=== PATIENT | male | born 1950 | race Caucasian/White ===

== ENCOUNTER → 2021-03-05 02:07 | Outpatient (CLI) | payer MEDICARE, SELFPAY ==
[2021-03-05 17:04] LABS: SARS-CoV-2 RNA PCR Negative
== END ==
PROVIDERS: PCP Internal Medicine; Visit Provider Internal Medicine Critical Care Medicine
DX: G47.33 Obstructive sleep apnea (adult) (pediatric) (principal); Z20.822 Contact with and (suspected) exposure to COVID-19
CPT/HCPCS: C9803; U0003; U0005

== ENCOUNTER 2021-03-07 07:58 | Outpatient (CLI) | payer MEDICARE, SELFPAY ==
--- NOTE | 2021-03-19 10:52 | WPDSLEEPSTUD ---
Sleep Study Date of Study: 03/07/21 Ordering Provider: Anup Espinoza MD Primary care physician is Dr. 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 No sleep questionnaire was completed so there is no specific information about his sleep history. His office visit with Dr. Cisneros shows that he has coronary artery disease syncope, dyslipidemia, and shortness of breath. [facility] Past Medical History Medical History (Updated 03/19/21 @ 11:16 by Erica Phillips MD) Coronary artery disease Dyslipidemia Obstructive sleep apnea Shortness of Breath Syncope Family History Family History (Updated 03/19/21 @ 11:02 by Erica Phillips MD) Father Diabetes mellitus Heart disease Hypertension Acute myocardial infarction sudden cardiac Cerebrovascular accident Mother Hypertension Cerebrovascular accident Social History Social History (Updated 03/19/21 @ 11:15 by Erica Phillips MD) Smoking status: Never smoker Medications Medications: Rosuvastatin 20 mg daily cetirizine pseudoephedrine 5 mg/120 mg q.12 hours sildenafil citrate 100 mg p.r.n. losartan potassium 50 mg 1 daily vitamin D 21948 units weekly aspirin 81 mg daily multivitamin 1 daily Flomax 0.4 mg daily finasteride 1 daily Sleep Procedure This test was performed using the Beepl multiple channel system including EOG, EEG, submental EMG, EKG, nasal and oral airflow using thermistors and nasal pressure sensors, chest and abdominal belts for body position data, and pulse oximetry. Video monitoring was also performed. The study was scored using CMS guidelines. The patient was started on CPAP using a medium Mcclendon FX nasal pillow and heated humidifier. CPAP was started at 5 cm with gradual titration to 7 cm to help the patient initiates sleep. Pressures attempted included 5 cm, 6 cm, 7 cm, 8 cm, 9 cm, 10 cm, decreased to 9 cm, 9 cm with 2 cm EPR, 9 cm with 1 cm EPR. The optimal pressure is 9 cm with 2 EPR, With 1 hour 18 minutes spent in bed at that pressure, 10 minutes in REM, 56 minutes in non-REM. The AHI was 0.1. Lowest saturation 90% with sleep efficiency 84% and supine REM. Sleep Architecture The recording time is 457.3 minutes. Sleep time is 176 minutes. Sleep efficiency is low 38.5%. Sleep latency is long 59.9 minutes. REM latency extremely prolonged to 162.5 minutes. They are 29 awakenings. The patient spent 55.7% of the study awake after sleep onset, 221 minutes. Sleep architecture showed 11.6% stage 1 sleep, 27.2% stage 2 sleep, absence of stage 3 sleep and 5.5% stage REM. The patient spent 29.8% of this study in the supine position. Sleep architecture was abnormal with prolonged sleep onset, and the patient was awake for 2/3 of the study. He had scattered small episodes of REM towards the end of the night. Respiratory Analysis The apnea-hypopnea index is 1.0. He had no events in supine REM. There were no events in nonsupine REM. In supine non-REM he had 2 obstructive hypopneas for an index of 1.2. In nonsupine non-REM he had 1 obstructive hypopnea for an index of 1.1. Supine index is 1, nonsupine index is 1. Arousals There were 102 arousals for an index of 13.4. There is 1 hypopnea causing arousal for an index of 0.1, 19 snores causing arousal for an index of 2.5, 31 spontaneous arousals for an index of 4.1 and 51 limb movements causing arousal for an index of 6.7. Periodic Limb Movements There are 268 limb isolated limb movements for an index of 91.4. The
[2021-03-19 11:19] VITALS: BMI 31.6
== END 2021-03-08 06:56 | disposition home or self-care (01) ==
LOC: ANHCSM 07:59
PROVIDERS: PCP Internal Medicine
DX: G47.33 Obstructive sleep apnea (adult) (pediatric) (principal)
CPT/HCPCS: 95811

== ENCOUNTER 2021-05-03 00:11 | Day surgery (SDC) | payer MEDICARE, SELFPAY ==
[2021-04-20 10:26] VITALS: BMI 31.6
[2021-05-03 06:24] VITALS: BP 137/73; PULSE 59; RESP 20; TEMP 36.4; O2SAT 98; BMI 29.7
[2021-05-03] MEDS: LACTATED RINGERS 1,000 ML 30 ML IV CONT (06:33)
--- NOTE | 2021-05-03 06:52 | WPDANESEPPF ---
Anes - Initial Pre Proc Eval Procedure: Operation Date: 05/03/21 07:30 Proposed Procedures p Screening Colonoscopy - Dhaval Cheney MD Date/Time: 05/03/21 06:52 Surgeon: Dhaval Cheney MD Pre Op Diagnosis: neoplasm screening Patient Data Age: 70 Gender: M Height: 1.78 m Weight: 94 kg Last Vital Signs Temp 36.4 C 05/03/21 06:24 Pulse 59 L 05/03/21 06:24 Resp 20 05/03/21 06:24 BP 137/73 05/03/21 06:24 Pulse Ox 98 05/03/21 06:24 Allergies Allergy/AdvReac Type Severity Reaction Status Date / Time oxytetracycline Allergy Mild Unknown Verified 05/03/21 06:22 OXYTETRACYCLINE HCL Allergy Mild Unknown Uncoded 05/03/21 06:22 Home Medications Medication Instructions Recorded Confirmed Type finasteride 5 mg PO DAILY 04/19/21 05/03/21 History fluticasone propionate 50 mcg INTRANASAL DAILY 04/19/21 05/03/21 History ipratropium bromide 42 mcg INTRANASAL DAILY 04/19/21 05/03/21 History loratadine 10 mg PO DAILY 04/19/21 05/03/21 History losartan 50 mg PO DAILY 04/19/21 05/03/21 History rosuvastatin 20 mg PO DAILY 04/19/21 05/03/21 History sildenafil 100 mg PO DAILY PRN 04/19/21 05/03/21 History tamsulosin 0.4 mg PO DAILY 04/19/21 05/03/21 History aspirin 81 mg PO DAILY 04/20/21 05/03/21 History cetirizine 10 mg PO DAILY 04/20/21 05/03/21 History bn-dk-BU-vit H-[id number]-[id number]-coQ10 200 cap PO DAILY 04/20/21 05/03/21 History [Daily Multivitamin] Patient hx anesthesia problems: none Family hx anesthesia problems: none PMFSH Past Medical History Medical History Coronary artery disease Dyslipidemia Obstructive sleep apnea Shortness of Breath Syncope Surgical History Surgical History (Updated 05/03/21 @ 06:52 by Tejas Malone MD) History of appendectomy History of shoulder surgery Hx of tonsillectomy Family History Family History Father Diabetes mellitus Heart disease Hypertension Acute myocardial infarction sudden cardiac Cerebrovascular accident Mother Hypertension Cerebrovascular accident Social History Social History Smoking status: Never smoker Alcohol intake: current Alcohol use details: RARELY Substance use: never Substance use type: does not use Living arrangements: with family Gender identity (if verbalized by the patient): Male Spiritual care concerns: No Anes - Eval Final PreProcedure Day of Procedure 05/03/21 06:52 Patient weight: overweight Heart: regular rate and rhythm Lungs: clear to auscultation Airway: Mallampati scale class II Neurological: alert and oriented Last oral intake: >/= 8 hours ASA classification: III Emergent: no Anesthetic plan: proceed Anesthesia type and monitoring: general GIVS and standard monitoring Informed Consent: The patient's anesthetic plan and its attendant risks and benefits were discussed with the patient/family/POA. Questions were solicited and answers provided to the satisfaction of the patient/family/POA.
--- NOTE | 2021-05-03 07:25 | PM.HPGS ---
History of Present Illness History of Present Illness Consent: Risks, benefits, and alternatives have been discussed and questions answered. Patient agrees to proceed with procedure. Chief complaint: neoplasm screening Narrative: Jonah Burgess is a 70 year old male referred for colon cancer screening. His last colonoscopy was 10 years ago Review of Systems Review of Systems: All systems reviewed & are unremarkable except as noted in HPI and below PMFSH Past Medical History Medical History Coronary artery disease Dyslipidemia Obstructive sleep apnea Shortness of Breath Syncope Surgical History Surgical History History of appendectomy History of shoulder surgery Hx of tonsillectomy Family History Family History Father Diabetes mellitus Heart disease Hypertension Acute myocardial infarction sudden cardiac Cerebrovascular accident Mother Hypertension Cerebrovascular accident Social History Social History Smoking status: Never smoker Alcohol intake: current Alcohol use details: RARELY Substance use: never Substance use type: does not use Living arrangements: with family Gender identity (if verbalized by the patient): Male Spiritual care concerns: No Meds Home Medications and Allergies Home Medications Medication Instructions Recorded Confirmed Type finasteride 5 mg PO DAILY 04/19/21 05/03/21 History fluticasone propionate 50 mcg INTRANASAL DAILY 04/19/21 05/03/21 History ipratropium bromide 42 mcg INTRANASAL DAILY 04/19/21 05/03/21 History loratadine 10 mg PO DAILY 04/19/21 05/03/21 History losartan 50 mg PO DAILY 04/19/21 05/03/21 History rosuvastatin 20 mg PO DAILY 04/19/21 05/03/21 History sildenafil 100 mg PO DAILY PRN 04/19/21 05/03/21 History tamsulosin 0.4 mg PO DAILY 04/19/21 05/03/21 History aspirin 81 mg PO DAILY 04/20/21 05/03/21 History cetirizine 10 mg PO DAILY 04/20/21 05/03/21 History aw-[id number]-SR-vit B-porbb-[id number]-coQ10 200 cap PO DAILY 04/20/21 05/03/21 History [Daily Multivitamin] Allergies Allergy/AdvReac Type Severity Reaction Status Date / Time oxytetracycline Allergy Mild Unknown Verified 05/03/21 06:22 OXYTETRACYCLINE HCL Allergy Mild Unknown Uncoded 05/03/21 06:22 Vital Signs Vital Signs - 24 hr 05/03/21 06:24 Temperature 36.4 C Pulse Rate 59 L Respiratory Rate 20 Blood Pressure 137/73 Pulse Oximetry 98 Exam Resp: Auscultation: clear to auscultation bilaterally Cardio: Rate: regular rate Rhythm: regular rhythm GI: GI Palp: Yes Soft to palpation and No Tenderness to palpation present (GI) Assessment and Plan Assessment and plan (1) Colon cancer screening: Code(s): Z12.11 - Encounter for screening for malignant neoplasm of colon Status: Acute
[2021-05-03 07:48] VITALS: BP 92/55; PULSE 54; RESP 14; O2SAT 98
[2021-05-03 07:58] VITALS: BP 111/68; PULSE 50; RESP 12; O2SAT 99
[2021-05-03 08:08] VITALS: BP 124/70; PULSE 54; RESP 22; O2SAT 100
== END 2021-05-03 08:18 | disposition home or self-care (01) ==
PROVIDERS: PCP Internal Medicine; Visit Provider Internal Medicine Gastroenterology
PROC: 0DJD8ZZ Inspection of Lower Intestinal Tract, Via Natural or Artificial Opening Endoscopic (ICD-10-PCS; CPT 45378; principal; 2021-05-03 07:30)
DX: Z12.11 Encounter for screening for malignant neoplasm of colon (principal); K57.30 Diverticulosis of large intestine without perforation or abscess without bleeding; I25.10 Atherosclerotic heart disease of native coronary artery without angina pectoris; E78.5 Hyperlipidemia, unspecified; G47.33 Obstructive sleep apnea (adult) (pediatric); Z79.82 Long term (current) use of aspirin
CPT/HCPCS: G0121; J7120

== ENCOUNTER 2024-09-08 07:41 | Outpatient (CLI) | payer MEDICARE, SELFPAY ==
--- NOTE | ~2024-09-08 | US_ITS ---
EXAMINATION: US renal BI DATE: 09/08/2024 08:12 INDICATION: Stage IIIa chronic kidney disease TECHNIQUE: Multiple ultrasound grayscale images of the kidneys were obtained. COMPARISON: None. FINDINGS: The right kidney measures 10.9 x 5.7 x 6.0 cm. The left kidney measures 10.1 x 6.1 x 5.9 cm. The kidn eys demonstrate normal echogenicity. There is no hydronephrosis in either kidney. No stones identifi ed. The bladder is normal. IMPRESSION: 1. Normal kidneys without hydronephrosis. Reviewed, dictated and finalized at location [facility]. [facility]
== END 2024-09-08 07:42 | disposition home or self-care (01) ==
PROVIDERS: PCP Internal Medicine; Visit Provider Internal Medicine Nephrology
DX: N18.31 Chronic kidney disease, stage 3a (principal)
CPT/HCPCS: 76775

== ENCOUNTER 2024-09-16 10:37 | Outpatient (CLI) | payer MEDICARE, SELFPAY ==
--- OUTSIDE RECORDS SUMMARY | 2024-09-16 10:46 | XMS_ITS ---
Author Organization [facility] [employer] Address [address] [place] [address] Care Team Providers Care Division Sergeant Name Role Phone Nigel CANTU, Lynn Primary Care Provider Un available Nico Ayon Unavailable [phone] Allergies Allergen (clinical drug ingredient) Drug/Non Drug Allergy documented on EMR Reaction Allergy Type Onset Date Status TERRAMYCIN (uncoded) Unknown Allergy Active REASON FOR VISIT 3 week f/u, phq less than 5, Dementia MIPS, Functional status reviewed Medications Medication SIG (Take, Route, Frequency, Duration) Notes Start Date End Date Status Aspirin 81 MG 1 tablet Orally Once a day Active Losartan Potassium 50 MG TAKE 1 TABLET BY MOUTH DAILY Oral for 90 Days Active Clopidogrel & Aspirin Active Tamsulosin HCl 0.4 MG TAKE 1 CAPSULE BY MOUTH DAILY AT BEDTIME Oral for 90 Days Active Rosuvastatin Calcium 20 MG TAKE 1 TABLET BY MOUTH EVERY DAY Oral for 90 Days Active Losartan Potassium 50 MG Oral Unknown Iron 325 (65 Fe) MG 1 tablet Orally Three times a Week Active diazePAM 5 MG Oral Unknow n Rosuvastatin Calcium 20 MG Oral Unknown Vitamin C 500 MG as directed Orally Active TADALAFIL 20 MG TABLET *Reorder from [employer]give for eRx and Interaction Alerts* Unknown Finasteride 5 MG Oral Unk nown Aspirin Low Dose 81 MG TAKE 1 TABLET BY MOUTH DAILY Oral for 90 Days Not-Taking Tamsulosin HCl 0.4 MG Oral Unknown Fluocinonide 0.05 % External Unknown busPIRone HCl 5 MG 1 tablet every evening Oral Once a day for 90 days Active Doxycycline Hyclate 100 MG Oral for 10 Days Not-Taking Escitalopram Oxalate 10 MG 1 tablet Orally Once a day for 90 days Active Clopidogrel Bisulfate 75 MG Oral for 90 Days Not-Taki ng Clopidogrel Bisulfate 75 MG TAKE 1 TABLET BY MOUTH DAILY Oral for 90 Days Not-Taking Amoxicillin-Pot Clavulanate 875-125 MG TAKE 1 TABLET BY MOUTH EVERY 12 HOURS Oral for 7 Days Not-Taking diazePAM 5 MG Oral for 2 Days Not-Taking Doxycycline Hyclate 100 MG Oral for 10 Days Not-Taking Fluocinonide 0.05 % External for 30 Days Not-Taking Tadalafil 20 MG TAKE 1 TABLET BY MOUTH ONCE DAILY NEEDED Oral for 30 Days Not-Taking Finasteride 5 MG TAKE 1 TABLET BY MOUTH DAILY Oral for 90 Days Active Fluocinonide 0.05 % APPLY TO SCALP EVERY DAY NEEDED External for 30 Days Not-Taking Social History Tobacco Use: Social History Observation Description Date Details (start date - stop date) Never Smoker NA - NA Sex Assigned At : Social History Observation Description Sex Assigned At Female Tobacco Control (Standard) Question Answer Notes Tobacco use: Nonsmoker AUDIT-C (Standard) Question Answer Notes Did you have a drink contain ing alcohol in the past year? Yes How often did you have a dri nk containing alcohol in the past year? Monthly or less (1 point) Vital Signs Blood pressure systolic 122 mm Hg 09/08/20 24 Blood pressure diastolic 73 mm Hg 024 Heart Rate 61 /min 09/08/2024 Height 70 in 09/08/2024 Weight 226 lbs 09/08/2024 BMI 32.42 kg/m2 09/08/2024 Height-cm 177.8 cm 09/08/2024 Weight-kg 102.51 kg 09/08/2024 Encounters Encounter Location Date Provider Diagnosis [facility] [address] [address] 09/08/2024 Nico Ayon LIANG (generalized anxiety disorder) F41.1 ; Major depressive disorder, recurrent, mild F33.0 ; Gastro-esophageal reflux disease without esophagitis K21.9 ; Benign prostatic hyperplasia with lower urinary tract symptoms N40.1 ; Obstructive sleep apnea (adult) (pediatric) G47.33 ; Hyperlipidemia, unspecified E78.5 and Essential (primary) hypertension I10 Assessments Encounter Date Diagnosis (ICD Code) Assessment Notes Treatment Notes Treatment Clinical Notes Section Notes 09/08/2024 LIANG (generalized anxiety disorder) (ICD-10 - F41.1) Mood Improvement with Citalopram - Assessment: Patient reports improvement in mood and better cooperation with his since starting citalopram. - Plan: - Continue citalopram, and change the dosage to 10 mg once daily in the morning after finishing the current bottle. - Prescribe a 90-day supply of citalopram 10 mg. Anxiety Management with Buspirone - Assessment: Patient reports that buspirone 5 mg has been helpful in managing anxiety. Patient currently takes buspirone in the morning only. - Plan: - Continue buspirone 5 mg twice daily. - Prescribe a 90-day supply of buspirone. Difficulty Scheduling Therapy Appointments - Assessment: Patient has not been able to schedule an appointment with a therapist due to scheduling conflicts. Therapist indicated availability only in late September or October, which patient found unacceptable. - Plan: - Encourage the patient to consider finding another therapist or discussing the possibility of medication management with their primary care physician. Follow-up Appointments - Assessment: Patient expresses a desire to reduce the frequency of appointments due to other commitments and family responsibilitie s. - Plan: - Schedule the next follow-up appointment in 3 months. - Inform the patient about the walk-in clinic option for urgent concerns, including the upstairs walk-in with the current provider or the downstairs general walk-in clinic. Coordination with Primary Care Physician - Plan: - If the patient decides not to continue seeing a psychiatrist, advise them to discuss medication management with their primary care physician to ensure continuity of care. - Emphasize the importance of not abruptly stopping medication to avoid symptom recurrence. 09/08/2024 Major depressive disorder, recurrent, mild (ICD-10 - F33.0) Mood Improvement with Citalopram - Assessment: Patient reports improvement in mood and better cooperation with his since starting citalopram. - Plan: - Continue citalopram, and change the dosage to 10 mg once daily in the morning after finishing the current bottle. - Prescribe a 90-day supply of citalopram 10 mg. Anxiety Management with Buspirone - Assessment: Patient reports that buspirone 5 mg has been helpful in managing anxiety. Patient currently takes buspirone in the morning only. - Plan: - Continue buspirone 5 mg twice daily. - Prescribe a 90-day supply of buspirone. Difficulty Scheduling Therapy Appointments - Assessment: Patient has not been able to schedule an appointment with a therapist due to scheduling conflicts. Therapist indicated availability only in late September or October, which patient found unacceptable. - Plan: - Encourage the patient to consider finding another therapist or discussing the possibility of medication management with their primary care physician. Follow-up Appointments - Assessment: Patient expresses a desire to reduce the frequency of appointments due to other commitments and family responsibilitie s. - Plan: - Schedule the next follow-up appointment in 3 months. - Inform the patient about the walk-in clinic option for urgent concerns, including the upstairs walk-in with the current provider or the [facility]. Coordination with Primary Care Physician - Plan: - If the patient decides not to continue seeing a psychiatrist, advise them to discuss medication management with their primary care physician to ensure continuity of care. - Emphasize the importance of not abruptly stopping medication to avoid symptom recurrence. 09/08/2024 Gastro-esophagea l reflux disease without esophagitis (ICD-10 - K21.9) Mood Improvement with Citalopram - Assessment: Patient reports improvement in mood and better cooperation with his since starting citalopram. - Plan: - Continue citalopram, and change the dosage to 10 mg once daily in the morning after finishing the current bottle. - Prescribe a 90-day supply of citalopram 10 mg. Anxiety Management with Buspirone - Assessment: Patient reports that buspirone 5 mg has been helpful in managing anxiety. Patient currently takes buspirone in the morning only. - Plan: - Continue buspirone 5 mg twice daily. - Prescribe a 90-day supply of buspirone. Difficulty Scheduling Therapy Appointments - Assessment: Patient has not been able to schedule an appointment with a therapist due to scheduling conflicts. Therapist indicated availability only in late September or October, which patient found unacceptable. - Plan: - Encourage the patient to consider finding another therapist or discussing the possibility of medication management with their primary care physician. Follow-up Appointments - Assessment: Patient expresses a desire to reduce the frequency of appointments due to other commitments and family responsibilitie s. - Plan: - Schedule the next follow-up appointment in 3 months. - Inform the patient about the walk-in clinic option for urgent concerns, including the upstairs walk-in with the current provider or the [facility] walk-[facility] clinic. Coordination with Primary Care Physician - Plan: - If the patient decides not to continue seeing a psychiatrist, advise them to discuss medication management with their primary care physician to ensure continuity of care. - Emphasize the importance of not abruptly stopping medication to avoid symptom recurrence. 09/08/2024 Benign prostatic hyperplasia with lower urinary tract symptoms (ICD-10 - N40.1) Mood Improvement with Citalopram - Assessment: Patient reports improvement in mood and better cooperation with his since starting citalopram. - Plan: - Continue citalopram, and change the dosage to 10 mg once daily in the morning after finishing the current bottle. - Prescribe a 90-day supply of citalopram 10 mg. Anxiety Management with Buspirone - Assessment: Patient reports that buspirone 5 mg has been helpful in managing anxiety. Patient currently takes buspirone in the morning only. - Plan: - Continue buspirone 5 mg twice daily. - Prescribe a 90-day supply of buspirone. Difficulty Scheduling Therapy Appointments - Assessment: Patient has not been able to schedule an appointment with a therapist due to scheduling conflicts. Therapist indicated availability only in late September or October, which patient found unacceptable. - Plan: - Encourage the patient to consider finding another therapist or discussing the possibility of medication management with their primary care physician. Follow-up Appointments - Assessment: Patient expresses a desire to reduce the frequency of appointments due to other commitments and family responsibilitie s. - Plan: - Schedule the next follow-up appointment in 3 months. - Inform the patient about the walk-in clinic option for urgent concerns, including the upstairs walk-in with the current provider or the downstairs general walk-in clinic. Coordination with Primary Care Physician - Plan: - If the patient decides not to continue seeing a psychiatrist, advise them to discuss medication management with their primary care physician to ensure continuity of care. - Emphasize the importance of not abruptly stopping medication to avoid symptom recurrence. 09/08/2024 Obstructive sleep apnea (adult) (pediatric) (ICD-10 - G47.33) Mood Improvement with Citalopram - Assessment: Patient reports improvement in mood and better cooperation with his since starting citalopram. - Plan: - Continue citalopram, and change the dosage to 10 mg once daily in the morning after finishing the current bottle. - Prescribe a 90-day supply of citalopram 10 mg. Anxiety Management with Buspirone - Assessment: Patient reports that buspirone 5 mg has been helpful in managing anxiety. Patient currently takes buspirone in the morning only. - Plan: - Continue buspirone 5 mg twice daily. - Prescribe a 90-day supply of buspirone. Difficulty Scheduling Therapy Appointments - Assessment: Patient has not been able to schedule an appointment with a therapist due to scheduling conflicts. Therapist indicated availability only in late September or October, which patient found unacceptable. - Plan: - Encourage the patient to consider finding another therapist or discussing the possibility of medication management with their primary care physician. Follow-up Appointments - Assessment: Patient expresses a desire to reduce the frequency of appointments due to other commitments and family responsibilitie s. - Plan: - Schedule the next follow-up appointment in 3 months. - Inform the patient about the walk-in clinic option for urgent concerns, including the upstairs walk-in with the current provider or the downstairs general walk-in clinic. Coordination with Primary Care Physician - Plan: - If the patient decides not to continue seeing a psychiatrist, advise them to discuss medication management with their primary care physician to ensure continuity of care. - Emphasize the importance of not abruptly stopping medication to avoid symptom recurrence. 09/08/2024 Hyperlipidemia, unspecified (ICD-10 - E78.5) Mood Improvement with Citalopram - Assessment: Patient reports improvement in mood and better cooperation with his since starting citalopram. - Plan: - Continue citalopram, and change the dosage to 10 mg once daily in the morning after finishing the current bottle. - Prescribe a 90-day supply of citalopram 10 mg. Anxiety Management with Buspirone - Assessment: Patient reports that buspirone 5 mg has been helpful in managing anxiety. Patient currently takes buspirone in the morning only. - Plan: - Continue buspirone 5 mg twice daily. - Prescribe a 90-day supply of buspirone. Difficulty Scheduling Therapy Appointments - Assessment: Patient has not been able to schedule an appointment with a therapist due to scheduling conflicts. Therapist indicated availability only in late September or October, which patient found unacceptable. - Plan: - Encourage the patient to consider finding another therapist or discussing the possibility of medication management with their primary care physician. Follow-up Appointments - Assessment: Patient expresses a desire to reduce the frequency of appointments due to other commitments and family responsibilitie s. - Plan: - Schedule the next follow-up appointment in 3 months. - Inform the patient about the walk-in clinic option for urgent concerns, including the upstairs walk-in with the current provider or the [facility] walk[facility] clinic. Coordination with Primary Care Physician - Plan: - If the patient decides not to continue seeing a psychiatrist, advise them to discuss medication management with their primary care physician to ensure continuity of care. - Emphasize the importance of not abruptly stopping medication to avoid symptom recurrence. 09/08/2024 Essential (primary) hypertension (ICD-10 - I10) Mood Improvement with Citalopram - Assessment: Patient reports improvement in mood and better cooperation with his since starting citalopram. - Plan: - Continue citalopram, and change the dosage to 10 mg once daily in the morning after finishing the current bottle. - Prescribe a 90-day supply of citalopram 10 mg. Anxiety Management with Buspirone - Assessment: Patient reports that buspirone 5 mg has been helpful in managing anxiety. Patient currently takes buspirone in the morning only. - Plan: - Continue buspirone 5 mg twice daily. - Prescribe a 90-day supply of buspirone. Difficulty Scheduling Therapy Appointments - Assessment: Patient has not been able to schedule an appointment with a therapist due to scheduling conflicts. Therapist indicated availability only in late September or October, which patient found unacceptable. - Plan: - Encourage the patient to consider finding another therapist or discussing the possibility of medication management with their primary care physician. Follow-up Appointments - Assessment: Patient expresses a desire to reduce the frequency of appointments due to other commitments and family responsibilitie s. - Plan: - Schedule the next follow-up appointment in 3 months. - Inform the patient about the walk-in clinic option for urgent concerns, including the upstairs walk-in with the current provider or the [facility] walk[facility] clinic. Coordination with Primary Care Physician - Plan: - If the patient decides not to continue seeing a psychiatrist, advise them to discuss medication management with their primary care physician to ensure continuity of care. - Emphasize the importance of not abruptly stopping medication to avoid symptom recurrence. 09/08/2024 Other referral to the local chapter or national office of the Alzheimer's Association ( ; http://www.alz. org), the Alzheimer's Disease Education and Referral Center (ADEOK) ( ; http://www.colt. nih.gov/Alzheim ers/), referral to the local chapter or national office of the Alzheimer's Association ( ; http://www.alz. org), the Alzheimer's Disease Education and Referral Center (ADEOK) ( ; http://www.colt. nih.gov/Alzheim ers/), Mood Improvement with Citalopram - Assessment: Patient reports improvement in mood and better cooperation with his since starting citalopram. - Plan: - Continue citalopram, and change the dosage to 10 mg once daily in the morning after finishing the current bottle. - Prescribe a 90-day supply of citalopram 10 mg. Anxiety Management with Buspirone - Assessment: Patient reports that buspirone 5 mg has been helpful in managing anxiety. Patient currently takes buspirone in the morning only. - Plan: - Continue buspirone 5 mg twice daily. - Prescribe a 90-day supply of buspirone. Difficulty Scheduling Therapy Appointments - Assessment: Patient has not been able to schedule an appointment with a therapist due to scheduling conflicts. Therapist indicated availability only in late September or October, which patient found unacceptable. - Plan: - Encourage the patient to consider finding another therapist or discussing the possibility of medication management with their primary care physician. Follow-up Appointments - Assessment: Patient expresses a desire to reduce the frequency of appointments due to other commitments and family responsibilitie s. - Plan: - Schedule the next follow-up appointment in 3 months. - Inform the patient about the walk-in clinic option for urgent concerns, including the upstairs walk-in with the current provider or the downstairs general walk-in clinic. Coordination with Primary Care Physician - Plan: - If the patient decides not to continue seeing a psychiatrist, advise them to discuss medication management with their primary care physician to ensure continuity of care. - Emphasize the importance of not abruptly stopping medication to avoid symptom recurrence. Plan Of Treatment Medication Medication Name Sig Start Date Stop Date Notes busPIRone HCl 5 MG 1 tablet every eveni ng Oral Once a day for 90 days Escitalopram Oxalate 10 MG 1 tablet Oral ly Once a day for 90 days Treatment Notes Assessment Notes Other referral to the local [facility] or national office of the Alzheimer's Association ( ; http://www.alz.org), the Alzheimer's Disease Education and Referral Center (ADEOK) ( ; http://www.colt.nih.gov/Alzheimers/), referral to the local [facility] or national office of the Alzheimer's Association ( ; http://www.alz.org), the Alzheimer's Disease Education and Referral Center (ADEOK) ( ; http://www.colt.nih.gov/Alzheimers/), Next Appt Details Follow Up: 3 Months, Reason: Provider Name:Nico Ayno , 12/06/2024 10:00:00 AM, [address] [place] [address] [address], [address], [address], Progress Notes * CHRISATL FOSTER RDOB: [birth year] (73 yo M)Acc No.[id number]:09/08/2024 Patient:?CHRISTAL FOSTER Provider:?NICO AYON MD :1950???Age:73 Y???Sex:Male Beau e:09/08/2024 Address:[address] [place], [place] [id number] Pcp:Lynn Manning MD Subjective: * Chief Complaints: * ???3 week f/uPhq less than 5 Dementia MIPSFunctional status reviewed * HPI: ???Depression Screening:? The note is transcribed using speech recognition software. It is a reflection of a visit with the patient. It might have some inaccuracy, including medication names and transcribing errors, though efforts have been made to correct them. Chief Complaint: Mood control and medication management Mood Improvement: The patient reports improvement in mood control over the last month with the use of citalopram. His has noticed a positive change in their relationship. The patient feels the medication has been helpful and states, Maybe it's just in my mind, but like I said, I am trying harder and it just seems like it is helping some. Therapy Status: The patient has not been able to see a therapist as initially planned. After contacting the therapist's office, he was informed that the earliest appointment would be in late September or October. The patient decided not to pursue therapy. Medications: - Buspirone 5 mg for anxiety, taken in the morning - Citalopram, taken in the morning and evening The patient reports that buspirone has been helpful for anxiety. He scheduled an earlier appointment to avoid running out of medications. Family Situation: The patient is dealing with family issues, including his 90-year-old bkxchf-cs-ryd's rehabilitation and living situation arrangements. Appointment Frequency: The patient expresses a desire to reduce the frequency of his visits to the clinic, stating, I don't intend to come back every month. He is open to the possibility of seeing his medical doctor for medication management if necessary. Future Plans: Initially, the patient expressed a desire to discontinue his visits to the clinic, stating, As far as I'm concerned, this is my last appointment. However, he remains open to the possibility of future medical management if needed. ?LIANG-7 (2018 Edition)?Feeling nervous, anxious, or on edge?Not at all,?Not being able to stop or control worrying?Not at all,?Worrying too much about different things?Not at all,?Trouble relaxing?Not at all,?Being so restless that it is hard to sit still?Not at all,?Becoming easily annoyed or irritable?Several days,?Feeling afraid as if something awful might happen?Not at all,?Total LIANG-7 Score?1,?Interpretation of Total?(0 to 4) No Anxiety.?[place]-Suicide Severity Rating Scale:?Suicide Risk (CSRS-screener)?in the past one month Have you wished you were or wished you could go to sleep and not wake up??No.?Depression screening:?PHQ-9?Little interest or pleasure in doing things?Not at all,?Feeling down, depressed, or hopeless?Not at all,?Trouble falling or staying asleep, or sleeping too much?Not at all,?Feeling tired or having little energy?Not at all,?Poor appetite or overeating?Not at all,?Feeling bad about yourself or that you are a failure, or have let yourself or your family down?Not at all,?Trouble concentrating on things, such as reading the newspaper or watching television?Not at all,?Moving or speaking so slowly that other people could have noticed; or the opposite, being so fidgety or restless that you have been moving around a lot more than usual?Not at all,?Thoughts that you would be better off or of hurting yourself in some way?Not at all,?Total Score?0.?Intervention?Depression Screening Findings?Negative,?Suicide Risk Assessment Performed? .? * Medical History:? * Surgical History:? * Hospitalization/Major Diagno stic Procedure:? * Social History:?Tobacco Use:?Tobacco Control (Standard)?Tobacco use:?Nonsmoker.?Migrated Social History:?Migrated Social History: Tobacco Years: Never smoker 12/11/2023. ???Drug/Alcohol:?AUDIT-C (Standard)?Did you have a drink containing alcohol in the past year??Yes,?How often did you have a drink containing alcohol in the past year??Monthly or less (1 point).?Miscellaneous:?Advance Care Planning?Are you your own decision-maker?Yes,?Do you have Power of Antique Dealer for Health or Medical??Yes,?Do you have a power of emergency veterinary assistant for health??Yes,?Do you have power of emergency veterinary assistant for Medical ??Yes,?If yes, then please bring the A paperwork so that we can upload it.?Yes.?Social History:?Household?Marital Status:?.? * Medications:?TakingVitamin C 500 MG Capsule as directed Orally Iron 325 (65 Fe) MG Tablet 1 tablet Orally Three times a Week Aspirin 81 MG Tablet Chewable 1 tablet Orally Once a day Clopidogrel & Aspirin Losartan Potassium 50 MG Tablet TAKE 1 TABLET BY MOUTH DAILY Oral Tamsulosin HCl 0.4 MG Capsule TAKE 1 CAPSULE BY MOUTH DAILY AT BEDTIME Oral Rosuvastatin Calcium 20 MG Tablet TAKE 1 TABLET BY MOUTH EVERY DAY Oral Finasteride 5 MG Tablet TAKE 1 TABLET BY MOUTH DAILY Oral Escitalopram Oxalate 10 MG Tablet 1 tablet Orally Once a day , Notes: will run out on 09/21/24busPIRone HCl 5 MG Tablet 1 tablet every evening Oral Once a day Taking Vitamin C 500 MG Capsule as directed Orally Taking Iron 325 (65 Fe) MG Tablet 1 tablet Orally Three times a Week Taking Aspirin 81 MG Tablet Chewable 1 tablet Orally Once a day Taking Clopidogrel & Aspirin Taking Losartan Potassium 50 MG Tablet TAKE 1 TABLET BY MOUTH DAILY Oral Taking Tamsulosin HCl 0.4 MG Capsule TAKE 1 CAPSULE BY MOUTH DAILY AT BEDTIME Oral Taking Rosuvastatin Calcium 20 MG Tablet TAKE 1 TABLET BY MOUTH EVERY DAY Oral Taking Finasteride 5 MG Tablet TAKE 1 TABLET BY MOUTH DAILY Oral Taking Escitalopram Oxalate 10 MG Tablet 1 tablet Orally Once a day , Notes: will run out on 09/21/24Taking busPIRone HCl 5 MG Tablet 1 tablet every evening Oral Once a day Not-TakingFluocinonide 0.05 % Solution APPLY TO SCALP EVERY DAY NEEDED External Tadalafil 20 MG Tablet TAKE 1 TABLET BY MOUTH ONCE DAILY NEEDED Oral diazePAM 5 MG Tablet Oral Amoxicillin-Pot Clavulanate 875-125 MG Tablet TAKE 1 TABLET BY MOUTH EVERY 12 HOURS Oral Fluocinonide 0.05 % Solution External Doxycycline Hyclate 100 MG Tablet Oral Doxycycline Hyclate 100 MG Tablet Oral Clopidogrel Bisulfate 75 MG Tablet TAKE 1 TABLET BY MOUTH DAILY Oral Clopidogrel Bisulfate 75 MG Tablet Oral Aspirin Low Dose 81 MG Tablet Delayed Release TAKE 1 TABLET BY MOUTH DAILY Oral Not-Taking Fluocinonide 0.05 % Solution APPLY TO SCALP EVERY DAY NEEDED External Not- Taking Tadalafil 20 MG Tablet TAKE 1 TABLET BY MOUTH ONCE DAILY NEEDED Oral Not- Taking diazePAM 5 MG Tablet Oral Not-Taking Amoxicillin-Pot Clavulanate 875-125 MG Tablet TAKE 1 TABLET BY MOUTH EVERY 12 HOURS Oral Not-Taking Fluocinonide 0.05 % Solution External Not-Taking Doxycycline Hyclate 100 MG Tablet Oral Not-Taking Doxycycline Hyclate 100 MG Tablet Oral Not-Taking Clopidogrel Bisulfate 75 MG Tablet TAKE 1 TABLET BY MOUTH DAILY Oral Not-Taking Clopidogrel Bisulfate 75 MG Tablet Oral Not-Taking Aspirin Low Dose 81 MG Tablet Delayed Release TAKE 1 TABLET BY MOUTH DAILY Oral UnknownFinasteride 5 MG Tablet Oral Fluocinonide 0.05 % Solution External Tamsulosin HCl 0.4 MG Capsule Oral TADALAFIL 20 MG TABLET , Notes to Pharmacist: *Reorder from [facility] for eRx and Interaction Alerts*Losartan Potassium 50 MG Tablet Oral diazePAM 5 MG Tablet Oral Rosuvastatin Calcium 20 MG Tablet Oral Medication List reviewed and reconciled with the patientUnknown Finasteride 5 MG Tablet Oral Unknown Fluocinonide 0.05 % Solution External Unknown Tamsulosin HCl 0.4 MG Capsule Oral Unknown TADALAFIL 20 MG TABLET , Notes to Pharmacist: *Reorder from [facility] for eRx and Interaction Alerts*Unknown Losartan Potassium 50 MG Tablet Oral Unknown diazePAM 5 MG Tablet Oral Unknown Rosuvastatin Calcium 20 MG Tablet Oral Medication List reviewed and reconciled with the patient * Allergies:?TERRAMYCIN: Aller gyno[Allergies Verified] Objective: * Vitals:?BP:122/73mm Hg, HR:6 1/min, Wt:226lbs, Wt-k.51 kg, Ht: 70 in, Ht- cm: 177.8 cm, BMI:32.42Index, Body Surface Area: 2.25. * Examination: ???General Examination: ???Mental Status Examination: Patient reports an improvement in mood and enhanced cooperation in relationships, attributing these changes to the use of citalopram. However, the patient expresses frustration and has decided to discontinue therapy appointments due to scheduling difficulties. Additionally, the patient indicates a desire to not continue with regular psychiatric visits, citing personal and family responsibilities as the main reasons. Despite these challenges, the patient demonstrates improved insight into the benefits of medication and shows willingness to continue treatment, albeit with less frequent visits. Medications: The patient is currently taking citalopram, with a dosage of 5 mg twice daily, which is planned to be adjusted to 10 mg once daily in the morning. Additionally, the patient is on buspirone, taking 5 mg once daily in the morning. Vital Signs: N/A Physical Examination: N/A Diagnostic Test Results and Labs: N/A. ???Functional Assessment: ?Mcmillan Index of ADL?.?Physical Functioning?.?1 point for independence, 0 for help1 point for independence, 0 for help. ???Psychiatry: ?Dementia?.? Assessment: * Assessment: 1.?LIANG (generalized anxiety disorder) - F41.1 (Primary)???2.?Major depressive disorder, recurrent, mild - F33.0???3.?Gastro-esophageal reflux disease without esophagitis - K21.9???4.?Benign prostatic hyperplasia with lower urinary tract symptoms - N40.1???5.?Obstructive sleep apnea (adult) (pediatric) - G47.33???6.?Hyperlipidemia, unspecified - E78.5???7.?Essential (primary) hypertension - I10??? Mood Improvement with Citalo pram - Assessment: Patient reports improvement in mood and better cooperation with his since starting citalopram. - Plan: - Continue citalopram, and change the dosage to 10 mg once daily in the morning after finishing the current bottle. - Prescribe a 90-day supply of citalopram 10 mg. Anxiety Management with Buspirone - Assessment: Patient reports that buspirone 5 mg has been helpful in managing anxiety. Patient currently takes buspirone in the morning only. - Plan: - Continue buspirone 5 mg twice daily. - Prescribe a 90-day supply of buspirone. Difficulty Scheduling Therapy Appointments - Assessment: Patient has not been able to schedule an appointment with a therapist due to scheduling conflicts. Therapist indicated availability only in late September or October, which patient found unacceptable. - Plan: - Encourage the patient to consider finding another therapist or discussing the possibility of medication management with their primary care physician. Follow-up Appointments - Assessment: Patient expresses a desire to reduce the frequency of appointments due to other commitments and family responsibilities. - Plan: - Schedule the next follow-up appointment in 3 months. - Inform the patient about the walk-in clinic option for urgent concerns, including the upstairs walk-in with the current provider or the downstairs general walk-in clinic. Coordination with Primary Care Physician - Plan: - If the patient decides not to continue seeing a psychiatrist, advise them to discuss medication management with their primary care physician to ensure continuity of care. - Emphasize the importance of not abruptly stopping medication to avoid symptom recurrence. Plan: * Treatment: 2.?Others? Notes: referral to the [facility] office of the Alzheimer's Association ( ;http://www.alz.org), the [facility] ([facility]) ( ;http://www.colt.nih.gov/Alz peggy/), referral to the [facility] office of the Alzheimer's Association ( ;http://www.alz.org), the [facility] Education and Referral Center ([facility]) ( ;http://www.colt.nih.gov/Alz peggy/), ?? * Procedure Codes:?70904 BEHAV ASSMT W/SCORE & DOCD/STAND INSTRUMENT * Follow Up:?3 Months * Billing Information: * Visit Code:? 61553 OFFICE OUTPATIENT VISIT 25 MINUTES DETAILED HISTORY AND EXAM/MODERATE MEDICAL DECISION MAKING. * Procedure Codes:? 85140 BEHAV ASSMT W/SCORE & DOCD/STAND INSTRUMENT. 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 History and Physical Notes * HPI (History of Present Illness) Category Sub-Category Detail Notes Category Not es Depression screening PHQ-9 Little inte rest or pleasure in doing things: Not at all Feeling down, depressed, or hopeless: No t at all Trouble falling or staying asleep, or sl eeping too much: Not at all Feeling tired or having little energy: N ot at all Poor appetite or overeating: Not at all Feeling bad about yourself o r that you are a failure, or have let yourself or your family down: Not at all Trouble concentrating on thi ngs, such as reading the newspaper or watching television: Not at all Moving or speaking so slowly that other people could have noticed; or the opposite, being so fidgety or restless that you have been moving around a lot more than usual: Not at all Thoughts that you would be b alf off or of hurting yourself in some way: Not at all Total Score: 0 Intervention Depression Screening Findings: N egative Suicide Risk Assessment Performed: ____ Depression Screening LIANG-7 (2018 Edition) Feelin g nervous, anxious, or on edge: Not at all Not being able to stop or control worryi ng: Not at all Worrying too much about different things : Not at all Trouble relaxing: Not at all Being so restless that it is hard to sit still: Not at all Becoming easily annoyed or irritable: Feeling afraid as if something awful doretha ht happen: Not at all Total LIANG-7 Score: 1 Interpretation of Total: (0 to 4) No Anx iety [place]-Suicide Severity Rating Scale Suicide Risk (CSRS-screener) in the past one month Have you wished you were or wished you could go to sleep and not wake up?: No Examination Category Sub-Category Detail Notes Category Not es Psychiatry Dementia Safety concern s creening for dangerousness to self and environment risks provided:: Yes ?What action was taken to mitigate the r isk?: Education provided ?Topics discussed for enviro nmental risks:: Home safety risks that could arise from cooking or smoking, Access to firearms or other weapons, Access to potentially dangerous chemicals and other materials ?Topics discussed for danger ousness to self:: Medication misuse, Financial mismanagement ?Safety concern mitigation recommendatio n provided:: Not required ?Screening Result:: Negative Caregiver education and support provided : Yes General Examination Mental Status Examination: Patient reports an improvement in mood and enhanced cooperation in relationships, attributing these changes to the use of citalopram. However, the patient expresses frustration and has decided to discontinue therapy appointments due to scheduling difficulties. Additionally, the patient indicates a desire to not continue with regular psychiatric visits, citing personal and family responsibilities as the main reasons. Despite these challenges, the patient demonstrates improved insight into the benefits of medication and shows willingness to continue treatment, albeit with less frequent visits. Medications: The patient is currently taking citalopram, with a dosage of 5 mg twice daily, which is planned to be adjusted to 10 mg once daily in the morning. Additionally, the patient is on buspirone, taking 5 mg once daily in the morning. Vital Signs: N/A Physical Examination: N/A Diagnostic Test Results and Labs: N/A Functional Assessment Mcmillan Index of ADL Score:: 6 1 point for independence, 0 for help 1 point for independence, 0 for help 1 point for independence, 0 for help Physical Functioning Personal hygiene: i ncluding combing hair, brushing teeth, shaving, applying makeup, washing/drying face and hands (exclude baths and showers): Independent Bathing: how client takes fu ll-body bath/shower or sponge bath (exclude washing of back and hair). Includes how each part of body is bathed: arms, upper and lower legs, chest, abdomen, perineal area. (code for most dependent episode in last 7 days): Independent Dressing upper body: how cli ent dresses and undresses (street clothes, underwear) above the waist, includes prostheses, orthotics, fasteners, pullovers, etc.: Independent Eating - Including taking in food by any method, including tube feedings: Independent Toilet use: including using the toilet room or commode, bedpan, urinal, transferring on/off toilet, cleaning self after toilet use or incontinent episode, changing pad, managing any special devices required (ostomy or catheter), and adjusting clothes.: Independent Transfer: including moving t o and between surfaces--to/from bed, chair, wheelchair, standing position (excludes to/from bath/toilet): Independent Continence:: Independent (1)
--- OUTSIDE RECORDS SUMMARY | 2024-09-16 10:47 | XMS_ITS ---
Author Organization [facility] [id number] 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 [address] [facility] [address] [place] [address] 07/23/2024 Nico Marroquin LIANG (generalized anxiety disorder) F41.1 Assessments Encounter Date Diagnosis (ICD Code) Assessment Notes Treatment Notes Treatment Clinical Notes Section Notes 07/23/2024 LIANG (generalized anxiety disorder) (ICD-10 - F41.1) Plan Of Treatment Medication Medication Name Sig Start Date Stop Date Notes Escitalopram Oxalate 5 MG 1 tablet Orall y Once a day for 90 days 07/22/2024 Next Appt Details Provider Name:Nico Marroquin , 12/06/2024 10:00:00 AM, [address], [facility] [address], [place], [address], Progress Notes * CHRISTAL FOSTER RDOB: [birth year] (73 yo M)Acc No.[id number]:07/23/2024 Patient:?CHRISTAL FOSTRE :1950???Age:73 Y???Sex:Male Address:[address] [place] [address], [address] * Refills? Refill Escitalopram Oxalate Tablet, 5 MG, Orally, 90 Tablet, 1 tablet, Once a day, 90 days Subjective: * Chief Complaints: * ???Escitalopram * Medical History:? * Surgical History:? * Hospitalization/Major Diagno stic Procedure:? * Medications:? Objective: * Vitals:? * Physical Examination:? Assessment: * Assessment: 1.?LIANG (generalized anxiety disorder) - F41.1??? Plan: * Treatment: * Procedure Codes:? * true * Date:? 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
--- OUTSIDE RECORDS SUMMARY | 2024-09-16 10:47 | XMS_ITS ---
Author Organization [facility] [employer] Address [address] [place] [address] Care Team Providers Care Psychiatry Adult Physician Name Role Phone Nigel CANTU, Lynn Primary Care Provider Un available Nico Ayon Unavailable [phone] Allergies Allergen (clinical drug ingredient) Drug/Non Drug Allergy documented on EMR Reaction Allergy Type Onset Date Status TERRAMYCIN (uncoded) Unknown Allergy Active REASON FOR VISIT 1 Follow up, phq less than 5, MIPS with Diagnosis of HTN Medications Medication SIG (Take, Route, Frequency, Duration) Notes Start Date End Date Status Vitamin C 500 MG as directed Orally Active TADALAFIL 20 MG TABLET *Reorder from [employer] for eRx and Interaction Alerts* Unknown diazePAM 5 MG Oral Unknow n Losartan Potassium 50 MG Oral Unknown Rosuvastatin Calcium 20 MG Oral Unknown Finasteride 5 MG Oral Unk nown Aspirin Low Dose 81 MG TAKE 1 TABLET BY MOUTH DAILY Oral for 90 Days Not-Taking Fluocinonide 0.05 % External Unknown busPIRone HCl 5 MG 1 tablet every evening Oral Once a day for 30 days Active Tamsulosin HCl 0.4 MG Oral Unknown Escitalopram Oxalate 10 MG 1 tablet Orally Once a day for 90 days Active Doxycycline Hyclate 100 MG Oral for 10 Days Not-Taking Doxycycline Hyclate 100 MG Oral for 10 Days Not-Taking Clopidogrel Bisulfate 75 MG Oral for 90 Days Not-Taki ng Clopidogrel Bisulfate 75 MG TAKE 1 TABLET BY MOUTH DAILY Oral for 90 Days Not-Taking Tadalafil 20 MG TAKE 1 TABLET BY MOUTH ONCE DAILY NEEDED Oral for 30 Days Not-Taking Fluocinonide 0.05 % APPLY TO SCALP EVERY DAY NEEDED External for 30 Days Not-Taking diazePAM 5 MG Oral for 2 Days Not-Taking Fluocinonide 0.05 % External for 30 Days Not-Taking Amoxicillin-Pot Clavulanate 875-125 MG TAKE 1 TABLET BY MOUTH EVERY 12 HOURS Oral for 7 Days Not-Taking Losartan Potassium 50 MG TAKE 1 TABLET BY MOUTH DAILY Oral for 90 Days Active Rosuvastatin Calcium 20 MG TAKE 1 TABLET BY MOUTH EVERY DAY Oral for 90 Days Active Tamsulosin HCl 0.4 MG TAKE 1 CAPSULE BY MOUTH DAILY AT BEDTIME Oral for 90 Days Active Finasteride 5 MG TAKE 1 TABLET BY MOUTH DAILY Oral for 90 Days Active Iron 325 (65 Fe) MG 1 tablet Orally Three times a Week Active Aspirin 81 MG 1 tablet Orally Once a day Active Clopidogrel & Aspirin Active Social History Tobacco Use: Social History Observation [...] (1 point) Vital Signs Blood pressure systolic 140 mm Hg 08/20/20 24 Blood pressure diastolic 84 mm Hg 024 Heart Rate 56 /min 08/20/2024 Height 70 in 08/20/2024 Weight 239 lbs 08/20/2024 BMI 34.29 kg/m2 08/20/2024 Height-cm 177.8 cm 08/20/2024 Weight-kg 108.41 kg 08/20/2024 [facility]counters [facility] [address] [address] 08/20/2024 Nico Ayon LIANG (generalized anxiety disorder) F41.1 ; Major depressive disorder, recurrent, mild F33.0 ; Gastro-esophageal reflux disease without esophagitis K21.9 ; Benign prostatic hyperplasia with lower urinary tract symptoms N40.1 ; Obstructive sleep apnea (adult) (pediatric) G47.33 ; Hyperlipidemia, unspecified E78.5 and Essential (primary) hypertension I10 Assessments Encounter Date Diagnosis (ICD Code) Assessment Notes Treatment Notes Treatment Clinical Notes Section Notes 08/20/2024 LIANG (generalized anxiety disorder) (ICD-10 - F41.1) Jealousy and Controlling Behavior - Assessment: Patient reports some improvement in controlling behavior over the past month. Christal still experiences jealousy when interacts with other men. - Plan: - Continue with current therapy sessions. - Encourage open communication with spouse. - Monitor progress in future visits. Anxiety and Depression - Assessment: Christal reports feeling a little bit more relaxed with current medication. - Plan: - Increase escitalopram dose to 10 mg daily (2 tablets in the morning). - Continue buspirone 5 mg daily. - Reassess in 3 weeks for medication effectiveness. - Encourage Christal to use the clinic's alonzo for communication. Insecurity Issues - Assessment: Christal acknowledges insecurity as a root cause of jealousy. - Plan: - Address in therapy sessions. - Encourage Christal to engage in activities that boost self-esteem and confidence. Medication Management - Plan: - Prescribe the following medications: - Buspirone 5 mg daily - Escitalopram 10 mg daily (increase from previous dose) - Citalopram (discontinue) - Erythropoietin (as needed) - Schedule a follow-up appointment in 3 weeks to monitor medication effectiveness and side effects. - Adjust escitalopram to morning only. Therapy Appointment - Assessment: Previous attempt to schedule therapy was unsuccessful; Christal reports not being contacted. - Plan: - Coordinate with the ground defence officer to schedule an appointment with Cb. - Instruct Christal to contact the clinic if they do not hear about the therapy appointment by next Friday. Patient Education - Assessment: Christal expresses difficulty with using smartphone apps. - Plan: - Encourage Christal to download and use the clinic's alonzo for communication and appointment scheduling. - Provide assistance with using the alonzo if needed. 08/20/2024 Major depressive disorder, recurrent, mild (ICD-10 - F33.0) Jealousy and Controlling Behavior - Assessment: Patient reports some improvement in controlling behavior over the past month. Christal still experiences jealousy when interacts with other men. - Plan: - Continue with current therapy sessions. - Encourage open communication with spouse. - Monitor progress in future visits. Anxiety and Depression - Assessment: Christal reports feeling a little bit more relaxed with current medication. - Plan: - Increase escitalopram dose to 10 mg daily (2 tablets in the morning). - Continue buspirone 5 mg daily. - Reassess in 3 weeks for medication effectiveness. - Encourage Christal to use the clinic's alonzo for communication. Insecurity Issues - Assessment: Christal acknowledges insecurity as a root cause of jealousy. - Plan: - Address in therapy sessions. - Encourage Christal to engage in activities that boost self-esteem and confidence. Medication Management - Plan: - Prescribe the following medications: - Buspirone 5 mg daily - Escitalopram 10 mg daily (increase from previous dose) - Citalopram (discontinue) - Erythropoietin (as needed) - Schedule a follow-up appointment in 3 weeks to monitor medication effectiveness and side effects. - Adjust escitalopram to morning only. Therapy Appointment - Assessment: Previous attempt to schedule therapy was unsuccessful; Christal reports not being contacted. - Plan: - Coordinate with the ground defence officer to schedule an appointment with Cb. - Instruct Christal to contact the clinic if they do not hear about the therapy appointment by next Friday. Patient Education - Assessment: Christal expresses difficulty with using smartphone apps. - Plan: - Encourage Christal to download and use the clinic's alonzo for communication and appointment scheduling. - Provide assistance with using the alonzo if needed. 08/20/2024 Gastro-esophagea l reflux disease without esophagitis (ICD-10 - K21.9) Jealousy and Controlling Behavior - Assessment: Patient reports some improvement in controlling behavior over the past month. Christal still experiences jealousy when interacts with other men. - Plan: - Continue with current therapy sessions. - Encourage open communication with spouse. - Monitor progress in future visits. Anxiety and Depression - Assessment: Christal reports feeling a little bit more relaxed with current medication. - Plan: - Increase escitalopram dose to 10 mg daily (2 tablets in the morning). - Continue buspirone 5 mg daily. - Reassess in 3 weeks for medication effectiveness. - Encourage Christal to use the clinic's alonzo for communication. Insecurity Issues - Assessment: Christal acknowledges insecurity as a root cause of jealousy. - Plan: - Address in therapy sessions. - Encourage Christal to engage in activities that boost self-esteem and confidence. Medication Management - Plan: - Prescribe the following medications: - Buspirone 5 mg daily - Escitalopram 10 mg daily (increase from previous dose) - Citalopram (discontinue) - Erythropoietin (as needed) - Schedule a follow-up appointment in 3 weeks to monitor medication effectiveness and side effects. - Adjust escitalopram to morning only. Therapy Appointment - Assessment: Previous attempt to schedule therapy was unsuccessful; Christal reports not being contacted. - Plan: - Coordinate with the ground defence officer to schedule an appointment with Cb. - Instruct Christal to contact the clinic if they do not hear about the therapy appointment by friday. Patient Education - Assessment: Christal expresses difficulty with using smartphone apps. - Plan: - Encourage Christal to download and use the clinic's alonzo for communication and appointment scheduling. - Provide assistance with using the alonzo if needed. 08/20/2024 Benign prostatic hyperplasia with lower urinary tract symptoms (ICD-10 - N40.1) Jealousy and Controlling Behavior - Assessment: Patient reports some improvement in controlling behavior over the past month. Christal still experiences jealousy when interacts with other men. - Plan: - Continue with current therapy sessions. - Encourage open communication with spouse. - Monitor progress in future visits. Anxiety and Depression - Assessment: Christal reports feeling a little bit more relaxed with current medication. - Plan: - Increase escitalopram dose to 10 mg daily (2 tablets in the morning). - Continue buspirone 5 mg daily. - Reassess in 3 weeks for medication effectiveness. - Encourage Christal to use the clinic's alonzo for communication. Insecurity Issues - Assessment: Christal acknowledges insecurity as a root cause of jealousy. - Plan: - Address in therapy sessions. - Encourage Christal to engage in activities that boost self-esteem and confidence. Medication Management - Plan: - Prescribe the following medications: - Buspirone 5 mg daily - Escitalopram 10 mg daily (increase from previous dose) - Citalopram (discontinue) - Erythropoietin (as needed) - Schedule a follow-up appointment in 3 weeks to monitor medication effectiveness and side effects. - Adjust escitalopram to morning only. Therapy Appointment - Assessment: Previous attempt to schedule therapy was unsuccessful; Christal reports not being contacted. - Plan: - Coordinate with the ground defence officer to schedule an appointment with Cb. - Instruct Christal to contact the clinic if they do not hear about the therapy appointment by friday. Patient Education - Assessment: Christal expresses difficulty with using smartphone apps. - Plan: - Encourage Christal to download and use the clinic's alonzo for communication and appointment scheduling. - Provide assistance with using the alonzo if needed. 08/20/2024 Obstructive sleep apnea (adult) (pediatric) (ICD-10 - G47.33) Jealousy and Controlling Behavior - Assessment: Patient reports some improvement in controlling behavior over the past month. Christal still experiences jealousy when interacts with other men. - Plan: - Continue with current therapy sessions. - Encourage open communication with spouse. - Monitor progress in future visits. Anxiety and Depression - Assessment: Christal reports feeling a little bit more relaxed with current medication. - Plan: - Increase escitalopram dose to 10 mg daily (2 tablets in the morning). - Continue buspirone 5 mg daily. - Reassess in 3 weeks for medication effectiveness. - Encourage Christal to use the clinic's alonzo for communication. Insecurity Issues - Assessment: Christal acknowledges insecurity as a root cause of jealousy. - Plan: - Address in therapy sessions. - Encourage Christal to engage in activities that boost self-esteem and confidence. Medication Management - Plan: - Prescribe the following medications: - Buspirone 5 mg daily - Escitalopram 10 mg daily (increase from previous dose) - Citalopram (discontinue) - Erythropoietin (as needed) - Schedule a follow-up appointment in 3 weeks to monitor medication effectiveness and side effects. - Adjust escitalopram to morning only. Therapy Appointment - Assessment: Previous attempt to schedule therapy was unsuccessful; Christal reports not being contacted. - Plan: - Coordinate with the ground defence officer to schedule an appointment with Cb. - Instruct Christal to contact the clinic if they do not hear about the therapy appointment by next Friday. Patient Education - Assessment: Christal expresses difficulty with using smartphone apps. - Plan: - Encourage Christal to download and use the clinic's alonzo for communication and appointment scheduling. - Provide assistance with using the alonzo if needed. 08/20/2024 Hyperlipidemia, unspecified (ICD-10 - E78.5) Jealousy and Controlling Behavior - Assessment: Patient reports some improvement in controlling behavior over the past month. Christal still experiences jealousy when interacts with other men. - Plan: - Continue with current therapy sessions. - Encourage open communication with spouse. - Monitor progress in future visits. Anxiety and Depression - Assessment: Christal reports feeling a little bit more relaxed with current medication. - Plan: - Increase escitalopram dose to 10 mg daily (2 tablets in the morning). - Continue buspirone 5 mg daily. - Reassess in 3 weeks for medication effectiveness. - Encourage Christal to use the clinic's alonzo for communication. Insecurity Issues - Assessment: Christal acknowledges insecurity as a root cause of jealousy. - Plan: - Address in therapy sessions. - Encourage Christal to engage in activities that boost self-esteem and confidence. Medication Management - Plan: - Prescribe the following medications: - Buspirone 5 mg daily - Escitalopram 10 mg daily (increase from previous dose) - Citalopram (discontinue) - Erythropoietin (as needed) - Schedule a follow-up appointment in 3 weeks to monitor medication effectiveness and side effects. - Adjust escitalopram to morning only. Therapy Appointment - Assessment: Previous attempt to schedule therapy was unsuccessful; Christal reports not being contacted. - Plan: - Coordinate with the ground defence officer to schedule an appointment with Cb. - Instruct Christal to contact the clinic if they do not hear about the therapy appointment by next Friday. Patient Education - Assessment: Christal expresses difficulty with using smartphone apps. - Plan: - Encourage Christal to download and use the clinic's alonzo for communication and appointment scheduling. - Provide assistance with using the alonzo if needed. 08/20/2024 Essential (primary) hypertension (ICD-10 - I10) Jealousy and Controlling Behavior - Assessment: Patient reports some improvement in controlling behavior over the past month. Christal still experiences jealousy when interacts with other men. - Plan: - Continue with current therapy sessions. - Encourage open communication with spouse. - Monitor progress in future visits. Anxiety and Depression - Assessment: Christal reports feeling a little bit more relaxed with current medication. - Plan: - Increase escitalopram dose to 10 mg daily (2 tablets in the morning). - Continue buspirone 5 mg daily. - Reassess in 3 weeks for medication effectiveness. - Encourage Christal to use the clinic's alonzo for communication. Insecurity Issues - Assessment: Christal acknowledges insecurity as a root cause of jealousy. - Plan: - Address in therapy sessions. - Encourage Christal to engage in activities that boost self-esteem and confidence. Medication Management - Plan: - Prescribe the following medications: - Buspirone 5 mg daily - Escitalopram 10 mg daily (increase from previous dose) - Citalopram (discontinue) - Erythropoietin (as needed) - Schedule a follow-up appointment in 3 weeks to monitor medication effectiveness and side effects. - Adjust escitalopram to morning only. Therapy Appointment - Assessment: Previous attempt to schedule therapy was unsuccessful; Christal reports not being contacted. - Plan: - Coordinate with the ground defence officer to schedule an appointment with Cb. - Instruct Christal to contact the clinic if they do not hear about the therapy appointment by next Friday. Patient Education - Assessment: Christal expresses difficulty with using smartphone apps. - Plan: - Encourage Christal to download and use the clinic's alonzo for communication and appointment scheduling. - Provide assistance with using the alonzo if needed. Plan Of Treatment Medication Medication Name Sig Start Date Stop Date Notes busPIRone HCl 5 MG 1 tablet every eveni ng Oral Once a day for 30 days Escitalopram Oxalate 10 MG 1 tablet Oral ly Once a day for 90 days Next Appt Details Follow Up: 3 Weeks, Reason: Provider Name:Nico Ayon , 12/06/2024 10:00:00 AM, [address], [facility] [address], [place], [address], Progress Notes * CHRISTAL FOSTER RDOB: [birth year] (73 yo M)Acc No.[id number]:08/20/2024 Patient:?CHRISTAL FOSTER Provider:?NICO AYON MD :1950???Age:73 Y???Sex:Male Beau e:08/20/2024 Address:[address] [place] [address] Pcp:Lynn Manning MD Subjective: * Chief Complaints: * ???1 Follow upPhq less than 5MIPS with Diagnosis of HTN * HPI: ???Depression Screening:? Chief Complaint: Continued jealousy and controlling behavior, causing anxiety and depression The note is transcribed using speech recognition software. It is a reflection of a visit with the patient. It might have some inaccuracy, including medication names and transcribing errors, though efforts have been made to correct them. The patient reports ongoing issues with jealousy and controlling behavior, which are causing anxiety and depression. They have been for 50 years and have 3 adult children. Christal describes feeling bothered when someone talks to his , even in casual settings like a grocery store or at a school auction. They express difficulty in controlling these feelings of jealousy and insecurity. Mental Health: Christal has looked into counseling but has not received any calls for appointments. They were previously prescribed buspirone 5 mg daily and citalopram, with some improvement in relaxation. Chirstal reports that the medication has helped with anxiety and depression, and they have been less worried over the past month. Coping Mechanisms: Christal speaks up when they feel bothered and has stopped participating in [employer] dances due to discomfort. They continue to country dance once a month. Christal has been avoiding situations where their talks to other men in an effort to prevent arguments. Family Situation: Christal's igasah-ad-nrj, aged 90, was recently hospitalized and is now in rehab, with Christal's visiting her daily. 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 They have been trying to avoid arguments with their , especially given her current focus on caring for her mother in rehab. ?LIANG-7 (2018 Edition)?Feeling nervous, anxious, or on edge?Not at all,?Not being able to stop or control worrying?Not at all,?Worrying too much about different things?Not at all,?Trouble relaxing?Not at all,?Being so restless that it is hard to sit still?Not at all,?Becoming easily annoyed or irritable?Not at all,?Feeling afraid as if something awful might happen?Not at all,?Total LIANG-7 Score?0,?Interpretation of Total?(0 to 4) No Anxiety.?[place]-Suicide Severity Rating Scale:?Suicide Risk (CSRS-screener)?in the past [...] your own decision-maker?Yes,?Do you have Power of Food Prep Worker for Health or Medical??Yes,?Do you have a power of tape machine tailer for health??Yes,?Do you have power of tape machine tailer for Medical ??Yes,?If yes, then please bring [...] TAKE 1 TABLET BY MOUTH DAILY Oral busPIRone HCl 5 MG Tablet 1 tablet every evening Oral Once a day Escitalopram Oxalate 5 MG Tablet 1 tablet Orally Once a day Taking Vitamin C 500 [...] 1 TABLET BY MOUTH DAILY Oral Taking busPIRone HCl 5 MG Tablet 1 tablet every evening Oral Once a day Taking Escitalopram Oxalate 5 MG Tablet 1 tablet Orally Once a day Not-TakingFluocinonide 0.05 % Solution [...] TAKE 1 TABLET BY MOUTH DAILY Oral DiscontinuedbusPIRone HCl 5 MG Tablet TAKE 1 TABLET BY MOUTH TWICE DAILY Oral Discontinued busPIRone HCl 5 MG Tablet TAKE 1 TABLET BY MOUTH TWICE DAILY Oral UnknownFinasteride 5 MG Tablet Oral Fluocinonide 0.05 % Solution External Tamsulosin HCl 0.4 MG Capsule Oral TADALAFIL 20 MG TABLET , Notes to Pharmacist: *Reorder from [facility] for eRx and Interaction Alerts*Losartan Potassium 50 MG Tablet Oral diazePAM 5 MG Tablet Oral Rosuvastatin Calcium 20 MG Tablet Oral Medication List reviewed and reconciled with the patientUnknown Finasteride 5 MG Tablet Oral Unknown Fluocinonide 0.05 % Solution External Unknown Tamsulosin HCl 0.4 MG Capsule Oral Unknown TADALAFIL 20 MG TABLET , Notes to Pharmacist: *Reorder from [facility] for eRx and Interaction Alerts*Unknown Losartan Potassium 50 MG Tablet Oral Unknown diazePAM 5 MG Tablet Oral Unknown Rosuvastatin Calcium 20 MG Tablet Oral Medication List reviewed and reconciled with the patient * Allergies:?TERRAMYCIN: Aller gyno[Allergies Verified] Objective: * Vitals:?BP:140/84mm Hg, HR:5 6/min, Wt:239lbs, Wt-k.41 kg, Ht: 70 in, Ht- cm: 177.8 cm, BMI:34.29Index, Body Surface Area: 2.31. * Examination: ???General Examination: ???Mental Status Examination: Christal reports feelings of jealousy and controlling behavior, impacting his emotional state. Experiences anxiety and depression, with some improvement noted since medication adjustments. Describes fluctuating jealousy, which is situationally triggered. Acknowledges insecurity in social settings, particularly involving his spouse. Verbalizes efforts to manage and communicate feelings. Reports feeling a little bit more relaxed since medication changes. Describes difficulty controlling jealousy when others interact with his . Mentions improved ability to avoid arguments with spouse. Demonstrates insight into his insecurity issues. Vital Signs: Not available. Assessment: * Assessment: 1.?LIANG (generalized anxiety disorder) - F41.1 (Primary)???2.?Major depressive disorder, recurrent, mild - F33.0???3.?Gastro-esophageal reflux disease without esophagitis - K21.9???4.?Benign prostatic hyperplasia with lower urinary tract symptoms - N40.1???5.?Obstructive sleep apnea (adult) (pediatric) - G47.33???6.?Hyperlipidemia, unspecified - E78.5???7.?Essential (primary) hypertension - I10??? Jealousy and Controlling Beh avior - Assessment: Patient reports some improvement in controlling behavior over the past month. Christal still experiences jealousy when interacts with other men. - Plan: - Continue with current therapy sessions. - Encourage open communication with spouse. - Monitor progress in future visits. Anxiety and Depression - Assessment: Christal reports feeling a little bit more relaxed with current medication. - Plan: - Increase escitalopram dose to 10 mg daily (2 tablets in the morning). - Continue buspirone 5 mg daily. - Reassess in 3 weeks for medication effectiveness. - Encourage Christal to use the clinic's alonzo for communication. Insecurity Issues - Assessment: Christal acknowledges insecurity as a root cause of jealousy. - Plan: - Address in therapy sessions. - Encourage Christal to engage in activities that boost self-esteem and confidence. Medication Management - Plan: - Prescribe the following medications: - Buspirone 5 mg daily - Escitalopram 10 mg daily (increase from previous dose) - Citalopram (discontinue) - Erythropoietin (as needed) - Schedule a follow-up appointment in 3 weeks to monitor medication effectiveness and side effects. - Adjust escitalopram to morning only. Therapy Appointment - Assessment: Previous attempt to schedule therapy was unsuccessful; Christal reports not being contacted. - Plan: - Coordinate with the ground defence officer to schedule an appointment with [facility]. - Instruct Christal to contact the clinic if they do not hear about the therapy appointment by next Friday. Patient Education - Assessment: Christal expresses difficulty with using smartphone apps. - Plan: - Encourage Christal to download and use the clinic's alonzo for communication and appointment scheduling. - Provide assistance with using the alonzo if needed. Plan: * Treatment: * Procedure Codes:?G2211 VISIT COMPLEXITY INHERENT TO ONGOING CARE RELATED TO A PATIENT'S SINGLE, SERIOUS CONDITION OR A COMPLEX CONDITION * Preventive Medicine:? ??Counseling:?BP Management:?FIRST HYPERTENSIVE BP READING FOLLOW-UP PLAN:?Follow-up 1 month Follow up with your PCP,?LIFESTYLE RECOMMENDATION:?Lifestyle education, REFERRAL TO ALTERNATIVE / PRIMARY CARE PROVIDER:?Referral to general medical service ____.? * Follow Up:?3 Weeks * Billing Information: * Visit Code:? [id number] OFFICE OUTPATIENT VISIT 25 MINUTES DETAILED HISTORY AND EXAM/MODERATE MEDICAL DECISION MAKING. * Procedure Codes:? G2211 VISIT COMPLEXITY INHERENT TO ONGOING CARE RELATED TO A PATIENT'S SINGLE, SERIOUS CONDITION OR A COMPLEX CONDITION. * R [employer]OUND [employer] Sign off status: Completed true * Provider:?NICO AYON MD Date:?08/20 Generated for Printi ng/Marilin/eTransmitting on:?09/16/2024 10:46 AM UNDER [employer]OUND [employer]ER History and Physical Notes * HPI (History [...] at all Becoming easily annoyed or irritable: No t at all Feeling afraid as if something awful doretha ht happen: Not at all Total LIANG-7 Score: 0 Interpretation of Total: (0 to 4) No Anx iety [place]-Suicide Severity Rating Scale Suicide Risk (CSRS-screener) in the past one month Have you wished you were or wished you could go to sleep and not wake up?: No Examination Category Sub-Category Detail Notes Category Not es General Examination Mental Status Examination: Christal reports feelings of jealousy and controlling behavior, impacting his emotional state. Experiences anxiety and depression, with some improvement noted since medication adjustments. Describes fluctuating jealousy, which is situationally triggered. Acknowledges insecurity in social settings, particularly involving his spouse. Verbalizes efforts to manage and communicate feelings. Reports feeling a little bit more relaxed since medication changes. Describes difficulty controlling jealousy when others interact with his . Mentions improved ability to avoid arguments with spouse. Demonstrates insight into his insecurity issues. Vital Signs: Not available
--- OUTSIDE RECORDS SUMMARY | 2024-09-16 10:47 | XMS_ITS | Patient Health Record ---
Author Organization [facility] [employer] Address [address] [facility] [address] [place] [address] Care Team Providers Care Correctional Case Manager Name Role Phone Nigel CANTU, Lynn Primary Care Provider Un available Nico Marroquin Unavailable [phone] Migration, Provider Unavailable Unavailable Allergies Allergen (clinical drug ingredient) Drug/Non Drug Allergy documented on EMR Reaction Allergy Type Onset Date Status TERRAMYCIN (uncoded) Unknown Allergy Active Reason For Referral No Information Medications Medication SIG (Take, Route, Frequency, Duration) Notes Start Date End Date Status Aspirin 81 MG 1 tablet Orally Once a day Active Losartan Potassium 50 MG Oral Unknown Iron 325 (65 Fe) MG 1 tablet Orally Three times a Week Active TADALAFIL 20 MG TABLET *Reorder from [employer] for eRx and Interaction Alerts* Unknown Losartan Potassium 50 MG TAKE 1 TABLET BY MOUTH DAILY Oral for 90 Days Active Clopidogrel & Aspirin Active diazePAM 5 MG Oral Unknow n Tamsulosin HCl 0.4 MG TAKE 1 CAPSULE BY MOUTH DAILY AT BEDTIME Oral for 90 Days Active Doxycycline Hyclate 100 MG Oral for 10 Days Not-Taking Clopidogrel Bisulfate 75 MG Oral for 90 Days Not-Taki ng Clopidogrel Bisulfate 75 MG TAKE 1 TABLET BY MOUTH DAILY Oral for 90 Days Not-Taking Finasteride 5 MG Oral Unk nown Aspirin Low Dose 81 MG TAKE 1 TABLET BY MOUTH DAILY Oral for 90 Days Not-Taking Vitamin C 500 MG as directed Orally Active Tamsulosin HCl 0.4 MG Oral Unknown Fluocinonide 0.05 % External Unknown Amoxicillin-Pot Clavulanate 875-125 MG TAKE 1 TABLET BY MOUTH EVERY 12 HOURS Oral for 7 Days Not-Taking diazePAM 5 MG Oral for 2 Days Not-Taking Doxycycline Hyclate 100 MG Oral for 10 Days Not-Taking Fluocinonide 0.05 % External for 30 Days Not-Taking busPIRone HCl 5 MG 1 tablet every evening Oral Once a day for 90 days Active Escitalopram Oxalate 10 MG 1 tablet Orally Once a day for 90 days Active Rosuvastatin Calcium 20 MG Oral Unknown Finasteride 5 MG TAKE 1 TABLET BY MOUTH DAILY Oral for 90 Days Active Rosuvastatin Calcium 20 MG TAKE 1 TABLET BY MOUTH EVERY DAY Oral for 90 Days Active Tadalafil 20 MG TAKE 1 TABLET BY MOUTH ONCE DAILY NEEDED Oral for 30 Days Not-Taking Fluocinonide 0.05 % APPLY TO SCALP EVERY DAY NEEDED External for 30 Days Not-Taking Immunizations Vaccine Route Administration Date Status Comme nts Influenza (split), 3 yrs and above Unknown 08/29/2014 A dministered Influenza (split), 3 yrs and above Unknown 07/11/2015 A dministered Influenza, high dose seasonal Unknown 07/07/2018 Admini stered Influenza, high dose seasonal Unknown 07/28/2019 Admini stered Influenza, high dose seasonal Unknown 06/14/2024 Admini stered Influenza, high dose seasonal Unknown 06/14/2024 Admini stered Influenza, high-dose seasona l, quadrivalent, preservative free >65 yrs Unknown 06/27/2020 Administered Influenza, high-dose seasona l, quadrivalent, preservative free >65 yrs Unknown 06/29/2021 Administered Influenza, high-dose seasona l, quadrivalent, preservative free >65 yrs Unknown 07/15/2022 Administered Influenza, high-dose seasona l, quadrivalent, preservative free >65 yrs Unknown 07/08/2023 Administered Influenza, quadrivalent, spl it virus Unknown 07/23/2017 Administered Influenza, quadrivalent, spl it virus Unknown 06/28/2020 Administered Influenza, quadrivalent, spl it, preservative free, 3 years or older Unknown 07/23/2016 Administered Influenza, quadrivalent, spl it, preservative free, 3 years or older Unknown 07/23/2016 Administered Influenza, quadrivalent, spl it, preservative free, 3 years or older Unknown 07/24/2016 Administered Influenza, unspecified formulation Unknown 07/08/2018 A dministered Moderna Covid-19 Vaccine 1st dose Unknown 11/23/2020 Ad ministered Moderna Covid-19 Vaccine 1st dose Unknown 12/21/2020 Ad ministered Pfizer-[employer]ion[employer] Covid-19 Vac cine 1st dose Unknown 11/28/2020 Administered Pfizer-[employer] Covid-19 Vac cine 1st dose Unknown 11/28/2020 Administered Pfizer-[employer] Covid-19 Vac cine 1st dose Unknown 12/21/2020 Administered Pfizer-[employer] Covid-19 Vac cine 1st dose Unknown 07/05/2021 Administered Pfizer-[employer]ion[employer] Covid-19 Vac cine 1st dose Unknown 04/21/2022 Administered Pfizer-[employer]ion[employer] Covid-19 Vac cine 1st dose Unknown 07/24/2023 Administered Pneumococcal conjugate PCV 13 Unknown 08/14/2016 Admini stered Pneumococcal polysaccharide PPV23 Unknown 02/10/2012 Ad ministered Pneumococcal polysaccharide PPV23 Unknown 07/22/2018 Ad ministered Tdap Unknown 09/21/2021 Administered Tdap Unknown 09/21/2021 Administered Zoster Unknown 07/28/2013 Administered Social History Tobacco Use: Social History Observation [...] past year? Monthly or less (1 point) Problems Problem Type SNOMED Code ICD Code Onset Dates Problem Status W/U Status Risk Notes Problem Hyperlipidemia (10199630) Hyperlipidemia, unspecified (E78.5) 05/20/20 Active confirmed Problem 074743590 Major depressive disorder, recurrent, mild (F33.0) Active confirmed Problem Obstructive sleep apnea syndrome (65714380) Obstructive sleep apnea (adult) (pediatric) (G47.33) 05/20/20 Active confirmed Problem Essential hypertension (34180006) Essential (primary) hypertension (I10) 05/20/20 Active confirmed Problem Gastroesophageal reflux disease (264154232) Gastro-esophage al reflux disease without esophagitis (K21.9) Active confirmed Problem Benign prostatic hyperplasia (832813222) Benign prostatic hyperplasia with lower urinary tract symptoms (N40.1) Active confirmed Problem [id number] LIANG (generalized anxiety disorder) (F41.1) Active confirmed Vital Signs Heart Rate 61 /min 09/08/2024 Height-cm 177.8 cm 09/08/2024 Blood pressure diastolic 73 mm Hg 09/08/2024 Weight-kg 102.51 kg 09/08/2024 Height 70 in 09/08/2024 Blood pressure systolic 122 mm Hg 09/08/2024 Weight 226 lbs 09/08/2024 BMI 32.42 kg/m2 09/08/2024 Encounters Encounter Location Date Provider Diagnosis [address] [address] 07/22/2024 Nico Lopez LIANG (generalized anxiety disorder) F41.1 ; Major depressive disorder, recurrent, mild F33.0 ; Gastro-esophageal reflux disease without esophagitis K21.9 ; Benign prostatic hyperplasia with lower urinary tract symptoms N40.1 ; Obstructive sleep apnea (adult) (pediatric) G47.33 ; Hyperlipidemia, unspecified E78.5 and Essential (primary) hypertension I10 [address] [address] 08/20/2024 Nico Lopez LIANG (generalized anxiety disorder) F41.1 ; Major depressive disorder, recurrent, mild F33.0 ; Gastro-esophageal reflux disease without esophagitis K21.9 ; Benign prostatic hyperplasia with lower urinary tract symptoms N40.1 ; Obstructive sleep apnea (adult) (pediatric) G47.33 ; Hyperlipidemia, unspecified E78.5 and Essential (primary) hypertension I10 [address] [address] 09/08/2024 Nico Lopez LIANG (generalized anxiety disorder) F41.1 ; Major depressive disorder, recurrent, mild F33.0 ; Gastro-esophageal reflux disease without esophagitis K21.9 ; Benign prostatic hyperplasia with lower urinary tract symptoms N40.1 ; Obstructive sleep apnea (adult) (pediatric) G47.33 ; Hyperlipidemia, unspecified E78.5 and Essential (primary) hypertension I10 [place] [address] [facility] [address] [address] 07/22/2024 Nico Marroquin [address] [address] 02/21/2024 Provider Migration [address] [address] 02/22/2024 Provider Migration [facility] [employer] [address] [place] [address] [place] [address] 07/23/2024 Nico Marroquin LIANG (generalized anxiety disorder) F41.1 Assessments Encounter Date Diagnosis (ICD Code) Assessment Notes Treatment Notes Treatment Clinical Notes Section Notes 07/22/2024 Major depressive disorder, recurrent, mild (ICD-10 - F33.0) Jealousy and Controlling Behavior - Plan: - Refer the patient to a male therapist for counseling to address jealousy and controlling behavior. - Encourage the patient to rationalize his thoughts and trust his , teaching her to be safe with other men. Anxiety and Depression - Plan: - Discontinue buspirone 5 mg twice daily. - Start Lexapro (escitalopram) 5 mg once a day in the morning for anxiety and depression. - Reduce buspirone to 5 mg once a day in the evening. High Cholesterol - Plan: - Continue current medication and monitor cholesterol levels. High Blood Pressure - Plan: - Continue current medication and monitor blood pressure. Sleep Apnea - Plan: - Discuss alternative treatment options for sleep apnea, such as positional therapy or oral appliances. - Consider a follow-up sleep study if necessary. Enlarged Prostate - Plan: - Monitor symptoms and consider evaluation by a urologist if symptoms worsen or do not improve. Follow-up - Plan: - Schedule a follow-up appointment in one month to assess the patient's response to Lexapro and progress in counseling. - Instruct patient to send a message to the office if he does not hear from the counselor within 2-3 weeks. 07/22/2024 LIANG (generalized anxiety disorder) (ICD-10 - F41.1) Jealousy and Controlling Behavior - Plan: - Refer the patient to a male therapist for counseling to address jealousy and controlling behavior. - Encourage the patient to rationalize his thoughts and trust his , teaching her to be safe with other men. Anxiety and Depression - Plan: - Discontinue buspirone 5 mg twice daily. - Start Lexapro (escitalopram) 5 mg once a day in the morning for anxiety and depression. - Reduce buspirone to 5 mg once a day in the evening. High Cholesterol - Plan: - Continue current medication and monitor cholesterol levels. High Blood Pressure - Plan: - Continue current medication and monitor blood pressure. Sleep Apnea - Plan: - Discuss alternative treatment options for sleep apnea, such as positional therapy or oral appliances. - Consider a follow-up sleep study if necessary. Enlarged Prostate - Plan: - Monitor symptoms and consider evaluation by a urologist if symptoms worsen or do not improve. Follow-up - Plan: - Schedule a follow-up appointment in one month to assess the patient's response to Lexapro and progress in counseling. - Instruct patient to send a message to the office if he does not hear from the counselor within 2-3 weeks. 07/23/2024 LIANG (generalized anxiety disorder) (ICD-10 - F41.1) 08/20/2024 Major depressive disorder, recurrent, mild (ICD-10 [...] contacted. - Plan: - Coordinate with the nuclear medicine officer to schedule an appointment with Cb. [...] with using the alonzo if needed. 08/20/2024 LIANG (generalized anxiety disorder) (ICD-10 - [...] contacted. - Plan: - Coordinate with the nuclear medicine officer to schedule an appointment with Cb. - Instruct Christal to contact the clinic if they do not hear about the therapy appointment by next Friday. Patient Education - Assessment: Christal expresses difficulty with using smartphone apps. - Plan: - Encourage Christal to download and use the clinic's alonzo for communication and appointment scheduling. - Provide assistance with using the alonzo if needed. 09/08/2024 LIANG (generalized anxiety disorder) (ICD-10 - [...] abruptly stopping medication to avoid symptom recurrence. 08/20/2024 Gastro-esophagea l reflux disease without esophagitis [...] contacted. - Plan: - Coordinate with the nuclear medicine officer to schedule an appointment with Cb. - Instruct Christal to contact the clinic if they do not hear about the therapy appointment by next Friday. Patient Education - Assessment: Christal expresses difficulty with using smartphone apps. - Plan: - Encourage Christal to download and use the clinic's alonzo for communication and appointment scheduling. - Provide assistance with using the alonzo if needed. 09/08/2024 Major depressive disorder, recurrent, mild (ICD-10 [...] abruptly stopping medication to avoid symptom recurrence. 07/22/2024 Gastro-esophagea l reflux disease without esophagitis (ICD-10 - K21.9) Jealousy and Controlling Behavior - Plan: - Refer the patient to a male therapist for counseling to address jealousy and controlling behavior. - Encourage the patient to rationalize his thoughts and trust his , teaching her to be safe with other men. Anxiety and Depression - Plan: - Discontinue buspirone 5 mg twice daily. - Start Lexapro (escitalopram) 5 mg once a day in the morning for anxiety and depression. - Reduce buspirone to 5 mg once a day in the evening. High Cholesterol - Plan: - Continue current medication and monitor cholesterol levels. High Blood Pressure - Plan: - Continue current medication and monitor blood pressure. Sleep Apnea - Plan: - Discuss alternative treatment options for sleep apnea, such as positional therapy or oral appliances. - Consider a follow-up sleep study if necessary. Enlarged Prostate - Plan: - Monitor symptoms and consider evaluation by a urologist if symptoms worsen or do not improve. Follow-up - Plan: - Schedule a follow-up appointment in one month to assess the patient's response to Lexapro and progress in counseling. - Instruct patient to send a message to the office if he does not hear from the counselor within 2-3 weeks. 07/22/2024 Benign prostatic hyperplasia with lower urinary tract symptoms (ICD-10 - N40.1) Jealousy and Controlling Behavior - Plan: - Refer the patient to a male therapist for counseling to address jealousy and controlling behavior. - Encourage the patient to rationalize his thoughts and trust his , teaching her to be safe with other men. Anxiety and Depression - Plan: - Discontinue buspirone 5 mg twice daily. - Start Lexapro (escitalopram) 5 mg once a day in the morning for anxiety and depression. - Reduce buspirone to 5 mg once a day in the evening. High Cholesterol - Plan: - Continue current medication and monitor cholesterol levels. High Blood Pressure - Plan: - Continue current medication and monitor blood pressure. Sleep Apnea - Plan: - Discuss alternative treatment options for sleep apnea, such as positional therapy or oral appliances. - Consider a follow-up sleep study if necessary. Enlarged Prostate - Plan: - Monitor symptoms and consider evaluation by a urologist if symptoms worsen or do not improve. Follow-up - Plan: - Schedule a follow-up appointment in one month to assess the patient's response to Lexapro and progress in counseling. - Instruct patient to send a message to the office if he does not hear from the counselor within 2-3 weeks. 09/08/2024 Gastro-esophagea l reflux disease without esophagitis [...] abruptly stopping medication to avoid symptom recurrence. 08/20/2024 Benign prostatic hyperplasia with lower urinary [...] contacted. - Plan: - Coordinate with the nuclear medicine officer to schedule an appointment with Cb. - Instruct Christal to contact the clinic if they do not hear about the therapy appointment by next Friday. Patient Education - Assessment: Christal expresses difficulty with using smartphone apps. - Plan: - Encourage Christal to download and use the clinic's alonzo for communication and appointment scheduling. - Provide assistance with using the alonzo if needed. 09/08/2024 Benign prostatic hyperplasia with lower urinary [...] abruptly stopping medication to avoid symptom recurrence. 07/22/2024 Obstructive sleep apnea (adult) (pediatric) (ICD-10 - G47.33) Jealousy and Controlling Behavior - Plan: - Refer the patient to a male therapist for counseling to address jealousy and controlling behavior. - Encourage the patient to rationalize his thoughts and trust his , teaching her to be safe with other men. Anxiety and Depression - Plan: - Discontinue buspirone 5 mg twice daily. - Start Lexapro (escitalopram) 5 mg once a day in the morning for anxiety and depression. - Reduce buspirone to 5 mg once a day in the evening. High Cholesterol - Plan: - Continue current medication and monitor cholesterol levels. High Blood Pressure - Plan: - Continue current medication and monitor blood pressure. Sleep Apnea - Plan: - Discuss alternative treatment options for sleep apnea, such as positional therapy or oral appliances. - Consider a follow-up sleep study if necessary. Enlarged Prostate - Plan: - Monitor symptoms and consider evaluation by a urologist if symptoms worsen or do not improve. Follow-up - Plan: - Schedule a follow-up appointment in one month to assess the patient's response to Lexapro and progress in counseling. - Instruct patient to send a message to the office if he does not hear from the counselor within 2-3 weeks. 08/20/2024 Obstructive sleep apnea (adult) (pediatric) (ICD-10 [...] contacted. - Plan: - Coordinate with the nuclear medicine officer to schedule an appointment with Cb. [...] contacted. - Plan: - Coordinate with the nuclear medicine officer to schedule an appointment with Cb. - Instruct Christal to contact the clinic if they do not hear about the therapy appointment by next Friday. Patient Education - Assessment: Christal expresses difficulty with using smartphone apps. - Plan: - Encourage Christal to download and use the clinic's alonzo for communication and appointment scheduling. - Provide assistance with using the alonzo if needed. 09/08/2024 Obstructive sleep apnea (adult) (pediatric) (ICD-10 [...] abruptly stopping medication to avoid symptom recurrence. 07/22/2024 Hyperlipidemia, unspecified (ICD-10 - E78.5) Jealousy and Controlling Behavior - Plan: - Refer the patient to a male therapist for counseling to address jealousy and controlling behavior. - Encourage the patient to rationalize his thoughts and trust his , teaching her to be safe with other men. Anxiety and Depression - Plan: - Discontinue buspirone 5 mg twice daily. - Start Lexapro (escitalopram) 5 mg once a day in the morning for anxiety and depression. - Reduce buspirone to 5 mg once a day in the evening. High Cholesterol - Plan: - Continue current medication and monitor cholesterol levels. High Blood Pressure - Plan: - Continue current medication and monitor blood pressure. Sleep Apnea - Plan: - Discuss alternative treatment options for sleep apnea, such as positional therapy or oral appliances. - Consider a follow-up sleep study if necessary. Enlarged Prostate - Plan: - Monitor symptoms and consider evaluation by a urologist if symptoms worsen or do not improve. Follow-up - Plan: - Schedule a follow-up appointment in one month to assess the patient's response to Lexapro and progress in counseling. - Instruct patient to send a message to the office if he does not hear from the counselor within 2-3 weeks. 09/08/2024 Hyperlipidemia, unspecified (ICD-10 - E78.5) Mood [...] abruptly stopping medication to avoid symptom recurrence. 08/20/2024 Essential (primary) hypertension (ICD-10 - I10) [...] contacted. - Plan: - Coordinate with the nuclear medicine officer to schedule an appointment with Cb. - Instruct Christal to contact the clinic if they do not hear about the therapy appointment by next Friday. Patient Education - Assessment: Christal expresses difficulty with using smartphone apps. - Plan: - Encourage Christal to download and use the clinic's alonzo for communication and appointment scheduling. - Provide assistance with using the alonzo if needed. 07/22/2024 Essential (primary) hypertension (ICD-10 - I10) Jealousy and Controlling Behavior - Plan: - Refer the patient to a male therapist for counseling to address jealousy and controlling behavior. - Encourage the patient to rationalize his thoughts and trust his , teaching her to be safe with other men. Anxiety and Depression - Plan: - Discontinue buspirone 5 mg twice daily. - Start Lexapro (escitalopram) 5 mg once a day in the morning for anxiety and depression. - Reduce buspirone to 5 mg once a day in the evening. High Cholesterol - Plan: - Continue current medication and monitor cholesterol levels. High Blood Pressure - Plan: - Continue current medication and monitor blood pressure. Sleep Apnea - Plan: - Discuss alternative treatment options for sleep apnea, such as positional therapy or oral appliances. - Consider a follow-up sleep study if necessary. Enlarged Prostate - Plan: - Monitor symptoms and consider evaluation by a urologist if symptoms worsen or do not improve. Follow-up - Plan: - Schedule a follow-up appointment in one month to assess the patient's response to Lexapro and progress in counseling. - Instruct patient to send a message to the office if he does not hear from the counselor within 2-3 weeks. 09/08/2024 Essential (primary) hypertension (ICD-10 - I10) [...] abruptly stopping medication to avoid symptom recurrence. 07/22/2024 Other Learning About Depression Screening material was printed Jealousy and Controlling Behavior - Plan: - Refer the patient to a male therapist for counseling to address jealousy and controlling behavior. - Encourage the patient to rationalize his thoughts and trust his , teaching her to be safe with other men. Anxiety and Depression - Plan: - Discontinue buspirone 5 mg twice daily. - Start Lexapro (escitalopram) 5 mg once a day in the morning for anxiety and depression. - Reduce buspirone to 5 mg once a day in the evening. High Cholesterol - Plan: - Continue current medication and monitor cholesterol levels. High Blood Pressure - Plan: - Continue current medication and monitor blood pressure. Sleep Apnea - Plan: - Discuss alternative treatment options for sleep apnea, such as positional therapy or oral appliances. - Consider a follow-up sleep study if necessary. Enlarged Prostate - Plan: - Monitor symptoms and consider evaluation by a urologist if symptoms worsen or do not improve. Follow-up - Plan: - Schedule a follow-up appointment in one month to assess the patient's response to Lexapro and progress in counseling. - Instruct patient to send a message to the office if he does not hear from the counselor within 2-3 weeks. 09/08/2024 Other referral to the local chapter or national office of the Alzheimer's Association (7-746-923-390 0; http://www.alz .org), the Alzheimer's Disease Education and Referral Center (ADEAR) (2-749-447-927 0; http://www.colt .nih.gov/Alzhe imers/), referral to the local chapter or national office of the Alzheimer's Association (4-274-388-491 0; http://www.alz .org), the Alzheimer's Disease Education and Referral Center (ADEAR) (6-334-296-196 0; http://www.colt .nih.gov/Alzhe imers/), Mood Improvement with Citalopram - Assessment: Patient [...] to avoid symptom recurrence. 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
--- OUTSIDE RECORDS SUMMARY | 2024-09-16 10:48 | XMS_ITS | Continuity of Care Document ---
Author Organization [place] - [facility], [facility] [place] Address [address] [address] [place] [address] Care Team Providers Care Biomedical Engineering Internship Name Role Phone LYNN MANNING Primary Care Provider LYNN MANNING Referring Provider [phone] ANUP ESPINOZA Follow Up Manager NEERAJ MARROQUIN Psychiatrist TEJAS LEVI Caustic Purification Operator ABDULLAHI PRINCE Manager Ambulatory Assessment Encounter Date Assessment Date Assessment LastModified by Organization Details LastModified Time 08/23/2024 08/23/2024: PSA 1.18 TSH/CBC/Lipid s: WNL GFR 62 A1C 5.6 11/11/2022: PSA 0.78 TSH/FT4/LIPID S/CBC: WNL CMP: K 5.2H, Gluc 101, BUN 20, GFR 59 10/31/2023: BUN 23, glob 2.5, TP WNL 05/04/2024: PSA 0.89 BUN 21, GFR 56 08/17/2024: Gluc 100, BUN 25, Cr 1.35, GFR 52, AST 48 [email or web address] Not available 08/23/2024 09:55:09 Plan of Treatment Reminders Order Date Submit Date Provider Last Modified By Organization Details Last Modified Time Details Appointments Any 15 2024 08:30A Ngozi young MD Not available Not available Not available Establish ed Patient 15 2024 07:30Chanel Levi MD Not available Not available Not available Lab lipid panel, serum [address] [facility], [address] [place], [address], 08/23/2024 10:07:18 CMP, serum or plasma [address] Out[facility], [address] [place], [address], 08/23/2024 10:07:18 CBC w/ auto diff [address] Out[facility], [address] [place], [address], 08/23/2024 10:07:18 TSH + free T4, serum [address], [address] [place], [address], 08/23/2024 10:07:19 gamma-glu tamyl transfera se (ggt), serum [address] [facility], [address] [place], [address], 09/13/2024 04:46:04 hepatitis panel (A+B+C), acute, serum 2023 024 [facility], [address] [place], [address], 09/13/2024 04:46:05 Referral nephrolog ist referral - Please call patient to schedule. 2023 024 SRUTHI Chambers MD, [address], [address], [place], [address], 08/26/2024 12:50:34 psychiatr ist referral 2023 024 [email or web address] Neeraj Marroquin MD, [address], [address], [place], [address], 08/23/2024 17:38:16 cardiolog ist referral 2023 024 [place], [address], [address], [place], [address], 08/23/2024 17:38:29 Procedures None recorded. Surgeries None recorded. Imaging US, liver - Please call patient to schedule. 2023 024 [facility], [address], [place], [address], 08/23/2024 17:43:10 Medication Orders None recorded. Patient TargetsNo targets recorded. Patient InstructionsNo instructions recorded. Reason for Referral Follow Up Manager Referral for Es sential hypertension Referring Physician: Lynn Manning, Internal Medicine, Encounter Date: 08/23/2024 Weather Analyst Referral for Ch ronic kidney disease Please call patient to schedule. Referring Physician: Lynn Manning, Internal Medicine, Encounter Date: 08/23/2024 Psychiatrist Referral for Ge neralized anxiety disorder Referring Physician: Lynn Manning, Internal Medicine, Encounter Date: 08/23/2024 Results Created Date Observation Date Name Description Value Unit Range Abnormal Flag Note LastModifiedBy Organization Detail LastModifiedTime 09/08/20 24 09/08/2024 imagi ng/di agnos tic resul t No observ ation record ed. [facility] 2022 Adeline Rowley [facility] [address], [place], [address], 09/08/2024 10:36:49 Result Notes None recorded. Problems Name Problem SNOMED Code Status Onset Date Resolution Date Notes Provider Name and Address Organization Details Recorded Time Impacted daleumen 23479695 Active 2016 Not Available [facility] 3 00:32:34 Gastroeso phageal reflux disease 625138047 Completed Not Available [facility] 3 05:20:39 Thyroid nodule 241387869 Active 2021 Not Available [facility] 3 00:32:34 Benign prostatic hyperplas ia 061367018 Completed Not Available [facility] 3 05:20:40 On examinati on - rash present Completed Not Available [facility] 3 05:20:40 Chest pain 97520433 Completed Not Available [facility] 3 05:20:40 Non-toxic multinodu lar goiter 61574579 Active 2021 Not Available [facility] 3 00:32:34 Osteoarth ritis 895136812 Active Not Available [facility] 3 00:32:34 Dysuria 73575967 Active 2016 Not Available [facility] 3 00:32:34 Iron deficienc y 52213223 Active 2022 Tejas Levi MD [address], [place], [address] , [facility] 3 10:31:41 Posterior rhinorrhe a 72334250 Active 2022 Tejas Levi MD [address], [address], [place], [address] , [facility] 3 10:32:04 Essential hypertens ion 92389587 Active 2022 Lynn chong MD [address], [place], [address] , [facility] 3 12:45:44 Coronary arteriosc lerosis 86615843 Active 2022 Lynn chong MD [address], [place], [address] , [facility] 3 12:45:48 Obstructi ve sleep apnea syndrome 26918291 Active 2022 Lynn chong MD [address], [place], [address] , [facility] 3 12:46:18 Transient cerebral ischemia 345173039 Active 2022 Lynn chong MD [address], [address], [place], [address] , [facility] 3 12:46:22 Hyperlipi demia 16542778 Active 2022 Lynn chong MD [address], [place], [address] , [facility] [employer] [facility] 3 12:46:27 Benign prostatic hyperplas ia without outflow obstructi on 278139803 Active 2022 Lynn chong MD [address], [place], [address] , [facility] 3 12:46:33 Primary erectile dysfuncti on 044530692 Active 2022 Lynn chong MD [address], [place], [address] , [facility] [employer] [facility] 3 12:46:41 Onychomyc osis 952646058 Active 2022 Lynn chong MD [address], [place], [address] , [facility] [facility] 3 12:46:51 Hypothyro idism 19589412 Active 2022 Lynn chong MD [address], [place], [address] , [facility] 3 12:47:04 Chronic kidney disease 638331459 Active 2022 Lynn chong MD [address], [place], [address] , [facility] [employer] [facility] 3 08:19:10 Toothache 10221911 Active [address] [facility] [employer] [facility] 3 14:58:43 Mixed anxiety and depressiv e disorder 280941484 Active 2023 DISHA Stewart, [place] [facility] [facility] [employer] [facility] 4 12:00:34 Pain of left shoulder joint 21161976693 385769 Active 2023 Lynn chong MD [address] [address], [place], [address] , [facility] [employer] [facility] 4 13:01:28 Hypoprote inemia 2227128 Active 2023 Lynn chong MD [address] [facility] [address] [address], [place], [address] , [facility] [employer] [facility] [employer] [facility] 4 13:01:28 Generaliz ed anxiety disorder 82277547 Active 2023 Lynn chong MD [address] [facility] [address], [place], [address] , [employer] [facility] [employer] [facility] 4 13:01:28 Liver enzymes level above reference range 912672533 Active 2023 Lynn chong MD [address] [facility] [address], [place], [address] , [facility] [facility] [employer] [facility] 4 09:55:30 Notes:Medical History: Synco pe Rhinitis with postnasal drip Obesity with mod OSAHS, AHI = 25, 01/31/21, off CPAP Hyperlipidemia Hypertension EF 65% LAE BPH ED Iron deficiency PLMD Osteoarthritis Onychomycosis Procedure History: T&A 195 Colonoscopies 2010, 2020 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 Procedures Surgical History Date Name Laterality Status Provider Name and Address Organization Details Recorded Time 05/10/20 24 Medicare Wellness CPT Code, subsequent completed Leo Cornell LPN [employer] [employer] [facility] [employer] [facility] 05/10/2024 08:11:05 06/16/20 23 Ear Irrigation completed DELMAR Ortega [employer] [facility] 06/16/2023 09:51:09 05/05/20 21 colonoscopy completed Not Available [facility] 12/05/19 05:14:12 appendectomy completed Not Available [facility] 12/04/2022 05:14:12 Tonsillectomy completed Not Available [facility] 12/04/2022 05:14:12 procedure on shoulder completed Not Available [facility] 12/04/2022 05:14:12 biopsy of skin completed Kristel Espinoza [place] [employer] [facility] 01/13/2024 09:49:43 Imaging Results None recorded. Procedure Notes None recorded. Medical Equipment None Reported. Allergies Allergen ID Allergen Name Allergen Category Reaction Reaction Severity Criticality Documentation Date Start Date Code Code System Note Provider Name and Address Organization Details Recorded Time 9768 Terramyci n medicatio n Not available Not available Not available 12/04/202296699 4 RxNorm child hhod aller gy Not Available [facility] 05:27:26 Medications Name Sig Start Date Stop Date Status Note LastModified by Organization Details LastModified Time losartan 50 mg tablet TAKE 1 TABLET BY MOUTH DAILY active Not Available Not Available No t Available amoxicill in 500 mg capsule active Not Available Not Available Not Available buspirone 5 mg tablet TAKE 1 TABLET BY MOUTH TWICE DAILY active only takinf once a day Not Available Not Available Not Available prednison e 10 mg tablet TAKE 3 TABLETS BY MOUTH FOR 3 DAYS, THEN 2 TABLETS BY MOUTH FOR 3 DAYS THEN, 1 TABLET BY MOUTH FOR 3 DAYS. active Not Available Not Available No t Available Vitamin C 500 mg tablet Take 1 tablet every other day by oral route. 05/10 completed Not Available Not Available Not Available sildenafi l 50 mg tablet TAKE INSTRUCT ED BY YOUR PRESCRIB ER. Take one qd prn 09/20 completed Not Available Not Available Not Available triamcino lone acetonide 0.5 % topical cream APPLY A THIN LAYER TO AFFECTED AREA(S) TWICE DAILY DIRECTED 08/14 completed Not Available Not Available Not Available Iron (ferrous sulfate) 325 mg (65 mg iron) tablet Take 1 tablet every other day by oral route. active Not Available Not Available No t Available azithromy emy 250 mg tablet TAKE 2 TABLETS (500 MG) BY ORAL ROUTE ONCE DAILY FOR 1 DAY THEN 1 TABLET (250 MG) BY ORAL ROUTE ONCE DAILY FOR 4 DAYS 07/23 completed Not Available Not Available Not Available ibuprofen 800 mg tablet active Not Available Not Available Not Available cephalexi n 250 mg capsule Take 1 capsule every 6 hours by oral route for 7 days. active Not Available Not Available No t Available Claritin 10 mg tablet Take 1 tablet every day by oral route. active Not Available Not Available No t Available naltrexon e 50 mg tablet 03/29 completed Not Available Not Available Not Available ibuprofen 200 mg capsule Take 1 capsule every 6 hours by oral route. 01/21 completed Not Available Not Available Not Available fluoroura cil 5 % topical cream 10/28 completed Not Available Not Available Not Available clobetaso l 0.05 % topical cream APPLY A THIN LAYER TO THE AFFECTED AREA(S) BY TOPICAL ROUTE 2 TIMES PER DAY FOR 7 TO 10 DAYS active Not Available Not Available No t Available Zyrtec 10 mg tablet Take 1 tablet every day by oral route. 2022 active Not Available Not Available Not Avai lable clopidogr el 75 mg tablet TAKE 1 TABLET BY MOUTH DAILY active Not Available Not Available No t Available sulfameth oxazole 800 mg-trimet hoprim 160 mg tablet active Not Available Not Available Not Available aspirin 81 mg tablet,de layed release TAKE 1 TABLET BY MOUTH DAILY active Not Available Not Available No t Available sildenafi l 100 mg tablet TAKE 1 TABLET BY MOUTH TWICE A WEEK NEEDED active Not Available Not Available No t Available triamcino lone acetonide 0.1 % topical cream 01/21 completed Not Available Not Available Not Available cyprohept adine 4 mg tablet 08/14 completed Not Available Not Available Not Available bupropion HCl 100 mg tablet 03/29 completed Not Available Not Available Not Available hydrocort isone-pra moxine 2.5 %-1 % topical cream active Not Available Not Available Not Available lorazepam 0.5 mg tablet Take 1 tablet by oral route as needed for 10 days. active Not Available Not Available No t Available tamsulosi n 0.4 mg capsule TAKE 1 CAPSULE BY MOUTH DAILY AT BEDTIME 2023 active Not Available Not Available Not Avai lable Pramosone 1 %-1 % topical cream active Not Available Not Available Not Available meclizine 25 mg tablet Take 1 tablet twice a day by oral route as needed. active Not Available Not Available No t Available cephalexi n 500 mg capsule active Not Available Not Available Not Available losartan 25 mg tablet TAKE 1 TABLET ONCE DAILY 09/20 completed Not Available Not Available Not Available orphenadr ine citrate ER 100 mg tablet,ex tended release active Not Available Not Available Not Available nitroglyc bebeto 0.4 mg sublingua l tablet DISSOLVE 1 TABLET UNDER THE TONGUE NEEDED. SEEK MEDICAL ATTENTIO N IF NOT RELIEVED OR WORSENS 3-5 MINUTES AFTER 1 DOSE active Not Available Not Available No t Available hydrocodo ne 5 mg-acetam inophen 500 mg tablet active Not Available Not Available Not Available pravastat in 20 mg tablet TAKE 1 TABLET BY MOUTH DAILY 03/12 completed Not Available Not Available Not Available mupirocin 2 % topical ointment 07/23 completed Not Available Not Available Not Available ergocalci ferol (vitamin D2) 1,250 mcg (50,000 unit) capsule Take 1 capsule every week by oral route as directed . 11/06 completed Not Available Not Available Not Available fluocinon eliza 0.05 % topical solution APPLY TO SCALP TWICE DAILY active Not Available Not Available No t Available levofloxa emy 500 mg tablet active Not Available Not Available No t Available methylpre dnisolone 4 mg tablets in a dose pack FOLLOW PACKAGE DIRECTIO NS 08/06 completed Not Available Not Available Not Available ipratropi um bromide 42 mcg (0.06 %) nasal spray [place] 1 spray 4 times a day by intranas al route as needed. 01/12 completed Not Available Not Available Not Available clobetaso l 0.05 % scalp solution 07/30 completed Not Available Not Available Not Available fluticaso ne propionat e 50 mcg/actua tion nasal spray,felicia pension SHAKE LQ AND U 1 SPR IEN D active Not Available Not Available No t Available doxycycli ne hyclate 100 mg tablet 05/10 completed Not Available Not Available Not Available finasteri de 5 mg tablet TAKE 1 TABLET BY MOUTH DAILY active Not Available Not Available No t Available diazepam 5 mg tablet TAKE 1 TABLET BY MOUTH THE NIGHT BEFORE AND 1 TABLET 1 HOUR PRIOR TO APPOINTM ENT 11/10 completed Not Available Not Available Not Available amoxicill in 875 mg-potass ium clavulana te 125 mg tablet TAKE 1 TABLET BY MOUTH EVERY 12 HOURS 11/10 completed Not Available Not Available Not Available Avodart 0.5 mg capsule Take 1 capsule every day by oral route. 12/07 completed wanting to switch to somethin g cheaper. Not Available Not Available Not Available rosuvasta tin 20 mg tablet TAKE 1 TABLET BY MOUTH EVERY DAY active Not Available Not Available No t Available tadalafil 20 mg tablet TAKE 1 TABLET BY MOUTH ONCE DAILY NEEDED active Not Available Not Available No t Available Cialis 5 mg tablet Take 1 tablet every day by oral route as needed for 10 days. 03/04 completed see insuranc e correspo ndence dated 10-09-17 Not Available Not Available Not Available escitalop butch 5 mg tablet TAKE 1 TABLET BY TWICE DAILY active Not Available Not Available No t Available metoprolo l tartrate 25 mg tablet TAKE 1 TABLET BY MOUTH TWICE DAILY 11/10 completed Not Available Not Available Not Available sildenafi l (pulmonar y hypertens ion) 20 mg tablet TAKE 2-5 TABLETS BY MOUTH NEEDED 04/14 completed Not Available Not Available Not Available Fish Oil 1CAP daily 07/03 completed Not Available Not Available Not Available Aspir-81 1 tablet daily 05/02 completed Not Available Not Available Not Available multivita min 1 tablet daily 03/26 completed Not Available Not Available Not Available Equate Allergy-S inus Headache QD 04/14 completed Not Available Not Available Not Available Multivita min 50 Plus 01/12 completed Not Available Not Available Not Available fenofibra te nanocryst allized 48 mg tablet TAKE 1 TABLET DAILY DIRECTED 07/22 completed Not Available Not Available Not Available Cialis 2.5 mg tablet take one daily 02/09 completed Not Available Not Available Not Available Zyrtec 10 mg capsule Take 1 mg every day by oral route. 02/09 completed Not Available Not Available Not Available ChlorTabs 4 mg tablet Take 1 tablet every 4 hours by oral route. 08/14 completed Not Available Not Available Not Available glucosami ne 116 mg-chondr oitin 100 mg-dietar y supplemen t #25 capsule Take by oral route. 09/20 completed Not Available Not Available Not Available vit C 500 mg-rutin 10 mg-hesper idn cmp 10 mg-biofla v,cit 200 mg tablet Take 1 tablet every day by oral route. active Not Available Not Available No t Available tadalafil 20 mg tablet (pulmonar y hypertens ion) TAKE 1 TABLET BY MOUTH ONCE DAILY NEEDED 05/27 completed Not Available Not Available Not Available Fluarix Quad 3635-0897 (PF) 60 mcg (15 mcg x 4)/0.5 mL IM syringe TO BE ADMINIST ERED BY PHARMACI ST FOR IMMUNIZA TION 08/14 completed Not Available Not Available Not Available Shingrix (PF) 50 mcg/0.5 mL intramusc ular suspensio n, kit ADM 0.5ML IM UTD 03/29 completed Not Available Not Available Not Available Fluzone High-Dose (PF) 180 mcg/0.5 mL intramusc ular syringe ADM 0.5ML IM UTD 07/22 completed Not Available Not Available Not Available Fluzone High-Dose (PF) 180 mcg/0.5 mL intramusc ular syringe PHARMACI ST ADMINIST ERED IMMUNIZA TION ADMINIST ERED AT TIME OF DISPENSI NG 08/19 completed Not Available Not Available Not Available Fluzone High-Dose Quad (PF) 240 mcg/0.7 mL IM syringe PHARMACY ADMINIST ERED 07/03 completed Not Available Not Available Not Available Vitals Date Recorded Body height Body mass index (BMI) Body weight Body temperature Heart rate Oxygen saturation Oxygen saturation in Arterial blood by Pulse oximetry Systolic blood pressure Diastolic blood pressure Provider Name and Address Organization Details Last Updated DateTime 4 177.8 cm 32.9 kg/m2 883662. 65 g 97.5 [degF] 59 /min 97 % 97 % 118 mm[Hg] 64 mm[Hg] DELMAR Ortega [place] - [facility] [employer] [place] 4 09:42:45 Social History Question Answer Notes LastModified by Organizat ion Details LastModified Time Tobacco Smoking Status Never Smoker Not Available [facility] 12/04/2022 05:13:21 Do You Have An Advance Directive? Yes [id number] Information not available 12/04/2022 What Is Your Level Of Alcohol Consumption? None [id number].[id number] Information not available 12/04/2022 Do You Wear A Helmet When Biking? No Does Not Bike [email or web address] Information not available 05/10/2024 Are You Blind Or Do You Have Difficulty Seeing? No MIGRATION.70280 [id number] Information not available 12/04/2022 Is Blood Transfusion Acceptable In An Emergency? Yes [email or web address] Information not available 05/10/2024 What Is Your Level Of Caffeine Consumption? Occasional [id number].[id number] Information not available 12/04/2022 In The 14 Days Before Symptom Onset, Have You Had Close Contact With A Laboratory-confi rmed COVID-19 While That Case Was Ill? No [id number].[id number] Information not available 12/04/2022 In The 14 Days Before Symptom Onset, Have You Had Close Contact With A Person Who Is Under Investigation For COVID-19 While That Person Was Ill? No MIGRATION.76551 [id number] Information not available 12/04/2022 Are You Currently Employed? No Retired [email or web address] Information not available 01/13/2024 Are You Deaf Or Do You Have Serious Difficulty Hearing? No MIGRATION.11885 [id number] Information not available 12/04/2022 What Type Of Diet Are You Following? REGULAR MIGRATION.09903 23692 Information not available 12/04/2022 What Is The Highest Grade Or Level Of School You Have Completed Or The Highest Degree You Have Received? [id number] MIGRATION.89603 86536 Information not available 12/04/2022 Do You Have An Electrostatic Air Filter? No MIGRATION.55843 95643 Information not available 12/04/2022 How Many Days Of Moderate To Strenuous Exercise, Like A Brisk Walk, Did You Do In The Last 7 Days? 2 [email or web address] Information not available 05/10/2024 On Those Days That You Engage In Moderate To Strenuous Exercise, How Many Minutes, On Average, Do You Exercise? 30 [email or web address] Information not available 05/10/2024 Have There Been Any Changes To Your Family Or Social Situation? No MIGRATION.18405 [id number] Information not available 12/04/2022 What Is The Fluoride Status Of Your Home? Unknown MIGRATION.06002 [id number] Information not available 12/04/2022 Are There Any Guns Present In Your Home? No MIGRATION.51291 04974 Information not available 12/04/2022 Do You Have A Humidifier? No MIGRATION.57640 84349 Information not available 12/04/2022 Do You Use Insect Repellent Routinely? No MIGRATION.19355 50021 Information not available 12/04/2022 Where [facility] You Live? [facility] MIGRATION.66428 18156 Information not available 12/04/2022 Presence Of Domestic Violence No [email or web address] Information not available 05/10/2024 Guns Present In The Home? No Information not available 05/10/2024 Are You Able To Care For Yourself? Yes [email or web address] Information not available 05/10/2024 Are You Blind Or Do Yo Have Difficulty Seeing? No [email or web address] Information not available 05/10/2024 Are You Deaf Or Do You Have Serious Difficulty Hearing? No [email or web address] Information not available 05/10/2024 General Stress Level? Low [email or web address] Information not available 05/10/2024 Live Alone Of With Others? With Others [email or web address] Information not available 05/10/2024 Do You Have A Medical Power Of Medical Reimbursement Specialist? Yes MIGRATION.[id number] [id number] Information not available 12/04/2022 Do You Have Moisture Problems In Your Home? No MIGRATION.93957 [id number] Information not available 12/04/2022 What Was The Date Of Your Most Recent Tobacco Screening? 08/23/2024 [email or web address] Information not available 08/23/2024 How Many Children Do You Have? 3 Information not available 05/10/2024 Do You Have Any Pets? No MIGRATION.25716 06478 Information not available 12/04/2022 Do You Use Protection During Sex? No [email or web address] Information not available 05/10/2024 What Is Your Relationship Status? MIGRATION.24941 33613 Information not available 12/04/2022 Do You Use Your Seat Belt Or Car Seat Routinely? Yes MIGRATION.35109 92834 Information not available 12/04/2022 Are You Sexually Active? Yes [email or web address] Information not available 05/10/2024 Do You Have Smoke And Carbon Monoxide Detectors In Your Home? Yes MIGRATION.11459 65146 Information not available 12/04/2022 Are You Passively Exposed To Smoke? No MIGRATION.59560 95008 Information not available 12/04/2022 Are There Any Smokers In Your House? No MIGRATION.11635 47319 Information not available 12/04/2022 What Types Of Sporting Activities Do You Participate In? None [email or web address] Information not available 05/10/2024 Do You Feel Stressed (tense, Restless, Nervous, Or Anxious, Or Unable To Sleep At Night)? [id number] MIGRATION.34433 57924 Information not available 12/04/2022 Do You Use Any Illicit Or Recreational Drugs? No MIGRATION.12953 89546 Information not available 12/04/2022 Do You Use Sunscreen Routinely? Yes [id number] Information not available 12/04/2022 Has Tobacco Cessation Counseling Been Provided? No N/a [id number] Information not available 12/04/2022 Have You Recently Traveled Abroad? No [id number] Information not available 12/04/2022 Do You Have Any Dietary Restrictions? No MIGRATION.[id number] [id number] Information not available 12/04/2022 Do You Or Have You Ever Used Any Other Forms Of Tobacco Or Nicotine? No MIGRATION.[id number] [id number] Information not available 12/04/2022 Sex: Male Functional Status Question Answer Note LastModified by [employer] ion Details LastModified Time Do you have difficulty walking or climbing stairs? No [id number] Information not available 12/04/2022 Do you have transportation difficulties? No [id number] Information not available 12/04/2022 Are you able to walk? YESWOREST [id number] Information not available 12/04/2022 Do you have difficulty doing errands alone? No MIGRATION.[id number] Information not available 12/04/2022 Are you able to care for yourself? Yes [id number] Information not available 12/04/2022 Do you have difficulty dressing or bathing? No MIGRATION.[id number] Information not available 12/04/2022 What is your exercise level? Occasional [email or web address] Information not available 05/10/2024 Mental Status Question Answer Note LastModified by [employer] ion Details LastModified Time Do you have difficulty concentrating, remembering or making decisions? No [id number] Information not available 12/04/2022 Family History Relationship Description Onset Age of this Age Resolved Age Notes LastModified by Organization Details LastModified Time Mother Family history of malignant neoplasm [id number] Not available 12/04/2022 05:14:16 Mother Hypertensive disorder MIGRATION.737 [id number] Not available 12/04/2022 05:14:16 Mother Family history of stroke [id number] Not available 12/04/2022 05:14:16 Father Hypertensive disorder [id number].[id number] Not available 12/04/2022 05:14:16 Father Diabetes mellitus [id number] Not available 12/04/2022 05:14:16 Father Heart disease MIGRATION.[id number] Not available 12/04/2022 05:14:16 Notes:NO ENT Medical History Condition Response NERVE DISEASE N BLINDNESS N RHEUMATIC FEVER N KIDNEY STONES N BLADDER PROBLEMS N MRSA N OTHER # 1 N POLIO N LUNG DISEASE/DISORDER N HISTORY OF DRUG ABUSE N COPD N RADIATION / CHEMOTHERAPY N Other # 2 N BLOOD DISEASES N EAR OR HEARING PROBLEMS N MUMPS N SHINGLES N BOWEL PROBLEMS N DEPRESSION (INCLUDING POST ) N STROKE/TIA Y ULCERS N BENIGN PROSTATIC HYPERPLASIA Y MEASLES N HYPOTENSION N MYOCARDIAL INFARCTION N OBESITY Y GERD/NAUSEA N ANEURYSM N URINARY/BLADDER/KIDNEY PROBLEMS N CORONARY ARTERY DISEASE (CAD) Y ADDICTION CONCERNS N ENDOMETRIOSIS N Impotence N USE OF BLOOD THINNERS N SKIN PROBLEMS N GASTROINTESTINAL DISORDER N PERIPHERAL VASCULAR DISEASE N MUSCLE,JOINT OR BONE PROBLEMS N GASTROINTESTINAL BLEEDING N BLOOD CLOTS N ASTHMA N CATARACTS N ERECTILE DYSFUNCTION N VARICOSITIES N GI PROBLEMS N Low Testosterone N INFERTILITY N AIDS/HIV N CHEMOTHERAPY / RADIATION N LIVER DISEASE N MALE HYPOGONADISM N HYPERTENSION Y Deficiency N TOURETTE'S N ANXIETY DISORDER N BLOOD TRANSFUSION N ANEMIA/BLOOD DISORDER Y CHRONIC EAR INFECTIONS N BRONCHITIS N TUBERCULOSIS N GLAUCOMA N FOOT PROBLEM N DIVERTICULITIS N CHICKENPOX N SLEEP APNEA Y INFECTIOUS DISEASE N HEART ARRHYTHMIA N PROSTATE N INSOMNIA N HIGH CHOLESTEROL / HYPERLIPIDEMIA Y HYPERTHYROIDISM N EYE PROBLEMS N EDEMA N CHRONIC PAIN SYNDROME N HYPOTHYROIDISM Y CAROTID BLOCKAGE N CONSTIPATION N BACK / NECK PROBLEMS N ATHEROSCLEROSIS N BREAST PROBLEMS N DIALYSIS N ECZEMA N OSTEOPOROSIS N ARTHRITIS Y APPENDICITIS N DIABETES, TYPE N BAD TEETH N ENT N HEARTBURN / REFLUX N AUTISM SPECTRUM DISORDER (ASD) N HEPATITIS / LIVER DISEASE N GOUT N SLEEP DISORDER N ALZHEIMER'S DISEASE N Brain Problems N HERPES N DEMENTIA N HEADACHES/MIGRAINES N SEIZURES/EPILEPSY N VASCULAR DISEASE N PACEMAKER N Blood Disorder N DIZZINESS N HEART DISEASE/HEART PROBLEMS N KIDNEY DISEASE N MULTIPLE SCLEROSIS N CARDIAC ARRHYTHMIA N CANCER: SPECIFY N ATRIAL FIBRILLATION N Gall Stones N PULMONARY EMBOLISM N AUTOIMMUNE DISEASE N Immunizations Vaccine Type Date Status Note Provider Nam e and Address Organization Details Recorded Time RSV, recombinant, protein subunit RSVpreF, adjuvant reconstituted, 0.5 mL, PF 3 completed Catracho Nicole RMA usama, [facility] 07/31/2023 15:40:24 Pneumococcal conjugate PCV20, polysaccharide [id number] conjugate, adjuvant, PF 3 completed Catracho Nicole RMA usama, [facility] 07/31/2023 15:45:29 Influenza, high-dose, quadrivalent, PF 3 [facility] 15:46:03 COVID-19, mRNA, LNP-S, PF, 30 mcg/0.3 mL dose 3 completed Catracho Nicole RMA null, [facility] 07/31/2023 15:53:21 zoster recombinant 9 completed [facility] 13:38:31 zoster recombinant 8 [facility] 13:38:31 Influenza, high-dose, quadrivalent, PF 0 completed Leo Cornell LPN null, [facility] 05/06/2024 13:38:31 Influenza, high-dose, quadrivalent, PF 1 [facility] 13:38:31 COVID-19, mRNA, LNP-S, PF, 30 mcg/0.3 mL dose 1 completed Leo Cornell LPN null, [facility] 05/06/2024 13:38:31 COVID-19, mRNA, LNP-S, PF, 30 mcg/0.3 mL dose 1 completed Leo Cornell LPN null, [facility] 05/06/2024 13:38:31 COVID-19, mRNA, LNP-S, PF, 30 mcg/0.3 mL dose, brynn-sucrose 2 completed Leo Cornell LPN null, [facility] 05/06/2024 13:38:31 pneumococcal polysaccharide PPV23 2 completed Leo Cornell LPN null, [facility] 05/06/2024 13:38:31 Tdap 1 completed GAVINO Kiran, [facility] 05/06/2024 13:38:31 Influenza, high-dose, trivalent, PF 8 completed GAVINO Kiran, [facility] 05/06/2024 13:38:31 Influenza, split virus, trivalent, preservative 5 completed GAVINO Kiran, [facility] 05/06/2024 13:38:31 Influenza, split virus, quadrivalent, PF 6 completed [facility] 13:38:31 Influenza, high-dose, trivalent, PF 4 completed Vera Felipe RMA null, [facility] 07/19/2024 14:44:04 COVID-19, mRNA, LNP-S, PF, brynn-sucrose, 30 mcg/0.3 mL 4 completed Vera Felipe RMChanel null, [facility] 07/19/2024 14:44:42 COVID-19, mRNA, LNP-S, bivalent, PF, 30 mcg/0.3 mL dose 2 completed GAVINO Kiran, [facility] 05/06/2024 13:38:31 COVID-19, mRNA, LNP-S, PF, 30 mcg/0.3 mL dose 2 completed Leo Cornell LPN null, [facility] 05/06/2024 13:38:31 COVID-19, mRNA, LNP-S, PF, 30 mcg/0.3 mL dose 1 [facility] 13:38:31 Influenza, high-dose, quadrivalent, PF 2 completed Leo Cornell LPN null, [facility] 05/06/2024 13:38:31 COVID-19, mRNA, LNP-S, PF, 100 mcg/0.5mL dose or 50 mcg/0.25mL dose 1 completed Leo Cornell LPN null, [facility] 05/06/2024 13:38:31 COVID-19, mRNA, LNP-S, PF, 100 mcg/0.5mL dose or 50 mcg/0.25mL dose 1 completed [facility] 13:38:31 Influenza, high-dose, trivalent, PF 9 completed Leo Cornell LPN null, [facility] 05/06/2024 13:38:31 Influenza, split virus, quadrivalent, PF 6 completed Leo Cornell LPN null, [facility] 05/06/2024 13:38:31 Influenza, split virus, quadrivalent, preservative 0 completed Leo Cornell LPN null, [facility] 05/06/2024 13:38:31 influenza, unspecified formulation 8 completed Leo Cornell LPN null, [facility] 05/06/2024 13:38:31 Influenza, split virus, trivalent, preservative 4 completed Not Available [facility] 04/08/2023 00:32:34 pneumococcal polysaccharide PPV23 8 completed Not Available [facility] 04/08/2023 00:32:34 Pneumococcal conjugate PCV 13 6 completed GAVINO Kiran [facility] 05/06/2024 13:38:31 Influenza, split virus, quadrivalent, preservative 7 completed Not Available [facility] 04/08/2023 00:32:34 zoster live 3 completed Not Available [facility] 04/08/2023 00:32:34 Past Encounters Encounter ID Performer Location Encounter Start Date Encounter Closed Date Diagnosis/Indication Diagnosis SNOMED-CT Code Diagnosis ICD10 Code [id number] Zainab Beverly RN [facility] [address] [place] [address] 08/17/2024 09:26:04 08/17/2024 11:32:08 [id number] Lynn chong MD [address] [place] [address] 08/23/2024 09:30:42 08/23/2024 10:12:28 Screening - NAD 260997282 Z13.9 Essential hypertension 79598179 I10 Coronary arteriosclerosis 37709296 I25.10 Obstructiv e sleep apnea syndrome 48477804 G47.33 Transient cerebral ischemia 322803236 G45.9 Hyperlipidemia 22336124 E78.5 Benign pro static hyperplasia without outflow obstruction 615925075 N40.0 Primary er ectile dysfunction 417199317 N52.9 Onychomycosis 047322403 B35.1 Hypoproteinemia 1254829 E88.09 Hypothyroidism 77494905 E03.9 Posterior rhinorrhea 758 36221 R09.82 Chronic ki dney disease 843725257 N18.9 Pain of le ft shoulder joint 0811001078 6746599 M25.512 Generalize d anxiety disorder 09185324 F41.1 Liver enzy mes level above reference range 644687768 R74.01 Health Concerns Section Related Observation LastModified by Organization Detai ls LastModified Time None Recorded Concern Status LastModified by Organization Details LastModified Time None Recorded Payers Encounter Date Sequence Insurance Name Policy Number Policy Llanos Covered Member ID Llanos Member ID Guarantor Name 08/23/2024 1 [place] Jonah Slava Jenifer [id number] Jonah Pedersen Jenifer 08/23/2024 2 [place] [id number] Jonah Burgess [id number] Jonah Burgess Notes Date Note Type Note Provider Name and Address Organization Details Recorded Time 08/23/2024 text/html Here to stephanie Kerns Hx:BPHEDReviewed social family and surgical historyHere as he has a patch on his skin, used to be on steroid creamsHas had fleeting chest pain, no syncope or pre syncope, no palpitations on the L side and radiated across the chest, knife like lasted for 2-3 sec OV 01/21/18:Here for his routine aptHe is doing wellHe would like to discuss his use of cialisHe is here also for his MMV OV 02/09/18:He is here for his BP checkHe states that he is doing well at this time OV 04/14/18:Here for her routine aptHe states that he is doing well at this timeWas seen in the ER at [facility] yesterday for 'eye drooping'He was provided with a CT headNo headaches, diplopia, N/V or UE or LE weaknessNo dysrathria noted OV 05/13/18:Here for his one month apt, he was in the hospital at [facility] on 05/05/18 for syncopeHe did have labs a CT head and EKG and was then admitted and was seen by cardiologyHe is doing well otherwise today, no complaints, see ROS OV 07/22/18:Here for his routine aptHe did do the labs, and is feeling very well OV 10/28/18:Here for his routine aptHe states that he is doing well at this timeHe did do the labs on 10/20/18 and is here to review these OV 03/29/19:Here for his routine aptHe did do the labs and feels wellHe does state that he saw Dr Espinoza, Dr Erwin and Dr Drew would like to get a 100mg dose of viagra as this does work better for himHe would also like his hepatitis 'checked out' OV 08/19/19:Here for his routine aptIs having some insurance issuesNo recent labs doneDoes have some sinus congestion todayNo fevers or chills or chest pain or SOBNo blood in sputum or noseHere for his mwv OV 09/20/19:Here for his BP checkHe feels well today, he is going to the gym now and is doing cardio and weightsHe feels that this has helped his weight he has lost 5 pounds in 2 weeksHe denies any complaints at this timeHe is taking his losartan 50mg daily OV 02/17/2020:Here for tele visitHe is agreeable to do this visitHe did do the labsHe feels well OV 07/03/2020:Here for his routine aptHe feels well, has some morning LBP, achy, no radiation, no N/T or weakness, no loss of bowel or bladder control, no acute or remote traumaHe did do the labs OV 11/06/2020:Here for his routine aptHe feels wellHe did do the labsHe would like his viagra renewedHe would also like to get the ears flushed today OV 03/12/2021:Here for his routine aptHe is doing wellHe did do the labsHe also has seen Dr Olga BOLES, and has an sleep study OV 06/13/2021:Here for his routine aptHe is doing wellHe did do the labsWants a referral to ortho Dr Méndez as he does have some intermittent R knee painHe did see Dr Levi and has had his c-scope done OV 12/03/2021:Here for his routine aptHe is doing wellHe did the labs OV 06/18/2022:He is here for his routine apt, he feels well, he did do the labs on 2Does have R shoulder pain, feels that happened when he cut trees OV 08/06/2022:ACV:Not ed a cyst on the lower scrotum, this is tender when he sits in a particular way, no trauma noted, no blood in the urine, no symptoms of UTI, no fevers or chills noted OV 11/19/2022:Here for his f/u and MWV, does well, did do the labs 05/27/2023:Here for his f/u apt, he is doing well today OV 06/16/2023: Here to get his ears flushed, feels that the hearing is a little muffled, no d/c or blood, no dizziness OV 11/10/2023: Here for his f/u apt, he is doing well today, he did do the labs on 10/31/2023 OV 05/10/2024: Here for his f/u apt, he feels well today, he states that he did have a HC and had to do balloon angioplasty, he is now seeing Dr Espinoza in 2 days, states that he is doing very well, some SOB, but feels that this is his baseline, he did do the labs, he has also to do his MWV OV 08/23/2024: Here for his f/u apt, he is doing well today yLnn Manning MD [address] [place] [address], [address], [place], [address], [place] [facility] 08/23/2024 19:11:11
--- OUTSIDE RECORDS SUMMARY | 2024-09-16 10:48 | XMS_ITS | Data Portability ---
Author Organization [place] - S docplanner, Main Office Address [address] [place] [address] Care Team Providers Care Penology Teacher Name Role Phone CARLOS MANNING Primary Care Provider [phone] CARLOS MANNING Referring Provider [phone] ANUP ESPINOZA Edge Sawyer NEERAJ MARROQUIN Psychiatrist TEJAS LEVI Genetic Scientist ABDULLAHI SULTANA Staff Command And Control Officer Assessment Encounter Date Assessment Date Assessment LastModified by Organization Details LastModified Time 01/13/2024 01/13/2024 Assessment: Moderate OSAHS, AHI = 25, off CPAP PLMD Iron deficiency Postnasal drip, resolved Plan: The following were reviewed and explained to the patient: [facility] 2-D echocardiogram 12/28/20 EF 65%, LAE stress test 12/28/20 normal [facility] home sleep study 01/31/21 Melrude night 2 sleep study 03/07/21 Ferritin 04/02/21 30 ng/mL Ferritin 07/03/21 44 ng/mL Ferritin 09/27/21 66 ng/mL Ferritin 04/04/22 103 ng/mL Ferritin 10/02/22 183 ng/mL Ferritin 03/28/23 95 ng/mL Ferritin 01/02/24 63 ng/mL Discontinue Atrovent nasal spray 0.06% 1 spray to each nostril up to 4 times a day for postnasal drip. Elevation in periodic limb movement index may be contributed by cetirizine. Non-pharmacologic therapy options for periodic limb movement disorder include avoidance of aggravating drugs and substances, mental alerting activities, short daily hemodialysis for patients in renal failure, exercise, leg massage, stretching calf muscles, use of a weighted blanket and applied heat. BUN, Creatinine, Vitamin E, Vitamin B12, RBC folate, Iron, TIBC, ESR, Magnesium, Hgb and Hct levels are within normal limits. Patient will continue FeSO4 325 mg + Vit C 500 mg but increase from three times weekly to every other day to keep the ferritin > 75 ng/ml. Check ferritin one week before return. We will hold off on dopaminergic therapy for now. Patient is on the fence about CPAP therapy even though he knows about the risk of uncontrolled hypertension, CAD, MN, CHF and CVA associated with untreated NAFISA. We discussed with the patient the impact of weight on: Sleep disordered breathing Hyperlipidemia Hypertension LAE Osteoarthritis We discussed with the patient the benefit of NAFISA therapy on: Sleep disordered breathing Hypertension ED Alternative therapies for NAFISA discussed: Mandibular Advancement Device (MAD) or Mandibular Advancement Split (MAS) therapy elaborated. Factors that may negatively impact MAD/MAS candidacy were discussed as follows: history of cancer in head/neck/mouth, history of radiation treatment, gum disease, use of dentures, presence of eight or less teeth in upper and lower jaw, decay or broken teeth/fillings, jaw joint pain or clicking/popping, ear problems such as congestion/tinnitus/pain/ vertigo, neck/back/facial pain, frequent headaches, teeth grinding or teeth clenching, etc. Ear, Nose, and Throat (ENT) specialists can also address NAFISA. The option of hypoglossal nerve stimulation therapy or uvulopalatopharyngoplasty (UPPP) was entertained. Bongo Rx for NAFISA discussed. He's concerned about cost and he wants a conservative approach. He will discuss the MAD option with his dentist but he has no dental insurance. Educated the patient on sleep hygiene measures. Relaxing rituals to rest easy, understanding foods with positive and negative impact on sleep, creating a peaceful sleep environment, timing of exercise, using herbal sleep aids, and practicing sleep-friendly meditation were covered. To determine how much sleep is needed, the patient will assess where (s)he falls on the spectrum, examine what lifestyle factors such as work schedules and stress are affecting the quality and quantity of sleep. In general, adults need 7-9 hours of sleep. Educated the patient regarding foods that promote sleep. These include but are not limited to cherries, bananas, toast, oatmeal, and warm milk. Educated the patient regarding foods and drinks to avoid before bedtime. These include but are not limited to aged cheese, chocolate, spicy foods, tomato-based sauces, soy, ginseng tea and processed meat. Advocated influenza vaccination annually and pneumonia vaccination ZEINAB. Advocated weight loss through diet and exercise. Patient's ideal body weight according to height and gender is up to 180 lbs. Encouraged patient to adjust caloric intake to maintain/achieve ideal body weight, emphasizing on fruits, vegetables, whole grains, and fat-free or low-fat products. These include lean meats, poultry, fish, beans, eggs, and nuts and foods that are low in saturated fats, trans-fats, cholesterol, salt (sodium), and glycemic index. Stressed the importance of regular exercise up to the patient's capacity limits. In this case, we recommend 20 min daily walking, 2 days a week of resistance training. Patient to monitor BP daily and bring records to PCP for further management. Follow-up: 12 months, January 2025 [email or web address] Not available 01/13/2024 10:44:01 05/10/2024 05/10/2024: PSA 1.18 TSH/CBC/Lipids: WNL GFR 62 A1C 5.6 11/11/2022: PSA 0.78 TSH/FT4/LIPIDS/CBC: WNL CMP: K 5.2H, Gluc 101, BUN 20, GFR 59 10/31/2023: BUN 23, glob 2.5, TP WNL 05/04/2024: PSA 0.89 BUN 21, GFR 56 Not available 05/10/2024 09:46:40 08/23/2024 08/23/2024: PSA 1.18 TSH/CBC/Lipids: WNL GFR 62 A1C 5.6 11/11/2022: PSA 0.78 TSH/FT4/LIPIDS/CBC: WNL CMP: K 5.2H, Gluc 101, BUN 20, GFR 59 10/31/2023: BUN 23, glob 2.5, TP WNL 05/04/2024: PSA 0.89 BUN 21, GFR 56 08/17/2024: Gluc 100, BUN 25, Cr 1.35, GFR 52, AST 48 Not available 08/23/2024 09:55:09 Plan of Treatment Reminders Order Date Submit Date Provider Last Modified By Organization Details Last Modified Time Details Appointments Any 15 2024 08:30A M Carlos young MD Not available Not available Not available Establish ed Patient 15 2024 07:30A M Tejas Levi MD Not available Not available Not available Lab ferritin, serum or plasma [email or web address] [place] [address] Outpatient Lab, [address] [place], [address], 01/13/2024 10:42:22 lipid panel, serum 2023 024 [facility] Outpatient Lab, [address] [place], [address], 08/17/2024 19:22:08 CMP, serum or plasma 2023 024 [facility] Outpatient Lab, [address] [place], [address], 08/17/2024 19:22:14 CBC w/ auto diff 2023 024 [facility] Outpatient Lab, [address] [place], [address], 08/17/2024 19:19:06 TSH + free T4, serum 2023 024 [facility] Outpatient Lab, [address] [place], [address], 08/23/2024 10:25:55 lipid panel, serum [address] Outpatient Lab, [address] [place], [address], 08/23/2024 10:07:18 CMP, serum or plasma [address] Outpatient Lab, [address] [place], [address], 08/23/2024 10:07:18 CBC w/ auto diff [address] Outpatient Lab, [address] [place], [address], 08/23/2024 10:07:18 TSH + free T4, serum [address] Outpatient Lab, [address] [place], [address], 08/23/2024 10:07:19 gamma-glu tamyl transfera se (ggt), serum 2023 024 [facility] Lab, [address] [place], [address], 09/13/2024 04:46:04 hepatitis panel (A+B+C), acute, serum 2023 024 [facility] Outpatient Lab, [address] [place], [address], 09/13/2024 04:46:05 Referral nephrolog ist referral 2023 [facility] [email or web address] Wu Chambers MD, [address], [address], [place], [address], 06/14/2024 15:35:27 psychiatr ist referral 2023 024 [facility] Neeraj Marroquin MD, [address], [address], [place], [address], 05/10/2024 12:54:36 cardiolog ist referral [address] [place], [place] [id number] [place], [address], [address], [place], [address], 05/10/2024 10:02:56 ENT surgery referral - Pt does need to be seen for Thyroid nodules per Dr. Nathaniel young 2023 SRUTHI Sultana MD, [address], [place], [address], 05/10/2024 14:26:16 nephrolog ist referral - Please call patient to schedule. 2023 024 SRUTHI Chambers MD, [address], [address], [place], [address], 08/26/2024 12:50:34 psychiatr ist referral 2023 024 Neeraj Marroquin MD, [address], [address], [place], [address], 08/23/2024 17:38:16 cardiolog ist referral 2023 024 [email or web address] [place], [address] , [address], [place], [address], 08/23/2024 17:38:29 Procedures None recorded. Surgeries None recorded. Imaging US, liver - Please call patient to schedule. [facility], [address], [place], [address], 08/23/2024 17:43:10 Medication Orders ferrous sulfate 325 mg (65 mg iron) tablet 2023 024 [place] [address] [id number], [address], [place], [place], [id number], 05/10/2024 09:35:48 Vitamin C 500 mg tablet 2023 024 [place] [address] [facility] #[id number], [address], [place], [place], [id number], 05/10/2024 09:35:40 nitroglyc bebeto 0.4 mg sublingua l tablet 2023 024 [facility], [address] , [place], [place], [id number], 05/10/2024 10:04:04 Patient TargetsNo targets recorded. Patient Instructions Encounter Date Encounter Id Patient Instructions Last Modified By Organization Details Last Modified Time 05/10/2024 [id number] dementia rating scale-2* Not available 05/10/2024 11:17:43 alcohol misuse* [email or web address] Not available 05/10/2024 11:17:53 depression screening* Not available 05/10/2024 11:18:27 Timed Up and Go test (TUG)* [email or web address] 2 Not available 05/10/2024 12:52:12 multi-dimensiona l health assessment questionnaire* [email or web address] 2 Not available 05/10/2024 12:52:11 Personalized Hea lth Plan and Screening Recommendations Advance Directives - Do you have one? Yes Advance Directives - Do we have your advance directive on file in your health record? Primary Prevention/Interven tion (prevents or decreases the chance of common diseases from occurring) Smoking Risk: Non Smoker Alcohol Misuse Screening: Negative Weight: Appropriate Overwei ght continue your current weight loss efforts try to lose 5% of your body weight try to lose 10% of your body weight Physical activity: minimum of 10-20 minutes of activity that causes mild breathlessness/day minimum of 20-30 minutes activity that causes mild breathlessness/day Nutrition: Good Refer to attached handout Heart-Healthy Diet: After Your Visit Fall Risk (screened today): Low Intermediate Refer to attached handout Preventing Falls: After your Visit Vaccines Pneumococcal: Ordered Recommended today Recommended today, but you have declined No further needed Influenza: Chronic Disease Risks Stroke: Low Risk Intermediate Risk Heart Attack: Low risk Intermediate Risk Clogging of the Arteries: Low risk Intermediate Risk Diabetes: Low Risk I have no recommendations Secondary Prevention/Interven tion (detects treatable diseases before they may cause symptoms, disability, or ) Prostate Cancer Screening: Colon Cancer Screening: Colonoscopy Date Screening Last Performed: Eye Disease Screening: Ordered Recommended today Dementia Risk: Low Intermediate I have no recommendations My recommendation would be to have further medical evaluation, make an appointment with primary care physician Depression Screening: Negative Positive Recommend additional evaluation and/or treatment as noted above Recommend follow appointment to further evaluate Recommend Behavioral Health referral [email or web address] Not available 05/10/2024 11:24:20 06/17/2024 [id number] this patient agueda l undergo a thyroid ultrasound [email or web address] Not available 06/17/2024 11:04:25 Reason for Referral ENT Surgery Referral for Hyp othyroidism Pt does need to be seen for Thyroid nodules per Dr. Manning Referring Physician: Carlos Manning Internal Medicine, Encounter Date: 05/10/2024 Edge Sawyer Referral for Es sential hypertension Referring Physician: Carlos Manning Internal Medicine, Encounter Date: 05/10/2024 Cheese Pancake Roller Referral for Ch ronic kidney disease Referring Physician: Carlos Manning Internal Medicine, Encounter Date: 05/10/2024 Psychiatrist Referral for Ge neralized anxiety disorder Referring Physician: Carlos Manning Internal Medicine, Encounter Date: 05/10/2024 Edge Sawyer Referral for Es sential hypertension Referring Physician: Carlos Manning Internal Medicine, Encounter Date: 08/23/2024 Cheese Pancake Roller Referral for Ch ronic kidney disease Please call patient to schedule. Referring Physician: Laura Bond Medicine, Encounter Date: 08/23/2024 Psychiatrist Referral for Ge neralized anxiety disorder Referring Physician: Laura Bond Medicine, Encounter Date: 08/23/2024 Results Created Date Observation Date Name Description Value Unit Range Abnormal Flag Note LastModifiedBy Organization Detail LastModifiedTime 05/04/20 24 05/04/2024 CBC/C OMPLE TE BLD COUNT W/DIF F white blood cells 4.9 x10'3 /uL 4.2-10 .8 Not Available [facility] (Lab) [address] [place], [address], 05/04/2024 11:28:41 05/04/20 24 05/04/2024 CBC/C OMPLE TE BLD COUNT W/DIF F red blood cells 5.12 x10'6 /uL 4.10-5 .80 Not Available [facility] (Lab) [address] [place], [address], 05/04/2024 11:28:41 05/04/20 24 05/04/2024 CBC/C OMPLE TE BLD COUNT W/DIF F hemoglobin 16.0 g/dL 13.2-1 7.0 Not Available [facility] (Lab) [address] [place], [address], 05/04/2024 11:28:41 05/04/20 24 05/04/2024 CBC/C OMPLE TE BLD COUNT W/DIF F hematocrit 46.6 % 39.3-5 0.0 Not Available [facility] (Lab) [address] [place], [address], 05/04/2024 11:28:41 05/04/20 24 05/04/2024 CBC/C OMPLE TE BLD COUNT W/DIF F mean red cell volume 91.0 fL 80.0-9 7.0 Not Available [facility] (Lab) [address] [place], [address], 05/04/2024 11:28:41 05/04/20 24 05/04/2024 CBC/C OMPLE TE BLD COUNT W/DIF F mean red cell hemoglobin 31.3 pg 27.0-3 3.0 Not Available [facility] (Lab) [address] [place], [address], 05/04/2024 11:28:41 05/04/20 24 05/04/2024 CBC/C OMPLE TE BLD COUNT W/DIF F mean RBC HGB concentratio n 34.3 g/dL 31.0-3 6.0 Not Available [facility] (Lab) [address] [place], [address], 05/04/2024 11:28:41 05/04/20 24 05/04/2024 CBC/C OMPLE TE BLD COUNT W/DIF F red cell distribution width 11.2 % 11.8-1 5.5 low Not Available [facility] (Lab) [address] [place], [address], 05/04/2024 11:28:41 05/04/20 24 05/04/2024 CBC/C OMPLE TE BLD COUNT W/DIF F platelets 246 x10'3 /uL 150-40 0 Not Available [facility] (Lab) [address] [place], [address], 05/04/2024 11:28:41 05/04/20 24 05/04/2024 CBC/C OMPLE TE BLD COUNT W/DIF F mean platelet volume 9.8 fL 9.0-12 .4 Not Available [facility] (Lab) [address] [place], [address], 05/04/2024 11:28:41 05/04/20 24 05/04/2024 CBC/C OMPLE TE BLD COUNT W/DIF F neutrophils 67.2 % 39.0-7 2.0 Not Available [facility] (Lab) [address] [place], [address], 05/04/2024 11:28:41 05/04/20 24 05/04/2024 CBC/C OMPLE TE BLD COUNT W/DIF F lymphocytes 18.8 % 16.0-4 7.0 Not Available [facility] (Lab) [address] [place], [address], 05/04/2024 11:28:41 05/04/20 24 05/04/2024 CBC/C OMPLE TE BLD COUNT W/DIF F monocytes 7.1 % 5.0-12 .0 Not Available [facility] (Lab) [address] [place], [address], 05/04/2024 11:28:41 05/04/20 24 05/04/2024 CBC/C OMPLE TE BLD COUNT W/DIF F eosinophils 5.5 % 1.0-7. 0 Not Available [facility] (Lab) [address] [place], [address], 05/04/2024 11:28:41 05/04/20 24 05/04/2024 CBC/C OMPLE TE BLD COUNT W/DIF F basophils 1.2 % 0.0-2. 0 Not Available [facility] (Lab) [address] [place], [address], 05/04/2024 11:28:41 05/04/20 24 05/04/2024 CBC/C OMPLE TE BLD COUNT W/DIF F immature granulocytes 0.2 % 0.00-0 .50 Not Available [facility] (Lab) [address] [place], [address], 05/04/2024 11:28:41 05/04/20 24 05/04/2024 CBC/C OMPLE TE BLD COUNT W/DIF F neutrophils, absolute count 3.32 x10'3 /uL 1.5-8. 0 Not Available [facility] (Lab) [address] [place], [address], 05/04/2024 11:28:41 05/04/20 24 05/04/2024 CBC/C OMPLE TE BLD COUNT W/DIF F lymphocytes, absolute count 0.93 x10'3 /uL 1.07-3 .43 low Not Available [facility] (Lab) [address] [place], [address], 05/04/2024 11:28:41 05/04/20 24 05/04/2024 CBC/C OMPLE TE BLD COUNT W/DIF F monocytes, absolute count 0.35 x10'3 /uL 0.29-0 .99 Not Available [facility] (Lab) [address] [place], [address], 05/04/2024 11:28:41 05/04/20 24 05/04/2024 CBC/C OMPLE TE BLD COUNT W/DIF F eosinophils, absolute count 0.27 x10'3 /uL 0.02-0 .53 Not Available [facility] (Lab) [address] [place], [address], 05/04/2024 11:28:41 05/04/20 24 05/04/2024 CBC/C OMPLE TE BLD COUNT W/DIF F basophils, absolute count 0.06 x10'3 /uL 0.01-0 .08 Not Available [facility] (Lab) [address] [place], [address], 05/04/2024 11:28:41 05/04/20 24 05/04/2024 CBC/C OMPLE TE BLD COUNT W/DIF F immature granulocytes ,absolute 0.01 x10'3 /uL 0.00-0 .05 Not Available [facility] (Lab) [address] [place], [address], 05/04/2024 11:28:41 05/04/20 24 05/04/2024 CBC/C OMPLE TE BLD COUNT W/DIF F nucleated red blood cells 0.0 % -0 Not Available [facility] (Lab) [address] [place], [address], 05/04/2024 11:28:41 05/04/20 24 05/04/2024 CBC/C OMPLE TE BLD COUNT W/DIF F NRBC# 0.00 x10'3 /uL Not Available [facility] (Lab) [address] [place], [address], 05/04/2024 11:28:41 05/04/20 24 05/04/2024 LIPID PANEL cholesterol 118 mg/dL 140-19 9 low NIH OMKAR NSUS RECOM MENDA TION FOR SPENCER STERO L: ADULT CHILD LOW RISK: <200 <170 BORDE RLINE : <200- 239 ----- HIGH RISK: >240 >200 Not Available [facility] (Lab) [address] [place], [address], 05/04/2024 12:45:15 05/04/20 24 05/04/2024 LIPID PANEL triglyceride s 78 mg/dL 0-150 NIH OMKAR NSUS REPOR T RECOM MENDA TION FOR TRIGL YCERI NICOLE: ADULT CHILD LOW RISK: <150 ----- BODER LINE: 150-1 99 ----- HIGH RISK: >200 ----- Not Available [facility] (Lab) [address] [place], [address], 05/04/2024 12:45:15 05/04/20 24 05/04/2024 LIPID PANEL HDL cholesterol 55 mg/dL 40- Not Available [facility] (Lab) [address] [place], [address], 05/04/2024 12:45:15 05/04/20 24 05/04/2024 LIPID PANEL LDL cholesterol, calculated 47 mg/dL 0-130 NIH OMKAR NSUS REPOR T RECOM MENDA TIONS FOR LDL: ADULT CHILD LOW RISK <130 <110 (OPTI MAL LDL) <100 ----- BORDE RLINE : 130-1 59 ----- HIGH RISK: >160 >130 A TRIGL YCERI DE RESUL T >400 INVAL IDATE S THE CALCU LATIO N FOR LDL FRACT IONAT ION - THE LDL RESUL T WILL NOT BE REPOR ZANDER. Not Available [facility] (Lab) [address] [place], [address], 05/04/2024 12:45:15 05/04/20 24 05/04/2024 COMPR EHENS TOM METAB OLIC PANEL sodium 140 mmol/ L 137-14 5 Not Available [facility] (Lab) [address] [place], [address], 05/04/2024 12:45:30 05/04/20 24 05/04/2024 COMPR EHENS TOM METAB OLIC PANEL potassium 4.3 mmol/ L 3.5-5. 1 Not Available [facility] (Lab) [address] [place], [address], 05/04/2024 12:45:30 05/04/20 24 05/04/2024 COMPR EHENS TOM METAB OLIC PANEL chloride 110 mmol/ L 98-107 high Not Available [facility] (Lab) [address] [place], [address], 05/04/2024 12:45:30 05/04/20 24 05/04/2024 COMPR EHENS TOM METAB OLIC PANEL carbon dioxide 27 mmol/ L 22-30 Not Available [facility] (Lab) [address] [place], [address], 05/04/2024 12:45:30 05/04/20 24 05/04/2024 COMPR EHENS TOM METAB OLIC PANEL anion gap 7.3 mmol/ L 14-22 low Not Available [facility] (Lab) [address] [place], [address], 05/04/2024 12:45:30 05/04/20 24 05/04/2024 COMPR EHENS TOM METAB OLIC PANEL glucose 97 mg/dL 70-99 Not Available [facility] (Lab) [address] [place], [address], 05/04/2024 12:45:30 05/04/20 24 05/04/2024 COMPR EHENS TOM METAB OLIC PANEL BUN 21 mg/dL 8-19 high Not Available [facility] (Lab) [address] [place], [address], 05/04/2024 12:45:30 05/04/20 24 05/04/2024 COMPR EHENS TOM METAB OLIC PANEL creatinine 1.27 mg/dL 0.66-1 .25 high Not Available [facility] (Lab) [address] [place], [address], 05/04/2024 12:45:30 05/04/20 24 05/04/2024 COMPR EHENS TOM METAB OLIC PANEL GFR 56 Refer ence Range : Wilmot ge GFR Healt hy Adult : >60 mL/mi n/1.7 3 m2 Chron ic Kidne y Disea se: 15-60 mL/mi n/1.7 3 m2 Kidne y Failu re: <15/m L/min /1.73 m2 www.n iddk. nih.g ov The MDRD study equat ion has not been valid ated in child jonnie <18 years of age; pregn ant women ; the elder ly >85 years of age; or in some racia l or ethni c subgr oups, such as Hispa nics. Outsi de the valid ated fidel eters , estim ated GFR is less accur ate, requi ring clini jhonny judgm ent on a case- by-ca se basis . Clini jhonny inter preta tion for other races and ages must be made by the clini adamaris. The MDRD study equat ion has not been valid ated for the evalu ation of serum creat inine relat ed to nutri nelida l statu s or medic ation usage . For perso ns <18 years of age, a pedia tric GFR calcu lator is avail able on the [facility] websi te: https ://chris conte.linda cornejo/pr ofess ional s/kdo qi/gf r_cal culat or Not Available [facility] (Lab) [address] [place], [address], 05/04/2024 12:45:30 05/04/20 24 05/04/2024 COMPR EHENS TOM METAB OLIC PANEL alkaline phosphatase 73 U/L 38-126 Not Available [facility] (Lab) [address] [place], [address], 05/04/2024 12:45:30 05/04/20 24 05/04/2024 COMPR EHENS TOM METAB OLIC PANEL alanine aminotransfe rase 38 U/L 0-50 Not Available [facility] (Lab) [address] [place], [address], 05/04/2024 12:45:30 05/04/20 24 05/04/2024 COMPR EHENS TOM METAB OLIC PANEL aspartate aminotransfe rase 46 U/L 15-46 Not Available [facility] (Lab) [address] [place], [address], 05/04/2024 12:45:30 05/04/20 24 05/04/2024 COMPR EHENS TOM METAB OLIC PANEL bilirubin, total 1.10 mg/dL 0.20-1 .30 Not Available [facility] (Lab) [address] [place], [address], 05/04/2024 12:45:30 05/04/20 24 05/04/2024 COMPR EHENS TOM METAB OLIC PANEL calcium 9.4 mg/dL 8.4-10 .2 Not Available [facility] (Lab) [address] [place], [address], 05/04/2024 12:45:30 05/04/20 24 05/04/2024 COMPR EHENS TOM METAB OLIC PANEL total protein 6.6 g/dL 6.3-8. 2 Not Available [facility] (Lab) [address] [place], [address], 05/04/2024 12:45:30 05/04/20 24 05/04/2024 COMPR EHENS TOM METAB OLIC PANEL albumin 4.1 g/dL 3.0-4. 4 Not Available [facility] (Lab) [address] [place], [address], 05/04/2024 12:45:30 05/04/20 24 05/04/2024 COMPR EHENS TOM METAB OLIC PANEL globulin 2.5 g/dL 2.6-4. 2 low Not Available [facility] (Lab) [address] [place], [address], 05/04/2024 12:45:30 05/04/20 24 05/04/2024 COMPR EHENS TOM METAB OLIC PANEL A/G ratio 1.6 ratio 1.0-2. 0 Not Available [facility] (Lab) [address] [place], [address], 05/04/2024 12:45:30 05/04/20 24 05/04/2024 T4 FREE free T4 0.88 NG/dL 0.78-2 .19 Not Available [facility] (Lab) [address] [place], [address], 05/04/2024 14:37:34 05/04/20 24 05/04/2024 PSA SCREE N PSA medicare screen 0.89 NG/mL 0.00-4 .00 Not Available [facility] (Lab) [address] [place], [address], 05/04/2024 14:49:57 05/04/20 24 05/04/2024 TSH thyroid-stim ulating hormone 1.000 uIU/m L 0.465- 4.680 Not Available [facility] (Lab) [address] [place], [address], 05/04/2024 14:50:02 04/06/20 24 04/06/2024 imagi ng/di agnos tic resul t No observ ation record ed. [facility] [address], [place], [address], 04/06/2024 16:11:05 04/12/20 24 04/06/2024 imagi ng/di agnos tic resul t No observ ation record ed. [facility] [address], [place], [address], 04/12/2024 09:54:00 07/12/2007/12/2024 US, head + neck, soft tissu e [facility] [address] [place] [address] [phone] Patihiral t Name: MALKA BURGESS Access ion #: [id number] Sex: M : 1949 9 Dictat ed By: Wade Delgado Attend ing Physic thao: ABDULLAHI ANTHONY Orderi ng Physic thao: ABDULLAHI ANTHONY Exam Date: 2023 10:04 AM Exam Name: US NECK HEAD SOFT TISSUE Admitt ing Diagno sis(es ): ULTRAS OUND SOFT TISSUE [facility] INDICA TION: nodule s TECHNI QUE: Multip le real time sonogr aphic images of the thyroi d were obtain ed. COMPAR CHIDI: Prior exam dated 3 FINDIN GS: The right thyroi d gland measur es 5 x 2 x 2 cm. The left thyroi d gland measur es approx imatel y 5 x 2 x 2 cm. The isthmu s measur es 0.3 cm. TI-RAD S 3 nodule in the left middle thyroi d lobe measur ing 0.4 x 0.3 x 0.5 cm. IMPRES SUNDEEP: TI-RAD S 3 nodule in the left middle thyroi d lobe measur ing 0.4 x 0.3 x 0.5 cm. Follow -up in 1 year. No interv al change . [employer] TI-RAD S Catego oscar and Recomm endati ons (2017) : TR1: 0 points , Benign , No FNA TR2: 2 points , Not suspic ious, No FNA TR3: 3 points , Mildly suspic ious, FNA if > or = 2.5 cm, Follow if > or = 1.5 cm Page [address] [facility] [address] [place] [address] [phone] Patihiral t Name: MALKA BURGESS Access ion #: [id number] Sex: M : 1949 [facility] #: [id number] Dictat ed By: Wade Delgado Attend ing Physic thao: STEVEN FERNANDO Physic thao: STEVEN POEABDULLAHI Exam Date: 2023 10:04 AM Exam Name: US NECK HEAD SOFT TISSUE Admitt ing Diagno sis(es ): TR4: 4-6 points , Modera tely Suspic ious, FNA if > or = 1.5 cm, Follow if > or = 1.0 cm TR5: 7+ points , Highly Suspic ious, FNA if > or = 1.0 cm, Follow if > or = 0.5 cm Follow -up ultras ound guidel dora: TR5: yearly for 5 years, if no growth or change in TI-RAD S level TR4: at 1, 2, 3 and 5 years, if no growth or change in TI-RAD S level TR3: at 1, 3 and 5 years, if no growth or change in TI-RAD S level If increa sed but below thresh old for FNA, repeat in one year. Source : ACR Thyroi d Elizain g, Report ing and Data System (TI-RA DS): White Paper of the ACR TI-RAD S Commit lebron. Giovanaler et al., J Am Huey Radiol 2017;1 4:587- 595. Electr onical ly Signed by: Wade Delgado at 2023 12:22: 59 PM Page 2 [email or web address] [facility] ([facility]) [address] [place], [address], 07/13/2024 09:32:32 07/12/20 24 07/12/2024 imagi ng/di agnos tic resul t No observ ation record ed. [facility] [address] [place], [address], 07/12/2024 13:28:52 07/12/20 24 07/12/2024 US, thyro id No observ ation record ed. [email or web address] [place], [address], 07/13/2024 09:32:32 07/13/20 24 07/12/2024 US, thyro id No observ ation record ed. [email or web address] [facility] [address], [place], [address], 07/14/2024 15:03:18 09/08/20 24 09/08/2024 imagi ng/di agnos tic resul t No observ ation record ed. [facility] [address], [place], [address], 09/08/2024 10:36:49 Result Notes None recorded. Problems Name Problem SNOMED Code Status Onset Date Resolution Date Notes Provider Name and Address Organization Details Recorded Time Impacted cerumen 66116279 Active 2016 Not Available [facility] 3 00:32:34 Gastroeso phageal reflux disease 996491940 Completed Not Available [facility] 3 05:20:39 Thyroid nodule 643549259 Active 2021 Not Available [facility] 3 00:32:34 Benign prostatic hyperplas ia 035533737 Completed Not Available [facility] 3 05:20:40 On examinati on - rash present Completed Not Available [facility] 3 05:20:40 Chest pain 12002107 Completed Not Available [facility] 3 05:20:40 Non-toxic multinodu lar goiter 21683495 Active 2021 Not Available [facility] 3 00:32:34 Osteoarth ritis 499796020 Active Not Available [facility] 3 00:32:34 Dysuria 64983292 Active 2016 Not Available [facility] 3 00:32:34 Iron deficienc y 67295228 Active 2022 Tejas Levi MD [address], [place], [address] , [place] [employer] [facility] 3 10:31:41 Posterior rhinorrhe a 71655225 Active 2022 Tejas Levi MD [address], [place], [address] , [facility] [employer] [facility] 3 10:32:04 Essential hypertens ion 25648287 Active 2022 Carlos chong MD [address], [place], [address] , [facility] [employer] [facility] 3 12:45:44 Coronary arteriosc lerosis 86524335 Active 2022 Carlos chong MD [address], [place], [address] , [facility] [employer] [facility] [employer] [facility] 3 12:45:48 Obstructi ve sleep apnea syndrome 88937039 Active 2022 Carlos chong MD [address], [place], [address] , [facility] [employer] [facility] [employer] [facility] 3 12:46:18 Transient cerebral ischemia 965418458 Active 2022 Carlos chong MD [address], [place], [address] , [facility] [employer] [facility] 3 12:46:22 Hyperlipi demia 59327240 Active 2022 Carlos chong MD [address], [place], [address] , [facility] [employer] [facility] 3 12:46:27 Benign prostatic hyperplas ia without outflow obstructi on 051648200 Active 2022 Carlos chong MD [address], [place], [address] , [facility] [employer] [facility] 3 12:46:33 Primary erectile dysfuncti on 469165864 Active 2022 Carlos chong MD [address], [place], [address] , [facility] 3 12:46:41 Onychomyc osis 779481785 Active 2022 Carlos chong MD [address], [place], [address] , [facility] 3 12:46:51 Hypothyro idism 99124024 Active 2022 Carlos chong MD [address], [place], [address] , [facility] 3 12:47:04 Chronic kidney disease 651636433 Active 2022 Carlos chong MD [address], [place], [address] , [facility] 3 08:19:10 Toothache 59744162 Active 2022 Flory Servin null, [facility] 3 14:58:43 Mixed anxiety and depressiv e disorder 504123141 Active 2023 IDSHA Stewart, [facility] 4 12:00:34 Pain of left shoulder joint 55674910090 184007 Active 2023 Carlos chong MD [address], [place], [address] , [facility] 4 13:01:28 Hypoprote inemia 5086222 Active 2023 Carlos chong MD [address], [place], [address] , [facility] 4 13:01:28 Generaliz ed anxiety disorder 28723852 Active 2023 Carlos chong MD [address], [place], [address] , [facility] 4 13:01:28 Liver enzymes level above reference range 318421156 Active 2023 Carlos chong MD [address] [facility], [address] [address], [place], [address] , [employer] 09:55:30 Notes:Medical History: Synco pe Rhinitis with postnasal drip Obesity with mod OSAHS, AHI = 25, 01/31/21, off CPAP Hyperlipidemia Hypertension EF 65% LAE BPH ED Iron deficiency PLMD Osteoarthritis Onychomycosis Procedure History: T&A 195 Colonoscopies 2010, 2020 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 Procedures Surgical History Date Name Laterality Status Provider Name and Address Organization Details Recorded Time 05/10/20 24 Medicare Wellness CPT Code, subsequent completed Leo Cornell LPN [facility] 05/10/2024 08:11:05 06/16/20 23 Ear Irrigation completed DELMAR Ortega [facility] 06/16/2023 09:51:09 05/05/20 21 colonoscopy completed Not Available [facility] 12/05/19 05:14:12 appendectomy completed [facility] 12/04/2022 05:14:12 Tonsillectomy completed Not Available [facility] 12/04/2022 05:14:12 procedure on shoulder completed Not Available [facility] 12/04/2022 05:14:12 biopsy of skin completed Kristel Espinoza MA [facility] 01/13/2024 09:49:43 Imaging Results Imaging Date Name Status LastModified by Organiz [facility] Details LastModified Time 04/06/2024 imaging/diag nostic result active [facility] [address], [place], [address], 04/06/2024 16:11:05 04/06/2024 imaging/diag nostic result active [facility] [address], [place], [address], 04/12/2024 09:54:00 07/12/2024 US, head + neck, soft tissue completed [email or web address] [facility] [address] [place], [address], 07/13/2024 09:32:32 07/12/2024 imaging/diag nostic result active [facility] [address] [place], [address], 07/12/2024 13:28:52 07/12/2024 US, thyroid completed [email or web address] [facility] [address] [place], [address], 07/13/2024 09:32:32 07/12/2024 US, thyroid completed [facility] [address] [place], [address], 07/14/2024 15:03:18 09/08/2024 imaging/diag nostic result active [facility] [address], [place], [address], 09/08/2024 10:36:49 Procedure Notes None recorded. Medical Equipment None Reported. Allergies Allergen ID Allergen Name Allergen Category Reaction Reaction Severity Criticality Documentation Date Start Date Code Code System Note Provider Name and Address Organization Details Recorded Time 9768 Terramyci n medicatio n Not available Not available Not available 12/04/2022 17135 4 RxNorm child hhod aller gy Not Available [facility] 05:27:26 Medications Name Sig Start Date Stop [...] bromide 42 mcg (0.06 %) nasal spray [place] 1 spray 4 times a day by intranas al route as needed. 01/12 completed Not Available Not Available Not Available clobetaso l 0.05 % scalp solution 07/30 completed Not Available Not Available Not Available fluticaso ne propionat e 50 mcg/actua tion nasal spray,felicia LOPEZ LQ AND U 1 SPR IEN D [...] Available Not Available Not Available Fluarix Quad 5589-8168 (PF) 60 mcg (15 mcg x 4)/0.5 [...] Not Available Not Available Fluzone High-Dose Quad 2020-21 (PF) 240 mcg/0.7 mL IM syringe PHARMACY ADMINIST ERED 07/03 completed Not Available Not Available Not Available Vitals Date Recorded Body height Body mass index (BMI) Body weight Body temperature Heart rate Oxygen saturation Oxygen saturation in Arterial blood by Pulse oximetry Systolic blood pressure Diastolic blood pressure Provider Name and Address Organization Details Last Updated DateTime 4 177.8 cm 32.4 kg/m2 222886. 44 g 98.3 [degF] 60 /min 96 % 96 % 124 mm[Hg] 68 mm[Hg] Kristel Espinoza MA [facility] [employer] [facility] 4 09:46:18 Date Recorded Heart rate Respiratory rate Provider Emily leonee and Address Organization Details Last Updated DateTime 01/13/2024 60 /min 15 /min Tejas Levi MD [address] [place] [address], [place], [address], [facility] [employer] 01/13/2024 10:42:41 Date Recorded Body height Body mass index (BMI) Body weight Body temperature Heart rate Respiratory rate Oxygen saturation Oxygen saturation in Arterial blood by Pulse oximetry Systolic blood pressure Diastolic blood pressure Provider Name and Address Organization Details Last Updated DateTime 4 177.8 cm 32.4 kg/m2 257249. 88 g 98.7 [degF] 62 /min 16 /min 95 % 95 % 128 mm[Hg] 74 mm[Hg] Leo Cornell LPN [facility] [employer] 4 09:30:56 Date Recorded Body height Body mass index (BMI) Body weight Body temperature Provider Name and Address Organization Details Last Updated DateTime 06/17/2024 177.8 cm 32 kg/m2 701070.1 g 98 [degF] Tran Jacobson RN [facility] [employer] [facility] 06/17/2024 10:50:34 Date Recorded Body height Body mass index (BMI) Body weight Body temperature Heart rate Oxygen saturation Oxygen saturation in Arterial blood by Pulse oximetry Systolic blood pressure Diastolic blood pressure Provider Name and Address Organization Details Last Updated DateTime 4 177.8 cm 32.9 kg/m2 330949. 65 g 97.5 [degF] 59 /min 97 % 97 % 118 mm[Hg] 64 mm[Hg] Vera Mcnabb, [place] [facility] 4 09:42:45 Social History Question Answer Notes LastModified by Organizat ion Details LastModified Time Tobacco Smoking Status Never Smoker Not Available [employer] 12/04/2022 05:13:21 Do You Have An Advance Directive? Yes MIGRATION.96389 54075 Information not available 12/04/2022 What Is Your Level Of Alcohol Consumption? None MIGRATION.03853 69641 Information not available 12/04/2022 Do You Wear A Helmet When Biking? No Does Not Bike Information not available 05/10/2024 Are You Blind Or Do You Have Difficulty Seeing? No MIGRATION.30784 76732 Information not available 12/04/2022 Is Blood Transfusion Acceptable In An Emergency? Yes [email or web address] Information not available 05/10/2024 What Is Your Level Of Caffeine Consumption? Occasional MIGRATION.85127 88118 Information not available 12/04/2022 In The 14 Days Before Symptom Onset, Have You Had Close Contact With A Laboratory-confi rmed COVID-19 While That Case Was Ill? No MIGRATION.65635 78596 Information not available 12/04/2022 In The 14 Days Before Symptom Onset, Have You Had Close Contact With A Person Who Is Under Investigation For COVID-19 While That Person Was Ill? No MIGRATION.20467 64781 Information not available 12/04/2022 Are You Currently Employed? No Retired [email or web address] Information not available 01/13/2024 Are You Deaf Or Do You Have Serious Difficulty Hearing? No MIGRATION.47149 93441 Information not available 12/04/2022 What Type Of Diet Are You Following? REGULAR MIGRATION.52456 04440 Information not available 12/04/2022 What Is The Highest Grade Or Level Of School You Have Completed Or The Highest Degree You Have Received? [id number] MIGRATION.12283 94042 Information not available 12/04/2022 Do You Have An Electrostatic Air Filter? No MIGRATION.91846 93491 Information not available 12/04/2022 How Many Days Of Moderate To Strenuous Exercise, Like A Brisk Walk, Did You Do In The Last 7 Days? 2 [email or web address] Information not available 05/10/2024 On Those Days That You Engage In Moderate To Strenuous Exercise, How Many Minutes, On Average, Do You Exercise? 30 [email or web address] Information not available 05/10/2024 Have There Been Any Changes To Your Family Or Social Situation? No MIGRATION.47960 87720 Information not available 12/04/2022 What Is The Fluoride Status Of Your Home? Unknown MIGRATION.51004 59211 Information not available 12/04/2022 Are There Any Guns Present In Your Home? No MIGRATION.05237 60797 Information not available 12/04/2022 Do You Have A Humidifier? No MIGRATION.97145 47082 Information not available 12/04/2022 Do You Use Insect Repellent Routinely? No MIGRATION.41237 94235 Information not available 12/04/2022 [facility] MIGRATION.71928 20404 Information not available 12/04/2022 Presence Of Domestic Violence No [email or web address] Information not available 05/10/2024 Guns Present In The Home? No [email or web address] Information not available 05/10/2024 Are You Able To Care For Yourself? Yes Information not available 05/10/2024 Are You Blind Or Do Yo Have Difficulty Seeing? No [email or web address] Information not available 05/10/2024 Are You Deaf Or Do You Have Serious Difficulty Hearing? No [email or web address] Information not available 05/10/2024 General Stress Level? Low [email or web address] Information not available 05/10/2024 Live Alone Of With Others? With Others [email or web address] Information not available 05/10/2024 Do You Have A Medical Power Of Explosive Ordnance Manager? Yes MIGRATION.49330 10863 Information not available 12/04/2022 Do You Have Moisture Problems In Your Home? No MIGRATION.08766 50088 Information not available 12/04/2022 What Was The Date Of Your Most Recent Tobacco Screening? 08/23/2024 [email or web address] Information not available 08/23/2024 How Many Children Do You Have? 3 [email or web address] Information not available 05/10/2024 Do You Have Any Pets? No MIGRATION.92852 01384 Information not available 12/04/2022 Do You Use Protection During Sex? No [email or web address] Information not available 05/10/2024 What Is Your Relationship Status? MIGRATION.26259 47476 Information not available 12/04/2022 Do You Use Your Seat Belt Or Car Seat Routinely? Yes MIGRATION.41677 31260 Information not available 12/04/2022 Are You Sexually Active? Yes [email or web address] Information not available 05/10/2024 Do You Have Smoke And Carbon Monoxide Detectors In Your Home? Yes MIGRATION.66444 72677 Information not available 12/04/2022 Are You Passively Exposed To Smoke? No MIGRATION.27542 26583 Information not available 12/04/2022 Are There Any Smokers In Your House? No MIGRATION.76982 12840 Information not available 12/04/2022 What Types Of Sporting Activities Do You Participate In? None [email or web address] Information not available 05/10/2024 Do You Feel Stressed (tense, Restless, Nervous, Or Anxious, Or Unable To Sleep At Night)? [id number] MIGRATION.31108 19886 Information not available 12/04/2022 Do You Use Any Illicit Or Recreational Drugs? No MIGRATION.79036 03694 Information not available 12/04/2022 Do You Use Sunscreen Routinely? Yes MIGRATION.68184 51203 Information not available 12/04/2022 Has Tobacco Cessation Counseling Been Provided? No N/a MIGRATION.80257 63116 Information not available 12/04/2022 Have You Recently Traveled Abroad? No MIGRATION.47578 12126 Information not available 12/04/2022 Do You Have Any Dietary Restrictions? No MIGRATION.58889 40933 Information not available 12/04/2022 Do You Or Have You Ever Used Any Other Forms Of Tobacco Or Nicotine? No MIGRATION.03161 38249 Information not available 12/04/2022 Sex: Male Functional Status Question Answer Note LastModified by Organizat ion Details LastModified Time Do you have difficulty walking or climbing stairs? No MIGRATION.1813210 026 Information not available 12/04/2022 Do you have transportation difficulties? No MIGRATION.5205462 026 Information not available 12/04/2022 Are you able to walk? YESWOREST MIGRATION.7771380 026 Information not available 12/04/2022 Do you have difficulty doing errands alone? No MIGRATION.4211023 026 Information not available 12/04/2022 Are you able to care for yourself? Yes MIGRATION.4860298 026 Information not available 12/04/2022 Do you have difficulty dressing or bathing? No MIGRATION.9574420 026 Information not available 12/04/2022 What is your exercise level? Occasional [email or web address] Information not available 05/10/2024 Mental Status Question Answer Note LastModified by Organizat ion Details LastModified Time Do you have difficulty concentrating, remembering or making decisions? No MIGRATION.519801822 6 Information not available 12/04/2022 Family History Relationship Description Onset Age of this Age Resolved Age Notes LastModified by Organization Details LastModified Time Mother Family history of malignant neoplasm MIGRATION.687 [id number] Not available 12/04/2022 05:14:16 Mother Hypertensive disorder MIGRATION.854 5786047 Not available 12/04/2022 05:14:16 Mother Family history of stroke MIGRATION.123 1117804 Not available 12/04/2022 05:14:16 Father Hypertensive disorder MIGRATION.001 1129559 Not available 12/04/2022 05:14:16 Father Diabetes mellitus MIGRATION.612 2001192 Not available 12/04/2022 05:14:16 Father Heart disease MIGRATION.937 6383464 Not available 12/04/2022 05:14:16 Notes:NO ENT Medical [...] PF 3 completed Catracho Nicole RMA usama, [facility] 07/31/2023 15:40:24 Pneumococcal conjugate PCV20, polysaccharide RTM112 conjugate, adjuvant, PF 3 completed Catracho Nicole RMA usama, [facility] 07/31/2023 15:45:29 Influenza, high-dose, quadrivalent, PF 3 completed Catracho Nicole RMA usama, [facility] 07/31/2023 15:46:03 COVID-19, mRNA, LNP-S, PF, 30 mcg/0.3 mL dose 3 completed Cat[facility]acho [facility] 07/31/2023 15:53:21 zoster recombinant 9 completed Leo Cornell LPN null, [facility] 05/06/2024 13:38:31 zoster recombinant 8 completed Leo Cornell LPN null, [facility] 05/06/2024 13:38:31 Influenza, high-dose, quadrivalent, PF 0 completed Leo Cornell LPN null, [facility] 05/06/2024 13:38:31 Influenza, high-dose, quadrivalent, PF 1 completed Leo Cornell LPN null, [facility] 05/06/2024 13:38:31 COVID-19, mRNA, LNP-S, PF, 30 mcg/0.3 mL dose 1 completed Leo Cornell STORYBOARD ARTIST null, [facility] 05/06/2024 13:38:31 COVID-19, mRNA, LNP-S, PF, 30 mcg/0.3 mL dose 1 completed Leo Cornell STORYBOARD ARTIST null, [facility] 05/06/2024 13:38:31 COVID-19, mRNA, LNP-S, PF, 30 mcg/0.3 mL dose, brynn-sucrose 2 completed Leo Cornell LPN null, [facility] 05/06/2024 13:38:31 pneumococcal polysaccharide PPV23 2 completed Leo Cornell LPN null, [facility] 05/06/2024 13:38:31 Tdap 1 completed Leo Cornell LPN null, [facility] 05/06/2024 13:38:31 Influenza, high-dose, trivalent, PF 8 completed Leo Cornell STORYBOARD ARTIST null, [facility] 05/06/2024 13:38:31 Influenza, split virus, trivalent, preservative 5 completed Leo Cornell STORYBOARD ARTIST null, [facility] 05/06/2024 13:38:31 Influenza, split virus, quadrivalent, PF 6 completed Leo Cornell STORYBOARD ARTIST null, [facility] 05/06/2024 13:38:31 Influenza, high-dose, trivalent, PF 4 completed Vera Felipe RMA null, [facility] 07/19/2024 14:44:04 COVID-19, mRNA, LNP-S, PF, brynn-sucrose, 30 mcg/0.3 mL 4 completed Vera Felipe RMA null, [facility] 07/19/2024 14:44:42 COVID-19, mRNA, LNP-S, bivalent, PF, 30 mcg/0.3 mL dose 2 completed Leo Cornell LPN null, [facility] 05/06/2024 13:38:31 COVID-19, mRNA, LNP-S, PF, 30 mcg/0.3 mL dose 2 completed Leo Cornell LPN null, [facility] 05/06/2024 13:38:31 COVID-19, mRNA, LNP-S, PF, 30 mcg/0.3 mL dose 1 completed Leo Cornell LPN null, [facility] 05/06/2024 13:38:31 Influenza, high-dose, quadrivalent, PF 2 completed Leo Cornell LPN null, [facility] 05/06/2024 13:38:31 COVID-19, mRNA, LNP-S, PF, 100 mcg/0.5mL dose or 50 mcg/0.25mL dose 1 completed Leo Cornell LPN null, [facility] 05/06/2024 13:38:31 COVID-19, mRNA, LNP-S, PF, 100 mcg/0.5mL dose or 50 mcg/0.25mL dose 1 completed Leo Cornell LPN null, [facility] 05/06/2024 13:38:31 Influenza, high-dose, trivalent, PF 9 completed Leo Cornell LPN null, [facility] 05/06/2024 13:38:31 Influenza, split virus, quadrivalent, PF 6 completed Leo Cornell LPN null, [facility] 05/06/2024 13:38:31 Influenza, split virus, quadrivalent, preservative 0 completed Leo Cornell LPN null, [facility] 05/06/2024 13:38:31 influenza, unspecified formulation 8 completed GAVINO Kiran, [facility] 05/06/2024 13:38:31 Influenza, split virus, trivalent, preservative 4 completed Not Available [facility] 04/08/2023 00:32:34 pneumococcal polysaccharide PPV23 8 completed Not Available [facility] 04/08/2023 00:32:34 Pneumococcal conjugate PCV 13 6 completed GAVINO Kiran, [place] [facility] [place] [employer] [facility] 05/06/2024 13:38:31 Influenza, split virus, quadrivalent, preservative 7 completed Not Available [facility] 04/08/2023 00:32:34 zoster live 3 completed Not Available [facility] 04/08/2023 00:32:34 Past Encounters Encounter ID Performer Location Encounter Start Date Encounter Closed Date Diagnosis/Indication Diagnosis SNOMED-CT Code Diagnosis ICD10 Code [id number] [facility] [place] [facility] [address] [place] [address] 03/12/2021 00:00:00 05/07/2021 14:44:57 [id number] [facility] [address] [address] 04/02/2021 00:00:00 04/02/2021 09:04:27 [id number] [facility] [address] [address] 04/10/2021 00:00:00 04/10/2021 08:20:48 [id number] [facility] [place] [address] [facility] [address] [place] [address] 04/30/2021 00:00:00 04/30/2021 13:07:59 [id number] [facility] Internal Med Demarco Keane, [place] [address] 06/13/2021 00:00:00 06/13/2021 16:48:05 [id number] [facility] [place] [address] [facility] [address] [place] [address] 07/04/2021 00:00:00 07/04/2021 09:24:05 [id number] [facility] [address] [place] [address] 07/11/2021 00:00:00 07/11/2021 08:25:46 [id number] [facility] [address] [place] [address] 10/11/2021 00:00:00 10/11/2021 10:46:55 [id number] [facility] Internal Med [address], [address] [address] 12/03/2021 00:00:00 12/03/2021 10:05:05 [id number] [facility] E[facility] [place] [address] [place] [address] 12/11/2021 00:00:00 12/11/2021 10:38:57 [id number] [facility] [address] [place] [address] 04/11/2022 00:00:00 04/11/2022 10:29:41 [id number] [facility] [address], [address] [address] 06/18/2022 00:00:00 06/18/2022 10:21:40 [id number] [facility] [place] [address] [place] [address] 06/26/2022 00:00:00 06/26/2022 17:39:20 [id number] [facility] [address], [address] [address] 08/06/2022 00:00:00 08/06/2022 11:41:40 [id number] [facility] [place] [address] [place] [address] 08/15/2022 00:00:00 08/15/2022 14:46:24 [id number] [facility] [address] [address] 10/17/2022 00:00:00 10/17/2022 10:34:08 [id number] [facility] Internal Med [address] [address] 11/19/2022 00:00:00 11/19/2022 10:17:12 [id number] Tejas Levi MD [address] [address] 04/17/2023 09:59:59 04/18/2023 08:03:33 Iron deficiency 93215232 E61.1 Posterior rhinorrhea 758 70454 R09.82 [id number] Carlos chong MD [facility] Internal Med [facility] [address] [place] [address] 05/27/2023 09:19:59 05/27/2023 09:53:11 Screening - NAD 962535946 Z13.9 Essential hypertension 86612638 I10 Coronary arteriosclerosis 18512199 I25.10 Obstructiv e sleep apnea syndrome 74720052 G47.33 Transient cerebral ischemia 556205954 G45.9 Hyperlipidemia 26045621 E78.5 Benign pro static hyperplasia without outflow obstruction 715451478 N40.0 Primary er ectile dysfunction 139836577 N52.9 Onychomycosis 433910250 B35.1 Hypoproteinemia 4100461 E88.09 Hypothyroidism 40448915 E03.9 Posterior rhinorrhea 758 97247 R09.82 Chronic ki dney disease 950161440 N18.9 Pain of le ft shoulder joint 9040127902 1020082 M25.512 Impacted c erumen in right ear 6311374035 495704 H61.21 Generalize d anxiety disorder 36919708 F41.1 Screening for malignant neoplasm of prostate 057562214 Z12.5 [id number] Carlos chong MD [facility] Internal Med [place] [address] [place] [address] 06/16/2023 09:21:59 06/16/2023 09:47:46 Impacted cerumen in right ear 3814018935 060601 H61.21 [id number] Abdullahi S[address] MD [facility] ENT [place] [address] [place] [address] 07/28/2023 10:17:56 07/28/2023 11:08:21 Thyroid nodule 566526264 E04.1 [id number] Carlos chong MD [facility] Internal Med [facility] [address] [place] [address] [place] [address] 11/10/2023 09:49:53 11/10/2023 10:31:13 Screening for malignant neoplasm of prostate 298480579 Z12.5 Screening - NAD 22691854 3 Z13.9 Essential hypertension 29637280 I10 Coronary arteriosclerosis 45030007 I25.10 Obstructiv e sleep apnea syndrome 28335060 G47.33 Transient cerebral ischemia 697052649 G45.9 Hyperlipidemia 27882759 E78.5 Benign pro static hyperplasia without outflow obstruction 376534935 N40.0 Primary er ectile dysfunction 980532492 N52.9 Onychomycosis 365673231 B35.1 Hypoproteinemia 2114033 E88.09 Hypothyroidism 74961448 E03.9 Posterior rhinorrhea 758 53506 R09.82 Chronic ki dney disease 466167147 N18.9 Pain of le ft shoulder joint 7553868634 4230899 M25.512 Generalize d anxiety disorder 55802170 F41.1 [id number] [address] Levi [address] [facility] [place] [address] [place] [address] 15 [place] [address] 01/13/2024 09:28:07 01/14/2024 08:45:05 Iron deficiency 38423036 E61.1 Posterior rhinorrhea 758 86343 R09.82 [id number] [facility] Internal Med [place]esh [place] [address] [place] [address] 05/10/2024 09:18:01 05/10/2024 10:02:56 Screening - NAD 762735642 Z13.9 Essential hypertension 15385042 I10 Coronary arteriosclerosis 13301546 I25.10 Obstructiv e sleep apnea syndrome 75590301 G47.33 Transient cerebral ischemia 238167438 G45.9 Hyperlipidemia 18767050 E78.5 Benign pro static hyperplasia without outflow obstruction 866241996 N40.0 Primary er ectile dysfunction 426189815 N52.9 Onychomycosis 882026780 B35.1 Hypoproteinemia 5907109 E88.09 Hypothyroidism 98001264 E03.9 Posterior rhinorrhea 758 54541 R09.82 Chronic ki dney disease 845577506 N18.9 Pain of le ft shoulder joint 4022028057 5183701 M25.512 Generalize d anxiety disorder 35910573 F41.1 Adult heal th examination 104596961 Z00.00 Screening for disorder 947371492 Z13.9 [id number] [address] [facility] E[facility] [place] [address] [place] [address] 06/17/2024 10:16:51 06/17/2024 13:37:22 Thyroid nodule 862811714 E04.1 [id number] Zainab Beverly RN [facility] Primary Care [address] [place] [address] 08/17/2024 09:26:04 08/17/2024 11:32:08 [id number] Carlos chong MD [facility] Primary Care [facility] [address] [facility] [address] [place] [address] 08/23/2024 09:30:42 08/23/2024 10:12:28 Screening - NAD 818974869 Z13.9 Essential hypertension 93614494 I10 Coronary arteriosclerosis 69563504 I25.10 Obstructiv e sleep apnea syndrome 93654429 G47.33 Transient cerebral ischemia 082473351 G45.9 Hyperlipidemia 25626539 E78.5 Benign pro static hyperplasia without outflow obstruction 764655104 N40.0 Primary er ectile dysfunction 813519324 N52.9 Onychomycosis 072989615 B35.1 Hypoproteinemia 1529122 E88.09 Hypothyroidism 06121783 E03.9 Posterior rhinorrhea 758 91188 R09.82 Chronic ki dney disease 443782280 N18.9 Pain of le ft shoulder joint 8488934006 3522130 M25.512 Generalize d anxiety disorder 71841495 F41.1 Liver enzy mes level above reference range 503467585 R74.01 Health Concerns Section Related Observation LastModified by Organization Detai ls LastModified Time None Recorded Concern Status LastModified by Organization Details LastModified Time None Recorded Advance Directives Directive Y: Payers Encounter Date Sequence Insurance Name Policy Number Policy Llanos Covered Member ID Llanos Member ID Guarantor Name 01/13/2024 1 [place] Jonah Burgess [id number] Jonah Whitleyebgracie 01/13/2024 2 [place] [id number] Jonah Burgess [id number] Jonah Whitleyebgracie 05/10/2024 1 [place] Jon[place] Burgess [id number] Jonah Whitleyebel 05/10/2024 2 [place] [id number] Jonah Whitleyebel [id number] Jonah Whitleyebel 06/17/2024 1 [place] Jonah Burgess [id number] Jonah R Gutierrezebel 06/17/2024 2 [place] [id number] Jonah Whitleyebel [id number] Jonah Whitleyebel 08/23/2024 1 [place] Jonah Burgess [id number] Jonah R Knebel 08/23/2024 2 [place] [id number] Jonah Burgess [id number] Jonah Burgess Notes Date Note Type Note Provider Name and Address Organization Details Recorded Time 01/13/2024 text/html Primary care/Ref erring provider: Carlos Manning MD 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 He did not need the ramp to start low and go up slowly on the pressure anymore. There was no xerostomia in a.m. There was no hose/mask condensation with water.Patient used to wear ResMed medium Mcclendon FX nasal pillows without chin strap. There was no claustrophobia, no nostril/nose bridge irritation, no facial rash, no facial numbness, no nosebleeding.Patient returned CPAP in 05/2021 after 6 weeks' of use due to intolerance.PLM index was elevated to 91 and he is on iron supplements.Patient felt slightly refreshed upon waking and daytime alertness is mildly improved. Energy levels are sustained for the remainder of the day.At home, the patient sleeps from 9:30 pm to 5 am and wakes up without an alarm.Snoring: heavy, since .Snorting: noChoking: noCoughing: noGasping: noGagging: noSighing: noWitnessed apnea: yesTwitching or jerking of leg(s), arm(s), body, head: yesTeeth grinding: noTeeth clenching: noSleeptalking: yesSleepwalking: noSleep crying: yesBedwetting: noTongue/lip/gum/cheek biting: noSleeping with open mouth: yesSleep paralysis: noHypnagogic hallucinations: noHypnopompic hallucinations: noVivid dreams: yesDifficulty with sleep onset: noDifficulty with sleep maintenance: yesSleep interruptions: nocturiaPatient wakes up with: fatigue, xerostomiaDaytime cataplexy: noMorning hypersomnolence: noAfternoon hypersomnolence: yesCaffeine sources in diet: chocolate 1 candy bar per dayAssociated medical and psychiatric conditions:Congestive heart failure: noCoronary artery disease: noMyocardial infarction: noHypertension: yesStroke: noBronchial asthma: noChronic obstructive pulmonary disease: noDepression: noBipolar disorder: noAnxiety: noPanic disorder: noPosttraumatic stress disorder: noAttention deficit and hyperactivity disorder: noObsessive Compulsive disorder: noSchizophrenia: noSchizoaffective disorder: noPersonality disorder: noChronic analgesic use: noChronic sedative/hypnotic use: yes melatoninEPWORTH SLEEPINESS SCALE (ESS)CHANCE OF DOZING SCORE0 = would never doze1 = slight chance of dozing2 = moderate chance of dozing3 = high chance of dozingSITUATION AND CHANCE OF DOZINGSitting and reading - 2Watching television - 1Sitting inactive in a public place (e.g. a theater or meeting) - 1As a passenger in a car for an hour without a break - 1Lying down to rest in the afternoon when circumstances permit - 0Sitting and talking to someone - 1Sitting quietly after lunch without alcohol - 1In a car, while stopped for a few minutes in the traffic - 0TOTAL SCORE 7Subjectively, patient has a slight chance of dozing. Tejas Levi MD [address] [place] [address], [facility] [address], [place], [address], [facility] - S docplanner 01/13/2024 10:49:39 05/10/2024 text/html Here to stephanie Kerns Hx:BPHEDReviewed social [...] this timeWas seen in the ER at [facility] yesterday for 'eye drooping'He was provided with a CT headNo headaches, diplopia, N/V or UE or LE weaknessNo dysrathria noted OV 05/13/18:Here for his one month apt, he was in the hospital at [facility] on 05/05/18 for syncopeHe did have labs [...] do the labsHe also has seen Dr Espinoza [facility], and has an sleep study OV 06/13/2021:Here [...] 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 The nodules were 0.35 cm and 0.38 cm and were too small to biopsy. Nonetheless he thinks it is a good idea to keep an eye on these and we will get a follow-up ultrasound. Abdullahi Sultana MD [address], [place], [address], [employer] 06/17/2024 11:04:48 08/23/2024 text/html Here to stephanie Kerns Hx:BPHEDReviewed [...] this timeWas seen in the ER at [facility] yesterday for 'eye drooping'He was provided with a CT headNo headaches, diplopia, N/V or UE or LE weaknessNo dysrathria noted OV 05/13/18:Here for his one month apt, he was in the hospital at [facility] on 05/05/18 for syncopeHe did have labs [...] do the labsHe also has seen Dr Espinoza [facility], and has an sleep study OV 06/13/2021:Here [...] 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
[2024-09-16 11:25] LABS: Creatinine Urine 189.5 mg/dL
[2024-09-16 11:53] LABS: Total Protein Urine Random < 5 mg/dL; Ur Ttl Prot Creatinine Ratio < 0.03 mg/mg (0-0.20)
[2024-09-16 12:03] LABS: Albumin Level 4.2 g/dL (3.5-5.1); Anion Gap 5 mmol/L (4-12); Blood Urea Nitrogen 19 mg/dL (9-20); Carbon Dioxide 26 mmol/L (22-30); Chloride 107 mmol/L (98-107); Estimated Glomerular Filt Rate 60; Glucose 161 mg/dL (65-110); Phosphorus 2.6 mg/dL (2.5-4.5); Sodium 138 mmol/L (137-145)
[2024-09-16 12:10] LABS: Complement C3 104 mg/dL (88-165)
[2024-09-18 03:03] LABS: Creatinine, Random Urine 170 mg/dL (20-320); Total Prot/Creat ratio mg/mg 0.076 (0.025-0.148); Total Protein/Creatinine Ratio 76 mg/g creat (25-148)
[2024-09-18 06:33] LABS: Protein, Total 6.6 g/dL (6.1-8.1)
[2024-09-22 03:44] LABS: ANCA Screen NEGATIVE (NEGATIVE)
[2024-09-23 21:34] LABS: Albumin 4.2 g/dL (3.8-4.8); Alpha 1 Globulin 0.3 g/dL (0.2-0.3); Alpha 2 Globulin 0.6 g/dL (0.5-0.9); Beta 1 Globulin 0.5 g/dL (0.4-0.6); Gamma Globulin 0.7 g/dL (0.8-1.7)
== END 2024-09-16 10:38 | disposition home or self-care (01) ==
LOC: ANHLAB 10:40
PROVIDERS: PCP Internal Medicine; Visit Provider Internal Medicine Nephrology
DX: I12.9 Hypertensive chronic kidney disease with stage 1 through stage 4 chronic kidney disease, or unspecified chronic kidney disease (principal); N18.31 Chronic kidney disease, stage 3a
CPT/HCPCS: 36415; 80069; 82570; 83520; 84155; 84156; 84165; 84166; 86036; 86038; 86039; 86160; 86225

== ENCOUNTER 2024-10-18 08:10 | Outpatient (CLI) | payer MEDICARE, SELFPAY ==
--- NOTE | ~2024-10-18 | US_ITS ---
RIGHT UPPER QUADRANT ABDOMINAL ULTRASOUND (Doppler ultrasound interrogation techniques used as needed for this exam.) Ordering provider: Lynn Manning, History: . Liver enzymes level above reference range . Comparison: None. FINDINGS: PANCREAS: Partially visualized. Otherwise, Normal echotexture and size. PORTAL VEIN: Hepatopedal flow demonstrated. LIVER: Normal size and echotexture. No focal hepatic lesions or perihepatic fluid collections are eliza ntified. BILIARY DUCTS: No intra or extrahepatic biliary dilation. Common bile duct measures 5 mm in diameter which is normal for patient's age. GALLBLADDER: Normal. No stones, sludge, gallbladder wall thickening or pericholecystic fluid. Wall th ickness is 2 mm. Negative sonographic Angeles's sign. FREE FLUID: None visualized within the upper abdomen. IMPRESSION: normal right upper quadrant ultrasound. Reviewed, dictated and finalized at location A. [facility] [employer]
== END 2024-10-18 08:11 | disposition home or self-care (01) ==
LOC: MICIMG 08:11
PROVIDERS: PCP Internal Medicine; Visit Provider Internal Medicine
DX: R74.01 Elevation of levels of liver transaminase levels (principal)
CPT/HCPCS: 76705

== ENCOUNTER 2025-02-14 09:23 | Outpatient (CLI) | payer MEDICARE, SELFPAY ==
--- OUTSIDE RECORDS SUMMARY | 2025-02-14 09:29 | XMS_ITS | Clinical Summary ---
Author Organization [facility] Address [address] [place] [address] Care Team Providers Care Process Design Engineer Name Role Phone None, Provider MD Primary Care Provider Unavaila ble Social History Tobacco Use Types Packs/Day Years Used Date Smoking Tobacco: Never Assessed Sex and Gender Information Value Date Recorded Sex Assigned at Not on file Legal Sex Male 10:03 PM CDT Gender Identity Not on file Sexual Orientation Not on file Plan of Treatment Health Maintenance Due Date Last Done Comments Colorectal Cancer Screening Colonoscopy (10 Years) 1950 Hepatitis C 1970 COVID-19 Vaccine ( season) 2024 07/15/2022, 04/21/2022, 07/05/2021, Additional history exists RSV Immunization or 60+ Years (1 - 1-dose 75+ series) 2027 DTaP, Tdap and Td Vaccines (2 - Td or Tdap) 09/21/2031 09/21/2021 Pneumococcal Vaccine: 50+ Years Completed 07/22/2018, 08/14/2016, 02/10/2012 Zoster Vaccines Completed 10/22/2018, 11/2017, 07/28/2013 Meningococcal B Vaccine Aged Out No l onger eligible based on patient's age to complete this topic Meningococcal Vaccine Aged Out No shay itz eligible based on patient's age to complete this topic RSV Immunizations Under 20 Months Aged Out No longer eligible based on patient's age to complete this topic Insurance [facility] Care Teams Process Design Engineer Relationship Specialty Start Date End Date None, Provider, MD PCP - General UNKNOWN PHYSICIAN SPECIALTY 01/03/23
--- OUTSIDE RECORDS SUMMARY | 2025-02-14 09:30 | XMS_ITS | Data Portability ---
Author Organization [facility], Main Office Address [address] [place] [address] Care Team Providers Care Business Strategy Manager Name Role Phone LYNN MANNING Primary Care Provider LYNN MANNING Referring Provider ANUP ESPINOZA Manager Trade Marketing NEERAJ MARROQUIN Psychiatrist TEJAS LEVI Radio Station Audio Engineer ABDULLAHI PRINCE Audio/Video Engineer Assessment Encounter Date Assessment Date Assessment LastModified by Organization Details LastModified Time 08/23/2024 08/23/2024: PSA 1.18 TSH/CBC/Lipids: WNL GFR 62 A1C 5.6 11/11/2022: PSA 0.78 TSH/FT4/LIPIDS/CBC: WNL CMP: K 5.2H, Gluc 101, BUN 20, GFR 59 10/31/2023: BUN 23, glob 2.5, TP WNL 05/04/2024: PSA 0.89 BUN 21, GFR 56 08/17/2024: Gluc 100, BUN 25, Cr 1.35, GFR 52, AST 48 [email or web address] Not available 08/23/2024 09:55:09 12/06/2024 12/06/2024: PSA 1.18 TSH/CBC/Lipids: WNL GFR 62 A1C 5.6 11/11/2022: PSA 0.78 TSH/FT4/LIPIDS/CBC: WNL CMP: K 5.2H, Gluc 101, BUN 20, GFR 59 10/31/2023: BUN 23, glob 2.5, TP WNL 05/04/2024: PSA 0.89 BUN 21, GFR 56 08/17/2024: Gluc 100, BUN 25, Cr 1.35, GFR 52, AST 48 11/29/2024: Hep panel/GGT: Neg, US liver 10/18/2024: negative Gluc 100 [email or web address] Not available 12/06/2024 09:50:50 01/11/2025 01/11/2025 Assessment: Moderate OSAHS, AHI = 25, off CPAP PLMD Iron deficiency Postnasal drip, resolved Plan: The following were reviewed and explained to the patient: [facility] 2-D echocardiogram 12/28/20 EF 65%, LAE stress test 12/28/20 normal [facility] home sleep study 01/31/21 [place] night 2 sleep study 03/07/21 Ferritin 04/02/21 30 ng/mL Ferritin 07/03/21 44 ng/mL Ferritin 09/27/21 66 ng/mL Ferritin 04/04/22 103 ng/mL Ferritin 10/02/22 183 ng/mL Ferritin 03/28/23 95 ng/mL Ferritin 01/02/24 63 ng/mL Ferritin 12/28/24 89 mg/mL Elevation in periodic limb movement index may [...] 325 mg + Vit C 500 mg every other day to keep the ferritin > 75 ng/ml. Check ferritin one week before return. We will hold off on dopaminergic therapy for now. Patient is on the fence about CPAP therapy even though he knows about the risk of uncontrolled hypertension, CAD, SC, CHF and CVA associated with untreated NAFISA. [...] records to PCP for further management. Follow-up: 1 year, January 2026 [email or web address] Not available 01/11/2025 09:00:12 Plan of Treatment Reminders Order Date Submit Date Provider Last Modified By Organization Details Last Modified Time Details Appointments Any 2024 08:30A Ngozi young MD Not available Not available Not available Any 2025 07:45A Ngozi Levi MD Not available Not available Not available Lab ferritin, serum or plasma 2024 026 [email or web address] [facility], [place], [address] [place], [address], 01/11/2025 08:40:45 PSA, serum or plasma [address] [facility], [address] [place], [address], 12/06/2024 10:04:22 lipid panel, serum [address] [facility], [address] [place], [address], 12/06/2024 10:04:21 CMP, serum or plasma [address] [facility], [address] [place], [address], 12/06/2024 10:04:21 CBC w/ auto diff [address] [facility], [address] [place], [address], 12/06/2024 10:04:21 TSH + free T4, serum [address] [facility], [address] [place], [address], 12/06/2024 10:04:22 lipid panel, serum 2023 024 [facility], [address] [place], [address], 11/29/2024 16:44:00 CMP, serum or plasma 2023 024 [facility], [address] [place], [address], 11/29/2024 16:44:10 CBC w/ auto diff 2023 024 [facility], [address] [place], [address], 11/29/2024 15:11:54 TSH + free T4, serum 2023 024 [facility], [address] [place], [address], 11/29/2024 11:11:03 gamma-glu tamyl transfera se (ggt), serum 2023 024 [facility], [address] [place], [address], 11/29/2024 16:44:13 hepatitis panel (A+B+C), acute, serum 2023 024 [facility], [address] [place], [address], 11/29/2024 17:16:32 Referral cardiolog ist referral - Please call patient to schedule an appointme nt. Thank you. 2024 025 [place], [address] [facility], [address], [place], [address], 12/06/2024 12:26:13 nephrolog ist referral - Please call patient to schedule. 2023 024 che Chambers MD, [address], [address], [place], [address], 11/25/2024 10:21:32 psychiatr ist referral 2023 024 [email or web address] Neeraj Marroquin MD, [address] [facility] [address], [place], [address], 08/23/2024 17:38:16 cardiolog ist referral 2023 024 [email or web address] [place], [address], [facility] [place], [address], 08/23/2024 17:38:29 Procedures None recorded. Surgeries None recorded. Imaging US, liver - Please call patient to schedule. 2023 024 [email or web address] [facility], [address] [facility] [address], [place], [address], 10/04/2024 15:52:36 Medication Orders ferrous sulfate 325 mg (65 mg iron) tablet 2024 025 [id number], [address], [place], [place], [id number], 01/11/2025 08:40:53 Vitamin C 500 mg tablet 2024 025 [id number], [address], [place], [place], [id number], 01/11/2025 08:40:49 Patient TargetsNo targets recorded. Patient InstructionsNo instructions recorded. Reason for Referral Manager Trade Marketing Referral for Es sential hypertension Referring Physician: Lynn Manning, Internal Medicine, Encounter Date: 08/23/2024 Panelboard Operator Referral for Ch ronic kidney disease Please call patient to schedule. Referring Physician: Lynn Manning, Internal Medicine, Encounter Date: 08/23/2024 Psychiatrist Referral for Ge neralized anxiety disorder Referring Physician: Lynn Manning Internal Medicine, Encounter Date: 08/23/2024 Manager Trade Marketing Referral for Es sential hypertension Please call patient to schedule an appointment. Thank you. Referring Physician: Lynn Manning, Internal Medicine, Encounter Date: 12/06/2024 Results Created Date Observation Date Name Description Value Unit Range Abnormal Flag Note LastModifiedBy Organization Detail LastModifiedTime 08/17/20 24 08/17/2024 CBC/C OMPLE TE BLD COUNT W/DIF F white blood cells 6.0 x10'3 /uL 4.2-10 .8 Not Available [facility] (Lab) [address] [place], [address], 08/17/2024 19:19:06 08/17/2008/17/2024 CBC/C OMPLE TE BLD COUNT W/DIF F red blood cells 5.16 x10'6 /uL 4.10-5 .80 Not Available [facility] (Lab) [address] [place], [address], 08/17/2024 19:19:06 08/17/20 24 08/17/2024 CBC/C OMPLE TE BLD COUNT W/DIF F hemoglobin 16.1 g/dL 13.2-1 7.0 Not Available [facility] (Lab) [address] [place], [address], 08/17/2024 19:19:06 08/17/20 24 08/17/2024 CBC/C OMPLE TE BLD COUNT W/DIF F hematocrit 46.2 % 39.3-5 0.0 Not Available [facility] (Lab) [address] [place], [address], 08/17/2024 19:19:06 08/17/20 24 08/17/2024 CBC/C OMPLE TE BLD COUNT W/DIF F mean red cell volume 89.5 fL 80.0-9 7.0 Not Available [facility] (Lab) [address] [place], [address], 08/17/2024 19:19:06 08/17/20 24 08/17/2024 CBC/C OMPLE TE BLD COUNT W/DIF F mean red cell hemoglobin 31.2 pg 27.0-3 3.0 Not Available [facility] (Lab) [address] [place], [address], 08/17/2024 19:19:06 08/17/20 24 08/17/2024 CBC/C OMPLE TE BLD COUNT W/DIF F mean RBC HGB concentratio n 34.8 g/dL 31.0-3 6.0 Not Available [facility] (Lab) [address] [place], [address], 08/17/2024 19:19:06 08/17/20 24 08/17/2024 CBC/C OMPLE TE BLD COUNT W/DIF F red cell distribution width 11.5 % 11.8-1 5.5 low Not Available [facility] (Lab) [address] [place], [address], 08/17/2024 19:19:06 08/17/20 24 08/17/2024 CBC/C OMPLE TE BLD COUNT W/DIF F platelets 229 x10'3 /uL 150-40 0 Not Available [facility] (Lab) [address] [place], [address], 08/17/2024 19:19:06 08/17/20 24 08/17/2024 CBC/C OMPLE TE BLD COUNT W/DIF F mean platelet volume 9.7 fL 9.0-12 .4 Not Available [facility] (Lab) [address] [place], [address], 08/17/2024 19:19:06 08/17/20 24 08/17/2024 CBC/C OMPLE TE BLD COUNT W/DIF F neutrophils 77.1 % 39.0-7 2.0 high Not Available [facility] (Lab) [address] [place], [address], 08/17/2024 19:19:06 08/17/20 24 08/17/2024 CBC/C OMPLE TE BLD COUNT W/DIF F lymphocytes 12.4 % 16.0-4 7.0 low Not Available [facility] (Lab) [address] [place], [address], 08/17/2024 19:19:06 08/17/20 24 08/17/2024 CBC/C OMPLE TE BLD COUNT W/DIF F monocytes 6.5 % 5.0-12 .0 Not Available [facility] (Lab) [address] [place], [address], 08/17/2024 19:19:06 08/17/20 24 08/17/2024 CBC/C OMPLE TE BLD COUNT W/DIF F eosinophils 3.0 % 1.0-7. 0 Not Available [facility] (Lab) [address] [place], [address], 08/17/2024 19:19:06 08/17/20 24 08/17/2024 CBC/C OMPLE TE BLD COUNT W/DIF F basophils 0.7 % 0.0-2. 0 Not Available [facility] (Lab) [address] [place], [address], 08/17/2024 19:19:06 08/17/20 24 08/17/2024 CBC/C OMPLE TE BLD COUNT W/DIF F immature granulocytes 0.3 % 0.00-0 .50 Not Available [facility] (Lab) [address] [place], [address], 08/17/2024 19:19:06 08/17/20 24 08/17/2024 CBC/C OMPLE TE BLD COUNT W/DIF F neutrophils, absolute count 4.61 x10'3 /uL 1.5-8. 0 Not Available [facility] (Lab) [address] [place], [address], 08/17/2024 19:19:06 08/17/20 24 08/17/2024 CBC/C OMPLE TE BLD COUNT W/DIF F lymphocytes, absolute count 0.74 x10'3 /uL 1.07-3 .43 low Not Available [facility] (Lab) [address] [place], [address], 08/17/2024 19:19:06 08/17/20 24 08/17/2024 CBC/C OMPLE TE BLD COUNT W/DIF F monocytes, absolute count 0.39 x10'3 /uL 0.29-0 .99 Not Available [facility] (Lab) [address] [place], [address], 08/17/2024 19:19:06 08/17/20 24 08/17/2024 CBC/C OMPLE TE BLD COUNT W/DIF F eosinophils, absolute count 0.18 x10'3 /uL 0.02-0 .53 Not Available [facility] (Lab) [address] [place], [address], 08/17/2024 19:19:06 08/17/20 24 08/17/2024 CBC/C OMPLE TE BLD COUNT W/DIF F basophils, absolute count 0.04 x10'3 /uL 0.01-0 .08 Not Available [facility] (Lab) [address] [place], [address], 08/17/2024 19:19:06 08/17/20 24 08/17/2024 CBC/C OMPLE TE BLD COUNT W/DIF F immature granulocytes ,absolute 0.02 x10'3 /uL 0.00-0 .05 Not Available [facility] (Lab) [address] [place], [address], 08/17/2024 19:19:06 08/17/20 24 08/17/2024 CBC/C OMPLE TE BLD COUNT W/DIF F nucleated red blood cells 0.0 % -0 Not Available [facility] (Lab) [address] [place], [address], 08/17/2024 19:19:06 08/17/20 24 08/17/2024 CBC/C OMPLE TE BLD COUNT W/DIF F NRBC# 0.00 x10'3 /uL Not Available [facility] (Lab) [address] [place], [address], 08/17/2024 19:19:06 08/17/20 24 08/17/2024 LIPID PANEL cholesterol 139 mg/dL 140-19 9 low NIH OMKAR NSUS RECOM MENDA TION FOR SPENCER STERO L: ADULT CHILD LOW RISK: <200 <170 BORDE RLINE : <200- 239 ----- HIGH RISK: >240 >200 Not Available [facility] (Lab) [address] [place], [address], 08/17/2024 19:22:08 08/17/20 24 08/17/2024 LIPID PANEL triglyceride s 131 mg/dL 0-150 NIH OMKAR NSUS REPOR T RECOM MENDA TION FOR TRIGL YCERI NICOLE: ADULT CHILD LOW RISK: <150 ----- BODER LINE: 150-1 99 ----- HIGH RISK: >200 ----- Not Available [facility] (Lab) [address] [place], [address], 08/17/2024 19:22:08 08/17/20 24 08/17/2024 LIPID PANEL HDL cholesterol 57 mg/dL 40- Not Available [facility] (Lab) [address] [place], [address], 08/17/2024 19:22:08 08/17/20 24 08/17/2024 LIPID PANEL LDL cholesterol, calculated 56 mg/dL 0-130 NIH OMKAR NSUS REPOR T RECOM MENDA TIONS FOR LDL: ADULT CHILD LOW RISK <130 <110 (OPTI MAL LDL) <100 ----- ABHI RLINE : 130-1 59 ----- HIGH RISK: >160 >130 A TRIGL YCERI DE RESUL T >400 INVAL IDATE S THE CALCU LATIO N FOR LDL FRACT IONAT ION - THE LDL RESUL T WILL NOT BE REPOR ZANDER. Not Available [facility] (Lab) [address] [place], [address], 08/17/2024 19:22:08 08/17/20 24 08/17/2024 COMPR EHENS TOM METAB OLIC PANEL sodium 138 mmol/ L 137-14 5 Not Available [facility] (Lab) [address] [place], [address], 08/17/2024 19:22:14 08/17/20 24 08/17/2024 COMPR EHENS TOM METAB OLIC PANEL potassium 4.4 mmol/ L 3.5-5. 1 Not Available [facility] (Lab) [address] [place], [address], 08/17/2024 19:22:14 08/17/20 24 08/17/2024 COMPR EHENS TOM METAB OLIC PANEL chloride 106 mmol/ L 98-107 Not Available [facility] (Lab) [address] [place], [address], 08/17/2024 19:22:14 08/17/20 24 08/17/2024 COMPR EHENS TOM METAB OLIC PANEL carbon dioxide 27 mmol/ L 22-30 Not Available [facility] (Lab) [address] [place], [address], 08/17/2024 19:22:14 08/17/20 24 08/17/2024 COMPR EHENS TOM METAB OLIC PANEL anion gap 9.4 mmol/ L 14-22 low Not Available [facility] (Lab) [address] [place], [address], 08/17/2024 19:22:14 08/17/20 24 08/17/2024 COMPR EHENS TOM METAB OLIC PANEL glucose 100 mg/dL 70-99 high Not Available [facility] (Lab) [address] [place], [address], 08/17/2024 19:22:14 08/17/20 24 08/17/2024 COMPR EHENS TOM METAB OLIC PANEL BUN 25 mg/dL 8-19 high Not Available [facility] (Lab) [address] [place], [address], 08/17/2024 19:22:14 08/17/20 24 08/17/2024 COMPR EHENS TOM METAB OLIC PANEL creatinine 1.35 mg/dL 0.66-1 .25 high Not Available [facility] (Lab) [address] [place], [address], 08/17/2024 19:22:14 08/17/20 24 08/17/2024 COMPR EHENS TOM METAB OLIC PANEL GFR 52 Refer ence Range : Eckerty ge GFR Healt hy Adult : >60 [...] or ethni c subgr oups, such as [facility] nics. Outsi de the valid ated fidel [...] lator is avail able on the [facility] websi te: https :[email or web address] lewis.christian conte.o clemente/pr beess jamalal s/kdo qi/gf r_cal culat or Not Available [facility] (Lab) [address] [place], [address], 08/17/2024 19:22:14 08/17/20 24 08/17/2024 COMPR EHENS TOM METAB OLIC PANEL alkaline phosphatase 75 U/L 38-126 Not Available [facility] (Lab) [address] [place], [address], 08/17/2024 19:22:14 08/17/2008/17/2024 COMPR EHENS TOM METAB OLIC PANEL alanine aminotransfe rase 41 U/L 0-50 Not Available [facility] (Lab) [address] [place], [address], 08/17/2024 19:22:14 08/17/20 24 08/17/2024 COMPR EHENS TOM METAB OLIC PANEL aspartate aminotransfe rase 48 U/L 15-46 high Not Available [facility] (Lab) [address] [place], [address], 08/17/2024 19:22:14 08/17/20 24 08/17/2024 COMPR EHENS TOM METAB OLIC PANEL bilirubin, total 1.00 mg/dL 0.20-1 .30 Not Available [facility] (Lab) [address] [place], [address], 08/17/2024 19:22:14 08/17/20 24 08/17/2024 COMPR EHENS TOM METAB OLIC PANEL calcium 9.5 mg/dL 8.4-10 .2 Not Available [facility] (Lab) [address] [place], [address], 08/17/2024 19:22:14 08/17/20 24 08/17/2024 COMPR EHENS TOM METAB OLIC PANEL total protein 6.8 g/dL 6.3-8. 2 Not Available [facility] (Lab) [address] [place], [address], 08/17/2024 19:22:14 08/17/20 24 08/17/2024 COMPR EHENS TOM METAB OLIC PANEL albumin 4.4 g/dL 3.0-4. 4 Not Available [facility] (Lab) [address] [place], [address], 08/17/2024 19:22:14 08/17/20 24 08/17/2024 COMPR EHENS TOM METAB OLIC PANEL globulin 2.4 g/dL 2.6-4. 2 low Not Available [facility] (Lab) [address] [place], [address], 08/17/2024 19:22:14 08/17/20 24 08/17/2024 COMPR EHENS TOM METAB OLIC PANEL A/G ratio 1.8 ratio 1.0-2. 0 Not Available [facility] (Lab) [address] [place], [address], 08/17/2024 19:22:14 08/17/20 24 08/17/2024 T4 FREE free T4 0.83 NG/dL 0.78-2 .19 Not Available [facility] (Lab) [address] [place], [address], 08/17/2024 19:36:20 08/17/20 24 08/17/2024 TSH thyroid-stim ulating hormone 0.724 uIU/m L 0.465- 4.680 Not Available [facility] (Lab) [address] [place], [address], 08/17/2024 19:53:12 11/29/19 25 11/29/2024 CBC/C OMPLE TE BLD COUNT W/DIF F white blood cells 5.4 x10'3 /uL 4.2-10 .8 Not Available [facility] (Lab) [address] [place], [address], 11/29/2024 15:11:54 11/29/19 25 11/29/2024 CBC/C OMPLE TE BLD COUNT W/DIF F red blood cells 5.06 x10'6 /uL 4.10-5 .80 Not Available [facility] (Lab) [address] [place], [address], 11/29/2024 15:11:54 11/29/19 25 11/29/2024 CBC/C OMPLE TE BLD COUNT W/DIF F hemoglobin 15.6 g/dL 13.2-1 7.0 Not Available [facility] (Lab) [address] [place], [address], 11/29/2024 15:11:54 11/29/19 25 11/29/2024 CBC/C OMPLE TE BLD COUNT W/DIF F hematocrit 45.3 % 39.3-5 0.0 Not Available [facility] (Lab) [address] [place], [address], 11/29/2024 15:11:54 11/29/19 25 11/29/2024 CBC/C OMPLE TE BLD COUNT W/DIF F mean red cell volume 89.5 fL 80.0-9 7.0 Not Available [facility] (Lab) [address] [place], [address], 11/29/2024 15:11:54 11/29/19 25 11/29/2024 CBC/C OMPLE TE BLD COUNT W/DIF F mean red cell hemoglobin 30.8 pg 27.0-3 3.0 Not Available [facility] (Lab) [address] [place], [address], 11/29/2024 15:11:54 11/29/19 25 11/29/2024 CBC/C OMPLE TE BLD COUNT W/DIF F mean RBC HGB concentratio n 34.4 g/dL 31.0-3 6.0 Not Available [facility] (Lab) [address] [place], [address], 11/29/2024 15:11:54 11/29/19 25 11/29/2024 CBC/C OMPLE TE BLD COUNT W/DIF F red cell distribution width 11.4 % 11.8-1 5.5 low Not Available [facility] (Lab) [address] [place], [address], 11/29/2024 15:11:54 11/29/19 25 11/29/2024 CBC/C OMPLE TE BLD COUNT W/DIF F platelets 239 x10'3 /uL 150-40 0 Not Available [facility] (Lab) [address] [place], [address], 11/29/2024 15:11:54 11/29/19 25 11/29/2024 CBC/C OMPLE TE BLD COUNT W/DIF F mean platelet volume 9.7 fL 9.0-12 .4 Not Available [facility] (Lab) [address] [place], [address], 11/29/2024 15:11:54 11/29/19 25 11/29/2024 CBC/C OMPLE TE BLD COUNT W/DIF F neutrophils 74.8 % 39.0-7 2.0 high Not Available [facility] (Lab) [address] [place], [address], 11/29/2024 15:11:54 11/29/19 25 11/29/2024 CBC/C OMPLE TE BLD COUNT W/DIF F lymphocytes 14.0 % 16.0-4 7.0 low Not Available [facility] (Lab) [address] [place], [address], 11/29/2024 15:11:54 11/29/19 25 11/29/2024 CBC/C OMPLE TE BLD COUNT W/DIF F monocytes 6.8 % 5.0-12 .0 Not Available [facility] (Lab) [address] [place], [address], 11/29/2024 15:11:54 11/29/19 25 11/29/2024 CBC/C OMPLE TE BLD COUNT W/DIF F eosinophils 3.3 % 1.0-7. 0 Not Available [facility] (Lab) [address] [place], [address], 11/29/2024 15:11:54 11/29/19 25 11/29/2024 CBC/C OMPLE TE BLD COUNT W/DIF F basophils 0.7 % 0.0-2. 0 Not Available [facility] (Lab) [address] [place], [address], 11/29/2024 15:11:54 11/29/19 25 11/29/2024 CBC/C OMPLE TE BLD COUNT W/DIF F immature granulocytes 0.4 % 0.00-0 .50 Not Available [facility] (Lab) [address] [place], [address], 11/29/2024 15:11:54 11/29/19 25 11/29/2024 CBC/C OMPLE TE BLD COUNT W/DIF F neutrophils, absolute count 4.06 x10'3 /uL 1.5-8. 0 Not Available [facility] (Lab) [address] [place], [address], 11/29/2024 15:11:54 11/29/19 25 11/29/2024 CBC/C OMPLE TE BLD COUNT W/DIF F lymphocytes, absolute count 0.76 x10'3 /uL 1.07-3 .43 low Not Available [facility] (Lab) [address] [place], [address], 11/29/2024 15:11:54 11/29/19 25 11/29/2024 CBC/C OMPLE TE BLD COUNT W/DIF F monocytes, absolute count 0.37 x10'3 /uL 0.29-0 .99 Not Available [facility] (Lab) [address] [place], [address], 11/29/2024 15:11:54 11/29/19 25 11/29/2024 CBC/C OMPLE TE BLD COUNT W/DIF F eosinophils, absolute count 0.18 x10'3 /uL 0.02-0 .53 Not Available [facility] (Lab) [address] [place], [address], 11/29/2024 15:11:54 11/29/19 25 11/29/2024 CBC/C OMPLE TE BLD COUNT W/DIF F basophils, absolute count 0.04 x10'3 /uL 0.01-0 .08 Not Available [facility] (Lab) [address] [place], [address], 11/29/2024 15:11:54 11/29/19 25 11/29/2024 CBC/C OMPLE TE BLD COUNT W/DIF F immature granulocytes ,absolute 0.02 x10'3 /uL 0.00-0 .05 Not Available [facility] (Lab) [address] [place], [address], 11/29/2024 15:11:54 11/29/19 25 11/29/2024 CBC/C OMPLE TE BLD COUNT W/DIF F nucleated red blood cells 0.0 % -0 Not Available [facility] (Lab) [address] [place], [address], 11/29/2024 15:11:54 11/29/19 25 11/29/2024 CBC/C OMPLE TE BLD COUNT W/DIF F NRBC# 0.00 x10'3 /uL Not Available [facility] (Lab) [address] [place], [address], 11/29/2024 15:11:54 11/29/19 25 11/29/2024 LIPID PANEL cholesterol 98 mg/dL 140-19 9 low NIH OMKAR NSUS RECOM MENDA TION FOR SPENCER STERO L: ADULT CHILD LOW RISK: <200 <170 BORDE RLINE : <200- 239 ----- HIGH RISK: >240 >200 Not Available [facility] (Lab) [address] [place], [address], 11/29/2024 16:44:00 11/29/19 25 11/29/2024 LIPID PANEL triglyceride s 100 mg/dL 0-150 NIH OMKAR NSUS REPOR T RECOM MENDA TION FOR TRIGL YCERI NICOLE: ADULT CHILD LOW RISK: <150 ----- BODER LINE: 150-1 99 ----- HIGH RISK: >200 ----- Not Available [facility] (Lab) [address] [place], [address], 11/29/2024 16:44:00 11/29/19 25 11/29/2024 LIPID PANEL HDL cholesterol 57 mg/dL 40- Not Available [facility] (Lab) [address] [place], [address], 11/29/2024 16:44:00 11/29/19 25 11/29/2024 LIPID PANEL LDL cholesterol, calculated 21 mg/dL 0-130 NIH OMKAR NSUS REPOR T [...] WILL NOT BE REPOR ZANDER. Not Available [facility] (Lab) [address] [place], [address], 11/29/2024 16:44:00 11/29/19 25 11/29/2024 COMPR EHENS TOM METAB OLIC PANEL sodium 139 mmol/ L 137-14 5 Not Available [facility] (Lab) [address] [place], [address], 11/29/2024 16:44:10 11/29/19 25 11/29/2024 COMPR EHENS TOM METAB OLIC PANEL potassium 4.5 mmol/ L 3.5-5. 1 Not Available [facility] (Lab) [address] [place], [address], 11/29/2024 16:44: [id number]|2025-02-14 09:30:00|2025-02-14 09:30:00|XMS_ITS|BKG DAEMON|External Medical Summaries|[id number]|" Encounter Summary Created on: February 14, 2025 Jonah Burgess : 1950 Sex: Male Author Organization [facility] Address [address] [place] [id number] Care Team Providers Care Business Strategy Manager Name Role Phone Jordi Friedman MD Primary Care Provider [phone] Encounter Details Date Type Department Care Team (Late st Contact Info) Description 01/22/2024 Lab Requisition [facility] [address] [facility] [place] [address] Arlette Marti MD [address] [place] [address] Social History Tobacco Use Types Packs/Day Years Used Date Smoking Tobacco: Never Assessed Sex and Gender Information Value Date Recorded Sex Assigned at Not on file Legal Sex Male 9:02 AM CDT Gender Identity Not on file Sexual Orientation Not on file documented as of this encounter Plan of Treatment Not on file documented as of this encounter Procedures Procedure Name Priority Date/Time Associated Diagnosis Comments DERMATOPATHOLOGY Routine 01/22/2024 9:39 AM CDT documented in this encounter Results * DERMATOPATHOLOGY (01/22/2024 9:39 AM CDT) Case Report Dermatopathology Report Case: [id number] Authorizing Provider: Arlette Marti MD Collected: 01/22/2024 09:39 AM Ordering Location: [facility] - Received: 01/23/2024 08:20 AM DermPath Lab Pathologist: Mitzi Maurer MD Specimen: Skin, right post neck 5:18 PM CDT DERMATOPATHOLOGY LABORATORY Final Diagnosis Specimen A. SKIN, right post neck: DERMAL SCAR RESIDUAL MELANOCYTIC PROLIFERATION NOT IDENTIFIED (L90.5) (see microscopic description) 5:18 PM CDT DERMATOPATHOLOGY LABORATORY Clinical History Compound Noemy Prolif Bx Proven. Check margins, prior biopsy. 5:18 PM CDT DERMATOPATHOLOGY LABORATORY Gross Description Specimen A: Received is one formalin filled container labeled with the patient's name and designated right post neck.The specimen consists of an ellipse measuring [id number] mm and is oriented with the suture/notch at the 12 o'clock position labeled on the requisition. The 12 to 6 o'clock margin is inked green. The 6 o'clock to 12 o'clock margin is inked red. The 12 o'clock tip is submitted in cassette 1. The 6 o'clock tip is submitted in cassette 2. The remainder of the ellipse is serially sectioned and submitted in cassettes 3-5. Jar 0. 5:18 PM CDT DERMATOPATHOLOGY LABORATORY Microscopic Description Specimen A. SKIN, right post neck: There are fibroblasts and collagen bundles oriented parallel to the skin surface. There are elongated blood vessels, some of which are oriented perpendicular to the skin surface. No residual melanocytic proliferation is identified on MART-1/MelanA immunostain or routine sections. 5:18 PM CDT DERMATOPATHOLOGY LABORATORY Disclaimer An external and internal positive and negative controls are appropriate for the histochemical, immunohistochemical and immunofluorescence stain(s) in this case (if any), except where stated explicitly. The performance characteristics of the stain(s) cited in this report were developed and its performance characteristic determined by the Dermatopathology Laboratory at [facility], directed by Dr. Phu Ramirez. These tests need not be, and therefore are not, approved by the [place] Food and Drug Administration. The tests are used for clinical purposes. Billing Codes Specimen Charges Stain Charges 65740 1 27497 1 4 5:18 PM CDT DERMATOPATHOLOGY LABORATORY Embedded Images 4 5:18 PM CDT DERMATOPATHOLOGY LABORATORY Pathology/Cytolo gy TISSUE SPECIMEN FROM SKIN / Unknown 01/22/2024 9:39 AM CDT 01/23/2024 8:20 AM CDT Arlette Marti MD LAB - PATHOLOGY/CYTOLOGY ORD ERABLES Final Result DERMATOPATHOLOGY LABORATORY [facility] - Department of Dermatology [facility] Specialized Medicine [address] [place] [address], [address] [phone] documented in this encounter Visit Diagnoses Not on filedocumented in this encounter Care Teams Business Strategy Manager Relationship Specialty Start Date End Date Jordi Friedman MD [address] [facility] [address] [place] [address] PCP - General 01/02/22 documented as of this encounter "
--- OUTSIDE RECORDS SUMMARY | 2025-02-14 09:30 | XMS_ITS | Encounter Summary ---
Author Organization [facility] Address [address] [place] [address] Care Team Providers Care Home Health Caregiver Name Role Phone Jordi Friedman MD Primary Care Provider [phone] Encounter Details Date Type Department Care Team (Late st Contact Info) Description 01/08/2024 Lab Requisition [facility] - DermPath Lab [address] [facility] [place] [address] Arlette Marti MD [address] [facility] [address] [place] [address] Social History Tobacco Use Types Packs/Day Years [...] Priority Date/Time Associated Diagnosis Comments DERMATOPATHOLOGY Routine 01/08/2024 8:32 AM CDT documented in this encounter Results * DERMATOPATHOLOGY (01/08/2024 8:32 AM CDT) Case Report Dermatopathology Report Case: [id number] Authorizing Provider: Arlette Marti MD Collected: 01/08/2024 08:32 AM Ordering Location: [facility] - Received: 01/09/2024 12:45 PM DermPath Lab Pathologist: Mitzi Maurer MD Specimen: Skin, right posterior neck 5:53 PM CDT DERMATOPATHOLOGY LABORATORY Final Diagnosis Specimen A. SKIN, right posterior neck: COMPOUND MELANOCYTIC PROLIFERATION, IRRITATED AND INFLAMED; NOT PRESENT AT SAMPLED MARGIN (D48.5) (see microscopic description and comment) 5:53 PM CDT DERMATOPATHOLOGY LABORATORY Clinical History R/o Melanoma, nevus, SK, Irregular Border, Brown Macule 4 5:53 PM [facility] DERMATOPATHOLOGY LABORATORY Gross Description Specimen A: Received is one formalin filled container labeled with the patient's name and designated right posterior neck. The specimen consists of a shave biopsy measuring 7x6x1 mm. Jar 0. 5:53 PM [facility] DERMATOPATHOLOGY LABORATORY Microscopic Description Specimen A. SKIN, right posterior neck: Sections show a compound melanocytic proliferation. There is melanin pigment in the stratum corneum. There are nests of melanocytes at the dermal-epidermal junction and within the dermis. There is a lentiginous proliferation of melanocytes between irregular nests. Scattered melanocytes show evidence of upward migration within the epidermis. The melanocytes are large and have a autumn cytoplasm. The dermis shows scattered small nests of cytologically similar melanocytes. By immunohistochemistr y, lesional cells are highlighted by MART-1/MelanA. P16 is intact in lesional cells. PRAME is positive in lesional cells. There is a lymphohistiocytic infiltrate within the dermis. Additional deeper sections were obtained and reviewed. COMMENT: The upward scatter of intraepidermal melanocytes as well as the lentiginous nature of the architecture and PRAME positivity are somewhat worrisome features. Although this lesion appears completely excised in the sampled sections, a complete but conservative re-excision is recommended to ensure complete removal and evaluation of this lesion in its entirety. This case was also reviewed by Dr. Michaela Maurer who agrees. 5:53 PM [facility] DERMATOPATHOLOGY LABORATORY Disclaimer An external and internal positive and negative controls are appropriate for the histochemical, immunohistochemical and immunofluorescence stain(s) in this case (if any), except where stated explicitly. The performance characteristics of the stain(s) cited in this report were developed and its performance characteristic determined by the Dermatopathology Laboratory at [facility], directed by Dr. Phu Ramirez. These tests need not be, and therefore are not, approved by the [place] Food and Drug Administration. The tests are used for clinical purposes. Billing Codes Specimen Charges Stain Charges 50630 1 87774 71247 86423 1 1 1 4 5:53 PM CDT DERMATOPATHOLOGY LABORATORY Embedded Images 4 5:53 PM CDT DERMATOPATHOLOGY LABORATORY Pathology/Cytolo gy TISSUE SPECIMEN FROM SKIN / Unknown 01/08/2024 8:32 AM CDT 01/09/2024 12:45 PM CDT Arlette Marti MD LAB - PATHOLOGY/CYTOLOGY ORD ERABLES Final Result DERMATOPATHOLOGY LABORATORY [facility] - Department of Dermatology [facility] [facility], [address] [phone] documented in this encounter Visit Diagnoses Not on filedocumented in this encounter Care Teams Home Health Caregiver Relationship Specialty Start Date End Date Jordi Friedman MD [address] [facility] [address] [place] [address] PCP - General 01/02/22 documented as of this encounter
--- OUTSIDE RECORDS SUMMARY | 2025-02-14 09:30 | XMS_ITS | Patient Health Record ---
Author Organization [facility] As [employer] Address [address] [facility] [address] [place] [address] Care Team Providers Care Performance Makeup Artist Name Role Phone Kristal Eduardo, Isha Primary Care Provider Unavail able Nico Marroquin Unavailable [phone] Migration, Provider Unavailable Unavailable Allergies Allergen (clinical drug ingredient) Drug/Non Drug Allergy documented on EMR Reaction Allergy Type Onset Date Status TERRAMYCIN (uncoded) Unknown Allergy Active Reason For Referral No Information Medications Medication SIG (Take, Route, Frequency, Duration) Notes Start Date End Date Status Escitalopram Oxalate 10 MG 1 tablet Orally Once a day for 90 days Active Aspirin 81 MG 1 tablet Orally Once a day Active Losartan Potassium 50 MG Oral Unknown Iron 325 (65 Fe) MG 1 tablet Orally Three times a Week Active TADALAFIL 20 MG TABLET *Reorder from RateSetter for eRx and Interaction Alerts* Unknown Losartan [...] Status W/U Status Risk Notes Problem Hyperlipidemia (75697099) Hyperlipidemia, unspecified (E78.5) 05/20/20 Active confirmed Problem [id number] Major depressive disorder, recurrent, mild (F33.0) Active confirmed Problem Obstructive sleep apnea syndrome (89275653) Obstructive sleep apnea (adult) (pediatric) (G47.33) 05/20/20 Active confirmed Problem Essential hypertension (39168437) Essential (primary) hypertension (I10) 05/20/20 Active confirmed Problem Gastroesophageal reflux disease (977615285) Gastro-esophage al reflux disease without esophagitis (K21.9) Active confirmed Problem Benign prostatic hyperplasia (070545540) Benign prostatic hyperplasia with lower urinary tract symptoms (N40.1) Active confirmed Problem [id number] LIANG (generalized anxiety disorder) (F41.1) Active confirmed Vital Signs Heart Rate 61 /min 09/08/2024 Height-cm 177.8 cm 09/08/2024 Blood pressure diastolic 73 mm Hg 09/08/2024 Weight-kg 102.51 kg 09/08/2024 Height 70 in 09/08/2024 Blood pressure systolic 122 mm Hg 09/08/2024 Weight 226 lbs 09/08/2024 BMI 32.42 kg/m2 09/08/2024 Encounters Encounter Location Date Provider Diagnosis [address] [address] 07/22/2024 Nico Lopez LIANG (generalized anxiety disorder) F41.1 ; Major depressive disorder, recurrent, mild F33.0 ; Gastro-esophageal reflux disease without esophagitis K21.9 ; Benign prostatic hyperplasia with lower urinary tract symptoms N40.1 ; Obstructive sleep apnea (adult) (pediatric) G47.33 ; Hyperlipidemia, unspecified E78.5 and Essential (primary) hypertension I10 [place] [id number] [facility] [address] [address] 08/20/2024 Nico Lopez LIANG (generalized anxiety disorder) F41.1 ; Major depressive disorder, recurrent, mild F33.0 ; Gastro-esophageal reflux disease without esophagitis K21.9 ; Benign prostatic hyperplasia with lower urinary tract symptoms N40.1 ; Obstructive sleep apnea (adult) (pediatric) G47.33 ; Hyperlipidemia, unspecified E78.5 and Essential (primary) hypertension I10 [address] [address] 09/08/2024 Nico Lopez LIANG (generalized anxiety disorder) F41.1 ; Major depressive disorder, recurrent, mild F33.0 ; Gastro-esophageal reflux disease without esophagitis K21.9 ; Benign prostatic hyperplasia with lower urinary tract symptoms N40.1 ; Obstructive sleep apnea (adult) (pediatric) G47.33 ; Hyperlipidemia, unspecified E78.5 and Essential (primary) hypertension I10 [address] [address] 02/21/2024 Provider Migration [address] [address] 02/22/2024 Provider Migration [address] [address] 07/22/2024 Nico Patriciaam [facility] [employer] [address] [facility] [address] [place] [address] 07/23/2024 Nico Marroquin LIANG (generalized anxiety disorder) [...] LIANG (generalized anxiety disorder) (ICD-10 - F41.1) 09/08/2024 LIANG (generalized anxiety disorder) (ICD-10 - [...] stopping medication to avoid symptom recurrence. 08/20/2024 Major depressive disorder, recurrent, mild (ICD-10 - F33.0) Jealousy and Controlling Behavior - Assessment: Patient reports some improvement in controlling behavior over the past month. Jonah still experiences jealousy when interacts with other men. - Plan: - Continue with current therapy sessions. - Encourage open communication with spouse. - Monitor progress in future visits. Anxiety and Depression - Assessment: Jonah reports feeling a little bit more relaxed with current medication. - Plan: - Increase escitalopram dose to 10 mg daily (2 tablets in the morning). - Continue buspirone 5 mg daily. - Reassess in 3 weeks for medication effectiveness. - Encourage Jonah to use the clinic's alonzo for communication. Insecurity Issues - Assessment: Jonah acknowledges insecurity as a root cause of jealousy. - Plan: - Address in therapy sessions. - Encourage Jonah to engage in activities that boost self-esteem [...] Previous attempt to schedule therapy was unsuccessful; Jonah reports not being contacted. - Plan: - Coordinate with the office machine servicer apprentice to schedule an appointment with Cb. - Instruct Jonah to contact the clinic if they do not hear about the therapy appointment by next Friday. Patient Education - Assessment: Jonah expresses difficulty with using smartphone apps. - Plan: - Encourage Jonah to download and use the clinic's alonzo for communication and appointment scheduling. - Provide assistance with using the alonzo if needed. 08/20/2024 LIANG (generalized anxiety disorder) (ICD-10 - F41.1) Jealousy and Controlling Behavior - Assessment: Patient reports some improvement in controlling behavior over the past month. Jonah still experiences jealousy when interacts with other men. - Plan: - Continue with current therapy sessions. - Encourage open communication with spouse. - Monitor progress in future visits. Anxiety and Depression - Assessment: Jonah reports feeling a little bit more relaxed with current medication. - Plan: - Increase escitalopram dose to 10 mg daily (2 tablets in the morning). - Continue buspirone 5 mg daily. - Reassess in 3 weeks for medication effectiveness. - Encourage Jonah to use the clinic's alonzo for communication. Insecurity Issues - Assessment: Jonah acknowledges insecurity as a root cause of jealousy. - Plan: - Address in therapy sessions. - Encourage Jonah to engage in activities that boost self-esteem [...] Previous attempt to schedule therapy was unsuccessful; Jonah reports not being contacted. - Plan: - Coordinate with the office machine servicer apprentice to schedule an appointment with Cb. - Instruct Jonah to contact the clinic if they do not hear about the therapy appointment by next Friday. Patient Education - Assessment: Jonah expresses difficulty with using smartphone apps. - Plan: - Encourage Jonah to download and use the clinic's alonzo for communication and appointment scheduling. - Provide assistance with using the alonzo if needed. 08/20/2024 Gastro-esophagea l reflux disease without esophagitis (ICD-10 - K21.9) Jealousy and Controlling Behavior - Assessment: Patient reports some improvement in controlling behavior over the past month. Jonah still experiences jealousy when interacts with other men. - Plan: - Continue with current therapy sessions. - Encourage open communication with spouse. - Monitor progress in future visits. Anxiety and Depression - Assessment: Jonah reports feeling a little bit more relaxed with current medication. - Plan: - Increase escitalopram dose to 10 mg daily (2 tablets in the morning). - Continue buspirone 5 mg daily. - Reassess in 3 weeks for medication effectiveness. - Encourage Jonah to use the clinic's alonzo for communication. Insecurity Issues - Assessment: Jonah acknowledges insecurity as a root cause of jealousy. - Plan: - Address in therapy sessions. - Encourage Jonah to engage in activities that boost self-esteem [...] Previous attempt to schedule therapy was unsuccessful; Jonah reports not being contacted. - Plan: - Coordinate with the office machine servicer apprentice to schedule an appointment with Cb. - Instruct Jonah to contact the clinic if they do not hear about the therapy appointment by next Friday. Patient Education - Assessment: Jonah expresses difficulty with using smartphone apps. - Plan: - Encourage Jonah to download and use the clinic's alonzo [...] from the counselor within 2-3 weeks. 08/20/2024 Benign prostatic hyperplasia with lower urinary tract symptoms (ICD-10 - N40.1) Jealousy and Controlling Behavior - Assessment: Patient reports some improvement in controlling behavior over the past month. Jonah still experiences jealousy when interacts with other men. - Plan: - Continue with current therapy sessions. - Encourage open communication with spouse. - Monitor progress in future visits. Anxiety and Depression - Assessment: Jonah reports feeling a little bit more relaxed with current medication. - Plan: - Increase escitalopram dose to 10 mg daily (2 tablets in the morning). - Continue buspirone 5 mg daily. - Reassess in 3 weeks for medication effectiveness. - Encourage Jonah to use the clinic's alonzo for communication. Insecurity Issues - Assessment: Jonah acknowledges insecurity as a root cause of jealousy. - Plan: - Address in therapy sessions. - Encourage Jonah to engage in activities that boost self-esteem [...] Previous attempt to schedule therapy was unsuccessful; Jonah reports not being contacted. - Plan: - Coordinate with the office machine servicer apprentice to schedule an appointment with Cb. - Instruct Jonah to contact the clinic if they do not hear about the therapy appointment by next Friday. Patient Education - Assessment: Jonah expresses difficulty with using smartphone apps. - Plan: - Encourage Jonah to download and use the clinic's alonzo for communication and appointment scheduling. - Provide assistance with using the alonzo if needed. 09/08/2024 Gastro-esophagea l reflux disease without esophagitis [...] stopping medication to avoid symptom recurrence. 08/20/2024 Obstructive sleep apnea (adult) (pediatric) (ICD-10 - G47.33) Jealousy and Controlling Behavior - Assessment: Patient reports some improvement in controlling behavior over the past month. Jonah still experiences jealousy when interacts with other men. - Plan: - Continue with current therapy sessions. - Encourage open communication with spouse. - Monitor progress in future visits. Anxiety and Depression - Assessment: Jonah reports feeling a little bit more relaxed with current medication. - Plan: - Increase escitalopram dose to 10 mg daily (2 tablets in the morning). - Continue buspirone 5 mg daily. - Reassess in 3 weeks for medication effectiveness. - Encourage Jonah to use the clinic's alonzo for communication. Insecurity Issues - Assessment: Jonah acknowledges insecurity as a root cause of jealousy. - Plan: - Address in therapy sessions. - Encourage Jonah to engage in activities that boost self-esteem [...] Previous attempt to schedule therapy was unsuccessful; Jonah reports not being contacted. - Plan: - Coordinate with the office machine servicer apprentice to schedule an appointment with Cb. - Instruct Jonah to contact the clinic if they do not hear about the therapy appointment by next Friday. Patient Education - Assessment: Jonah expresses difficulty with using smartphone apps. - Plan: - Encourage Jonah to download and use the clinic's alonzo for communication and appointment scheduling. - Provide assistance with using the alonzo if needed. 07/22/2024 Obstructive sleep apnea (adult) (pediatric) (ICD-10 [...] from the counselor within 2-3 weeks. 09/08/2024 Obstructive sleep apnea (adult) (pediatric) (ICD-10 [...] stopping medication to avoid symptom recurrence. 08/20/2024 Hyperlipidemia, unspecified (ICD-10 - E78.5) Jealousy and Controlling Behavior - Assessment: Patient reports some improvement in controlling behavior over the past month. Jonah still experiences jealousy when interacts with other men. - Plan: - Continue with current therapy sessions. - Encourage open communication with spouse. - Monitor progress in future visits. Anxiety and Depression - Assessment: Jonah reports feeling a little bit more relaxed with current medication. - Plan: - Increase escitalopram dose to 10 mg daily (2 tablets in the morning). - Continue buspirone 5 mg daily. - Reassess in 3 weeks for medication effectiveness. - Encourage Jonah to use the clinic's alonzo for communication. Insecurity Issues - Assessment: Jonah acknowledges insecurity as a root cause of jealousy. - Plan: - Address in therapy sessions. - Encourage Jonah to engage in activities that boost self-esteem [...] Previous attempt to schedule therapy was unsuccessful; Jonah reports not being contacted. - Plan: - Coordinate with the office machine servicer apprentice to schedule an appointment with Cb. - Instruct Jonah to contact the clinic if they do not hear about the therapy appointment by next Wednesday. Patient Education - Assessment: Jonah expresses difficulty with using smartphone apps. - Plan: - Encourage Jonah to download and use the clinic's alonzo for communication and appointment scheduling. - Provide assistance with using the alonzo if needed. 07/22/2024 Hyperlipidemia, unspecified (ICD-10 - E78.5) Jealousy [...] from the counselor within 2-3 weeks. 08/20/2024 Essential (primary) hypertension (ICD-10 - I10) Jealousy and Controlling Behavior - Assessment: Patient reports some improvement in controlling behavior over the past month. Jonah still experiences jealousy when interacts with other men. - Plan: - Continue with current therapy sessions. - Encourage open communication with spouse. - Monitor progress in future visits. Anxiety and Depression - Assessment: Jonah reports feeling a little bit more relaxed with current medication. - Plan: - Increase escitalopram dose to 10 mg daily (2 tablets in the morning). - Continue buspirone 5 mg daily. - Reassess in 3 weeks for medication effectiveness. - Encourage Jonah to use the clinic's alonzo for communication. Insecurity Issues - Assessment: Jonah acknowledges insecurity as a root cause of jealousy. - Plan: - Address in therapy sessions. - Encourage Jonah to engage in activities that boost self-esteem [...] Previous attempt to schedule therapy was unsuccessful; Jonah reports not being contacted. - Plan: - Coordinate with the office machine servicer apprentice to schedule an appointment with Cb. - Instruct Jonah to contact the clinic if they do not hear about the therapy appointment by next Friday. Patient Education - Assessment: Jonah expresses difficulty with using smartphone apps. - Plan: - Encourage Jonah to download and use the clinic's alonzo for communication and appointment scheduling. - Provide assistance with using the alonzo if needed. 09/08/2024 Hyperlipidemia, unspecified (ICD-10 - E78.5) Mood [...] psychiatrist, advise them to discuss medication management ok [id number]|2025-02-14 09:30:00|2025-02-14 09:30:00|XMS_ITS|MASSIEL MARRERO|External Medical Summaries|[id number]|" CONTINUITY OF CARE DOCUMENT Created on: February 14, 2025 Jonah Burgess : 1950 Sex: Male [facility] Address Unknown Organization [facility] Address [address] [place] [address] Phone [phone] Care Team Providers Care Performance Makeup Artist Name Role Phone Anup Espinoza MD Unavailable [phone] CARLOS CULLEN MD Unavailable CARLOS CULLEN MD Unavailable [phone] PROBLEMS Condition Status Date Provider Notes Hypertension active Jorge Watters Coronary atherosclerosis, calcium score 51 completed - Jorge Watters CAD - abnml nuc, Ca++ score 51 12/2020 - CTA no sig stenosis, Ca++ score 136 01/2021; 80% stenosis diagnoal branch 2021 active Eleni Begum COVID-19 vaccination active Jorge Titus erg Dizziness completed - Jorge Watters Syncope active Anup Espinoza MD Dyslipidemia active Anup Espinoza MD Abnormal EKG active Anup Espinoza MD Obesity active Anup Espinoza MD CHEST PAIN completed - Jorge Duong Family History of CAD & Sudden Cardiac active ? Anup Espinoza MD Family History of CVA active ? Anup Espinoza MD Shortness of breath active Anup Espinoza MD ENCOUNTERS Date Type Provider Location Encounter Diag nosis - In-person encounter Office Visit Anup Espinoza MD [facility] - In-person encounter Office Visit Anup Espinoza MD [facility] - In-person encounter Office Visit Anup Espinoza MD [facility] - In-person encounter Office Visit Anup Espinoza MD [facility] - In-person encounter Office Visit Anup Espinoza MD [facility] - In-person encounter Office Visit Anup Espinoza MD [facility] CAD - abnml nuc, Ca++ score 51 12/2020 - CTA no sig stenosis, Ca++ score 136 01/2021; 80% stenosis diagnoal branch 2021 - In-person encounter Office Visit Anup Espinoza MD [facility] - In-person encounter Office Visit Anup Espinoza MD [facility] COVID-19 vaccinationCAD - abnml nuc, Ca++ score 51 12/2020 - CTA no sig stenosis, Ca++ score 136 01/2021; 80% stenosis diagnoal branch 2Coronary atherosclerosis, calcium score 51Hypertension - In-person encounter Office Visit Anup Espinoza MD [facility] CHEST PAINDizzinessCOVID-19 vaccination - In-person encounter Office Visit Anup Espinoza MD [facility] - In-person encounter Office Visit Anup Espinoza MD [facility] Syncope - In-person encounter Office Visit Anup Espinoza MD [facility] - In-person encounter Office Visit Anup Espinoza MD [facility] Shortness of breathFamily History of CVAFamily History of CAD & Sudden Cardiac DeathObesityAbnormal EKGDyslipidemia VITAL SIGNS Date Observation Value Provider Body Mass Index (Ratio) 32.07 kg/m2 Chi Taylor blood pressure, diastolic 90 mm[Hg] Lavern Abbott blood pressure, systolic 148 mm[Hg] Vanda orellana Mcpherson oxygen saturation, oximetry 96 % Val Mcpherson pulse rate 66 /min Val Mcpherson respiratory rate E&M 12 /min Val Abbott weight E&M 230 [lb_av] Val Abbott height E&M 71 [in_i] Val Abbott blood pressure, cuff size regular An michael Abbott Body Mass Index (Ratio) 31.66 kg/m2 Demian Muñoz pulse rate 68 /min Inna Horton blood pressure, cuff size regular Carlos Eduardo craft Horton blood pressure, diastolic 78 mm[Hg] Ta bitha Horton blood pressure, systolic 128 mm[Hg] Tab itha Horton oxygen saturation, oximetry 96 % Inna Horton weight E&M 227 [lb_av] Inna Horton respiratory rate E&M 12 /min Inna Horton height E&M 71 [in_i] Inna Horton Body Mass Index (Ratio) 31.52 kg/m2 Chi Taylor blood pressure, diastolic 71 mm[Hg] Ja sahil blood pressure, systolic 132 mm[Hg] Dwight dacosta pulse rate 70 /min Terrence scott oxygen saturation, oximetry 98 % blood pressure, cuff size regular Ja ironet respiratory rate E&M 16 /min weight E&M 226 [lb_av] y height E&M 71 [in_i] Terrence y Body Mass Index (Ratio) 31.66 kg/m2 Anup Espinoza MD blood pressure, cuff size regular [facility], diastolic 70 mm[Hg] Brad rri [facility] blood [facility], systolic 124 mm[Hg] Regina ri [facility] oxygen saturation, oximetry 95 % Kaylee Rocio respiratory rate E&M 12 /min Kaylee espinoza pulse rate 68 /min Kaylee Alvin [facility] weight E&M 227 [lb_av] Kaylee Vahehaileynenfe [facility] height E&M 71 [in_i] Kaylee Eileenantoinettenfe [facility] Body Mass Index (Ratio) 31.38 kg/m2 Tanisha monsivais Geoffrey blood pressure, diastolic 79 mm[Hg] Lavern gabbi Mann blood pressure, systolic 142 mm[Hg] Dalia Mann oxygen saturation, oximetry 99 % Riya Mann pulse rate 56 /min Riya Mann weight E&M 225 [lb_av] Riya Mann height E&M 71 [in_i] Riya Mann blood pressure, cuff size large An gabbi Mann Body Mass Index (Ratio) 31.52 kg/m2 Katerine Begum blood pressure, cuff size regular Ca therine Angus blood pressure, diastolic 64 mm[Hg] Ca therine Kane blood pressure, systolic 120 mm[Hg] Cat ine Kane oxygen saturation, oximetry 98 % Bere Kane respiratory rate E&M 16 /min Catheri ne Angus pulse rate 57 /min Bere Angus weight E&M 226 [lb_av] Bere Angus height E&M 71 [in_i] Bere Kane Body Mass Index (Ratio) 31.38 kg/m2 Katerine long [facility] blood pressure, diastolic 72 mm[Hg] Ch astity Bacilio blood pressure, systolic 128 mm[Hg] Michelle stity Bacilio oxygen saturation, oximetry 98 % Chastity Bacilio pulse rate 71 /min Chastity Bacilio weight E&M 225 [lb_av] Chastity Bacilio respiratory rate E&M 16 /min Chastit y Bacilio height E&M 71 [in_i] Chastity Bacilio Body Mass Index (Ratio) 31.66 kg/m2 Daryl carranza [facility] blood pressure, diastolic 85 mm[Hg] Ch astity Bacilio blood pressure, systolic 151 mm[Hg] Michelle stity Bacilio oxygen saturation, oximetry 98 % Chastity Bacilio pulse rate 68 /min Chastity Bacilio respiratory rate E&M 16 /min Chastit y Bacilio weight E&M 227 [lb_av] Chastity Bacilio height E&M 71 [in_i] Chastity Bacilio Body Mass Index (Ratio) 32.21 kg/m2 Daryl carranza [facility] blood pressure, diastolic 82 mm[Hg] Br ittany Block blood pressure, systolic 124 mm[Hg] Eli ttany Block pulse rate 72 /min Eleni Block oxygen saturation, oximetry 97 % Eleni Oliveros weight E&M 231 [lb_av] Elnei Oliveros respiratory rate E&M 16 /min Curly Oliveros height E&M 71 [in_i] Eleni Oliveros Body Mass Index (Ratio) 30.68 kg/m2 Anup Espinoza MD blood pressure, cuff size regular Cy kisha Obrien blood pressure, diastolic 80 mm[Hg] Cy kisha Obrien blood pressure, systolic 132 mm[Hg] Alona emilie Obrien pulse rate 67 /min Trish Ackerman l respiratory rate E&M 16 /min Trish Obrien oxygen saturation, oximetry 99 % Trish Obrien weight E&M 220 [lb_av] Trishemilie Platabel l height E&M 71 [in_i] Trish Campbel l Body Mass Index (Ratio) 31.80 kg/m2 Daryl carranza Duong blood pressure, diastolic 80 mm[Hg] Da kirti Cristino blood pressure, systolic 132 mm[Hg] Dac ia Cristino oxygen saturation, oximetry 96 % Ashely Cristino respiratory rate E&M 16 /min Ashely V oss pulse rate 62 /min Ashely Cristino weight E&M 228 [lb_av] Ashely Cristino height E&M 71 [in_i] Ashely Cristino Body Mass Index (Ratio) 31.55 kg/m2 Daryl Watters blood pressure, resting No Yana Quintana blood pressure, diastolic 81 mm[Hg] Sharlene Quintana blood pressure, systolic 152 mm[Hg] Charmaine Quintana oxygen saturation, oximetry 96 % Giovanni Quintana respiratory rate E&M 18 /min Cary Quintana pulse rate 62 /min Giovanni talavera weight E&M 226.2 [lb_av] Giovanni sin height E&M 71 [in_i] Giovanni talavera Body Mass Index (Ratio) 31.24 kg/m2 Daryl Watters blood pressure, cuff size regular Ke rri Vahedee blood pressure, diastolic 90 mm[Hg] Ke rri Roxi blood pressure, systolic 158 mm[Hg] Regina Diane oxygen saturation, oximetry 98 % Kaylee Diane respiratory rate E&M 18 /min Kaylee espinoza pulse rate 63 /min Kaylee Esquivel lder weight E&M 224 [lb_av] Kaylee Esquivel lder height E&M 71 [in_i] Kaylee Esquivel lder ALLERGIES Allergy Name Onset Date Reaction Criticality Status TERRAMYCIN Low Criticality active RESULTS Date Observation Value Provider Reference Range Interpretation Location 5 LDL cholesterol, serum 76 mg/dL Jorge Watters HISTORY OF MEDICATION USE Medication Status Instructions Dates Provider Indications Com ments clopidogrel 75 mg tablet active Take 1 tablet by mouth once a day Kaylee Diane finasteride 5 mg tablet completed - Inna Horton clopidogrel 75 mg tablet completed TAKE 1 TABLET BY MOUTH DAILY - Kaylee Diane tadalafil 20 mg tablet active TAKE 1 TABLET BY MOUTH ONCE DAILY NEEDED Kaylee Diane buspirone 5 mg tablet active Take 1 tablet by mouth twice a day Kaylee Diane finasteride 5 mg tablet active take 1 pill a day Kaylee Diane rosuvastatin 20 mg tablet active TAKE 1 TABLET BY MOUTH EVERY DAY Francisca Pradhan RN rosuvastatin 20 mg tablet completed Take 1 tablet by mouth once a day - Terrence Salas rosuvastatin 20 mg tablet completed Take 1 tablet by mouth once daily - Kaylee Diane metoprolol tartrate 25 mg tablet completed TAKE 1 TABLET BY MOUTH TWICE DAILY - Kaylee Diane metoprolol tartrate 25 mg tablet completed Take 1 tablet by mouth twice a day TAKE 1 TABLET BY MOUTH TWICE DAILY - Gayla Anand nitroglycerin 0.4 mg tablet, sublingual active Take 1 tablet under tongue at bedtime Anup Espinoza MD rosuvastatin 20 mg tablet completed Take 1 tablet once a day - Gayla Anand 12 HOUR ALLERGY-D 5-120 MG [id number] active 1 tablet once a day Yumiko Ribera METOPROLOL TARTRATE 100 MG ORAL TABLET completed Take one tab the night before CTA heart and one tab 1 1/2 hrs prior to the CTA heart - Kristel Hines RN OMEGA-3 FISH OIL CAPSULE completed take 1 day - Eleni Oliveros NALTREXONE HCL 50 MG ORAL TABLET completed 1/2 tab by mouth daily, if not effective after 1 week may increase to 1/2 tab twice daily - Trish Obrien BUPROPION HCL 100 MG ORAL TABLET completed 1 tab by mouth daily, if not effective after 1 week may increase to 1 tab twice daily - Anup Espinoza MD PRAVACHOL 20 MG ORAL TABLET completed take one daily - Jorge Watters losartan 50 mg tablet active Take 1 tablet once a day Anup Espinoza MD ergocalciferol (vitamin D2) 1,250 mcg (50,000 unit) capsule completed once a week - Inna Horton aspirin 81 mg tablet,delayed release (DR/EC) active 1 tablet by mouth once a day Kaylee Diane SINGULAIR 10 MG ORAL TABLET completed take one pill a day - Ashely Cristino MULTIVITAMIN ADULTS 50+ TABS active Take 1 once a day Kaylee Roxi GLUCOSAMINE CHOND COMPLEX/MSM ORAL TABLET completed take one pill a day - Trish Obrien Flomax 0.4 mg capsule active Take 1 once a day Kaylee Roxi FINASTERIDE TABLET completed Take 1 once a day - Kaylee Roxi CIALIS 5 MG ORAL TABLET completed take one pill a day - Trish Obrien SOCIAL HISTORY Date Observation Value Provider smoking status Never smoker Anup Mason smoking status Never smoker Anup Mason smoking status Never smoker Anup Mason smoking status Never smoker Anup Mason social history E&M S moking History: Jonathan loya has never smoked. Maeve Hale social history reviewed E&M revi ewed - no changes required Maeve Hale exercise type walking up to se [place] miles Riya Mann smoking status Never smoker Riya Mann social history E&M S moking History: Jonathan loya has never smoked. Anup Espinoza MD social history reviewed E&M revi ewed - no changes required Anup Espinoza MD exercise type walking up to se [place] miles Bere Kane smoking status Never smoker Bere Salina s social history E&M S moking History: Jonathan loya has never smoked. Eleni Begum social history reviewed E&M revi ewed - no changes required Eleni Begum exercise type walking up to se veral miles Brendenity Bacilio smoking status Never smoker Chastity Hogu e social history reviewed E&M revi ewed - no changes required Jorge Watters exercise type walking up to se [place] miles Yumiko Garciaue smoking status Never smoker Yumiko Pierre e social history E&M Smoking Histo ry: Jonathan loya has never smoked. Jorge Watters exercise type walking up to se veral miles Jorge Watters social history reviewed E&M revi ewed - no changes required Jorge Watters smoking status Never smoker Eleni dumas number of grandchildren Anup Espinoza MD social history E&M S moking History: P vincenzo has never smoked. Anup Espinoza MD social history reviewed E&M revi ewed - no changes required Anup Espinoza MD smoking status Never smoker Trish Clemencia rivas social history reviewed E&M revi ewed - no changes required Anup Espinoza MD smoking status Never smoker Ashely Gregg social history reviewed E&M revi ewed - no changes required Jorge Watters smoking status Never smoker Giovanni Delvalle lucina social history reviewed E&M revi ewed - no changes required Anup Espinoza MD social history E&M Smoking Histo ry: Jonathan loya has never smoked. Anup Espinoza MD smoking status Never smoker Kaylee francis FUNCTIONAL STATUS Date Observation Value Provider HRA, CV Assess/Plan, Angina (inactive) Management Plan continue current therapy Anup Espinoza MD HRA, CV Assess/Plan, Angina (inactive) Management Plan continue current therapy Daryl Iorfida HRA, CV Assess/Plan, Angina (inactive) Management Plan continue current therapy Maeve Hale HRA, CV Assess/Plan, Angina (inactive) Management Plan continue current therapy Anup Espinoza MD HRA, CV Assess/Plan, Angina (inactive) Management Plan continue current therapy Eleni Begum HRA, CV Assess/Plan, Angina (inactive) Management Plan continue current therapy Jorge Watters FAMILY HISTORY Family Member Condition Father Family History of Guerrier dden Cardiac : Father Family History of Hy pertension: Father Family History of Di abetes: Father Family History of Co ronary Artery Disease: Father Family History of CV A or Stroke: Mother Family History of Guerrier dden Cardiac : Mother Family History of Hy pertension: Mother Family History of CV A or Stroke: INSURANCE PROVIDERS Payer name Policy type / Coverage type [employer]y red alliance party ID [place] MEDICARE PART B Medicare [facility] [id number] [place] MEDICARE PART B Medicare [id number] ADVANCE DIRECTIVES Name Date DISCUSSED - NO DECISION MADE TREATMENT PLAN Date Name Performer [id number],C, B P today: 142/79 P rior BP: 120/64 (03/13/2022) Labs Reviewed: L DL: 76 (10/30/2020) His updated medication list for this problem includes: Metoprolol Tartrate 25 Mg Tablet (Metoprolol tartrate) ..... Take 1 tablet by mouth twice daily Losartan 50 Mg Tablet (Losartan) ..... Take 1 tablet once a day Aspirin 81 Mg Tablet,delayed Release (dr/ec) (Aspirin) ..... 1 tablet by mouth once a day Maeve Hale [id number],C,L DL is well controlled. Will continue current meds. His updated medication list for this problem includes: Rosuvastatin 20 Mg Tablet (Rosuvastatin) ..... Take 1 tablet once a day Maeve Hale [id number],C,T he pt had an episode of sharp CP lasted only a few minutes, three months ago. No further episodes since then. Will obtain an echo. If pt has any more pain, we will look at getting a cardiac cath. Will obtain UACR. His updated medication list for this problem includes: Metoprolol Tartrate 25 Mg Tablet (Metoprolol tartrate) ..... Take 1 tablet by mouth twice daily Aspirin 81 Mg Tablet,delayed Release (dr/ec) (Aspirin) ..... 1 tablet by mouth once a day Nitroglycerin 0.4 Mg Tablet, Sublingual (Nitroglycerin) ..... Take 1 tablet under tongue at bedtime Maeve Hale [id number],C,C ardiac cath revealed 80 % stenosis of a very small diagonal branch. Will be treated medically. Currently asymptomatic. Will consider intervention if he develops symptoms. H is updated medication list for this problem includes: Aspirin 81 Mg Tablet,delayed Release (dr/ec) (Aspirin) ..... 1 tablet by mouth once a day Metoprolol Tartrate 25 Mg Tablet (Metoprolol tartrate) ..... Take 1 tablet by mouth twice a day take 1 tablet by mouth twice daily Nitroglycerin 0.4 Mg Tablet, Sublingual (Nitroglycerin) ..... Take 1 tablet under tongue at bedtime Eleni Begum [id number],S, N o recurrence. Eleni Fontanezohsarbjit [id number],C,C ardiac cath revealed 80 % stenosis of a very small diagonal branch. Will be treated medically. Currently asymptomatic. Will consider intervention if he develops symptoms. H is updated medication list for this problem includes: Aspirin 81 Mg Tablet,delayed Release (dr/ec) (Aspirin) ..... 1 tablet by mouth once a day Metoprolol Tartrate 25 Mg Tablet (Metoprolol tartrate) ..... Take 1 tablet by mouth twice a day take 1 tablet by mouth twice daily Nitroglycerin 0.4 Mg Tablet, Sublingual (Nitroglycerin) ..... Take 1 tablet under tongue at bedtime [facility] [id number],S, W eight loss advised Anup Espinoza MD [id number],C, B P today: 120/64 P rior BP: 128/72 (01/23/2022) Labs Reviewed: L DL: 76 (10/30/2020) His updated medication list for this problem includes: Metoprolol Tartrate 25 Mg Tablet (Metoprolol tartrate) ..... Take 1 tablet by mouth twice a day take 1 tablet by mouth twice daily Losartan Potassium 50 Mg Oral Tablet (Losartan potassium) ..... Take one tablet daily Aspirin Adult Low Dose 81 Mg Oral Tablet Delayed Release (Aspirin) ..... One tab by mouth daily Anup Espinoza MD [id number],C, H is updated medication list for this problem includes: Rosuvastatin Calcium 20 Mg Oral Tablet (Rosuvastatin calcium) ..... Take one tablet daily Anup Espinoza MD [id number],C, W eight loss advised Eleni Kel [id number],C, B P today: 128/72 P rior BP: 151/85 (02/07/2021) Labs Reviewed: L DL: 76 (10/30/2020) His updated medication list for this problem includes: Losartan Potassium 50 Mg Oral Tablet (Losartan potassium) ..... Take one tablet daily Aspirin Adult Low Dose 81 Mg Oral Tablet Delayed Release (Aspirin) ..... One tab by mouth daily Eleni Begum [id number],C, H is updated medication list for this problem includes: Rosuvastatin Calcium 20 Mg Oral Tablet (Rosuvastatin calcium) ..... Take one tablet daily Eleni Kel [id number],C,T he pt had a few episodes of exertional dyspnea and chest pain. Myoview scan last year showed inferior wall ischemia. Calcium score last year was 136. In view of the findings and sxs, we will proceed to cardiac cath. Pt would like the wrist approach. Placido's test was normal. H is updated medication list for this problem includes: Aspirin Adult Low Dose 81 Mg Oral Tablet Delayed Release (Aspirin) ..... One tab by mouth daily Eleni Kel [id number],C,T he pt had a few episodes of exertional dyspnea and chest pain. Myoview scan last year showed inferior wall ischemia. Calcium score last year was 136. In view of the findings and sxs, we will proceed to cardiac cath. Pt would like the wrist approach. Placido's test was normal. H is updated medication list for this problem includes: Losartan Potassium 50 Mg Oral Tablet (Losartan potassium) ..... Take one tablet daily Aspirin Adult Low Dose 81 Mg Oral Tablet Delayed Release (Aspirin) ..... One tab by mouth daily Eleni Kel Cardiology: n o improvement s/p angiopplasty W eight loss encouraged Anup Espinoza MD Cardiology: W eight loss encouraged Anup Espinoza MD Cardiology: L DL 34 His updated medication list for this problem includes: Rosuvastatin 20 Mg Tablet (Rosuvastatin) ..... Take 1 tablet by mouth every day Anup Espinoza MD Cardiology: s /p angioplasty of the diagonal n o improvement noted yet e ncouraged weight loss c ontinue medical therapy His updated medication list for this problem includes: Clopidogrel 75 Mg Tablet (Clopidogrel) ..... Take 1 tablet by mouth once a day Aspirin 81 Mg Tablet,delayed Release (dr/ec) (Aspirin) ..... 1 tablet by mouth once a day Nitroglycerin 0.4 Mg Tablet, Sublingual (Nitroglycerin) ..... Take 1 tablet under tongue at bedtime Anup Espinoza MD Cardiology: B P today: 148/90 P rior BP: 128/78 (05/12/2024) Labs Reviewed: L DL: 76 (10/30/2020) His updated medication list for this problem includes: Losartan 50 Mg Tablet (Losartan) ..... Take 1 tablet once a day Aspirin 81 Mg Tablet,delayed Release (dr/ec) (Aspirin) ..... 1 tablet by mouth once a day Anup Espinoza MD Cardiology:no improvement s/p an giopplasty Anup Espinoza MD Cardiology: H is updated medication list for this problem includes: Rosuvastatin 20 Mg Tablet (Rosuvastatin) ..... Take 1 tablet by mouth every day Anup Espinoza MD Cardiology: H is updated medication list for this problem includes: Losartan 50 Mg Tablet (Losartan) ..... Take 1 tablet once a day Aspirin 81 Mg Tablet,delayed Release (dr/ec) (Aspirin) ..... 1 tablet by mouth once a day BP today: 128/78 P rior BP: 132/71 (04/21/2024) Labs Reviewed: L DL: 76 (10/30/2020) Anup Espinoza MD Cardiology:s/p angio plasty of the diagonal n o improvement noted yet e ncouraged weight loss c ontinue medical therapy Anup Espinoza MD Cardiology:Pt contin ues to have same SOB with minimal exertion. PET-CT stress test showed Moderate sized, mild to moderately severe reversible apical defect. In view of sx and findings, we will proceed to L+R heart cath with possible intervention. Placido's test is normal. H is updated medication list for this problem includes: Losartan 50 Mg Tablet (Losartan) ..... Take 1 tablet once a day Aspirin 81 Mg Tablet,delayed Release (dr/ec) (Aspirin) ..... 1 tablet by mouth once a day James Taylor Cardiology:Pt contin ues to have same SOB with minimal exertion. PET-CT stress test showed Moderate sized, mild to moderately severe reversible apical defect. In view of sx and findings, we will proceed to L+R heart cath with possible intervention. Placido's test is normal. H is updated medication list for this problem includes: Aspirin 81 Mg Tablet,delayed Release (dr/ec) (Aspirin) ..... 1 tablet by mouth once a day Nitroglycerin 0.4 Mg Tablet, Sublingual (Nitroglycerin) ..... Take 1 tablet under tongue at bedtime James Taylor Cardiology: H is updated medication list for this problem includes: Rosuvastatin 20 Mg Tablet (Rosuvastatin) ..... Take 1 tablet by mouth every day This visit has been a part of the consistent, comprehensive, and ongoing management of the chronic medical condition(s) listed above for the patient. James Taylor Cardiology: B P today: 132/71 P rior BP: 124/70 (03/08/2024) His updated medication list for this problem includes: Losartan 50 Mg Tablet (Losartan) ..... Take 1 tablet once a day Aspirin 81 Mg Tablet,delayed Release (dr/ec) (Aspirin) ..... 1 tablet by mouth once a day This visit has been a part of the consistent, comprehensive, and ongoing management of the chronic medical condition(s) listed above for the patient. James Taylor Cardiology:Weight loss encourage d James Taylor Cardiology: H is updated medication list for this problem includes: Rosuvastatin 20 Mg Tablet (Rosuvastatin) ..... Take 1 tablet by mouth every day Anup Espinoza MD Cardiology:Cath from 2021: S cintia single-vessel coronary artery disease with 80% stenosis of a very small 1st diagonal branch, Moderate CAD involving the 40% of the RCA, LAD, and the left circumflex and a normal EF of 60%. W ill evaluate with stress PET and check an echo Anup Espinoza MD Cardiology: B P today: 124/70 P rior BP: 142/79 (03/12/2023) Labs Reviewed: L DL: 76 (10/30/2020) The following medications were removed from the medication list: Metoprolol Tartrate 25 Mg Tablet (Metoprolol tartrate) ..... Take 1 tablet by mouth twice daily His updated medication list for this problem includes: Losartan 50 Mg Tablet (Losartan) ..... Take 1 tablet once a day Aspirin 81 Mg Tablet,delayed Release (dr/ec) (Aspirin) ..... 1 tablet by mouth once a day Anup Espinoza MD Cardiology:Experienc ing episodes of dyspnea on exertion. Will check Stress PET Anup Espinoza MD Cardiology: B P today: 142/79 P rior BP: 120/64 (03/13/2022) Labs Reviewed: L DL: 76 (10/30/2020) His updated medication list for this problem includes: Metoprolol Tartrate 25 Mg Tablet (Metoprolol tartrate) ..... Take 1 tablet by mouth twice daily Losartan 50 Mg Tablet (Losartan) ..... Take 1 tablet once a day Aspirin 81 Mg Tablet,delayed Release (dr/ec) (Aspirin) ..... 1 tablet by mouth once a day Maeve Hale Cardiology:LDL is we ll controlled. Will continue current meds. His updated medication list for this problem includes: Rosuvastatin 20 Mg Tablet (Rosuvastatin) ..... Take 1 tablet once a day Maeve Hale Cardiology:The pt hunter d an episode of sharp CP lasted only a few minutes, three months ago. No further episodes since then. Will obtain an echo. If pt has any more pain, we will look at getting a cardiac cath. Will obtain UACR. His updated medication list for this problem includes: Metoprolol Tartrate 25 Mg Tablet (Metoprolol tartrate) ..... Take 1 tablet by mouth twice daily Aspirin 81 Mg Tablet,delayed Release (dr/ec) (Aspirin) ..... 1 tablet by mouth once a day Nitroglycerin 0.4 Mg Tablet, Sublingual (Nitroglycerin) ..... Take 1 tablet under tongue at bedtime Maeve Hale Cardiology:Cardiac c ath revealed 80 % stenosis of a very small diagonal branch. Will be treated medically. Currently asymptomatic. Will consider intervention if he develops symptoms. H is updated medication list for this problem includes: Aspirin 81 Mg Tablet,delayed Release (dr/ec) (Aspirin) ..... 1 tablet by mouth once a day Metoprolol Tartrate 25 Mg Tablet (Metoprolol tartrate) ..... Take 1 tablet by mouth twice a day take 1 tablet by mouth twice daily Nitroglycerin 0.4 Mg Tablet, Sublingual (Nitroglycerin) ..... Take 1 tablet under tongue at bedtime Eleni Begum Cardiology: N o recurrence. Eleni Begum Cardiology:Cardiac c ath revealed 80 % stenosis of a very small diagonal branch. Will be treated medically. Currently asymptomatic. Will consider intervention if he develops symptoms. H is updated medication list for this problem includes: Aspirin 81 Mg Tablet,delayed Release (dr/ec) (Aspirin) ..... 1 tablet by mouth once a day Metoprolol Tartrate 25 Mg Tablet (Metoprolol tartrate) ..... Take 1 tablet by mouth twice a day take 1 tablet by mouth twice daily Nitroglycerin 0.4 Mg Tablet, Sublingual (Nitroglycerin) ..... Take 1 tablet under tongue at bedtime Eleni Begum Cardiology: W eight loss advised Anup Espinoza MD Cardiology: B P today: 120/64 P rior BP: 128/72 (01/23/2022) Labs Reviewed: L DL: 76 (10/30/2020) His updated medication list for this problem includes: Metoprolol Tartrate 25 Mg Tablet (Metoprolol tartrate) ..... Take 1 tablet by mouth twice a day take 1 tablet by mouth twice daily Losartan Potassium 50 Mg Oral Tablet (Losartan potassium) ..... Take one tablet daily Aspirin Adult Low Dose 81 Mg Oral Tablet Delayed Release (Aspirin) ..... One tab by mouth daily Anup Espinoza MD Cardiology: H is updated medication list for this problem includes: Rosuvastatin Calcium 20 Mg Oral Tablet (Rosuvastatin calcium) ..... Take one tablet daily Anup Espinoza MD Cardiology: W francisca nicolas advised Eleni Begum Cardiology: B P today: 128/72 P rior BP: 151/85 (02/07/2021) Labs Reviewed: L DL: 76 (10/30/2020) His updated medication list for this problem includes: Losartan Potassium 50 Mg Oral Tablet (Losartan potassium) ..... Take one tablet daily Aspirin Adult Low Dose 81 Mg Oral Tablet Delayed Release (Aspirin) ..... One tab by mouth daily Eleni Begum Cardiology: H is updated medication list for this problem includes: Rosuvastatin Calcium 20 Mg Oral Tablet (Rosuvastatin calcium) ..... Take one tablet daily Eleni Begum Cardiology:The pt hunter d a few episodes of exertional dyspnea and chest pain. Myoview scan last year showed inferior wall ischemia. Calcium score last year was 136. In view of the findings and sxs, we will proceed to cardiac cath. Pt would like the wrist approach. Placido's test was normal. H is updated medication list for this problem includes: Aspirin Adult Low Dose 81 Mg Oral Tablet Delayed Release (Aspirin) ..... One tab by mouth daily Eleni Begum Cardiology:The pt hunter d a few episodes of exertional dyspnea and chest pain. Myoview scan last year showed inferior wall ischemia. Calcium score last year was 136. In view of the findings and sxs, we will proceed to cardiac cath. Pt would like the wrist approach. Placido's test was normal. H is updated medication list for this problem includes: Losartan Potassium 50 Mg Oral Tablet (Losartan potassium) ..... Take one tablet daily Aspirin Adult Low Dose 81 Mg Oral Tablet Delayed Release (Aspirin) ..... One tab by mouth daily Eleni Begum Cardiology:BP is cris vated today. We will increase Losartan to 50mg daily. BP today: 151/85 P rior BP: 124/82 (11/29/2020) His updated medication list for this problem includes: Losartan Potassium 50 Mg Oral Tablet (Losartan potassium) ..... Take one tablet daily Jorge Duong Cardiology:Recommend to switch from Pravachol to Crestor (20mg daily). His updated medication list for this problem includes: Rosuvastatin Calcium 20 Mg Oral Tablet (Rosuvastatin calcium) ..... Take one tablet daily Jorge Duong Cardiology:CT felix ry angiography revealed minor coronary artery calcifications without significant stenosis. He was advised to contact us if he develops chest pain or his dyspnea worsens. Jorge [facility] Cardiology:CT felix ry angiography revealed minor coronary artery calcifications without significant stenosis. Of note, the calcium score on the CTA was 136 (LM 1, LAD 28, LCX 32, RCA 75) compared to 51 in December on the CT coronary calcium score (LM 0, LAD 10, LCX 14, RCA 27). He was advised to contact us if he develops chest pain or his dyspnea worsens. His updated medication list for this problem includes: Aspirin Adult Low Dose 81 Mg Oral Tablet Delayed Release (Aspirin) ..... One tab by mouth daily Jorge [facility] Cardiology:He has re ceived the first dose of his Pfizer vaccine (second dose scheduled for ~December 19). Jorge [facility] Cardiology:No recurrence. Juventino ortega [facility] Cardiology:His updat ed medication list for this problem includes: Pravachol 20 Mg Oral Tablet (Pravastatin sodium) ..... Take one daily Jorge [facility] Cardiology:Pt report s he has gained some more weight since last time. He complains of reduced exertional capacity with more dyspnea on exertion now. Jorge [facility] Cardiology:Pt report s he has gained some more weight since last time. He complains of reduced exertional capacity with more dyspnea on exertion now. He did not get the calcium score. We will arrange the CT coronary calcium score and schedule a f/u echo and stress myoview. Jorge [facility] Cardiology follow up :He did not want to use the weight loss pills George Abadel Cardiology follow up : All his workup last year, including echo, myoview, and carotid was negative. Anup Espinoza MD Cardiology follow up : He would like to have CT coronary calcium scoring. His updated medication list for this problem includes: Pravachol 20 Mg Oral Tablet (Pravastatin sodium) ..... Take one daily Anup Espinoza MD Cardiology follow up :All his symptoms are resolved. All his workup last year, including echo, myoview, and carotid was negative. Anup Espinoza MD Cardiology follow up :All his symptoms are resolved. All his workup last year, including echo, myoview, and carotid was negative. Anup Espinoza MD Cardiology follow up :A few months ago, pt noted a lid drop of his left eye. He was admitted to [facility] and workup was negative however he was told by PCP that he had a TIA. Then he had an episode of true syncope after sitting in [facility]. No chest pain or palpitations. It was brief and there were no injuries. Clinically it was most likely vasovagal. Will obtain echo, stress myoview and carotid duplex. Will also request records from [facility]. Jorge [facility] Cardiology follow up:On Pravacho l. Jorge [facility] Cardiology follow up :Encouraged weight loss. Pt wants to try Burproprion/Naltrexone. [facility] Cardiology follow up :Reviewed PFT's, echo and stress test from 2017. [place] severe episode of SOB, lasting a few minutes, resolving spontaneously. Will obtain an echo and stress myoview. [facility] Cardiology follow up :A few months ago, pt noted a lid drop of his left eye. He was admitted to [facility] and workup was negative however he was told by PCP that he had a TIA. Then he had an episode of true syncope after sitting in [place]. No chest pain or palpitations. It was brief and there were no injuries. Clinically it was most likely vasovagal. Will obtain echo, stress myoview and carotid duplex. Will also request records from [facility]. Jorge [facility] Cardiology:Stress test and echo were normal. [facility] [facility] Cardiology:Stress test and echo were normal. [facility] Cardiology:Stress te st, echo, PFT's and chest x-ray were all normal. No further cardiac workup is needed at this time. [facility] Cardiology:Stress te st, echo, PFT's and chest x-ray were all normal. Dyspnea improved. No further cardiac workup is needed at this time. [facility] Cardiology New Patie nt:The pt noted exertional dyspnea with mild exertion. Will obtain stress myoview, echo, PFT's and chest x-ray. Jorge [facility] Cardiology New Patie nt:He had one episode of chest discomfort after eating at a wedding. Will obtain stress myoview, echo, PFT's and chest x-ray. Jorge Watters Date Name PROTHROMBIN TIME WIT H INR LIPID PANEL CBC (INCLUDES DIFF/P LT) BASIC METABOLIC PANE L W/EGFR Complete Echo Stress Cardiac PET-C T Microalb/Creatinine Urine, Random Complete Echo
--- OUTSIDE RECORDS SUMMARY | 2025-02-14 09:30 | XMS_ITS | Clinical Summary ---
Author Organization [facility] Address [address] [place] [address] Care Team Providers Care Radio Talk Show Host Name Role Phone Jordi Friedman MD Primary Care Provider [phone] Source Comments [facility] [employer],non-owned Affiliates and Associated Physician Practices is amultiple site organization consisting of ambulatory clinics and hospital sitesin [place], [place], [place] and [place]. This disclosure is being madepursuant to the Care Everywhere program and may not contain all information available regarding this patient. Last updated 18.[facility] Social History Tobacco Use Types Packs/Day Years Used Date Smoking Tobacco: Never Assessed Sex and Gender Information Value Date Recorded Sex Assigned at Not on file Legal Sex Male 9:02 AM CDT Gender Identity Not on file Sexual Orientation Not on file Plan of Treatment Health Maintenance Due Date Last Done Comments COLOGUARD (AGES 45-75) - COLON CA SCREENING 1952 COLON MONITORING 1952 COLONOSCOPY - COLON CA SCREENING 1952 CT COLONOGRAPHY - COLON CA SCREENING 1952 Colorectal Cancer Screening 1952 FIT - COLON CA SCREENING 1952 FLEX SIG - COLON CA SCREENING 1952 LIPID TESTING 1952 MEDICARE AWV 12 MONTHS 1952 HEPATITIS C SCREENING 09/19/1970 DTAP/TDAP/TD VACCINES (1 - Tdap) 1971 PNEUMOCOCCAL VACCINE 50+ (1 of 1 - PCV) 2002 ZOSTER VACCINE (1 of 2) 2002 COVID-19 VACCINE (2023- season) 2024 07/24/2023, 07/15/2022, 04/21/2022, Additional history exists DEPRESSION SCREENING 10/06/2024 Respiratory Syncytial Virus (RSV) Vaccine Pt: or over 60 yrs (1 - 1-dose 75+ series) 2027 INFLUENZA VACCINE Completed 06/14/2024, , 07/28/2019, Additional history exists HEPATITIS B VACCINE Aged Out No longe r eligible based on patient's age to complete this topic HIB VACCINE Aged Out No longer eligi ble based on patient's age to complete this topic HPV VACCINE Aged Out No longer eligi ble based on patient's age to complete this topic MENINGOCOCCAL (Group B) VACCINE SHARED DECISION-MAKING Aged Out No longer eligible based on patient's age to complete this topic MENINGOCOCCAL GROUPS A/C/Y/W VACCINE Aged Out No longer eligible based on patient's age to complete this topic Insurance MEDICARE FORMERLY [facility] MEDICARE ANTHEM Care Teams Radio Talk Show Host Relationship Specialty Start Date End Date Jordi Friedman MD [address] [place] [address] PCP - General 01/02/22
[2025-02-14 10:21] LABS: Albumin Level 4.6 g/dL (3.5-5.1); Anion Gap 10 mmol/L (4-12); Blood Urea Nitrogen 21 mg/dL (9-20); Calcium 9.4 mg/dL (8.4-10.2); Carbon Dioxide 25 mmol/L (22-30); Chloride 107 mmol/L (98-107); Estimated Glomerular Filt Rate 58; Glucose 104 mg/dL (65-110); Phosphorus 3.2 mg/dL (2.5-4.5); Potassium 4.3 mmol/L (3.4-5.0); Sodium 142 mmol/L (137-145)
[2025-02-14 11:49] LABS: Total Protein Urine Random < 5 mg/dL
[2025-02-21 18:15] LABS: Ur Ttl Prot Creatinine Ratio < 0.03 mg/mg (0-0.20)
== END 2025-02-14 09:24 | disposition home or self-care (01) ==
PROVIDERS: PCP Internal Medicine; Visit Provider Internal Medicine Nephrology
DX: I12.9 Hypertensive chronic kidney disease with stage 1 through stage 4 chronic kidney disease, or unspecified chronic kidney disease (principal); N18.2 Chronic kidney disease, stage 2 (mild)
CPT/HCPCS: 36415; 80069; 82570; 84156

== ENCOUNTER 2025-04-14 13:44 | Outpatient (CLI) | payer MEDICARE, SELFPAY ==
--- NOTE | ~2025-04-14 | CT_ITS ---
Non-contrast CT scan of the Abdomen and Pelvis Clinical indication: BPH Technique: 2.5 mm axial scans were obtained through the abdomen and pelvis without intravenous or or al contrast. Dose reduction technique was used on this scan by utilizing automated exposure control a nd iterative reconstruction technique. The dose-length product (DLP) was 830.85 mGy-cm. Findings: Images through the lung bases reveal no abnormalities. There is no evidence of renal or ureteral calculi. The kidneys and the ureters are nondilated. The liver, spleen, pancreas, gallbladder, and adrenals appear normal. There is no aortic aneurysm. There is no evidence of bowel obstruction. Images through the pelvis were performed. There is no evidence of ascites or lymphadenopathy. Urinary bladder unremarkable. Prostate gland is enlarged. No ascites. Impression: Enlarged prostate gland. Reviewed, dictated and finalized at location . Impression: Enlarged prostate gland.
--- OUTSIDE RECORDS SUMMARY | 2025-04-14 13:51 | XMS_ITS | Clinical Summary ---
Author Organization [facility] Address [address] [place] [address] Care Team Providers Care Sulfate Drier Machine Operator Name Role Phone None, Provider MD Primary [...] patient's age to complete this topic Insurance [employer] Care Teams Sulfate Drier Machine Operator Relationship Specialty Start Date End Date None, Provider, MD PCP - General UNKNOWN PHYSICIAN SPECIALTY 01/03/23
--- OUTSIDE RECORDS SUMMARY | 2025-04-14 13:52 | XMS_ITS | Encounter Summary ---
Author Organization [facility] Address [address] [place] [address] Care Team Providers Care Records Coordinator Name Role Phone Jorid Friedman MD Primary Care Provider [phone] Encounter Details Date Type Department Care Team (Late st Contact Info) Description 01/22/2024 Lab Requisition [facility] - DermPath Lab [address] [facility] [place] [address] Arlette Marti MD [address] [facility] [address] [place] [address] Social History Tobacco Use Types Packs/Day Years [...] AM CDT) Case Report Dermatopathology Report Case: [id number] Authorizing Provider: Arlette Marti MD Collected: 01/22/2024 09:39 AM Ordering Location: [facility] - Received: 01/23/2024 08:20 AM DermPath Lab Pathologist: Mitzi Maurer MD Specimen: Skin, right post neck 4 5:18 PM CDT DERMATOPATHOLOGY LABORATORY Final Diagnosis Specimen A. SKIN, right post neck: DERMAL SCAR RESIDUAL MELANOCYTIC PROLIFERATION NOT IDENTIFIED (L90.5) (see microscopic description) 4 5:18 PM CDT DERMATOPATHOLOGY LABORATORY at 1718 CDT Clinical History Compound Noemy Prolif Bx Proven. Check margins, prior biopsy. 5:18 PM T DERMATOPATHOLOGY LABORATORY Gross Description Specimen A: Received is one formalin filled container labeled with the patient's name and designated right post neck.The specimen consists of an ellipse measuring [id number] mm and is oriented with the suture/notch [...] in cassettes 3-5. Jar 0. 5:18 PM T DERMATOPATHOLOGY LABORATORY Microscopic Description Specimen A. SKIN, right post neck: There are fibroblasts and collagen bundles oriented parallel to the skin surface. There are elongated blood vessels, some of which are oriented perpendicular to the skin surface. No residual melanocytic proliferation is identified on MART-1/MelanA immunostain or routine sections. 5:18 PM [facility] DERMATOPATHOLOGY LABORATORY Disclaimer An external and internal positive and negative controls are appropriate for the histochemical, immunohistochemical and immunofluorescence stain(s) in this case (if any), except where stated explicitly. The performance characteristics of the stain(s) cited in this report were developed and its performance characteristic determined by the Dermatopathology Laboratory at [facility], directed by Dr. Phu Ramirez. These tests need not be, and therefore are not, approved by the [place] Food and Drug Administration. The tests are used for clinical purposes. Billing Codes Specimen Charges Stain Charges 95929 1 80252 1 4 5:18 PM CDT DERMATOPATHOLOGY LABORATORY Embedded Images 5:18 PM T DERMATOPATHOLOGY LABORATORY Pathology/Cytolo gy TISSUE SPECIMEN FROM SKIN / Unknown 01/22/2024 9:39 AM CDT 01/23/2024 8:20 AM CDT us Arlette Marti MD LAB - PATHOLOGY/CYTOLOGY ORD ERABLES Final Result DERMATOPATHOLOGY LABORATORY [facility] - Department of Dermatology [facility] [facility] 3[address] [place], [place] [id number] [place] [address] documented in this encounter Visit Diagnoses Not on filedocumented in this encounter Care Teams Records Coordinator Relationship Specialty Start Date End Date Jordi Friedman MD [address] [facility] [address] [place] [address] PCP - General 01/02/22 documented as of this encounter
--- OUTSIDE RECORDS SUMMARY | 2025-04-14 13:52 | XMS_ITS | Continuity of Care Document ---
Author Organization [facility] Address [address] [place] [address] Phone Care Team Providers Care Rubber Goods Supervisor Name Role Phone Olga CANTU, RICHARDSON, Anup NOLAND Unavailable Unava ilable Olga CANTU, RICHARDSON, Anup NOLAND Unavailable Unava ilable Medications Medication Instructions Dosage Effective Dates (start - stop) Status Comments finasteride 5 mg tablet take 1 tablet by oral route every day 5 MG - Active All Day Allergy (cetirizine) 10 mg capsule take 1 tablet every day - Active clopidogrel 75 mg tablet take 1 tablet by oral route every day 75 MG - Active tamsulosin 0.4 mg capsule take 1 capsule by oral route every day 1/2 hour following the same meal each day 0.4 MG - Active rosuvastatin 20 mg tablet take 1 tablet by oral route every day 20 MG - Active Vazalore 81 mg capsule take 1 capsule by oral route every day 81 MG - Active ferrous sulfate 325 mg (65 mg iron) tablet take 1 tablet by oral route every other day - Active tadalafil 20 mg tablet take 1 tablet by oral route every day as needed 20 MG - Active Procedures Procedure Date REM MNTR PHYSIOL ANJEL DEV REM PHYSIOL MNTR 20 MIN MO OFFICE/OUTPATIENT VISIT, EST ELECTROCARDIOGRAM, COMPLETE Advance Directives Directive Yes / No Effective Date File Name No Information Encounters Encounter Description Practice Location Reason(s) For Visit Diagnoses Date Provider Providers Copied on Encounter REM MNTR PHYSIOL ANJEL DEV [facility], [address] [place], [place], [id number] , [phone] [facility] Essential (primary) hypertension 5 Olga Hebert. [address], [place], [place], [id number], [place]. tel:[phone] Referring Provider: Anup Melvin, [address], [place], [address] . tel:[phone] sulting Provider: Anup Melvin, [address] [facility], [place], [address] . tel:[phone] OFFICE/OUTPA TIENT VISIT, [facility], [address] [place], [place], [id number] , tel:[phone] [facility] feelings of SOB and fainting (chief complaint) DizzinessCoronary artery diseaseHypertensio nHyperlipidemia [address] [place]. [address], [place], [place], [id number], [place]. tel:[phone] Referring Provider: Lynn chong, [address], [place], [address]. tel:[phone] Family History Family Member Type Diagnosis Age At Onset No Information Payers Payer name Insurance type Covered green party ID Authoriza tion(s) [place] CI [id number] [facility] CI [id number] Social History Type Description Quantity Date Captured Comments Sex Male Smoking Status No Information Chief Complaint And Reason For Visit No Information Reason For Referral Reason For Referral No Information Plan Of Treatment Date Type Action Status Appointment Jonah Burgess BOOKED Future Order: Radiology Order T Monitor 14-30 Days ([id number]), Ordered on: Ordered History Of Present Illness Encounter Date Complaint History Of Prese nt Illness feelings of SOB and fainting Functional Status Date Functional Assessmen t No Information Instructions Date Instruction Additional Infor mation No Information Assessments Type Assessment Date No Information Patient Care Teams Name Effective Dates (start - stop) Status Members No Information
--- OUTSIDE RECORDS SUMMARY | 2025-04-14 13:52 | XMS_ITS | Data Portability ---
Author Organization [place] [employer] [facility] [employer], Main Office Address [address] [place] [address] Care Team Providers Care Recruitment Advertising Manager Name Role Phone CARLOS MANNING Primary Care Provider CARLOS MANNING Referring Provider [phone] ANUP ESPINOZA Managed Care Liaison NEERAJ MARROQUIN Psychiatrist TEJAS LEVI Fagot Maker ABDULLAHI SULTANA Life Scientist Assessment Encounter Date Assessment Date Assessment LastModified by Organization Details LastModified Time 08/23/2024 08/23/2024: PSA 1.18 TSH/CBC/Lipids: WNL GFR 62 A1C 5.6 11/11/2022: PSA 0.78 TSH/FT4/LIPIDS/CBC: WNL CMP: K 5.2H, Gluc 101, BUN 20, GFR 59 10/31/2023: BUN 23, glob 2.5, TP WNL 05/04/2024: PSA 0.89 BUN 21, GFR 56 08/17/2024: Gluc 100, BUN 25, Cr 1.35, GFR 52, AST [email or web address] Not [facility] 08/23/2024 09:55:09 12/06/2024 12/06/2024: PSA [...] were reviewed and explained to the patient: [facility] 2-D echocardiogram 12/28/20 EF 65%, LAE stress test 12/28/20 normal [facility] home sleep study 01/31/21 [place] night 2 sleep study 03/07/21 Ferritin 04/02/21 [...] about the risk of uncontrolled hypertension, CAD, [place], CHF and CVA associated with untreated NAFISA. [...] further management. Follow-up: 1 year, January 2026 [facility] Not available 01/11/2025 09:00:12 Plan of Treatment Reminders Order Date Submit Date Provider Last Modified By Organization Details Last Modified Time Details Appointments Any 2024 08:30A M Carlos young MD Not available Not available Not available Any 2025 07:45A M Tejas Levi MD Not available Not available Not available Lab ferritin, serum or plasma [address] [facility], [address] [place], [address], 01/11/2025 08:40:45 PSA, serum or plasma [address] [facility], [address] [place], [address], 12/06/2024 10:04:22 lipid panel, serum 2024 025 [facility], [address] [place], [address], 04/12/2025 03:07:58 CMP, serum or plasma 2024 025 [facility], [address] [place], [address], 04/12/2025 03:07:57 CBC w/ auto diff 2024 025 [facility], [address] [place], [address], 04/12/2025 03:07:56 TSH + free T4, serum 2024 025 [facility], [address] [place], [address], 04/12/2025 03:07:55 lipid panel, serum 2023 024 [facility], [address] [place], [address], 11/29/2024 16:44:00 CMP, serum or plasma 2023 024 [facility], [address] [place], [address], 11/29/2024 16:44:10 CBC w/ auto diff 2023 024 [facility], [address] [place], [address], 11/29/2024 15:11:54 TSH + free T4, serum 2023 024 [facility], [address] [place], [address], 11/29/2024 11:11:03 gamma-glu tamyl transfera se (ggt), serum 2023 024 [facility], [address] [place], [address], 11/29/2024 16:44:13 hepatitis panel (A+B+C), acute, serum 2023 024 [facility], [address] [place], [address], 11/29/2024 17:16:32 Referral psychiatr ist referral - Please call patient to schedule an appointme nt. Thank you. 2024 025 [facility], [address] [facility] [address], [place], [address], 04/05/2025 15:23:32 ENT surgery referral - Please call patient to schedule. 2024 025 SRUTHI Romero [employer]ILHOUETTE ARTIST, [address], [place], [address], 03/30/2025 14:59:40 cardiolog ist referral - Please call patient to schedule an appointme nt. Thank you. 2024 025 [place], [address], [address], [place], [address], 03/09/2025 10:03:43 nephrolog ist referral - Please call patient to schedule. 2023 024 che Chambers MD, [address], [address], [place], [address], 11/25/2024 10:21:32 psychiatr ist referral 2023 024 [email or web address] Neeraj Marroquin MD, [address], [address], [place], [address], 08/23/2024 17:38:16 cardiolog ist referral 2023 024 [email or web address] [place], [address], [address], [place], [address], 08/23/2024 17:38:29 Procedures None recorded. Surgeries None recorded. Imaging US, liver - Please call patient to schedule. 2023 024 [email or web address] [facility], [address], [place], [address], 10/04/2024 15:52:36 Medication Orders buspirone 5 mg tablet 2024 025 [id number], [address], [place], [place], [id number], 03/30/2025 11:39:59 escitalop butch 5 mg tablet 2024 025 [employer], [facility][id number], [address], [place], [place], [id number], 03/30/2025 11:39:58 ferrous sulfate 325 mg (65 mg iron) tablet 2024 025 [email or web address] [facility] #[id number], [address], [place], [place], [id number], 01/11/2025 08:40:53 Vitamin C 500 mg tablet 2024 025 JONATHAN [facility] #[id number], [address], [place], [place], [id number], 01/11/2025 08:40:49 Patient TargetsNo targets recorded. Patient InstructionsNo instructions recorded. Reason for Referral Managed Care Liaison Referral for Es sential hypertension Referring Physician: Carlos Manning Internal Medicine, Encounter Date: 08/23/2024 Embossing Toolsetter Referral for Ch ronic kidney disease Please call patient to schedule. Referring Physician: Carlos Manning Internal Medicine, Encounter Date: 08/23/2024 Psychiatrist Referral for Ge neralized anxiety disorder Referring Physician: Carlos Manning Internal Medicine, Encounter Date: 08/23/2024 Managed Care Liaison Referral for Es sential hypertension Please call patient to schedule an appointment. Thank you. Referring Physician: Carlos Manning Internal Medicine, Encounter Date: 12/06/2024 ENT Surgery Referral for Imp acted cerumen of bilateral ears Please call patient to schedule. Referring Physician: Laura Bond Medicine, Encounter Date: 03/30/2025 Psychiatrist Referral for Ge neralized anxiety disorder Please call patient to schedule an appointment. Thank you. Referring Physician: Laura Bond Medicine, Encounter Date: 03/30/2025 Results Created Date Observation Date Name Description Value Unit Range Abnormal Flag Note LastModifiedBy Organization Detail LastModifiedTime 08/17/20 24 08/17/2024 CBC/C OMPLE TE BLD COUNT W/DIF F white blood cells 6.0 x10'3 /uL 4.2-10 .8 Not Available [facility] (Lab) [address] [place], [address], 08/17/2024 19:19:06 08/17/20 24 08/17/2024 CBC/C OMPLE TE BLD COUNT W/DIF F red blood cells 5.16 x10'6 /uL 4.10-5 .80 Not Available [facility] (Lab) [address] [facility] [place], [address], 08/17/2024 19:19:06 08/17/20 24 08/17/2024 CBC/C OMPLE TE BLD COUNT W/DIF F hemoglobin 16.1 g/dL 13.2-1 7.0 Not Available [facility] (Lab) [address] [facility] [place], [address], 08/17/2024 19:19:06 08/17/20 24 08/17/2024 CBC/C OMPLE TE BLD COUNT W/DIF F hematocrit 46.2 % 39.3-5 0.0 Not Available [facility] (Lab) [address] [place], [address], 08/17/2024 19:19:06 08/17/20 24 08/17/2024 CBC/C OMPLE TE BLD COUNT W/DIF F mean red cell volume 89.5 fL 80.0-9 7.0 Not Available [facility] (Lab) [address] [place], [address], 08/17/2024 19:19:06 08/17/20 24 08/17/2024 CBC/C OMPLE TE BLD COUNT W/DIF F mean red cell hemoglobin 31.2 pg 27.0-3 3.0 Not Available [facility] (Lab) [address] [place], [address], 08/17/2024 19:19:06 08/17/20 24 08/17/2024 CBC/C OMPLE TE BLD COUNT W/DIF F mean RBC HGB concentratio n 34.8 g/dL 31.0-3 6.0 Not Available [facility] (Lab) [address] [place], [address], 08/17/2024 19:19:06 08/17/20 24 08/17/2024 CBC/C OMPLE TE BLD COUNT W/DIF F red cell distribution width 11.5 % 11.8-1 5.5 low Not Available [facility] (Lab) [address] [place], [address], 08/17/2024 19:19:06 08/17/2008/17/2024 CBC/C OMPLE TE BLD COUNT W/DIF F platelets 229 x10'3 /uL 150-40 0 Not Available [facility] (Lab) [address] [place], [address], 08/17/2024 19:19:06 08/17/20 24 08/17/2024 CBC/C OMPLE TE BLD COUNT W/DIF F mean platelet volume 9.7 fL 9.0-12 .4 Not Available [facility] (Lab) [address] [place], [address], 08/17/2024 19:19:06 08/17/20 24 08/17/2024 CBC/C OMPLE TE BLD COUNT W/DIF F neutrophils 77.1 % 39.0-7 2.0 high Not Available [facility] (Lab) [address] [place], [address], 08/17/2024 19:19:06 08/17/20 24 08/17/2024 CBC/C OMPLE TE BLD COUNT W/DIF F lymphocytes 12.4 % 16.0-4 7.0 low Not Available [facility] (Lab) [address] [place], [address], 08/17/2024 19:19:06 11/12/08/17/2024 CBC/C OMPLE TE BLD COUNT W/DIF F monocytes 6.5 % 5.0-12 .0 Not Available [facility] (Lab) [address] [place], [address], 08/17/2024 19:19:06 08/17/2008/17/2024 CBC/C OMPLE TE BLD COUNT W/DIF F eosinophils 3.0 % 1.0-7. 0 Not Available [facility] (Lab) [address] [place], [address], 08/17/2024 19:19:06 08/17/2008/17/2024 CBC/C OMPLE TE BLD COUNT W/DIF F basophils 0.7 % 0.0-2. 0 Not Available [facility] (Lab) [address] [place], [address], 08/17/2024 19:19:06 08/17/2008/17/2024 CBC/C OMPLE TE BLD COUNT W/DIF F immature granulocytes 0.3 % 0.00-0 .50 Not Available [facility] (Lab) [address] [place], [address], 08/17/2024 19:19:06 08/17/2008/17/2024 CBC/C OMPLE TE BLD COUNT W/DIF F neutrophils, absolute count 4.61 x10'3 /uL 1.5-8. 0 Not Available [facility] (Lab) [address] [place], [address], 08/17/2024 19:19:06 08/17/2008/17/2024 CBC/C OMPLE TE BLD COUNT W/DIF F lymphocytes, absolute count 0.74 x10'3 /uL 1.07-3 .43 low Not Available [facility] (Lab) [address] [place], [address], 08/17/2024 19:19:06 08/17/20 24 08/17/2024 CBC/C OMPLE TE BLD COUNT W/DIF F monocytes, absolute count 0.39 x10'3 /uL 0.29-0 .99 Not Available [facility] (Lab) [address] [place], [address], 08/17/2024 19:19:06 08/17/20 24 08/17/2024 CBC/C OMPLE TE BLD COUNT W/DIF F eosinophils, absolute count 0.18 x10'3 /uL 0.02-0 .53 Not Available [facility] (Lab) [address] [place], [address], 08/17/2024 19:19:06 08/17/20 24 08/17/2024 CBC/C OMPLE TE BLD COUNT W/DIF F basophils, absolute count 0.04 x10'3 /uL 0.01-0 .08 Not Available [facility] (Lab) [address] [place], [address], 08/17/2024 19:19:06 08/17/20 24 08/17/2024 CBC/C OMPLE TE BLD COUNT W/DIF F immature granulocytes ,absolute 0.02 x10'3 /uL 0.00-0 .05 Not Available [facility] (Lab) [address] [place], [address], 08/17/2024 19:19:06 08/17/20 24 08/17/2024 CBC/C OMPLE TE BLD COUNT W/DIF F nucleated red blood cells 0.0 % -0 Not Available [facility] (Lab) [address] [place], [address], 08/17/2024 19:19:06 08/17/20 24 08/17/2024 CBC/C OMPLE TE BLD COUNT W/DIF F NRBC# 0.00 x10'3 /uL Not Available [facility] (Lab) [address] [place], [address], 08/17/2024 19:19:06 08/17/20 24 08/17/2024 LIPID PANEL cholesterol 139 mg/dL 140-19 9 low NIH OMKAR NSUS RECOM MENDA TION FOR SPENCER STERO L: ADULT CHILD LOW RISK: <200 <170 BORDE RLINE : <200- 239 ----- HIGH RISK: >240 >200 Not Available [facility] (Lab) [address] [place], [address], 08/17/2024 19:22:08 08/17/20 24 08/17/2024 LIPID PANEL triglyceride s 131 mg/dL 0-150 NIH OMKAR NSUS REPOR T RECOM MENDA TION FOR TRIGL YCERI NICOLE: ADULT CHILD LOW RISK: <150 ----- BODER LINE: 150-1 99 ----- HIGH RISK: >200 ----- Not Available [facility] (Lab) [address] [place], [address], 08/17/2024 19:22:08 08/17/20 24 08/17/2024 LIPID PANEL HDL cholesterol 57 mg/dL 40- Not Available [facility] (Lab) [address] [place], [address], 08/17/2024 19:22:08 08/17/20 24 08/17/2024 LIPID PANEL [...] LDL RESUL T WILL NOT BE REPOR MURALI. Not Available [facility] (Lab) [address] [place], [address], 08/17/2024 19:22:08 08/17/20 24 08/17/2024 COMPR EHENS TOM METAB OLIC PANEL sodium 138 mmol/ L 137-14 5 Not Available [facility] (Lab) [address] [place], [address], 08/17/2024 19:22:14 08/17/20 24 08/17/2024 COMPR EHENS TOM METAB OLIC PANEL potassium 4.4 mmol/ L 3.5-5. 1 Not Available [facility] (Lab) [address] [place], [address], 08/17/2024 19:22:14 08/17/20 24 08/17/2024 COMPR EHENS TOM METAB OLIC PANEL chloride 106 mmol/ L 98-107 Not Available [facility] (Lab) [address] [place], [address], 08/17/2024 19:22:14 08/17/20 24 08/17/2024 COMPR EHENS TOM METAB OLIC PANEL carbon dioxide 27 mmol/ L 22-30 Not Available [facility] (Lab) [address] [place], [address], 08/17/2024 19:22:14 08/17/20 24 08/17/2024 COMPR EHENS TOM METAB OLIC PANEL anion gap 9.4 mmol/ L 14-22 low Not Available [facility] (Lab) [address] [place], [address], 08/17/2024 19:22:14 08/17/20 24 08/17/2024 COMPR EHENS TOM METAB OLIC PANEL glucose 100 mg/dL 70-99 high Not Available [facility] (Lab) [address] [place], [address], 08/17/2024 19:22:14 08/17/20 24 08/17/2024 COMPR EHENS TOM METAB OLIC PANEL BUN 25 mg/dL 8-19 high Not Available [facility] (Lab) [address] [place], [address], 08/17/2024 19:22:14 08/17/20 24 08/17/2024 COMPR EHENS TOM METAB OLIC PANEL creatinine 1.35 mg/dL 0.66-1 .25 high Not Available [facility] (Lab) [address] [place], [address], 08/17/2024 19:22:14 08/17/20 24 08/17/2024 COMPR EHENS TOM METAB OLIC PANEL GFR 52 Refer ence Range : [facility] GFR Healt hy Adult : >60 [...] or ethni c subgr oups, such as Hisnm nics. Outsi de the valid ated fidel [...] calcu lator is avail able on the NKF websi te: https ://chris w.kid inés.o rg/pr ofess ional s/kdo qi/gf r_cal culat or Not Available [facility] (Lab) [address] [place], [address], 08/17/2024 19:22:14 08/17/20 24 08/17/2024 COMPR EHENS TOM METAB OLIC PANEL alkaline phosphatase 75 U/L 38-126 Not Available [facility] (Lab) [address] [place], [address], 08/17/2024 19:22:14 08/17/20 24 08/17/2024 COMPR EHENS TOM METAB OLIC PANEL alanine aminotransfe rase 41 U/L 0-50 Not Available [facility] (Lab) [address] [place], [address], 08/17/2024 19:22:14 08/17/20 24 08/17/2024 COMPR EHENS TOM METAB OLIC PANEL aspartate aminotransfe rase 48 U/L 15-46 high Not Available [facility] (Lab) [address] [place], [address], 08/17/2024 19:22:14 08/17/20 24 08/17/2024 COMPR EHENS TOM METAB OLIC PANEL bilirubin, total 1.00 mg/dL 0.20-1 .30 Not Available [facility] (Lab) [address] [place], [address], 08/17/2024 19:22:14 08/17/20 24 08/17/2024 COMPR EHENS TOM METAB OLIC PANEL calcium 9.5 mg/dL 8.4-10 .2 Not Available [facility] (Lab) [address] [place], [address], 08/17/2024 19:22:14 08/17/20 24 08/17/2024 COMPR EHENS TOM METAB OLIC PANEL total protein 6.8 g/dL 6.3-8. 2 Not Available [facility] (Lab) [address] [place], [address], 08/17/2024 19:22:14 08/17/20 24 08/17/2024 COMPR EHENS TOM METAB OLIC PANEL albumin 4.4 g/dL 3.0-4. 4 Not Available [facility] (Lab) [address] [place], [address], 08/17/2024 19:22:14 08/17/20 24 08/17/2024 COMPR EHENS TOM METAB OLIC PANEL globulin 2.4 g/dL 2.6-4. 2 low Not Available [facility] (Lab) [address] [place], [address], 08/17/2024 19:22:14 08/17/20 24 08/17/2024 COMPR EHENS TOM METAB OLIC PANEL A/G ratio 1.8 ratio 1.0-2. 0 Not Available [facility] (Lab) [address] [place], [address], 08/17/2024 19:22:14 08/17/20 24 08/17/2024 T4 FREE free T4 0.83 NG/dL 0.78-2 .19 Not Available [facility] (Lab) [address] [place], [address], 08/17/2024 19:36:20 08/17/20 24 08/17/2024 TSH thyroid-stim ulating hormone 0.724 uIU/m L 0.465- 4.680 Not Available [facility] (Lab) [address] [place], [address], 08/17/2024 19:53:12 11/29/19 25 11/29/2024 CBC/C OMPLE TE BLD COUNT W/DIF F white blood cells 5.4 x10'3 /uL 4.2-10 .8 Not Available [facility] (Lab) [address] [place], [address], 11/29/2024 15:11:54 11/29/19 25 11/29/2024 CBC/C OMPLE TE BLD COUNT W/DIF F red blood cells 5.06 x10'6 /uL 4.10-5 .80 Not Available [facility] (Lab) [address] [place], [address], 11/29/2024 15:11:54 11/29/19 25 11/29/2024 CBC/C OMPLE TE BLD COUNT W/DIF F hemoglobin 15.6 g/dL 13.2-1 7.0 Not Available [facility] (Lab) [address] [place], [address], 11/29/2024 15:11:54 11/29/19 25 11/29/2024 CBC/C OMPLE TE BLD COUNT W/DIF F hematocrit 45.3 % 39.3-5 0.0 Not Available [facility] (Lab) [address] [place], [address], 11/29/2024 15:11:54 11/29/19 25 11/29/2024 CBC/C OMPLE TE BLD COUNT W/DIF F mean red cell volume 89.5 fL 80.0-9 7.0 Not Available [facility] (Lab) [address] [place], [address], 11/29/2024 15:11:54 11/29/19 25 11/29/2024 CBC/C OMPLE TE BLD COUNT W/DIF F mean red cell hemoglobin 30.8 pg 27.0-3 3.0 Not Available [facility] (Lab) [address] [place], [address], 11/29/2024 15:11:54 11/29/19 25 11/29/2024 CBC/C OMPLE TE BLD COUNT W/DIF F mean RBC HGB concentratio n 34.4 g/dL 31.0-3 6.0 Not Available [facility] (Lab) [address] [place], [address], 11/29/2024 15:11:54 11/29/19 25 11/29/2024 CBC/C OMPLE TE BLD COUNT W/DIF F red cell distribution width 11.4 % 11.8-1 5.5 low Not Available [facility] (Lab) [address] [place], [address], 11/29/2024 15:11:54 11/29/19 25 11/29/2024 CBC/C OMPLE TE BLD COUNT W/DIF F platelets 239 x10'3 /uL 150-40 0 Not Available [facility] (Lab) [address] [place], [address], 11/29/2024 15:11:54 11/29/19 25 11/29/2024 CBC/C OMPLE TE BLD COUNT W/DIF F mean platelet volume 9.7 fL 9.0-12 .4 Not Available [facility] (Lab) [address] [place], [address], 11/29/2024 15:11:54 11/29/19 25 11/29/2024 CBC/C OMPLE TE BLD COUNT W/DIF F neutrophils 74.8 % 39.0-7 2.0 high Not Available [facility] (Lab) [address] [place], [address], 11/29/2024 15:11:54 11/29/19 25 11/29/2024 CBC/C OMPLE TE BLD COUNT W/DIF F lymphocytes 14.0 % 16.0-4 7.0 low Not Available [facility] (Lab) [address] [place], [address], 11/29/2024 15:11:54 11/29/19 25 11/29/2024 CBC/C OMPLE TE BLD COUNT W/DIF F monocytes 6.8 % 5.0-12 .0 Not Available [facility] (Lab) [address] [place], [address], 11/29/2024 15:11:54 11/29/19 25 11/29/2024 CBC/C OMPLE TE BLD COUNT W/DIF F eosinophils 3.3 % 1.0-7. 0 Not Available [facility] (Lab) [address] [facility] [place], [address], 11/29/2024 15:11:54 11/29/19 25 11/29/2024 CBC/C OMPLE TE BLD COUNT W/DIF F basophils 0.7 % 0.0-2. 0 Not Available [facility] (Lab) [address] [place], [address], 11/29/2024 15:11:54 11/29/19 25 11/29/2024 CBC/C OMPLE TE BLD COUNT W/DIF F immature granulocytes 0.4 % 0.00-0 .50 Not Available [facility] (Lab) [address] [place], [address], 11/29/2024 15:11:54 11/29/19 25 11/29/2024 CBC/C OMPLE TE BLD COUNT W/DIF F neutrophils, absolute count 4.06 x10'3 /uL 1.5-8. 0 Not Available [facility] (Lab) [address] [place], [address], 11/29/2024 15:11:54 11/29/19 25 11/29/2024 CBC/C OMPLE TE BLD COUNT W/DIF F lymphocytes, absolute count 0.76 x10'3 /uL 1.07-3 .43 low Not Available [facility] (Lab) [address] [place], [address], 11/29/2024 15:11:54 11/29/19 25 11/29/2024 CBC/C OMPLE TE BLD COUNT W/DIF F monocytes, absolute count 0.37 x10'3 /uL 0.29-0 .99 Not Available [facility] (Lab) [address] [place], [address], 11/29/2024 15:11:54 11/29/19 25 11/29/2024 CBC/C OMPLE TE BLD COUNT W/DIF F eosinophils, absolute count 0.18 x10'3 /uL 0.02-0 .53 Not Available [facility] (Lab) [address] [place], [address], 11/29/2024 15:11:54 11/29/19 25 11/29/2024 CBC/C OMPLE TE BLD COUNT W/DIF F basophils, absolute count 0.04 x10'3 /uL 0.01-0 .08 Not Available [facility] (Lab) [address] [place], [address], 11/29/2024 15:11:54 11/29/19 25 11/29/2024 CBC/C OMPLE TE BLD COUNT W/DIF F immature granulocytes ,absolute 0.02 x10'3 /uL 0.00-0 .05 Not Available [facility] (Lab) [address] [place], [address], 11/29/2024 15:11:54 11/29/19 25 11/29/2024 CBC/C OMPLE TE BLD COUNT W/DIF F nucleated red blood cells 0.0 % -0 Not Available [facility] (Lab) [address] [place], [address], 11/29/2024 15:11:54 11/29/19 25 11/29/2024 CBC/C OMPLE TE BLD COUNT W/DIF F NRBC# 0.00 x10'3 /uL Not Available [facility] (Lab) [address] [place], [address], 11/29/2024 15:11:54 11/29/19 25 11/29/2024 LIPID PANEL cholesterol 98 mg/dL 140-19 9 low NIH OMKAR NSUS RECOM MENDA TION FOR SPENCER STERO L: ADULT CHILD LOW RISK: <200 <170 BORDE RLINE : <200- 239 ----- HIGH RISK: >240 >200 Not Available [facility] (Lab) [address] [place], [address], 11/29/2024 16:44:00 11/29/19 25 11/29/2024 LIPID PANEL triglyceride s 100 mg/dL 0-150 NIH OMKAR NSUS REPOR T RECOM MENDA TION FOR TRIGL YCERI NICOLE: ADULT CHILD LOW RISK: <150 ----- BODER LINE: 150-1 99 ----- HIGH RISK: >200 ----- Not Available [facility] (Lab) [address] [place], [address], 11/29/2024 16:44:00 11/29/19 25 11/29/2024 LIPID PANEL HDL cholesterol 57 mg/dL 40- Not Available [facility] (Lab) [address] [place], [address], 11/29/2024 16:44:00 11/29/19 25 11/29/2024 LIPID PANEL [...] LDL RESUL T WILL NOT BE REPOR MURALI. Not Available [facility] (Lab) [address] [place], [address], 11/29/2024 16:44:00 11/29/19 25 11/29/2024 COMPR EHENS TOM METAB OLIC PANEL sodium 139 mmol/ L 137-14 5 Not Available [facility] (Lab) [address] [place], [address], 11/29/2024 16:44:10 11/29/19 25 11/29/2024 COMPR EHENS TOM METAB OLIC PANEL potassium 4.5 mmol/ L 3.5-5. 1 Not Available [facility] (Lab) [address] [place], [address], 11/29/2024 16:44:10 11/29/19 25 11/29/2024 COMPR EHENS TOM METAB OLIC PANEL chloride 109 mmol/ L 98-107 high Not Available [facility] (Lab) [address] [place], [address], 11/29/2024 16:44:10 11/29/19 25 11/29/2024 COMPR EHENS TOM METAB OLIC PANEL carbon dioxide 25 mmol/ L 22-30 Not Available [facility] (Lab) [address] [place], [address], 11/29/2024 16:44:10 11/29/19 25 11/29/2024 COMPR EHENS TOM METAB OLIC PANEL anion gap 9.5 mmol/ L 14-22 low Not Available [facility] (Lab) [address] [place], [address], 11/29/2024 16:44:10 11/29/19 25 11/29/2024 COMPR EHENS TOM METAB OLIC PANEL glucose 100 mg/dL 70-99 high Not Available [facility] (Lab) [address] [place], [address], 11/29/2024 16:44:10 11/29/19 25 11/29/2024 COMPR EHENS TOM METAB OLIC PANEL BUN 19 mg/dL 8-19 Not Available [facility] (Lab) [address] [place], [address], 11/29/2024 16:44:10 11/29/19 25 11/29/2024 COMPR EHENS TOM METAB OLIC PANEL creatinine 1.12 mg/dL 0.66-1 .25 Not Available [facility] (Lab) [address] [place], [address], 11/29/2024 16:44:10 11/29/19 25 11/29/2024 COMPR EHENS TOM METAB OLIC PANEL GFR >60 Refer ence Range : [facility] Adult : >60 [...] calcu lator is avail able on the [facility] websi te: [email or web address] [email or web address] or Not Available [facility] (Lab) [address] [place], [address], 11/29/2024 16:44:10 11/29/19 25 11/29/2024 COMPR EHENS TOM METAB OLIC PANEL alkaline phosphatase 80 U/L 38-126 Not Available [facility] (Lab) [address] [place], [address], 11/29/2024 16:44:10 11/29/19 25 11/29/2024 COMPR EHENS TOM METAB OLIC PANEL alanine aminotransfe rase 36 U/L 0-50 Not Available [facility] (Lab) [address] [place], [address], 11/29/2024 16:44:10 11/29/19 25 11/29/2024 COMPR EHENS TOM METAB OLIC PANEL aspartate aminotransfe rase 44 U/L 15-46 Not Available [facility] (Lab) [address] [place], [address], 11/29/2024 16:44:10 11/29/19 25 11/29/2024 COMPR EHENS TOM METAB OLIC PANEL bilirubin, total 1.00 mg/dL 0.20-1 .30 Not Available [facility] (Lab) [address] [place], [address], 11/29/2024 16:44:10 11/29/19 25 11/29/2024 COMPR EHENS TOM METAB OLIC PANEL calcium 9.5 mg/dL 8.4-10 .2 Not Available [facility] (Lab) [address] [place], [address], 11/29/2024 16:44:10 11/29/19 25 11/29/2024 COMPR EHENS TOM METAB OLIC PANEL total protein 6.4 g/dL 6.3-8. 2 Not Available [facility] (Lab) [address] [place], [address], 11/29/2024 16:44:10 11/29/19 25 11/29/2024 COMPR EHENS TOM METAB OLIC PANEL albumin 4.2 g/dL 3.0-4. 4 Not Available [facility] (Lab) [address] [place], [address], 11/29/2024 16:44:10 11/29/19 25 11/29/2024 COMPR EHENS TOM METAB OLIC PANEL globulin 2.2 g/dL 2.6-4. 2 low Not Available [facility] (Lab) [address] [place], [address], 11/29/2024 16:44:10 11/29/19 25 11/29/2024 COMPR EHENS TOM METAB OLIC PANEL A/G ratio 1.9 ratio 1.0-2. 0 Not Available [facility] (Lab) [address] [place], [address], 11/29/2024 16:44:10 11/29/19 25 11/29/2024 GGT/G -GLUT AMYL TRANS FERAS E gamma-glutam yl transferase 17 U/L 12-58 Not Available [facility] (Lab) [address] [place], [address], 11/29/2024 16:44:13 11/29/19 25 11/29/2024 T4 FREE free T4 0.92 NG/dL 0.78-2 .19 Not Available [facility] (Lab) [address] [place], [address], 11/29/2024 17:03:30 11/29/19 25 11/29/2024 HEPAT ITIS ACUTE PANEL hepatitis A IgM antibody NON-RE ACTIVE non-re active For sampl es repor murali as Caprice llanos React tom for HAV IgM, it is recom evangelist d a new speci men be obtai anna in 2 weeks and retes murali. Not Available [facility] (Lab) [address] [place], [address], 11/29/2024 17:31:42 11/29/19 25 11/29/2024 HEPAT ITIS ACUTE PANEL hepatitis A virus signal/cutof 0.01 0.00-0 .79 Not Available [facility] (Lab) [address] [place], [address], 11/29/2024 17:31:42 11/29/19 25 11/29/2024 HEPAT ITIS ACUTE PANEL hepatitis B core IgM antibody NON-RE ACTIVE non-re active Not Available [facility] (Lab) [address] [place], [address], 11/29/2024 17:31:42 11/29/19 25 11/29/2024 HEPAT ITIS ACUTE PANEL HBV core IgM signal/cutof f 0.05 0.00-1 .10 Not Available [facility] (Lab) [address] [place], [address], 11/29/2024 17:31:42 11/29/19 25 11/29/2024 HEPAT ITIS ACUTE PANEL hepatitis B surface antigen NON-RE ACTIVE non-re active All speci mens react tom for Hepat itis B Surfa ce Antig en will refle x to refer ral lab confi rmato ry testi ng. Not Available [facility] (Lab) [address] [place], [address], 11/29/2024 17:31:42 11/29/19 25 11/29/2024 HEPAT ITIS ACUTE PANEL HBV surf.antigen signal/cutof f 0.09 0.00-0 .99 Not Available [facility] (Lab) [address] [place], [address], 11/29/2024 17:31:42 11/29/19 25 11/29/2024 HEPAT ITIS ACUTE PANEL hepatitis C antibody NON-RE ACTIVE non-re active All speci mens react tom for Hepat itis C Virus antib diony will refle x to PCR confi rmato ry testi ng. Pleas e allow 48-72 hours for resul ts. Not Available [facility] (Lab) [address] [place], [address], 11/29/2024 17:31:42 11/29/19 25 11/29/2024 HEPAT ITIS ACUTE PANEL hepatitis C virus signal/cutof 0.01 0.00-0 .99 Not Available [facility] (Lab) [address] [place], [address], 11/29/2024 17:31:42 11/29/19 25 11/29/2024 TSH thyroid-stim ulating hormone 0.711 uIU/m L 0.465- 4.680 Not Available [facility] (Lab) [address], [place], [address], 11/29/2024 17:16:58 09/08/20 24 09/08/2024 US, renal arter y No observ ation record ed. [email or web address] [facility] [address], [place], [address], 10/04/2024 15:51:50 10/18/19 25 10/18/2024 US, liver No observ ation record ed. [facility] [address], [place], [address], 10/18/2024 10:12:57 Result Notes None recorded. Problems Name Problem SNOMED Code Status Onset Date Resolution Date Notes Provider Name and Address Organization Details Recorded Time Gastroeso phageal reflux disease 884818669 Completed Not Available [facility] 3 05:20:39 Benign prostatic hyperplas ia 127978659 Completed Not Available [facility] 3 05:20:40 On examinati on - rash present Completed Not Available [facility] 3 05:20:40 Chest pain 92253233 Completed Not Available [facility] 3 05:20:40 Non-toxic multinodu lar goiter 83071755 Active 2021 Not Available [facility] 3 00:32:34 Osteoarth ritis 615637827 Active Not Available [facility] 3 00:32:34 Iron deficienc y 70242068 Active 2022 Tejas Levi MD [address], [place], [address] , [employer] [facility] [employer] [facility] 3 10:31:41 Posterior rhinorrhe a 23612026 Active 2022 Tejas Levi MD [address], [place], [address] , [employer] [facility] [employer] [facility] 3 10:32:04 Essential hypertens ion 47036278 Active 2022 Carlos chong MD [address], [place], [address] , [employer] [facility] [employer] [facility] 3 12:45:44 Coronary arteriosc lerosis 63871521 Active 2022 Carlos chong MD [address], [place], [address] , [employer] [facility] [employer] [facility] 3 12:45:48 Obstructi ve sleep apnea syndrome 74556663 Active 2022 Carlos chong MD [address], [place], [address] , [employer] [facility] [employer] [facility] 3 12:46:18 Transient cerebral ischemia 609728760 Active 2022 Carlos chong MD [address], [place], [address] , [employer] [facility] [employer] [facility] 3 12:46:22 Hyperlipi demia 98103124 Active 2022 Carlos chong MD [address], [place], [address] , [employer] [facility] [employer] [facility] 3 12:46:27 Benign prostatic hyperplas ia without outflow obstructi on 120550534 Active 2022 Carlos chong MD [address], [place], [address] , [employer] [facility] [employer] [facility] 3 12:46:33 Primary erectile dysfuncti on 841961387 Active 2022 Carlos chong MD [address], [place], [address] , [employer] [facility] [employer] [facility] 3 12:46:41 Onychomyc osis 946117878 Active 2022 Carlos chong MD [address], [place], [address] , [facility] 3 12:46:51 Hypothyro idism 27958698 Active 2022 Carlos chong MD [address], [place], [address] , [facility] 3 12:47:04 Mixed anxiety and depressiv e disorder 038917439 Active 2023 Tatiana Carcamo MA null, [place] [facility] 4 12:00:34 Generaliz ed anxiety disorder 94575050 Active 2023 Carlos chong MD [address], [place], [address] , [facility] 5 11:37:17 Liver enzymes level above reference range 082573268 Active 2023 Carlos chong MD [address], [place], [address] , [facility] 4 09:55:30 Bilateral sensation of blocked ears 58447806998 385276 Active 2024 Vera Felipe Chanel null, [place] [facility] 5 10:31:59 Impacted cerumen of bilateral ears 84248856185 00458 Active 2024 Carlos chong MD [address], [place], [address] , [facility] 5 11:36:02 Hypoprote inemia 1954744 Active 2024 Carlos chong MD [address], [place], [address] , [facility] 5 09:35:29 Pain of left shoulder joint 59290579551 876221 Active 2024 Carlos chong MD [address], [place], [address] , [employer] [facility] 5 09:35:29 Chronic kidney disease 349543816 Active 2024 Carlos chong MD [address] [facility] [address], [place], [address] , [employer] [facility] 5 09:35:29 Erythrocy tosis 215160577 Active 2024 Carlos chong MD [address], [place], [address] , [employer] 09:39:22 Notes:Medical History: TIA S yncope Anxiety/Depression Rhinitis with postnasal drip Obesity with mod OSAHS, AHI = 25, 01/31/21, off CPAP Hyperlipidemia Hypertension EF 65% LAE CAD BPH ED Iron deficiency PLMD Osteoarthritis Onychomycosis Procedure History: T&A 1955 Colonoscopies 2010, 2020 Cardiac catheterization 2022 Coronary balloon angioplasty 2023 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 Procedures Surgical History Date Name Laterality Status Provider Name and Address Organization Details Recorded Time 05/10/20 24 Medicare Wellness CPT Code, subsequent completed Leo Cornell LPN [facility] 05/10/2024 08:11:05 06/16/20 23 Ear Irrigation completed DELMAR Ortega [facility] 06/16/2023 09:51:09 05/05/20 21 colonoscopy completed Not Available [facility] 12/05/19 05:14:12 append[facility] completed [facility]/04[facility]20[facility] 05:14:12 Tonsillectomy completed Not Available [facility] th 12/04/2022 05:14:12 procedure on shoulder completed Not Available [facility] 12/04/2022 05:14:12 biopsy of skin completed Kristel Espinoza MA [facility] 01/13/2024 09:49:43 Imaging Results None recorded. Procedure Notes None recorded. Medical Equipment None Reported. Allergies Allergen ID Allergen Name Allergen Category Reaction Reaction Severity Criticality Documentation Date Start Date Code Code System Note Provider Name and Address Organization Details Recorded Time 9768 Terramyci n medicatio n Not available Not available Not available 12/04/2022 4 RxNorm child hhod aller gy Not Available [facility] 3 05:27:26 Medications Name Sig Start Date Stop Date Status Note LastModified by Organization Details LastModified Time losartan 50 mg tablet TAKE 1 TABLET BY MOUTH DAILY 12/06 completed Not Available Not Available Not Available amoxicill in 500 mg capsule active Not Available Not Available Not Available buspirone 5 mg tablet TAKE 1 TABLET BY MOUTH TWICE DAILY active Not Available Not Available No t Available prednison e 10 mg tablet TAKE 3 TABLETS BY MOUTH FOR 3 DAYS, THEN 2 TABLETS BY MOUTH FOR 3 DAYS THEN, 1 TABLET BY MOUTH FOR 3 DAYS. active Not Available Not Available No t Available Vitamin C 500 mg tablet Take 1 tablet every other day by oral route. 2024 active Not Available Not Available Not Avai lable sildenafi l 50 mg tablet TAKE INSTRUCT ED BY YOUR PRESCRIB ER. Take one qd prn 09/20 completed Not Available Not Available Not Available triamcino lone acetonide 0.5 % topical cream APPLY A THIN LAYER TO AFFECTED AREA(S) TWICE DAILY DIRECTED 08/14 completed Not Available Not Available Not Available azithromy emy 250 mg tablet TAKE 2 TABLETS (500 MG) BY ORAL ROUTE ONCE DAILY FOR 1 DAY THEN 1 TABLET (250 MG) BY ORAL ROUTE ONCE DAILY FOR 4 DAYS 01/09 completed Not Available Not Available Not Available [...] completed Not Available Not Available Not Available ofloxacin 0.3 % ear drops INSTILL 4 TO 5 DROPS INTO BOTH EARS TWICE DAILY FOR 7 DAYS active Not Available Not Available No t Available hydrocort isone-pra moxine 2.5 %-1 % topical cream active Not Available Not Available Not Available lorazepam 0.5 mg tablet Take 1 tablet by oral route as needed for 10 days. 12/06 completed Not Available Not Available Not Available tamsulosi n 0.4 mg capsule TAKE 1 CAPSULE BY MOUTH DAILY AT BEDTIME active Not Available Not Available No t Available Pramosone 1 %-1 % topical cream active Not Available Not Available Not Available meclizine 25 mg tablet Take 1 tablet twice a day by oral route as needed. active Not Available Not Available No t Available cephalexi n 500 mg capsule active Not Available Not Available Not Available ferrous sulfate 325 mg (65 mg iron) tablet Take 1 tablet every other day by oral route. 2024 active Not Available Not Available Not Avai lable losartan 25 mg tablet Take 1 tablet every day by oral route. active Not Available Not Available No t Available orphenadr ine citrate ER 100 mg [...] topical solution APPLY TO SCALP TWICE DAILY 01/11 completed Not Available Not Available Not Available levofloxa emy 500 mg tablet active Not Available Not Available No t Available methylpre dnisolone 4 mg tablets in a dose pack FOLLOW PACKAGE DIRECTIO NS 08/06 completed Not Available Not Available Not Available ipratropi um bromide 42 mcg (0.06 %) nasal spray Raymond 1 spray 4 times a day by intranas al route as needed. 01/12 completed Not Available Not Available Not Available clobetaso l 0.05 % scalp solution 07/30 completed Not Available Not Available Not Available fluticaso ne propionat e 50 mcg/actua tion nasal spray,felicia penconchitaon SHAKE LQ AND U 1 SPR IEN [...] Available Not Available Not Available amoxicill in 500 mg-potass ium clavulana te 125 mg tablet TAKE 1 TABLET BY MOUTH TWICE DAILY UNTIL ALL TAKEN. 01/09 completed Not Available Not Available Not Available escitalop butch 10 mg tablet TAKE 1 TABLET BY MOUTH DAILY 12/06 completed Not Available Not Available Not Available [...] Not Available escitalop butch 5 mg tablet Take 1 tablet every day by oral route for 30 days. active Not Available Not Available No [...] mg-chondr oitin 100 mg-dietar y supplemen t no.25 capsule Take by oral route. 09/20 completed Not Available Not Available Not Available vit C 500 mg-rutin 10 mg-hesper idn cmp 10 mg-biofla v,cit 200 mg tablet Take 1 tablet every day by oral route. 01/09 completed Not Available Not Available Not Available tadalafil 20 mg tablet (pulmonar y hypertens ion) TAKE 1 TABLET BY MOUTH ONCE DAILY NEEDED 05/27 completed Not Available Not Available Not Available Fluarix Quad 0336-5843 (PF) 60 mcg (15 mcg x 4)/0.5 mL IM syringe TO BE ADMINIST ERED BY PHARMACI ST FOR IMMUNIZA TION 08/14 completed Not Available Not Available Not Available Shingrix (PF) 50 mcg/0.5 mL intramusc ular suspensio n, kit ADM 0.5ML IM UTD 03/29 completed Not Available Not Available Not Available Fluzone High-Dose 0962-9267 (PF) 180 mcg/0.5 mL intramusc ular syringe ADM 0.5ML IM UTD 07/22 completed Not Available Not Available Not Available Fluzone High-Dose 2018- (PF) 180 mcg/0.5 mL intramusc ular syringe [...] in Arterial blood by Pulse oximetry Systolic And Diastolic Provider Name and Address Organization Details Last Updated DateTime 5 177.8 cm 33.5 kg/m2 553048. 82 g 97.8 [degF] 55 /min 100 % 100 % 138/78 mm[Hg] Kristel Espinoza [place] [facility] [employer] 5 09:32:11 Date Recorded Heart rate Respiratory rate Provider N kelsie and Address Organization Details Last Updated DateTime 01/11/2025 63 /min 15 /min Tejas Levi MD [address] [facility], [facility] [address], [place], [address], [facility] [employer] [facility] 01/11/2025 08:49:57 Date Recorded Body height Body mass index (BMI) Body weight Body temperature Heart rate Oxygen saturation Oxygen saturation in Arterial blood by Pulse oximetry Systolic And Diastolic Provider Name and Address Organization Details Last Updated DateTime 5 177.8 cm 33 kg/m2 561251. 25 g 98.4 [degF] 63 /min 95 % 95 % 126/66 mm[Hg] Tanisha Pulido MA [facility] [employer] [facility] 5 08:41:36 Date Recorded Body height Body mass index (BMI) Body weight Body temperature Heart rate Oxygen saturation Oxygen saturation in Arterial blood by Pulse oximetry Systolic And Diastolic Provider Name and Address Organization Details Last Updated DateTime 5 177.8 cm 32.4 kg/m2 138684. 88 g 97.9 [degF] 66 /min 98 % 98 % 150/80 mm[Hg] Kristel Espinoza MA [facility] [employer] [facility] 5 10:36:19 Date Recorded Body height Body mass index (BMI) Body weight Body temperature Heart rate Oxygen saturation Oxygen saturation in Arterial blood by Pulse oximetry Systolic And Diastolic Provider Name and Address Organization Details Last Updated DateTime 4 177.8 cm 32.9 kg/m2 873160. 65 g 97.5 [degF] 59 /min 97 % 97 % 118/64 mm[Hg] DELMAR Ortega [facility] [employer] [facility] 4 09:42:45 Social History Question Answer Notes LastModified by Organizat ion Details LastModified Time Tobacco Smoking Status Never Smoker Not Available [employer] 12/04/2022 05:13:21 Do You Have An Advance Directive? Yes MIGRATION.20901 [id number] Information not available 12/04/2022 Do You Wear A Helmet When Biking? No Does Not Bike [email or web address] Information not available 05/10/2024 Are You Blind Or Do You Have Difficulty Seeing? No MIGRATION.32817 73955 Information not available 12/04/2022 Is Blood Transfusion Acceptable In An Emergency? Yes [email or web address] Information not available 05/10/2024 What Is Your Level Of Caffeine Consumption? Occasional MIGRATION.14455 [id number] Information not available 12/04/2022 In The 14 Days Before Symptom Onset, Have You Had Close Contact With A Laboratory-confi rmed COVID-19 While That Case Was Ill? No MIGRATION.79913 [id number] Information not available 12/04/2022 In The 14 Days Before Symptom Onset, Have You Had Close Contact With A Person Who Is Under Investigation For COVID-19 While That Person Was Ill? No MIGRATION.18492 53197 Information not available 12/04/2022 Are You Deaf Or Do You Have Serious Difficulty Hearing? No MIGRATION.96801 17169 Information not available 12/04/2022 What Type Of Diet Are You Following? REGULAR MIGRATION.61801 43237 Information not available 12/04/2022 What Is The Highest Grade Or Level Of School You Have Completed Or The Highest Degree You Have Received? [id number] MIGRATION.13019 89396 Information not available 12/04/2022 Do You Have An Electrostatic Air Filter? No MIGRATION.75911 12569 Information not available 12/04/2022 How Many Days Of Moderate To Strenuous Exercise, Like A Brisk Walk, Did You Do In The Last 7 Days? 2 [email or web address] Information not available 05/10/2024 On Those Days That You Engage In Moderate To Strenuous Exercise, How Many Minutes, On Average, Do You Exercise? 30 [email or web address] Information not available 05/10/2024 Have There Been Any Changes To Your Family Or Social Situation? No MIGRATION.76527 70497 Information not available 12/04/2022 What Is The Fluoride Status Of Your Home? Unknown MIGRATION.44874 95587 Information not available 12/04/2022 Are There Any Guns Present In Your Home? No MIGRATION.88414 84379 Information not available 12/04/2022 Do You Have A Humidifier? No MIGRATION.86776 06664 Information not available 12/04/2022 Do You Use Insect Repellent Routinely? No MIGRATION.71758 03943 Information not available 12/04/2022 Where Do You Live? [facility] MIGRATION.45061 31652 Information not available 12/04/2022 Presence Of Domestic Violence No Information not available 05/10/2024 Guns Present In The Home? No [email or web address] Information not available 05/10/2024 Are You Able To Care For Yourself? Yes Information not available 05/10/2024 Are You Blind Or Do Yo Have Difficulty Seeing? No Information not available 05/10/2024 Are You Deaf Or Do You Have Serious Difficulty Hearing? No [email or web address] Information not available 05/10/2024 General Stress Level? Low [email or web address] Information not available 05/10/2024 Live Alone Of With Others? With Others [email or web address] Information not available 05/10/2024 Do You Have A Medical Power Of Systems Software Specialist? Yes MIGRATION.85377 56198 Information not available 12/04/2022 Do You Have Moisture Problems In Your Home? No MIGRATION.84122 72466 Information not available 12/04/2022 What Was The Date Of Your Most Recent Tobacco Screening? 03/30/2025 [email or web address] Information not available 03/30/2025 How Many Children Do You Have? 3 [email or web address] Information not available 05/10/2024 Do You Have Any Pets? No MIGRATION.64097 78205 Information not available 12/04/2022 Do You Use Protection During Sex? No [email or web address] Information not available 05/10/2024 What Is Your Relationship Status? MIGRATION.39761 79778 Information not available 12/04/2022 Do You Use Your Seat Belt Or Car Seat Routinely? Yes MIGRATION.83688 66576 Information not available 12/04/2022 Are You Sexually Active? Yes Information not available 05/10/2024 Do You Have Smoke And Carbon Monoxide Detectors In Your Home? Yes MIGRATION.84928 81010 Information not available 12/04/2022 Are You Passively Exposed To Smoke? No MIGRATION.33125 95309 Information not available 12/04/2022 Are There Any Smokers In Your House? No MIGRATION.59134 94607 Information not available 12/04/2022 What Types Of Sporting Activities Do You Participate In? None [email or web address] Information not available 05/10/2024 Do You Use Sunscreen Routinely? Yes MIGRATION.86178 21018 Information not available 12/04/2022 Has Tobacco Cessation Counseling Been Provided? No N/a MIGRATION.53692 22184 Information not available 12/04/2022 Have You Recently Traveled Abroad? No MIGRATION.51041 26752 Information not available 12/04/2022 Do You Have Difficulty Walking Or Climbing Stairs? No MIGRATION.66727 25380 Information not available 12/04/2022 Do You Have Any Dietary Restrictions? No MIGRATION.69887 16327 Information not available 12/04/2022 Sex: Male Functional Status Question Answer Note LastModified by Organizat ion Details LastModified Time Do you use any illicit or recreational drugs? No MIGRATION.82634 29165 Information not available 12/04/2022 Do you or have you ever used any other forms of tobacco or nicotine? No MIGRATION.32830 49325 Information not available 12/04/2022 What is your level of alcohol consumption? None MIGRATION.27048 73916 Information not available 12/04/2022 Are you currently employed? No Retired [email or web address] Information not available 01/13/2024 Have you been exposed to chemicals or toxins? Not that aware of [employer] Information not available 01/13/2024 Do you have transportation difficulties? No MIGRATION.58313 45181 Information not available 12/04/2022 Are you able to walk? YESWOREST MIGRATION.95749 24458 Information not available 12/04/2022 Do you have difficulty doing errands alone? No MIGRATION.99558 12524 Information not available 12/04/2022 Are you able to care for yourself? Yes MIGRATION.70451 01654 Information not available 12/04/2022 Do you have difficulty dressing or bathing? No MIGRATION.07284 96931 Information not available 12/04/2022 What is your exercise level? Occasional [email or web address] Information not available 05/10/2024 Mental Status Question Answer Note LastModified by Organizat ion Details LastModified Time Do you feel stressed (tense, restless, nervous, or anxious, or unable to sleep at night)? [id number] MIGRATION.56631438 26 Information not available 12/04/2022 Do you have difficulty concentrating, remembering or making decisions? No MIGRATION.26146531 26 Information not available 12/04/2022 Family History Relationship Description Onset Age of this Age Resolved Age Notes LastModified by Organization Details LastModified Time Mother Family history of malignant neoplasm [email or web address] Not available 05/2025 08:26:25 Mother Family history of stroke [email or web address] Not available 05/2025 08:26:25 Mother Hypertensive disorder MIGRATION.076 [id number] Not available 12/04/2022 05:14:16 Father Hypertensive disorder MIGRATION.283 [id number] Not available 12/04/2022 05:14:16 Father Diabetes mellitus MIGRATION.847 [id number] Not available 12/04/2022 05:14:16 Father Heart disease MIGRATION.251 [id number] Not available 12/04/2022 05:14:16 Notes:NO ENT Medical History Condition Response NERVE DISEASE N BLINDNESS N RHEUMATIC FEVER N KIDNEY STONES N BLADDER PROBLEMS N MRSA N OTHER # 1 N POLIO N LUNG DISEASE/DISORDER N HISTORY OF DRUG ABUSE N RADIATION / CHEMOTHERAPY N COPD N Other # 2 N BLOOD DISEASES [...] adjuvant reconstituted, 0.5 mL, PF 3 completed DELMAR Klein null, [facility] 07/31/2023 15:40:24 Pneumococcal conjugate PCV20, polysaccharide RRM115 conjugate, adjuvant, PF 3 completed Catracho Nicole RMA null, [facility] 07/31/2023 15:45:29 Influenza, high-dose, quadrivalent, PF 3 completed Catracho Nicole RMA null, [facility] 07/31/2023 15:46:03 COVID-19, mRNA, LNP-S, PF, 30 mcg/0.3 mL dose 3 completed Catracho Nicole RMA null, [facility] 07/31/2023 15:53:21 zoster recombinant 9 completed Leo Cornell LPN null, [facility] 05/06/2024 13:38:31 zoster recombinant 8 completed Leo Cornell LPN null, [facility] 05/06/2024 13:38:31 Influenza, high-dose, quadrivalent, PF 0 completed Leo Cornell LPN null, [facility] 05/06/2024 13:38:31 Influenza, high-dose, quadrivalent, PF 1 completed Leo Cornell LPN null, [facility] 05/06/2024 13:38:31 COVID-19, mRNA, LNP-S, PF, 30 mcg/0.3 mL dose 1 completed Leo Cornell LPN null, [facility] 05/06/2024 13:38:31 COVID-19, mRNA, LNP-S, PF, 30 mcg/0.3 mL dose 1 completed Leo Cornell LPN null, [facility] 05/06/2024 13:38:31 COVID-19, mRNA, LNP-S, PF, 30 mcg/0.3 mL dose, brynn-sucrose 2 completed Leo Cornell LPN null, [facility] 05/06/2024 13:38:31 pneumococcal polysaccharide PPV23 2 completed Leo Cornell LPN null, [facility] 05/06/2024 13:38:31 Tdap 1 completed Leo Cornell LPN null, [facility] 05/06/2024 13:38:31 Influenza, high-dose, trivalent, PF 8 completed Leo Cornell LPN null, [facility] 05/06/2024 13:38:31 Influenza, split virus, trivalent, preservative 5 completed Leo Cornell LPN null, [facility] 05/06/2024 13:38:31 Influenza, split virus, quadrivalent, PF 6 [facility] 13:38:31 Influenza, high-dose, trivalent, PF 4 completed Vera Felipe RMA null, [facility] 07/19/2024 14:44:04 COVID-19, mRNA, LNP-S, PF, brynn-sucrose, 30 mcg/0.3 mL 4 completed [facility] 07/[facility]24 14:44:42 COVID-19, mRNA, LNP-S, bivalent, PF, 30 mcg/0.3 mL dose 2 completed Leo Cornell LPN null, [facility] 05/06/2024 13:38:31 COVID-19, mRNA, LNP-S, PF, 30 mcg/0.3 mL dose 2 completed Leo Cornell LPN null, [facility] 05/06/2024 13:38:31 COVID-19, mRNA, LNP-S, PF, 30 mcg/0.3 mL dose 1 completed [facility] 13:38:31 Influenza, high-dose, quadrivalent, PF 2 completed Leo Cornell LPN null, [facility] 05/06/2024 13:38:31 COVID-19, mRNA, LNP-S, PF, 100 mcg/0.5mL dose or 50 mcg/0.25mL dose 1 completed Leo Cornell LPN null, [facility] 05/06/2024 13:38:31 COVID-19, mRNA, LNP-S, PF, 100 mcg/0.5mL dose or 50 mcg/0.25mL dose 1 completed Leo Cornell LPN null, [facility] 05/06/2024 13:38:31 Influenza, high-dose, trivalent, PF 9 completed GAVNIO Kiran, [facility] 05/06/2024 13:38:31 Influenza, split virus, quadrivalent, PF 6 completed Leo Cornell LPN null, [facility] 05/06/2024 13:38:31 Influenza, split virus, quadrivalent, preservative 0 completed GAVINO Kiran, [facility] 05/06/2024 13:38:31 influenza, unspecified formulation 8 [facility] 13:38:31 Influenza, split virus, trivalent, preservative 4 completed Not Available [facility] 04/08/2023 00:32:34 pneumococcal polysaccharide PPV23 8 completed Not Available [facility] 04/08/2023 00:32:34 Pneumococcal conjugate PCV 13 6 completed Leo Cornell LPN null, [facility] 05/06/2024 13:38:31 Influenza, split virus, quadrivalent, preservative 7 completed Not Available [facility] 04/08/2023 00:32:34 zoster live 3 completed Not Available [facility] 04/08/2023 00:32:34 Past Encounters Encounter ID Performer Location Encounter Start Date Encounter Closed Date Diagnosis/Indication Diagnosis SNOMED-CT Code Diagnosis ICD10 Code Diagnosis Note [id number] Carlos chong MD [facility] [place] [address] [place] [address] [place] [address] 03/12/2021 00:00:00 05/07/2021 14:44:57 [id number] Tejas Levi MD [facility] Pul[facility] [address] 04/02/2021 00:00:00 04/02/2021 09:04:27 [id number] Tejas Levi MD [facility] [address] [address] 04/10/2021 00:00:00 04/10/2021 08:20:48 [id number] [facility] [place] [address] [facility] [address] [place] [address] 04/30/2021 00:00:00 04/30/2021 13:07:59 [id number] Carlos chong MD [facility] [place] [address] [place] [address] [place] [address] 06/13/2021 00:00:00 06/13/2021 16:48:05 [id number] Demarco Méndez MD [facility] [place] [address] [facility] [address] [place] [address] 07/04/2021 00:00:00 07/04/2021 09:24:05 [id number] Tejas Levi MD [facility] [address] [address] 07/11/2021 00:00:00 07/11/2021 08:25:46 [id number] Tejas Levi MD [facility] [address] [address] 10/11/2021 00:00:00 10/11/2021 10:46:55 [id number] Carlos chong MD [facility] [address] [address] 12/03/2021 00:00:00 12/03/2021 10:05:05 [id number] Abdullahi Sultana MD [facility] E[facility] [place] [address] [place] [address] 12/11/2021 00:00:00 12/11/2021 10:38:57 [id number] Tejas Leiv MD [facility] [address] 04/11/2022 00:00:00 04/11/2022 10:29:41 [id number] Carlos chong MD [facility] [address] [address] 06/18/2022 00:00:00 06/18/2022 10:21:40 [id number] Murray Melendez MD [facility] [place] [address] [facility] [address] [place] [address] 06/26/2022 00:00:00 06/26/2022 17:39:20 [id number] Carlos chong MD [facility] [address] [address] 08/06/2022 00:00:00 08/06/2022 11:41:40 [id number] [facility] [place] [address] [place] [address] 08/15/2022 00:00:00 08/15/2022 14:46:24 [id number] Tejas Levi MD [facility] [address] [address] 10/17/2022 00:00:00 10/17/2022 10:34:08 [id number] Carlos chong MD [facility] [address] [place] [address] Ave[address] [place] [address] 11/19/2022 00:00:00 11/19/2022 10:17:12 [id number] Tejas Levi MD [facility] [address] [place] [address], [place] [address] 04/17/2023 09:59:59 04/18/2023 08:03:33 Iron deficiency 99195592 E61.1 Posterior rhinorrhea 758 10727 R09.82 [id number] Carlos chong MD [facility] [address] [place] [address] 05/27/2023 09:19:59 05/27/2023 09:53:11 Screening - NAD [id number] Z13.9 C-scope: Dr. Lilian holly 04/15/11, next in 7-10 from the [facility]-scop e: 05/03/2021 : Dr Cheney UTIsabella on flu shot 07/28/19UT D on PCV 13 08/14/16, #23 07/22/18UT D on zoster 07/28/13, MAGDY shingrixUT D on Tdap 6 years agoUTD on COVID 19 vaccine RTC in 6 monthsDo labsER if worsehe did verbalize his understand ing of the above Essential hypertension 11578023 I10 ECHO 03/26/2023: Dr Espinoza On ASAOn losartan 50mg dailyOn metoprolol 25mg bid, filled by Dr Bautista NTG Does wellDr Olga 03/13/2022 Coronary arteriosclerosis 40192510 I25.10 S/p CT jhonny score: 12/06/2020 ECHO 12/28/2020 stress test 12/28/2020 ECHO 03/26/2023: Dr Olga Espinoza 03/13/2022 , s/p CC as per his note Obstructiv e sleep apnea syndrome 19735744 G47.33 S/p sleep study 01/31/[address] Levi next at 01/15/2024 Transient cerebral ischemia 205064283 G45.9 S/p ER 04/13/18CT head neg, layering of fluid in L max sinusEKG: As per ER Non specific STT changes Seen by Dr Lymna cardiology , diagnosed with vasovagal syncope US carotid: NegECHO Neg Dr Sanchez EF 57% N LV Sys fxUS kidney: Medical renal disease mildStress test 01/13/19: NegUS carotid 01/13/19: NegECHO 01/13/19: Neg, N LV fx and EF He is doing well On ASA Hyperlipidemia 50371342 E78.5 On ASAOn rosuvastat in 20mg daily now Get labs Benign pro static hyperplasia without outflow obstruction 909073648 N40.0 On flomaxOn finasterid e Does well on theseSees Dr Thomason urologist Primary er ectile dysfunction 054737647 N52.9 Not on sildenafil 100mg bid as needed, on tadalafil 20mg PRNDoes well on this Onychomycosis 304070747 B35.1 Did see podiatryDi agnosed with dystrophia unguium Hypoproteinemia 3219444 E88.09 TP WNLNo M spike Declined referrals Hypothyroidism 89363063 E03.9 US thyroid 08/13/2021 Dr Sultana 12/11/2021 US thyroid 06/14/2022 : TiRads 3, rec yearly US: Dr Sultana ordered Posterior rhinorrhea 758 78716 R09.82 On cetrizineO n flonaseOn ipratropiu m nasal spray Was started on iron and vit cSeen by Dr Levi Chronic ki dney disease 791272330 N18.[address] Erwin IJ/Dr Negro, but has declined 11/19/2022 Pain of le ft shoulder joint 8885082698 6916385 M25.512 Dr Melendez 06/26/2022 Impacted c erumen in right ear 5429064880 188410 H61.21 Get on debrox and will RTC in 2 weeks for a ear flush Generalize d anxiety disorder 76374506 F41.1 Not taking the lorazepamS tart on buspirone 5mg po bid, all side effects explained to him, not suicidal or homicidal, RTC in 2 weeks, if not better will need to see psychiatry , he is agreeable to this plan of care Screening for malignant neoplasm of prostate 704468127 Z12.5 [id number] Carlos chong MD [facility] [place] [facility] [place] [address] [facility] [place] [address] 06/16/2023 09:21:59 06/16/2023 09:47:46 Impacted cerumen in right ear 8260547350 767279 H61.21 Get on debrox and will RTC in 2 weeks for a ear flush OV 06/16/2023 :Bilateral ears flushed and wax extracted, he tolerated the procedure well [id number] Abdullahi Sultana MD [facility] [place] [address] [place] [address] 07/28/2023 10:17:56 07/28/2023 11:08:21 Thyroid nodule 115865387 E04.1 [id number] Carlos chong MD [facility] [place] [address] [place] [address] [place] [address] 11/10/2023 09:49:53 11/10/2023 10:31:13 Screening for malignant neoplasm of prostate 278457919 Z12.5 Screening - NAD 21104679 3 Z13.9 C-scope: Dr. Lilian holly 04/15/11, next in 7-10 from the [facility]-scop e: 05/03/2021 : Dr Cheney UTD on flu shot 07/28/19UT D on PCV 13 08/14/16, #23 18UT D on zoster 07/28/13, UTD shingrixUT D on Tdap 6 years agoUTD on COVID 19 vaccineCan do RSV vaccine RTC in 6 monthsDo labsER if worsehe did verbalize his understand ing of the above Essential hypertension 59368660 I10 ECHO 03/26/2023: Dr Espinoza On ASAOn losartan 50mg dailyNot on metoprolol 25mg bid, filled by Dr Bautista NTG Does wellDr Olga 03/13/2022 Coronary arteriosclerosis 20172100 I25.10 S/p CT jhonny score: 12/06/2020 ECHO 12/28/2020 stress test 12/28/2020 ECHO 03/26/2023: Dr Olga Espinoza 03/13/2022 , s/p CC as per his note Obstructiv e sleep apnea syndrome 30675583 G47.33 S/p sleep study 01/31/[address] Levi next at 01/15/2024 Transient cerebral ischemia 709985491 G45.9 S/p ER 04/13/18CT head neg, layering of fluid in L max sinusEKG: As per ER Non specific STT changes Seen by Dr Lyman cardiology , diagnosed with vasovagal syncope US carotid: NegECHO Neg Dr Sanchez EF 57% N LV Sys fxUS kidney: Medical renal disease mildStress test 01/13/19: NegUS carotid 01/13/19: NegECHO 01/13/19: Neg, N LV fx and EF He is doing well On ASA Hyperlipidemia 56479823 E78.5 On ASAOn rosuvastat in 20mg daily now Get labs Benign pro static hyperplasia without outflow obstruction 621335540 N40.0 On flomaxOn finasterid e Does well on theseSees Dr Thomason urologist Primary er ectile dysfunction 921988128 N52.9 Not on sildenafil 100mg bid as needed, on tadalafil 20mg PRNDoes well on this Onychomycosis 735319469 B35.1 Did see podiatryDi agnosed with dystrophia unguium Hypoproteinemia 4745683 E88.09 TP WNLNo M spike Declined referrals Hypothyroidism 45519579 E03.9 US thyroid 08/13/2021 Dr Sultana 12/11/2021 US thyroid 06/14/2022 : TiRads 3, rec yearly US: Dr Sultana ordered US thyroid 06/05/2023 : See case Posterior rhinorrhea 758 48383 R09.82 On cetrizineO n flonaseOn ipratropiu m nasal spray Was started on iron and vit cSeen by Dr Levi Chronic ki dney disease 520244754 N18.[address] Rip MOHR/Dr Negro, but has declined 11/19/2022 Pain of le ft shoulder joint 9632644328 9508339 M25.512 Dr Melendez 06/26/2022 Generalize d anxiety disorder 25711366 F41.1 Not taking the lorazepam On buspirone 5mg po bid, all side effects explained to him, not suicidal or homicidal [id number] Tejas Levi MD [facility] [address], [facility] [address] [place] [address] 01/13/2024 09:28:07 01/14/2024 08:45:05 Iron deficiency 56987316 E61.1 Posterior rhinorrhea 758 48095 R09.82 [id number] Carlos chong MD [facility] [place] [address] , [place] [address] 05/10/2024 09:18:01 05/10/2024 10:02:56 Screening - NAD 809794239 Z13.9 C-scope: Dr. Quintana n 04/15/11, next in 7-10 from the [facility]-scop e: 05/03/2021 : Dr Cheney UTD on flu shot 07/28/19UT D on PCV 13 08/14/16, #23 18UT D on zoster 07/28/13, UTD shingrixUT D on Tdap 6 years agoUTD on COVID 19 vaccineCan do RSV vaccine RTC in 3 monthsDo labsER if worsehe did verbalize his understand ing of the above Essential hypertension 16787761 I10 ECHO 03/26/2023: Dr Espinoza On ASAOn losartan 50mg dailyNot on metoprolol 25mg bidON NTG Does wellDr Olga Coronary arteriosclerosis 56915645 I25.10 S/p CT jhonny score: 12/06/2020 ECHO 12/28/2020 stress test 12/28/2020 ECHO 03/26/2023: Dr Solis 04/06/2024 Stress test: 04/06/2024 : Reversible defect Dr Espinoza 03/13/2022 , s/p CC as per his noteDr Olga 04/23/2024 : Schedule L/R HCOn NTG refilled as per his request 05/10/2024 Obstructiv e sleep apnea syndrome 26952140 G47.33 S/p sleep study 01/31/[address] Levi next at 01/15/2024 Transient cerebral ischemia 857640009 G45.9 S/p ER 04/13/18CT head neg, layering of fluid in L max sinusEKG: As per ER Non specific STT changes Seen by Dr Lyman cardiology , diagnosed with vasovagal syncope US carotid: NegECHO Neg Dr Sanchez EF 57% N LV Sys fxUS kidney: Medical renal disease mildStress test 01/13/19: NegUS carotid 01/13/19: NegECHO 01/13/19: Neg, N LV fx and EF He is doing well On ASAOn plavix Hyperlipidemia 45793890 E78.5 On ASAOn rosuvastat in 20mg daily now Get labs Benign pro static hyperplasia without outflow obstruction 503658443 N40.0 On flomaxOn finasterid e Does well on theseSees Dr Thomason urologist Primary er ectile dysfunction 967031546 N52.9 Not on sildenafil 100mg bid as needed, on tadalafil 20mg PRNDoes well on this Onychomycosis 945357711 B35.1 Did see podiatryDi agnosed with dystrophia unguium Hypoproteinemia 2888302 E88.09 TP WNLNo M spike Declined referrals Hypothyroidism 03697148 E03.9 thyroid 08/13/2021 Dr Sultana 12/11/2021 US thyroid 06/14/2022 : TiRads 3, rec yearly US: Dr Sultana ordered US thyroid 06/05/2023 : See case Posterior rhinorrhea 758 66705 R09.82 On cetrizineO n flonaseOn ipratropiu m nasal spray Was started on iron and vit cSeen by Dr Levi Chronic ki dney disease 070813144 N18.9 Needs to see nephrology Pain of le ft shoulder joint 6151542666 7409139 M25.512 Dr Melendez 06/26/2022 Generalize d anxiety disorder 17534240 F41.1 Not taking the lorazepam On buspirone 5mg po bid, all side effects explained to him, not suicidal or homicidalW ill refer to psychiatry Adult heal th examination 175292871 Z00.00 Screening for disorder 092610908 Z13.9 [id number] Abdullahi Sultana MD [facility] [place] [address] [place] [address] 06/17/2024 10:16:51 06/17/2024 13:37:22 Thyroid nodule 144170425 E04.1 [id number] Carlos chong MD [facility] [place] [address] [place] [address] 08/17/2024 09:26:04 08/17/2024 11:32:08 [id number] Carlos chong MD [facility] [place] Care [place] [address] [place] [address] 08/23/2024 09:30:42 08/23/2024 10:12:28 Screening - NAD 070791409 Z13.9 C-scope: Dr. Lilian holly 04/15/11, next in 7-10 from the [facility]-scop e: 05/03/2021 : Dr Cheney Get yearly flu shotUTD on PCV 13 08/14/16, #23 18UT D on zoster 07/28/13, UTD shingrixUT D on Tdap 6 years agoUTD on COVID 19 vaccineCan do RSV vaccine RTC in 3 monthsDo labsER if worsehe did verbalize his understand ing of the above Essential hypertension 73481680 I10 ECHO 03/26/2023: Dr Espinoza On ASAOn losartan 50mg dailyNot on metoprolol 25mg bidON NTG Does wellDr Espinoza Coronary arteriosclerosis 91157249 I25.10 S/p CT jhonny score: 12/06/2020 ECHO 12/28/2020 stress test 12/28/2020 ECHO 03/26/2023: Dr Solis 04/06/2024 Stress test: 04/06/2024 : Reversible defect Dr Espinoza 03/13/2022 , s/p CC as per his noteDr Olga 04/23/2024 : Schedule L/R HCOn NTG refilled as per his request 05/10/2024 Dr Espinoza 05/12/2024 , f/u in 6 months, losartan should be 25mg daily as per note Obstructiv e sleep apnea syndrome 88327265 G47.33 S/p sleep study 01/31/[address] Levi next at 01/15/2024 Transient cerebral ischemia 187066131 G45.9 S/p ER 04/13/18CT head neg, layering of fluid in L max sinusEKG: As per ER Non specific STT changes Seen by Dr Lyman cardiology , diagnosed with vasovagal syncope US carotid: NegECHO Neg Dr Sanchez EF 57% N LV Sys fxUS kidney: Medical renal disease mildStress test 01/13/19: NegUS carotid 01/13/19: NegECHO 01/13/19: Neg, N LV fx and EF He is doing well On ASAOn plavix Hyperlipidemia 42526502 E78.5 On ASAOn rosuvastat in 20mg daily now Get labs Benign pro static hyperplasia without outflow obstruction 927557009 N40.0 On flomaxOn finasterid e Does well on theseSees Dr Thomason urologist Primary er ectile dysfunction 475353794 N52.9 Not on sildenafil 100mg bid as needed, on tadalafil 20mg PRNDoes well on this Onychomycosis 215702476 B35.1 Did see podiatryDi agnosed with dystrophia unguium Hypoproteinemia 6030914 E88.09 TP WNLNo M spike Declined referrals Hypothyroidism 92330330 E03.9 US thyroid 08/13/2021 Dr Sultana 12/11/2021 Dr Sultana 06/17/2024 US thyroid 06/14/2022 : TiRads 3, rec yearly US: Dr Sultana orderedUS thyroid 06/05/2023 : See caseUS thyroid 07/12/2024 : Done by ENT Posterior rhinorrhea 758 20159 R09.82 On cetrizineO n flonaseOn ipratropiu m nasal spray Was started on iron and vit cSeen by Dr Levi Chronic ki dney disease 843985725 N18.9 Needs to see nephrology Pain of le ft shoulder joint 8233052314 0124139 M25.512 Dr Melendez 06/26/2022 Generalize d anxiety disorder 71652186 F41.1 Not taking the lorazepam On buspirone 5mg po bid, all side effects explained to him, not suicidal or homicidalW ill refer to psychiatry 08/23/2024 :Seenathaniel lopez 5mg bidOn buspironeN ot suicidal or homcidal Liver enzy mes level above reference range 802723325 R74.01 Get US liver and labs [id number] Carlos chong MD [facility] [place] [address] [place] [address] 11/29/2024 09:22:10 11/29/2024 10:00:08 [id number] Carlos chong MD [facility] [place] [address] [place] [address] 12/06/2024 09:12:38 12/06/2024 10:04:31 Screening - NAD 227805665 Z13.9 C-scope: Dr. Lilian holly 04/15/11, next in 7-10 from the [facility]-scop e: 05/03/2021 : Dr Cheney Get yearly flu shotUTD on PCV 13 08/14/16, #23 07/22/18UT D on zoster 07/28/13, UTD shingrixUT D on Tdap 6 years agoUTD on COVID 19 vaccineCan do RSV vaccine RTC in 3 monthsDo labsER if worsehe did verbalize his understand ing of the above Essential hypertension 14738106 I10 ECHO 03/26/2023: Dr Espinoza On ASAOn losartan 50mg dailyNot on metoprolol 25mg bidON NTG Does wellDr Espinoza Coronary arteriosclerosis 19412173 I25.10 S/p CT jhonny score: 12/06/2020 ECHO 12/28/2020 stress test 12/28/2020 ECHO 03/26/2023: Dr Solis 04/06/2024 Stress test: 04/06/2024 : Reversible defect Dr Espinoza 03/13/2022 , s/p CC as per his noteDr Olga 04/23/2024 : Schedule L/R HCOn NTG refilled as per his request 05/10/[address] Espinoza 05/12/2024 , f/u in 6 months, losartan should be 25mg daily as per note Obstructiv e sleep apnea syndrome 92019173 G47.33 S/p sleep study 01/31/[address] Levi Transient cerebral ischemia 626041654 G45.9 S/p ER 04/13/18CT head neg, layering of fluid in L max sinusEKG: As per ER Non specific STT changes Seen by Dr Lyman cardiology , diagnosed with vasovagal syncope US carotid: NegECHO Neg Dr Sanchez EF 57% N LV Sys fxUS kidney: Medical renal disease mildStress test 01/13/19: NegUS carotid 01/13/19: NegECHO 01/13/19: Neg, N LV fx and EF He is doing well On ASAOn plavix Hyperlipidemia 94958106 E78.5 On ASAOn rosuvastat in 20mg daily now Get labs Benign pro static hyperplasia without outflow obstruction 867719515 N40.0 On flomaxOn finasterid e Does well on theseSees Dr Thomason urologist Primary er ectile dysfunction 853556724 N52.9 Not on sildenafil 100mg bid as needed, on tadalafil 20mg PRNDoes well on this Onychomycosis 361474995 B35.1 Did see podiatryDi agnosed with dystrophia unguium Hypoproteinemia 6019676 E88.09 TP WNLNo M spike Declined referrals Hypothyroidism 84093738 E03.9 US thyroid 08/13/2021 Dr Sultana 12/11/2021 Dr Sultana 06/17/2024 US thyroid 06/14/2022 : TiRads 3, rec yearly US: Dr Sultana orderedUS thyroid 06/05/2023 : See caseUS thyroid 07/12/2024 : Done by ENT Posterior rhinorrhea 758 84402 R09.82 On cetrizineO n flonaseOn ipratropiu m nasal spray Was started on iron and vit cSeen by Dr Levi Chronic ki dney disease 719010614 N18.9 Needs to see nephrology US kidney 09/08/2024 : Dr Chambers Pain of le ft shoulder joint 1719850123 0395698 M25.512 Dr Melendez 06/26/2022 Generalize d anxiety disorder 88734474 F41.1 Not taking the lorazepam On buspirone 5mg po bid, all side effects explained to him, not suicidal or homicidalW ill refer to psychiatry 08/23/2024 :Sees Dr Rk canaleso 5mg bidOn buspironeN ot suicidal or homcidal Liver enzy mes level above reference range 930842834 R74.01 US liver/Hep panel/GGT: Neg Screening for malignant neoplasm of prostate 686347815 Z12.5 [id number] Tejas Levi MD [facility] [address] [facility], [facility] [address] [place] [address] 01/11/2025 08:24:47 01/12/2025 13:07:44 Iron deficiency 83367227 E61.1 Posterior rhinorrhea 758 28537 R09.82 [id number] Carlos chong MD [facility] Primary Care [facility] [address] [facility] [address] [place] [address] 03/30/2025 10:26:17 03/30/2025 11:36:37 Impacted cerumen of bilateral ears 1816759030 850796 H61.23 Referred to ENT Generalize d anxiety disorder 26509562 F41.1 Not taking the lorazepam On buspirone 5mg po bid, all side effects explained to him, not suicidal or homicidalW ill refer to psychiatry 08/23/2024 :Sees Dr Rk barriosaprlinda 5mg bidOn buspironeN ot suicidal or homcidal OV 03/30/2025 :Refer to Edie Bridges BIOLOGICAL LAB TECHNICIAN as he does not want to see Dr Huang ed the lexapro as a daily as he does not want it bidRenewed the buspirone Health Concerns Section Related Observation LastModified by Organization Detai ls LastModified Time None Recorded Concern Status LastModified by Organization Details LastModified Time None Recorded Advance Directives Directive Y: Payers Insurance Date Sequence Insurance Name Policy Number Policy Llanos Covered Member ID Llanos Member ID Guarantor Name 04/12/2025 1 [place] Jonah Burgess [id number] Jonah Burgess 04/12/2025 2 [place] [id number] Jonah Burgess [id number] Jonah Burgess Notes Date Note Type [...] [place] '[place] dro[place]'He was provided with a CT headNo headaches, diplopia, N/V or UE or LE weaknessNo dysrathria noted OV 05/13/18:Here for his one month apt, he was in the hospital at [place] on 05/05/18 for syncopeHe did have labs [...] the labsHe also has seen Dr Olga LAWRENCE, and has an sleep study OV 06/13/2021:Here [...] f/u apt, he is doing well today Carlos Manning MD [address] [facility], [place], [address], [facility] [employer] 08/23/2024 19:11:11 12/06/2024 text/html Here to stephanie Kerns Hx:BPHEDReviewed social [...] this timeWas seen in the [place] at [place] for 'eye drooping'He was provided with a CT headNo headaches, diplopia, N/V or UE or LE weaknessNo dysrathria noted OV 05/13/18:Here for his one month apt, he was in the hospital at [place] on 05/05/18 for syncopeHe did have labs [...] the labsHe also has seen Dr Olga LAWRENCE, and has an sleep study OV 06/13/2021:Here [...] apt, he is doing well today OV 12/06/2024: Here for his f/u apt he feels well today, he did do the labs Carlos Manning MD [address] [place] [address], [facility] [address], [place], [address], [place] [facility] 12/07/2024 13:19:48 01/11/2025 text/html Primary care/Ref erring provider: Carlos Manning [...] 89 and he is on iron supplements.Patient feels refreshed upon waking and daytime alertness is [...] AND CHANCE OF DOZINGSitting and reading - 1Watching television - 1Sitting inactive in a public place (e.g. a theater or meeting) - 1As a passenger in a car for an hour without a break - 1Lying down to rest in the afternoon when circumstances permit - 1Sitting and talking to someone - 0Sitting quietly after lunch without alcohol - 0In a car, while stopped for a few minutes in the traffic - 0TOTAL SCORE 5Subjectively, patient has a slight chance of dozing. Tejas Levi MD [address], [place], [address], [place] [facility] 01/11/2025 09:06:18 03/30/2025 text/html Here to stephanie loi Saumya Hx:BPHEDReviewed social family and surgical historyHere as [...] this timeWas seen in the ER at [place] yesterday for 'eye drooping'He was provided with a CT headNo headaches, diplopia, N/V or UE or LE weaknessNo dysrathria noted OV 05/13/18:Here for his one month apt, he was in the hospital at [place] on 05/05/18 for syncopeHe did have labs [...] the labsHe also has seen Dr Espinoza [facility], and has an sleep study OV 06/13/2021:Here [...] apt, he is doing well today OV 12/06/2024: Here for his f/u apt he feels well today, he did do the labs OV 03/30/2025:ACV: Here to discuss his referral to ENT, has noted 'clogged ears' see case on 03/29/2025He would also like to discuss his anxiety, not suicidal or homicidal Carlos Manning MD [address] [facility], [facility] [address], [place], [address], [place] [facility] 04/08/2025 14:47:17
--- OUTSIDE RECORDS SUMMARY | 2025-04-14 13:52 | XMS_ITS | Encounter Summary ---
Author Organization [facility] Address [address] [facility] [place] [address] Care Team Providers Care Borematic Operator Name Role Phone Jordi Friedman MD Primary Care Provider [phone] Encounter Details Date Type Department Care Team (Late st Contact Info) Description 01/08/2024 Lab Requisition [facility] - DermPath Lab [address] [facility] [place] [address] Arlette Marti MD [address] [facility] [address] [place] [address] Social History Tobacco Use Types Packs/Day Years [...] AM CDT) Case Report Dermatopathology Report Case: [id number] Authorizing Provider: Arlette Marti MD Collected: 01/08/2024 08:32 AM Ordering Location: [facility]ician [facility] - Received: 01/09/2024 12:45 PM DermPath Lab Pathologist: Mitzi Maurer MD Specimen: Skin, right posterior neck 5:53 PM CDT DERMATOPATHOLOGY LABORATORY Final Diagnosis Specimen A. SKIN, right posterior neck: COMPOUND MELANOCYTIC PROLIFERATION, IRRITATED AND INFLAMED; NOT PRESENT AT SAMPLED MARGIN (D48.5) (see microscopic description and comment) 5:53 PM CDT DERMATOPATHOLOGY LABORATORY at 1753 CDT Clinical History R/o Melanoma, nevus, SK, Irregular Border, Brown Macule 4 5:53 PM [facility] DERMATOPATHOLOGY LABORATORY Gross Description Specimen A: Received is one formalin filled container labeled with the patient's name and designated right posterior neck. The specimen consists of a shave biopsy measuring 7x6x1 mm. Jar 0. 4 5:53 PM [facility] DERMATOPATHOLOGY LABORATORY Microscopic Description Specimen A. SKIN, [...] Dr. Michaela Maurer who agrees. 5:53 PM [facility] DERMATOPATHOLOGY LABORATORY Disclaimer An external and internal positive and negative controls are appropriate for the histochemical, immunohistochemical and immunofluorescence stain(s) in this case (if any), except where stated explicitly. The performance characteristics of the stain(s) cited in this report were developed and its performance characteristic determined by the Dermatopathology Laboratory at [facility], directed by Dr. Phu Ramirez. These tests need not be, and therefore are not, approved by the [place] Food and Drug Administration. The tests are used for clinical purposes. Billing Codes Specimen Charges Stain Charges 67869 1 69686 61820 56699 1 1 1 4 5:53 PM CDT DERMATOPATHOLOGY LABORATORY Embedded Images 4 5:53 PM CDT DERMATOPATHOLOGY LABORATORY Pathology/Cytolo gy TISSUE SPECIMEN FROM SKIN / Unknown 01/08/2024 8:32 AM CDT 01/09/2024 12:45 PM CDT Arlette Marti MD LAB - PATHOLOGY/CYTOLOGY ORD ERABLES Final Result DERMATOPATHOLOGY LABORATORY [facility] - Department of Dermatology [facility] Specialized Medicine [facility] [facility], 3rd Floor [address] [phone] documented in this encounter Visit Diagnoses Not on filedocumented in this encounter Care Teams Borematic Operator Relationship Specialty Start Date End Date Jordi Friedman MD [address] [facility] [address] [place] [address] PCP - General 01/02/22 documented as of this encounter
--- OUTSIDE RECORDS SUMMARY | 2025-04-14 13:52 | XMS_ITS | Clinical Summary ---
Author Organization [facility] Address [address] [place] [address] Care Team Providers Care Road Supervisor Of Engines Name Role Phone Jordi Friedman MD Primary Care Provider [phone] Source Comments [facility] [employer],non-owned Affiliates and Associated Physician Practices is amultiple site organization consisting of ambulatory clinics and hospital sitesin [place], [place], [place] and [place]. This disclosure is being madepursuant to the Care Everywhere program and may not contain all information available regarding this patient. Last updated 18.[facility] [employer] Social History Tobacco Use Types Packs/Day Years [...] 04/21/2022, Additional history exists DEPRESSION SCREENING 10/06/2024 INFLUENZA VACCINE (#1) 2025 4, 06/28/2020, 07/28/2019, Additional history exists Respiratory Syncytial Virus (RSV) Vaccine Pt: or over 60 yrs (1 - 1-dose 75+ series) 2027 HEPATITIS B VACCINE Aged Out No longe [...] age to complete this topic Insurance MEDICARE [facility] MEDICARE ANTH Care Teams Road Supervisor Of Engines Relationship Specialty Start Date End Date Jordi Friedman MD [address] [address] PCP - General 01/02/22
== END 2025-04-14 13:45 | disposition home or self-care (01) ==
PROVIDERS: PCP Internal Medicine; Visit Provider Urology
DX: N40.1 Benign prostatic hyperplasia with lower urinary tract symptoms (principal)
CPT/HCPCS: 74176

== ENCOUNTER 2025-05-10 07:36 | Outpatient (CLI) | payer MEDICARE, SELFPAY ==
--- OUTSIDE RECORDS SUMMARY | 2025-05-10 07:40 | XMS_ITS | Encounter Summary ---
Author Organization [facility] Address [address] [facility] [place] [address] Care Team Providers Care Margarine Churn Operator Name Role Phone Jordi Friedman MD Primary Care Provider [phone] Encounter Details Date Type Department Care Team (Late st Contact Info) Description 01/08/2024 Lab Requisition [facility] - DermPath Lab [address] [facility], [facility] [place] [address] Arlette Marti MD [address] [facility] [address] [place] [address] Social History Tobacco Use Types Packs/Day Years [...] AM CDT) Case Report Dermatopathology Report Case: [id number] Authorizing Provider: Arlette Marti MD Collected: 01/08/2024 08:32 AM Ordering Location: [facility] Physician [facility] - Received: 01/09/2024 12:45 PM DermPath Lab Pathologist: Mitzi Maurer MD Specimen: Skin, right posterior neck 5:53 PM CDT DERMATOPATHOLOGY LABORATORY Final Diagnosis Specimen A. SKIN, right posterior neck: COMPOUND MELANOCYTIC PROLIFERATION, IRRITATED AND INFLAMED; NOT PRESENT AT SAMPLED MARGIN (D48.5) (see microscopic description and comment) 4 5:53 PM CDT DERMATOPATHOLOGY LABORATORY at 1753 CDT Clinical History R/o Melanoma, nevus, SK, Irregular Border, Brown Macule 4 5:[address] [facility] DERMATOPATHOLOGY LABORATORY Gross Description Specimen A: Received is one formalin filled container labeled with the patient's name and designated right posterior neck. The specimen consists of a shave biopsy measuring 7x6x1 mm. Jar 0. 4 5:[address] [facility] DERMATOPATHOLOGY LABORATORY Microscopic Description Specimen A. SKIN, [...] Dr. Michaela Maurer who agrees. 5:[address] [facility] DERMATOPATHOLOGY LABORATORY Disclaimer An external and internal positive and negative controls are appropriate for the histochemical, immunohistochemical and immunofluorescence stain(s) in this case (if any), except where stated explicitly. The performance characteristics of the stain(s) cited in this report were developed and its performance characteristic determined by the Dermatopathology Laboratory at [facility], directed by Dr. Phu Ramirez. These tests need not be, and therefore are not, approved by the [place] Food and Drug Administration. The tests are used for clinical purposes. Billing Codes Specimen Charges Stain Charges 95685 1 67015 79746 99834 1 1 1 4 5:53 PM CDT DERMATOPATHOLOGY LABORATORY Embedded Images 4 5:53 PM CDT DERMATOPATHOLOGY LABORATORY Pathology/Cytolo gy TISSUE SPECIMEN FROM SKIN / Unknown 01/08/2024 8:32 AM CDT 01/09/2024 12:45 PM CDT Arlette Marti MD LAB - PATHOLOGY/CYTOLOGY ORD ERABLES Final Result DERMATOPATHOLOGY LABORATORY [facility] - Department of Dermatology [facility] Specialized Medicine [facility] [facility], 3rd Floor [address] [phone] documented in this encounter Visit Diagnoses Not on filedocumented in this encounter Care Teams Margarine Churn Operator Relationship Specialty Start Date End Date Jordi Friedman MD [address] [facility] [address] [place] [address] PCP - General 01/02/22 documented as of this encounter
--- OUTSIDE RECORDS SUMMARY | 2025-05-10 07:40 | XMS_ITS | Encounter Summary ---
Author Organization [facility] Address [address] [facility] [place] [address] Care Team Providers Care Front Office Spec Name Role Phone Jordi Friedman MD Primary Care Provider [phone] Encounter Details Date Type Department Care Team (Late st Contact Info) Description 01/22/2024 Lab Requisition [facility] - DermPath Lab [address] [facility], [facility] [place] [address] Arlette Marti MD [address] [facility] 3 [place] [address] Social History Tobacco Use Types Packs/Day Years [...] AM CDT) Case Report Dermatopathology Report Case: [id number] Authorizing Provider: Arlette Marti MD Collected: 01/22/2024 09:39 AM Ordering Location: [facility] Physician [facility] - Received: 01/23/2024 08:20 AM DermPath [...] neck.The specimen consists of an ellipse measuring 94w61u6 mm and is oriented with the suture/notch [...] MART-1/MelanA immunostain or routine sections. 5:18 PM [facility] DERMATOPATHOLOGY LABORATORY Disclaimer An external and internal positive and negative controls are appropriate for the histochemical, immunohistochemical and immunofluorescence stain(s) in this case (if any), except where stated explicitly. The performance characteristics of the stain(s) cited in this report were developed and its performance characteristic determined by the Dermatopathology Laboratory at [facility], directed by Dr. Phu Ramirez. These tests need not be, and therefore are not, approved by the [place] Food and Drug Administration. The tests are used for clinical purposes. Billing Codes Specimen Charges Stain Charges 05187 1 44627 1 4 5:18 PM CDT DERMATOPATHOLOGY LABORATORY Embedded Images 5:18 PM T DERMATOPATHOLOGY LABORATORY Pathology/Cytolo gy TISSUE SPECIMEN FROM SKIN / Unknown 01/22/2024 9:39 AM CDT 01/23/2024 8:20 AM CDT us Arlette Marti MD LAB - PATHOLOGY/CYTOLOGY ORD ERABLES Final Result DERMATOPATHOLOGY LABORATORY [facility] - Department of Dermatology [facility] Specialized Medicine [facility] [facility], 3rd Floor [place], [place] [address] [place] [address] documented in this encounter Visit Diagnoses Not on filedocumented in this encounter Care Teams Front Office Spec Relationship Specialty Start Date End Date Jordi Friedman MD [address] [facility] [address] [place] [address] PCP - General 01/02/22 documented as of this encounter
--- OUTSIDE RECORDS SUMMARY | 2025-05-10 07:41 | XMS_ITS | Clinical Summary ---
Author Organization [facility] Address [address] [place] [address] Care Team Providers Care Spot Worker Name Role Phone Unavailable Primary Care Provider Unavailabl e Social History Tobacco Use Types Packs/Day Years Used Date Smoking Tobacco: Never Assessed Sex and Gender Information Value Date Recorded Sex Assigned at Not on file Legal Sex Male 10:59 AM CDT Gender Identity Not on file Sexual Orientation Not on file Plan of Treatment Upcoming Encounters Date Type Department Care Team (Late st Contact Info) Description 08/23/2025 1:30 PM SAFETY INVESTIGATOR/CAUSE ANALYST Office Visit [facility] Oncology and Hematology - [place] [address] [facility] [address] [place] [address] Cesar Nieto MD [address] [facility] [address] [place] [address] Health Maintenance Due Date Last Done Comments DTAP/TDAP/TD VACCINES (1 - Tdap) 1971 COLORECTAL SCREENING 1997 Colorectal Cancer Screening 1997 FIT-DNA Q 3 years 1997 FIT/FOBT Q 1 year 1997 Flex Sig/CT Colonography Q 5 years 1997 PNEUMOCOCCAL VACCINE 50+ YEARS (1 of 1 - PCV) 09/23/20 02 ZOSTER VACCINE (1 of 2) 2002 INFLUENZA VACCINE (#1) 2025 RSV VACCINE (60+ or ) (1 - 1-dose 75+ series) 2027 Insurance MEDICARE PART A AND B [facility] SUPP
--- OUTSIDE RECORDS SUMMARY | 2025-05-10 07:41 | XMS_ITS | Encounter Summary ---
Author Organization [facility] Address [address] [place] [address] Phone Care Team Providers Care Timber Harvester Operator Name Role Phone Tacho Manning MD Primary Care Provide r Encounter Details Date Type Department Care Team (Late st Contact Info) Description 04/18/2025 Results Follow-Up [facility] Cardiology [address] [facility] Advanced Medicine 8th [place] [address] [place] [address] Werner Cruz MD PhD [address] [facility] [address] [place] [address] ECG 12 lead Social History Tobacco Use Types Packs/Day Years Used Date Smoking Tobacco: Never Sex and Gender Information Value Date Recorded Sex Assigned at Not on file 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
--- OUTSIDE RECORDS SUMMARY | 2025-05-10 07:41 | XMS_ITS | Clinical Summary ---
Author Organization [facility] Address [address] [place] [address] Care Team Providers Care Alarm Technician Name Role Phone Jordi Friedman MD Primary Care Provider [phone] Source Comments [facility] [employer],non-owned Affiliates and Associated Physician Practices is amultiple site organization consisting of ambulatory clinics and hospital sitesin [place], [place], [place] and [place]. This disclosure is being madepursuant to the Care Everywhere program and may not contain all information available regarding this patient. Last updated 18.[facility] [employer] Social History Tobacco Use Types Packs/Day Years [...] to complete this topic Insurance MEDICARE [facility] MEDICARE ANTH Care Teams Alarm Technician Relationship Specialty Start Date End Date Jordi Friedman MD [address] [address] PCP - General 01/02/22
--- OUTSIDE RECORDS SUMMARY | 2025-05-10 07:41 | XMS_ITS | Clinical Summary ---
Author Organization [facility] Address [address] [place] [address] Care Team Providers Care Patient Care Technician Name Role Phone None, Provider MD Primary [...] patient's age to complete this topic Insurance [facility] Care Teams Patient Care Technician Relationship Specialty Start Date End Date None, Provider, MD PCP - General UNKNOWN PHYSICIAN SPECIALTY 01/03/23
--- OUTSIDE RECORDS SUMMARY | 2025-05-10 07:41 | XMS_ITS | Referral Summary ---
Author Organization [facility] [address] Address [address] [place] [address] Care Team Providers Care Land Surveying Manager Name Role Phone Tacho Manning MD Primary Care Provide r Encounters Date Type Department Care Team Description 05/09/2025 3:15 PM CDT - 05/09/2025 11:59 PM CDT Hospital Encounter [facility] [address] [place] [address] Arrived Discharge Disposition: Discharge to home or self care 05/09/2025 Telephone [facility] Cardiology [address] [place] [address] for Advanced Medicine 8th [place] [address] [place] [address] Werner Cruz MD PhD 05/02/2025 Telephone [facility] Cardiology [address] [place] [address] Medical Office Building [address] [place] [phone] Werner Cruz MD PhD 05/02/2025 Telephone [facility] Cardiology [address] [place] [address] for Advanced Medicine 8th [place] [address] [place] [address] Sebas Cruz MD 05/02/2025 2:00 PM CDT Office Visit [facility] Cardiology [address] [place] [address] Office [address] [place] [phone] Werner Cruz MD PhD SOB (shortness of breath) (Primary Dx); Dizziness 04/27/2025 1:24 PM CDT - 04/27/2025 11:59 PM CDT Hospital Encounter [facility]) [address] [place] [address] Discharge Disposition: Discharge to home or self care 04/25/2025 Telephone [facility] Cardiology Critical access hospital[address] [place] [address] [place] [phone] Werner Cruz MD PhD Test Results 04/19/2025 Orders Only [facility] Scanning, Provider 04/19/2025 Telephone [facility] Cardiology [address] [place] [address] [place] [address] [place] [address] Werner Cruz MD PhD Medical Records Request 04/18/2025 Telephone [facility] Cardiology [address] [place] [address] Medical Office Building [address] [place] [phone] Werner Cruz MD PhD Medical Records Request 04/18/2025 Results Follow-Up [facility] Cardiology [address] [place] [phone] Werner Cruz MD PhD ECG 12 lead 04/18/2025 2:30 PM CDT Office Visit [facility] Cardiology [address] [place] [address] Medical Office Building 3 [address] [place] [address] Werner Cruz MD PhD Shortness of breath (Primary Dx) 04/13/2025 Documentation [facility] Scheduling [address] [place] [address] Kieran Eddy IM DOC 04/11/2025 Telephone [facility] Cardiology [address] [place] [address] [place] [address] [place] [address] Javier Tomlinson from Last 3 Months Allergies Active Allergy Reactions Criticality Noted Date Comments Oxytetracycline Unknown 05/02/2025 Terramycin Medications aspirin (ASPIR-81 ORAL) Acti ve busPIRone (BUSPAR) 5 mg tablet Take 1 tablet (5 mg total) by mouth 2 (two) times a day 5 Active cetirizine 10 mg capsule Take 1 tablet by mouth daily 5 Active clopidogreL (PLAVIX) 75 mg tablet Take 1 tablet (75 mg total) by mouth daily 5 Active escitalopram (LEXAPRO) 5 mg tablet 5 Active ferrous sulfate 325 mg (65 mg of elemental iron) tablet take 1 tablet by oral route every other day 5 Active finasteride (PROSCAR) 5 mg tablet Take 1 tablet (5 mg total) by mouth daily 9 Active losartan (COZAAR) 50 mg tablet Take 1 tablet every day by oral route for 90 days. 9 Active rosuvastatin (CRESTOR) 20 mg tablet Take 1 tablet (20 mg total) by mouth daily 5 Active sildenafiL (VIAGRA) 50 mg tablet TAKE INSTRUCTED BY YOUR PRESCRIBER. 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 Gender Identity Male 04/18/2025 6:03 PM CDT Sexual Orientation Not on file Last Filed Vital Signs Vital Sign Reading Time Taken Comments Blood Pressure 136/88 05/02/2025 1:49 PM CDT Pulse 81 05/02/2025 1:49 PM CDT Temperature - - Respiratory Rate - - Oxygen Saturation 96% 05/02/2025 1:49 PM CDT Inhaled Oxygen Concentration - - Weight 103.8 kg (228 lb 12.8 oz) 05/02/2025 1:49 PM CDT Height 177.8 cm (5' 10) 05/02/2025 1:49 PM CDT Body Mass Index 32.83 05/02/2025 1:49 PM CDT Plan of Treatment Not on file Procedures Procedure Name Priority Date/Time Associated Diagnosis Comments IR OUTSIDE REFERENCE Routine 05/09/2025 3:15 PM CDT US TRANSFER OF OUTSIDE FILMS Routine 04/27/2025 1:24 PM CDT CARDIOLOGY DOCUMENT SCAN 04/19/2025 ECG 12-LEAD Routine 04/18/2025 2:23 PM CDT Shortness of breath from Last 3 Months Results * IR Outside Reference (05/09/2025 3:15 PM CDT) Impressions RAD_PACS_[facility] - 05/09/2025 3:15 PM CDT These images are for Reference purposes only and have not been reviewed by [facility] Radiology. There will be no report generated by a [facility] Radiologist. Narrative RAD_PACS_[facility] - 05/09/2025 3:15 PM CDT EXAMINATION: Images For Reference Purposes Only Werner Cruz MD PhD IMG IR PROCEDURES Final Result Performing Organization Address City/[facility]/ZIP Co de Phone Number [facility] * US Outside Reference (04/27/2025 1:24 PM CDT) Impressions RAD_PACReg_BJ - 04/27/2025 1:24 PM CDT These images are for Reference purposes only and have not been reviewed by [facility] Radiology. There will be no report generated by a [facility] Radiologist. Narrative RAD_PACS_[facility] - 04/27/2025 1:24 PM CDT EXAMINATION: Images For Reference Purposes Only us Werner Cruz MD PhD IMG US PROCEDURES Final Result [facility] * Cardiology Document Scan (04/19/2025) Anatomical Region Laterality Modality Other us Provider Scanning CV CARDIAC SERVICES PROCEDURES Edited Result - Final * ECG 12 lead (04/18/2025 2:23 PM CDT) Werner Cruz MD PhD ECG ORDERABLES Edited Result - Final from Last 3 Months Insurance MEDICARE [facility] CHOICE [facility]US [facility] HMO/PPO Address: [address] [address] [place] [address] MEDICARE [facility] MEDICARE SUPPLEMENT [facility] MEDICARE SUPPLEMENT Care Teams Land Surveying Manager Relationship Specialty Start Date End Date Tacho Manning MD [address] [address] PCP - General Internal Medicine 10/06/17
--- OUTSIDE RECORDS SUMMARY | 2025-05-10 07:41 | XMS_ITS | Encounter Summary ---
Author Organization [facility] Healthcare Address [address] [place] [address] Care Team Providers Care Reliability Manager Name Role Phone Tacho Manning MD Primary Care Provide r Encounter Details Date Type Department Care Team (Latest Contact Info) Description 05/09/2025 3:15 PM CDT - 05/09/2025 11:59 PM CDT Hospital Encounter [facility]) [address] [place] [address] Arrived Discharge Disposition: Discharge to home or self care Social History Tobacco Use Types Packs/Day Years Used Date Smoking Tobacco: Never Sex and Gender Information Value Date Recorded Sex Assigned at Not on file Legal Sex Male 3:14 AM VERIFICATION MANAGER Gender Identity Male 04/18/2025 6:03 PM CDT Sexual Orientation Not on file documented as of this encounter Medications at Time of Discharge aspirin (ASPIR-81 ORAL) busPIRone (BUSPAR) 5 mg tablet Take 1 tablet (5 mg total) by mouth 2 (two) times a day 03/30/2025 cetirizine 10 mg capsule Take 1 tablet by mouth daily 03/28/2025 clopidogreL (PLAVIX) 75 mg tablet Take 1 tablet (75 mg total) by mouth daily 03/28/2025 escitalopram (LEXAPRO) 5 mg tablet 03/30/2025 ferrous sulfate 325 mg (65 mg of elemental iron) tablet take 1 tablet by oral route every other day 03/28/2025 finasteride (PROSCAR) 5 mg tablet Take 1 tablet (5 mg total) by mouth daily 08/19/2019 losartan (COZAAR) 50 mg tablet Take 1 tablet every day by oral route for 90 days. 08/19/2019 Amita ybarra,min-FA-her bal comp #223 400 mcg tablet Take by mouth rosuvastatin (CRESTOR) 20 mg tablet Take 1 tablet (20 mg total) by mouth daily 03/28/2025 sildenafiL (VIAGRA) 50 mg tablet TAKE INSTRUCTED BY YOUR PRESCRIBER. Take one qd prn tadalafiL (CIALIS) 20 mg tablet Take 1 tablet (20 mg total) by mouth daily as needed 03/28/2025 tamsulosin (FLOMAX) 0.4 mg extended release capsule Take 1 capsule (0.4 mg total) by mouth daily 08/19/2019 documented as of this encounter Discharge Disposition Disposition Code Departure Means Destination Discharge to home or self care documented in this encounter Plan of Treatment Not on file documented as of this encounter Procedures Procedure Name Priority Date/Time Associated Diagnosis Comments IR OUTSIDE REFERENCE Routine 05/09/2025 3:15 PM CDT documented in this encounter Results * IR Outside Reference (05/09/2025 3:15 PM CDT) Impressions RAD_PACS_[facility] - 05/09/2025 3:15 PM CDT These images are for Reference purposes only and have not been reviewed by [facility] Radiology. There will be no report generated by a [facility] Radiologist. Narrative RAD_PACS_[facility]J - 05/09/2025 3:15 PM CDT EXAMINATION: Images For Reference Purposes Only Werner Cruz MD PhD IMG IR PROCEDURES Final Result [facility] documented in this encounter Visit Diagnoses Not on filedocumented in this encounter Care Teams Reliability Manager Relationship Specialty Start Date End Date Tacho Manning MD [address] [facility] [address] [place] [address] PCP - General Internal Medicine 10/06/17 documented as of this encounter
--- OUTSIDE RECORDS SUMMARY | 2025-05-10 07:41 | XMS_ITS | Encounter Summary ---
Author Organization [facility] Address [address] [place] [address] Phone Care Team Providers Care Well Cleaner Name Role Phone Tacho Manning MD Primary Care Provide r Encounter Details Date Type Department Care Team (Late st Contact Info) Description 05/02/2025 Telephone [facility] Cardiology [address] [facility] Advanced Medicine 8th [place] [address] [place] [address] Sebas Cruz MD [address] [place] [address] [place] [id number] Social History Tobacco Use Types Packs/Day Years Used Date Smoking Tobacco: Never Sex and Gender Information Value Date Recorded Sex Assigned at Not on file 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 Pt is wanting to make sure records have been received from this. Please call if questions. Monitor was turned in at [place], echo was also done at [place]. Pt has an apt today with Dr. Cruz. documented in this encounter Plan of Treatment Not on file documented as of this encounter Visit Diagnoses Not on filedocumented in this encounter Care Teams Well Cleaner Relationship Specialty Start Date End Date Tacho Manning MD [address] [address] PCP - General Internal Medicine 10/06/17 documented as of this encounter
--- OUTSIDE RECORDS SUMMARY | 2025-05-10 07:41 | XMS_ITS | Encounter Summary ---
Author Organization [facility] Address [address] [place] [address] Phone Care Team Providers Care Bankruptcy Legal Assistant Name Role Phone Tacho Manning MD Primary Care Provide r Encounter Details Date Type Department Care Team (Late st Contact Info) Description 05/09/2025 Telephone [facility] Cardiology [address] [facility] Advanced Medicine 8th [place] [address] [place] [address] Werner Cruz MD PhD [address] [place] [address] Social History Tobacco Use Types Packs/Day Years Used Date Smoking Tobacco: Never Sex and Gender Information Value Date Recorded Sex Assigned at Not on file 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 Cervantes does Dr. Cruz agree with Dr. Espinoza/Dr. Gleason that the pt should get a pacemaker. Pt states that the records were faxed over this morning. documented in this encounter Plan of Treatment Not on file documented as of this encounter Visit Diagnoses Not on filedocumented in this encounter Care Teams Bankruptcy Legal Assistant Relationship Specialty Start Date End Date Tacho Manning MD [address] [place] [id number] PCP - General Internal Medicine 10/06/17 documented as of this encounter
--- OUTSIDE RECORDS SUMMARY | 2025-05-10 07:41 | XMS_ITS | Continuity of Care Document ---
Author Organization [facility] Address [address] [place] [address] Phone Care Team Providers Care Rn Appeals Name Role Phone Rosibel CANTU, FACC, FSCAI, Avery Unavailable U navailable Medications Medication Instructions Dosage Effective Dates (start - stop) Status Comments CLOPIDOGREL 75MG TABLETS TAKE 1 TABLET BY MOUTH DAILY 75 MG - Active finasteride 5 mg tablet take 1 tablet by oral route every day 5 MG - Active All Day Allergy (cetirizine) 10 mg capsule take 1 tablet every day - Active tamsulosin 0.4 mg capsule take [...] 20 MG - Active Procedures Procedure Date Complex e/m visit add on OFFICE/OUTPATIENT VISIT, EST ELECTROCARDIOGRAM, COMPLETE TTE W/DOPPLER, COMPLETE REM MNTR PHYSIOL ANJEL DEV REM PHYSIOL MNTR 20 MIN MO REMOTE 30 DAY ECG TECH SUPP REMOTE 30 DAY ECG REV/REPORT OFFICE/OUTPATIENT VISIT, EST ELECTROCARDIOGRAM, COMPLETE Advance Directives Directive Yes / No Effective Date File Name No Information Encounters Encounter Description Practice Location Reason(s) For Visit Diagnoses Date Provider Providers Copied on Encounter OFFICE/OUTPA TIENT VISIT, EST [facility], [address] [place] [address], [id number] , tel: [phone] [facility] [place] feelings of SOB and fainting (chief complaint) HyperlipidemiaHype rtensionCoronary artery diseaseDizzinessAV block 5 Ramjose Varela. [address] [place] [address], [id number], . tel:[phone] Referring Provider: Anup Melvin, [address] [place] [address] [place] [address], [id number] . tel:[phone] [facility] , [address] [place] [address], [id number] , tel: [phone] [facility] [place] No Information Olga Hebert. [address] , [address] [place] [address], [id number], [place]. tel:[phone] [facility] , [address] [place] [address], [id number] , tel: [phone] [facility] [place] Dizziness and giddinessAthscl heart disease of [place] coronary artery w/o ang pctrsEssential (primary) hypertension 5 Olga Hebert. [address] , [address] [place] [address], [id number], [place]. tel:[phone] Referring Provider: Anup Melvin, [address] [place] [address] [place] [address], [id number] . tel:[phone] REM MNTR PHYSIOL ANJEL DEV [facility] , [address] [place] [address], [id number] , tel: [phone] [facility] [place] Essential (primary) hypertension 5 Olga Hebert. [address] [facility], [address] [place] [address], [id number], . tel:[phone] Referring Provider: Anup Melvin, [address] [facility] Suite [facility], [place], [address] . [phone] sulting Provider: Anup Melvin, [address] [facility] [address] [place] [address], [id number] . tel:[phone] [facility], [address] [place] [address], [id number] , tel: [phone] [facility] No Information Olga Hebert. [address] [facility], [address] [place] [address], [id number], [place]. tel:[phone] Referring Provider: Anup Melvin, [address] [facility] [address] [place] [address], [id number] . tel:[phone] OFFICE/OUTPA TIENT VISIT, [facility], [address] [place] [address], [id number] , tel: [phone] [facility] feelings of SOB and fainting (chief complaint) DizzinessCoronary artery diseaseHypertensio nHyperlipidemia 5 [place]. [address] [place] [address], [id number], . tel:[phone] Referring Provider: Lynn chong, [address] [facility] [address], [place], [address]. tel:[phone] Family History Family Member Type Diagnosis Age At Onset No Information Payers Payer name Insurance type Covered alliance party ID Nicki squiresdominic(s) [place] MED[place]ARE CI [id number] [facility] CI [id number] Social History Type Description Quantity Date Captured Comments Alcohol Use Details Unknown Caffeine Use Details Unknown Tobacco Use Status No Information Smoking Status No Information Sex Male Vital Signs Date / Time: Height Weight BMI Pulse Rate Blood Pressure Temperature Respiratory Rate Body Surface Area Head Circumference Head Circ. Percentile Wt./Jorje. Percentile BMI percentile Pulse Ox Inhaled Ox 8:37 AM 101.605 kg (224.00 lbs) 74 /min 154/100 mm[Hg] 97 % Chief Complaint And Reason For Visit From encounter dated '05/03/2025 08:25'. feelings of SOB and fainting (chief complaint) Reason For Referral Reason For Referral No Information Plan Of Treatment Date Type Action Status Appointment Jonah Burgess BOOKED Appointment Jonah Burgess BOOKED Future Order: Lab Order UA/M w/r flx Culture, Routine ([id number]), Ordered on: Ordered Future Order: Lab Order PT/INR ( [id number]), Ordered on: Ordered Future Order: Lab Order PTT ([id number]), Ordered on: Ordered Future Order: Lab Order CBC w/di ff ([id number]), Ordered on: Ordered Future Order: Lab Order CMP ([id number]), Ordered on: Ordered Future Order: Radiology Order LO OP IMPLANT ([id number]), Ordered on: Ordered Future Order: Radiology Order MC T Monitor 14-30 Days ([id number]), Ordered on: Ordered History Of Present Illness Encounter Date Complaint History Of Prese nt Illness feelings of SOB and fainting feelings of SOB and fainting Functional Status Date Functional Assessmen t No Information Instructions Date Instruction Additional Infor mation No Information Assessments Type Assessment Date assessment Hyperlipidemia assessment Hypertension assessment Coronary artery disease 025 assessment Dizziness assessment AV block Patient Care Teams Name Effective Dates (start - stop) Status Members No Information
--- OUTSIDE RECORDS SUMMARY | 2025-05-10 07:41 | XMS_ITS | Encounter Summary ---
Author Organization [facility] Address [address] [place] [address] Phone Care Team Providers Care Slide Fastener Chain Assembler Name Role Phone Tacho Manning MD Primary Care Provide r Encounter Details Date Type Department Care Team (Late st Contact Info) Description 05/02/2025 Telephone [facility] Cardiology [address] [facility] Medical Office Building [address] [place] [phone] Werner Cruz MD PhD [address] [facility] [address] [place] [address] Social History Tobacco Use Types Packs/Day Years Used Date Smoking Tobacco: Never Sex and Gender Information Value Date Recorded Sex Assigned at Not on file Legal Sex Male 3:14 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 * Telephone Encounter - Jessie Leon RN - 05/02/2025 3:02 PM CDT ----- Message from Nurse Echo James sent at 05/02/2025 2:20 PM CDT ----- Pt was seen in the office today again by Dr. Cruz. He had a 14 [address] monitor placed [address] Dr. Espinoza's office and returned it April 19. Please call and see if the report is now available ([facility] previously said it wasn't done there-they should have a report now). Thanks! documented in this encounter Plan of Treatment Not on file documented as of this encounter Visit Diagnoses Not on filedocumented in this encounter Care Teams Slide Fastener Chain Assembler Relationship Specialty Start Date End Date Tacho Manning MD [address] [place] [address] PCP - General Internal Medicine 10/06/17 documented as of this encounter
--- OUTSIDE RECORDS SUMMARY | 2025-05-10 07:41 | XMS_ITS | Clinical Summary ---
Author Organization [facility] [address] Address [address] [place] [address] Care Team Providers Care Science Job Titles Name Role Phone Tacho Manning MD Primary Care Provide r Allergies Active Allergy Reactions Criticality Noted Date [...] mg total) by mouth daily as needed Active tamsulosin (FLOMAX) 0.4 mg extended release capsule Take 1 capsule (0.4 mg total) by mouth daily 9 Active mv,Ca,min-FA-he rbal comp #223 400 mcg tablet Take by mouth A ctive Active Problems Problem Noted Date Diagnosed Date Arthralgia of shoulder 02/01/2013 Encounters Date Type Department Care Team Description 05/09/2025 3:15 PM CDT - 05/09/2025 11:59 PM CDT Hospital Encounter [facility] ([facility]) [address] [place] [address] Arrived Discharge Disposition: Discharge to home or self care 05/09/[address] [facility] [place] [address] [place] [address] Werner Cruz MD PhD 05/02/2025 2:00 PM CDT Office Visit [address] Office [address] [place] [address] Werner Cruz MD PhD SOB (shortness of breath) (Primary Dx); Dizziness 05/02/[address] [place] [address] Werner Cruz MD PhD 05/02/[address] Advanced [address] [place] [address] [place] [address] Sebas Cruz MD 04/27/2025 1:24 PM CDT - 04/27/2025 11:59 PM CDT Hospital Encounter [facility] ([facility]) [address] [place] [address] Discharge Disposition: Discharge to home or self care 04/25/[address] Advanced [address] [place] [address] [place] [address] Werner Cruz MD PhD Test Results 04/19/2025 Orders Only [facility] Scanning, Provider 04/19/[address] Advanced [facility] 8th [place] [address] [place] [address] Werner Cruz MD PhD Medical Records Request 04/18/2025 2:30 PM CDT Office Visit [facility] Office Building [address] [place] [address] Werner Cruz MD PhD Shortness of breath (Primary Dx) 04/18/[address] Office Building 3 [address] [place] [address] Werner Cruz MD PhD Medical Records Request 04/18/2025 Results Follow-Up [address] 8th [place] [address] [place] [address] Werner Cruz MD PhD ECG 12 lead 04/13/2025 Documentation [facility] Scheduling [address] [place] [address] Kieran Eddy [facility] DOC 04/11/[address] 8th [place] [address] [place] [address] Javier Tomlinson from Last 3 Months Social History Tobacco Use Types Packs/Day Years Used Date Smoking Tobacco: Never Tobacco Cessation:Counseling Given: Not Answered Sex and Gender Information Value Date Recorded Sex Assigned at Not on file 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 Gender Identity Male 04/18/2025 6:03 PM CDT Sexual Orientation Not on file Obstetrics History Last Filed Vital Signs Vital Sign Reading [...] 05/02/2025 1:49 PM CDT Plan of Treatment Health Maintenance Due Date Last Done Comments Colon Cancer Screening-Colonoscopy 1952 Depression Screening 1952 Fall Risk Assessment 1952 Hepatitis C Screening 1952 Hepatitis B Screening 1970 Well Visit 65+ 2017 Covid-19 Vaccine (9 - Mixed Product risk season) 2024 06/14/2024, 07/24/2023, 07/24/2023, Additional history exists Influenza Vaccine (#1) 2025 , 07/08/2023, 07/15/2022, Additional history exists DTaP/Tdap/Td Vaccine (2 - Td or Tdap) 09/21/2031 09/21/2021 Zoster Vaccine Completed 10/22/2018, 11/2017, 07/28/2013 Pneumococcal vaccine 65+ Completed 023, 07/22/2018, 08/14/2016, Additional history exists Procedures Procedure Name Priority Date/Time Associated Diagnosis [...] only and have not been reviewed by [facility]. There will be no report generated by a [facility] Radiologist. Narrative RAD_PACS[facility] - 05/09/2025 3:15 PM CDT EXAMINATION: Images For Reference Purposes Only us Werner Cruz MD PhD IMG IR PROCEDURES Final Result [facility] * US Outside Reference (04/27/2025 1:24 PM CDT) Impressions [facility] - 04/27/2025 1:24 PM CDT These images are for Reference purposes only and have not been reviewed by [facility]. There will be no report generated by a [facility] Radiologist. Narrative [facility] - 04/27/2025 1:24 PM CDT EXAMINATION: Images For Reference Purposes Only us Werner Cruz MD PhD IMG US PROCEDURES Final Result [facility] * Cardiology Document Scan (04/19/2025) Anatomical Region Laterality Modality Other us Provider Scanning CV CARDIAC SERVICES PROCEDURES Edited Result - Final * ECG 12 lead (04/18/2025 2:23 PM CDT) us Werner Cruz MD PhD ECG ORDERABLES Edited Result - Final from Last 3 Months Insurance MEDICARE [facility]US [facility] H[facility]PPO Address: [facility] [address] [place] [address] MEDICARE [facility] MEDICARE SUPPLEMENT MEDICARE [facility] MEDICARE SUPPLEMENT Care Teams Science Job Titles Relationship Specialty Start Date End Date Tacho Manning MD [address] [address] PCP - General Internal Medicine 10/06/17
[2025-05-10 08:52] LABS: Hematocrit 48.5 % (42.0-52.0); Hemoglobin 16.8 g/dL (14.0-18.0); Immature Granulocyte Percent A 0.3 % (0-0.5); Lymphocytes Absolute Auto 1.02 K/mm3 (0.9-3.2); Mean Corpuscular HGB Conc 34.6 g/dl (32-36); Mean Corpuscular Hemoglobin 30.7 pg (26-34); Mean Corpuscular Volume 88.5 fl (80-100); Nucleated Red Blood Cells Absolute Auto 0.000 K/mm3 (0.0-0.012); Nucleated Red Blood Cells Perc 0.0 % (0.0-0.2); Platelet Count Result 222 k/mm3 (150-375); Red Blood Count 5.48 M/mm3 (4.6-6.20); White Blood Count 6.5 K/mm3 (4.5-10.0)
[2025-05-10 09:04] LABS: INR 1.0; Prothrombin Time 13.0 Seconds (11.1-14.7)
[2025-05-10 09:05] LABS: Partial Thromboplastin Time 27.6 Seconds (22.3-36.8)
[2025-05-10 09:22] LABS: Add Urine Microscopic? YES; Appearance Urine Clear (Clear); Glucose Urine UA Negative (Negative); Leukocyte Esterase Ur Negative LEU/UL (Negative); Nitrate Urine Negative (Negative); Specific Grav Ur 1.016 (1.001-1.035)
[2025-05-10 09:36] LABS: Alanine Aminotransferase 58 U/L (6-50); Albumin Level 4.3 g/dL (3.5-5.1); Alkaline Phosphatase 78 U/L (38-126); Anion Gap 6 mmol/L (4-12); Aspartate Amino Transferase 50 U/L (17-59); Bilirubin,Total 1.0 mg/dL (0.2-1.3); Blood Urea Nitrogen 16 mg/dL (9-20); Calcium 9.3 mg/dL (8.4-10.2); Carbon Dioxide 27 mmol/L (22-30); Chloride 104 mmol/L (98-107); Estimated Glomerular Filt Rate 60; Glucose 96 mg/dL (65-110); Potassium 4.3 mmol/L (3.4-5.0); Sodium 137 mmol/L (137-145); Total Protein 7.0 g/dL (6.3-8.2)
== END 2025-05-10 07:37 | disposition home or self-care (01) ==
PROVIDERS: PCP Internal Medicine; Visit Provider Internal Medicine Cardiovascular Disease
DX: E78.2 Mixed hyperlipidemia (principal); I10 Essential (primary) hypertension; I25.10 Atherosclerotic heart disease of native coronary artery without angina pectoris; I44.30 Unspecified atrioventricular block; R79.1 Abnormal coagulation profile; N39.0 Urinary tract infection, site not specified
CPT/HCPCS: 36415; 80053; 81001; 85025; 85610; 85730

== ENCOUNTER 2025-05-17 14:23 | Outpatient (CLI) | payer MEDICARE, SELFPAY ==
--- NOTE | ~2025-05-17 | XR_ITS ---
XR chest 2V 05/17/2025 14:41 Indication: Cardiac pacemaker placement Procedure: 2 view chest Comparison: 05/05/2018 Findings: Heart size normal. Pacemaker leads in expected position in the right atrium and right ventr icle. No focal air space disease, pulmonary edema, pleural effusion or suspected pneumothorax. Impression: 1: No acute cardiopulmonary disease. Reviewed, dictated and finalized at location A. Impression: 1: No acute cardiopulmonary disease.
--- OUTSIDE RECORDS SUMMARY | 2025-05-17 14:56 | XMS_ITS | Clinical Summary ---
Author Organization [facility] Address [address] [place] [address] Care Team Providers Care Green Ware Caster Name Role Phone Jordi Friedman MD Primary Care Provider [phone] Source Comments [facility] [employer],non-owned Affiliates and Associated Physician Practices is amultiple site organization consisting of ambulatory clinics and hospital sitesin [place], [place], [place] and [place]. This disclosure is being madepursuant to the Care Everywhere program and may not contain all information available regarding this patient. Last updated 18.[facility] [employer] Social History Tobacco Use Types Packs/Day Years [...] age to complete this topic Insurance MEDICARE [facility] MEDICARE ANTH Care Teams Green Ware Caster Relationship Specialty Start Date End Date Jordi Friedman MD [address] [address] PCP - General 01/02/22
--- OUTSIDE RECORDS SUMMARY | 2025-05-17 14:56 | XMS_ITS | Clinical Summary ---
Author Organization [facility] Address [address] [place] [address] Care Team Providers Care Push Connector Assembler Name Role Phone None, Provider MD Primary [...] patient's age to complete this topic Insurance [facility] Care Teams Push Connector Assembler Relationship Specialty Start Date End Date None, Provider, MD PCP - General UNKNOWN PHYSICIAN SPECIALTY 01/03/23
--- OUTSIDE RECORDS SUMMARY | 2025-05-17 14:56 | XMS_ITS | Clinical Summary ---
Author Organization [facility] Address [address] [facility] [place] [address] Care Team Providers Care Ingot Supervisor Name Role Phone Unavailable Primary Care Provider [...] st Contact Info) Description 08/23/2025 1:30 PM SIEBEL DEVELOPER Office Visit [facility] Oncology and Hematology - [place] [address] [facility] [address] [place] [address] Cesar Nieto MD [address] [facility] [address] [place] [address] Health Maintenance Due Date Last [...] 2027 Insurance MEDICARE PART A AND B [facility] SUPP
--- OUTSIDE RECORDS SUMMARY | 2025-05-17 14:56 | XMS_ITS | Encounter Summary ---
Author Organization [facility] Address [address] [place] [address] Care Team Providers Care Machine Joiner Cementer Name Role Phone Jordi Friedman MD Primary Care Provider [phone] Encounter Details Date Type Department Care Team (Late st Contact Info) Description 01/08/2024 Lab Requisition [facility] - DermPath Lab [address] [facility], [facility] [place] [address] Arlette Marti MD [address] [facility] 3 [place] [address] Social History Tobacco Use Types Packs/Day Years [...] AM CDT) Case Report Dermatopathology Report Case: [id number] Authorizing Provider: Arlette Marti MD Collected: 01/08/2024 08:32 AM Ordering Location: [facility] Physician [facility] - Received: 01/09/2024 12:45 PM DermPath [...] characteristic determined by the Dermatopathology Laboratory at [facility], directed by Dr. Phu Ramirez. These tests need not be, and therefore are not, approved by the [place] Food and Drug Administration. The tests are used for clinical purposes. Billing Codes Specimen Charges Stain Charges 93951 1 72823 09343 38315 1 1 1 4 5:53 PM CDT DERMATOPATHOLOGY LABORATORY Embedded Images 4 5:53 PM CDT DERMATOPATHOLOGY LABORATORY Pathology/Cytolo gy TISSUE SPECIMEN FROM SKIN / Unknown 01/08/2024 8:32 AM CDT 01/09/2024 12:45 PM CDT Arlette Marti MD LAB - PATHOLOGY/CYTOLOGY ORD ERABLES Final Result DERMATOPATHOLOGY LABORATORY [facility] - Department of Dermatology [facility] Specialized Medicine [facility] [facility], 3rd Floor [address] [phone] documented in this encounter Visit Diagnoses Not on filedocumented in this encounter Care Teams Machine Joiner Cementer Relationship Specialty Start Date End Date Jordi Friedman MD [address] [facility] [address] [place] [address] PCP - General 01/02/22 documented as of this encounter
--- OUTSIDE RECORDS SUMMARY | 2025-05-17 14:56 | XMS_ITS | Encounter Summary ---
Author Organization [facility] Address [address] [place] [address] Phone Care Team Providers Care Union Organizer Name Role Phone Tacho Manning MD Primary Care Provide r Encounter Details Date Type Department Care Team (Late st Contact Info) Description 04/18/2025 Results Follow-Up [facility] [address] [facility] Advanced Medicine 8th [place] [address] [place] [address] Werner Cruz MD PhD [address] [facility] [address] [place] [address] ECG 12 lead Social History Tobacco Use Types Packs/Day Years Used Date Smoking Tobacco: Never Sex and Gender Information Value Date Recorded Sex Assigned at Not on file Legal 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
--- OUTSIDE RECORDS SUMMARY | 2025-05-17 14:56 | XMS_ITS | Encounter Summary ---
Author Organization [facility] Address [address] [facility] [place] [address] Care Team Providers Care Environmental Engineering Manager Name Role Phone Jordi Friedman MD Primary Care Provider [phone] Encounter Details Date Type Department Care Team (Late st Contact Info) Description 01/22/2024 Lab Requisition [facility] - DermPath Lab [address] [facility], [facility] [place] [address] Arlette Marti MD [address] [facility] 3 [place] [address] Social History Tobacco Use Types Packs/Day Years [...] AM CDT) Case Report Dermatopathology Report Case: [id number] Authorizing Provider: Arlette Marti MD Collected: 01/22/2024 09:39 AM Ordering Location: [facility] Physician [facility] - Received: 01/23/2024 08:20 AM DermPath Lab [...] neck.The specimen consists of an ellipse measuring 93s06m1 mm and is oriented with the suture/notch [...] MART-1/MelanA immunostain or routine sections. 5:18 PM [facility] DERMATOPATHOLOGY LABORATORY Disclaimer An external and internal positive and negative controls are appropriate for the histochemical, immunohistochemical and immunofluorescence stain(s) in this case (if any), except where stated explicitly. The performance characteristics of the stain(s) cited in this report were developed and its performance characteristic determined by the Dermatopathology Laboratory at [facility], directed by Dr. Phu Ramirez. These tests need not be, and therefore are not, approved by the [place] Food and Drug Administration. The tests are used for clinical purposes. Billing Codes Specimen Charges Stain Charges 17805 1 88091 1 4 5:18 PM CDT DERMATOPATHOLOGY LABORATORY Embedded Images 5:18 PM T DERMATOPATHOLOGY LABORATORY Pathology/Cytolo gy TISSUE SPECIMEN FROM SKIN / Unknown 01/22/2024 9:39 AM CDT 01/23/2024 8:20 AM CDT us Arlette Marti MD LAB - PATHOLOGY/CYTOLOGY ORD ERABLES Final Result DERMATOPATHOLOGY LABORATORY [facility] - Department of Dermatology [facility] Specialized Medicine [facility] [facility], 3rd Floor [place], [place] [address] [place] [address] documented in this encounter Visit Diagnoses Not on filedocumented in this encounter Care Teams Environmental Engineering Manager Relationship Specialty Start Date End Date Jordi Friedman MD [address] [facility] [address] [place] [address] PCP - General 01/02/22 documented as of this encounter
--- OUTSIDE RECORDS SUMMARY | 2025-05-17 14:56 | XMS_ITS | Clinical Summary ---
Author Organization [facility] [address] Address [address] [place] [address] Care Team Providers Care Damage Prevention Coordinator Name Role Phone Tacho Manning MD Primary [...] - 05/09/2025 11:59 PM CDT Hospital Encounter [facility] ([facility]) [address] [place] [address] Discharge Disposition: Discharge to home or self care 05/09/[address] for [facility] Medicine [facility] [place] [address] [place] [address] Werner Cruz MD PhD PPM? 05/02/2025 2:00 PM CDT Office Visit [address] Office Building [address] [place] [address] Werner Cruz MD PhD SOB (shortness of breath) (Primary Dx); Dizziness 05/02/[address] [place] [address] Werner Cruz MD PhD 05/02/[address] for Advanced [address] [place] [address] [place] [address] Sebas Cruz MD 04/27/2025 1:24 PM CDT - 04/27/2025 11:59 PM CDT Hospital Encounter [facility] ([facility]) [address] [place] [address] Discharge Disposition: Discharge to home or self care 04/25/[address] Advanced Medicine [facility] [place] [address] [place] [address] Werner Cruz MD PhD Test Results 04/19/2025 Orders Only [facility] Scanning, Provider 04/19/[address] Advanced Medicine 8th [place] [address] [place] [address] Werner Cruz MD PhD Medical Records Request 04/18/2025 2:30 PM CDT Office Visit [place] [address] [facility] Office Building [address] [place] [address] Werner Cruz MD PhD Shortness of breath (Primary Dx) 04/18/[address] Office Building [address] [place] [address] Werner Cruz MD PhD Medical Records Request 04/18/2025 Results Follow-Up [address] 8th [place] [address] [place] [address] Werner Cruz MD PhD ECG 12 lead 04/13/2025 Documentation [facility] Scheduling [address] [place] [address] Kieran Eddy [facility] DOC 04/11/[address] 8th [place] [address] [place] [address] Javier Tomlinson from Last 3 Months Social History Tobacco Use Types Packs/Day Years Used Date Smoking Tobacco: Never Tobacco Cessation:Counseling Given: Not Answered Sex and Gender Information Value Date Recorded Sex Assigned at Not on file Legal Sex Male 3:14 AM OPAL MINER Gender Identity Male 04/18/2025 6:03 PM CDT [...] only and have not been reviewed by [facility] Radiology. There will be no report generated by a [facility] Radiologist. Narrative RAD_PACS_[facility] - 05/09/2025 3:15 PM CDT EXAMINATION: Images For Reference Purposes Only us Werner Cruz MD PhD IMG IR PROCEDURES Final Result [facility] * US Outside Reference (04/27/2025 1:24 PM CDT) Impressions [facility] - 04/27/2025 1:24 PM CDT These images are for Reference purposes only and have not been reviewed by [facility] Radiology. There will be no report generated by a [facility] Radiologist. Narrative [facility] - 04/27/2025 1:24 PM [...] Final from Last 3 Months Insurance MEDICARE [facility] CHOICE PLUS MEDICARE [facility] MEDICARE SUPPLEMENT MEDICARE [facility] MEDICARE SUPPLEMENT Care Teams Damage Prevention Coordinator Relationship Specialty Start Date End Date Tacho Manning MD [address] [address] PCP - General Internal Medicine 10/06/17
--- OUTSIDE RECORDS SUMMARY | 2025-05-17 14:56 | XMS_ITS | Encounter Summary ---
Author Organization [facility] Address [address] [place] [address] Phone Care Team Providers Care Master [place] Name Role Phone Tacho Manning MD Primary Care Provide r Encounter Details Date Type Department Care Team (Late st Contact Info) Description 05/02/2025 Telephone [facility] Cardiology [address] [facility] Advanced Medicine 8th [place] [address] [place] [address] Sebas Cruz MD [address] [place] [address] [place] [phone] Social History Tobacco Use Types Packs/Day Years Used Date Smoking Tobacco: Never Sex and Gender Information Value Date Recorded Sex Assigned at Not on file Legal Sex Male 3:14 AM ACID SPLICER Gender Identity Male 04/18/2025 6:03 PM CDT Sexual Orientation Not on file documented as of this encounter Miscellaneous Notes * Telephone Encounter - Lorene Burciaga - 05/02/2025 8:22 AM CDT Anthony Pt states he had a monitor and Echo done thru [facility]. Pt is wanting to make sure records have been received from this. Please call if questions. Monitor was turned in at [facility], echo was also done at [facility]. Pt has an apt today with Dr. Cruz. documented in this encounter Plan of Treatment Not on file documented as of this encounter Visit Diagnoses Not on filedocumented in this encounter Care Teams Master [place] Relationship Specialty Start Date End Date Tacho Manning MD [address] [address] PCP - General Internal Medicine 10/06/17 documented as of this encounter
== END 2025-05-17 14:24 | disposition home or self-care (01) ==
LOC: ANHIMG 14:29
PROVIDERS: PCP Internal Medicine; Visit Provider Internal Medicine Cardiovascular Disease
DX: Z95.0 Presence of cardiac pacemaker (principal)
CPT/HCPCS: 71046

== ENCOUNTER 2025-06-24 07:31 | Outpatient (CLI) | payer MEDICARE, SELFPAY ==
--- OUTSIDE RECORDS SUMMARY | 2025-06-24 07:34 | XMS_ITS | Clinical Summary ---
Author Organization [facility] Address [address] [place] [address] Care Team Providers Care Marine Gear Keeper Name Role Phone Jordi Friedman MD Primary Care Provider [phone] Source Comments [facility] [employer],non-owned Affiliates and Associated Physician Practices is amultiple site organization consisting of ambulatory clinics and hospital sitesin [place], [place], [place] and [place]. This disclosure is being madepursuant to the Care Everywhere program and may not contain all information available regarding this patient. Last updated 18.[facility] Social History Tobacco Use Types Packs/Day Years [...] 2002 ZOSTER VACCINE (1 of 2) 2002 DEPRESSION SCREENING 10/06/2024 COVID-19 VACCINE ( - 2024- season) 2025 07/24/2023, 07/15/2022, 04/21/2022, Additional history exists INFLUENZA VACCINE (#1) 2025 4, 06/28/2020, 07/28/2019, [...] age to complete this topic Insurance MEDICARE [facility] MEDICARE ANTH Care Teams Marine Gear Keeper Relationship Specialty Start Date End Date Jordi Friedman MD [address] [address] PCP - General 01/02/22
--- OUTSIDE RECORDS SUMMARY | 2025-06-24 07:34 | XMS_ITS | Encounter Summary ---
Author Organization [facility] Address [address] [facility] [facility] [place] [address] Care Team Providers Care Potato Spotter Name Role Phone Jordi Friedman MD Primary Care Provider [phone] Encounter Details Date Type Department Care Team (Late st Contact Info) Description 01/08/2024 Lab Requisition [facility] - DermPath Lab [address] [facility], [facility] [place] [address] Arlette Marti MD [address] [facility] 3 [place] [address] Social History Tobacco Use Types Packs/Day Years [...] AM CDT) Case Report Dermatopathology Report Case: [id number] Authorizing Provider: Arlette Marti MD Collected: 01/08/2024 08:32 AM Ordering Location: [facility] Physician [facility] - Received: 01/09/2024 12:45 PM DermPath Lab [...] Irregular Border, Brown Macule 4 5:53 PM [facility] DERMATOPATHOLOGY LABORATORY Gross Description Specimen A: Received is one formalin filled container labeled with the patient's name and designated right posterior neck. The specimen consists of a shave biopsy measuring 7x6x1 mm. Jar 0. 4 5:53 PM [facility] DERMATOPATHOLOGY LABORATORY Microscopic Description Specimen A. SKIN, [...] Dr. Michaela Maurer who agrees. 5:53 PM [facility] DERMATOPATHOLOGY LABORATORY Disclaimer An external and internal positive and negative controls are appropriate for the histochemical, immunohistochemical and immunofluorescence stain(s) in this case (if any), except where stated explicitly. The performance characteristics of the stain(s) cited in this report were developed and its performance characteristic determined by the Dermatopathology Laboratory at [facility], directed by Dr. Phu Ramirez. These tests need not be, and therefore are not, approved by the [place] Food and Drug Administration. The tests are used for clinical purposes. Billing Codes Specimen Charges Stain Charges 65582 1 64639 35979 51112 1 1 1 4 5:53 PM CDT DERMATOPATHOLOGY LABORATORY Embedded Images 4 5:53 PM CDT DERMATOPATHOLOGY LABORATORY Pathology/Cytolo gy TISSUE SPECIMEN FROM SKIN / Unknown 01/08/2024 8:32 AM CDT 01/09/2024 12:45 PM CDT Arlette Marti MD LAB - PATHOLOGY/CYTOLOGY ORD ERABLES Final Result DERMATOPATHOLOGY LABORATORY [facility] - Department of Dermatology [facility] Specialized Medicine [facility]5 [facility], 3rd Floor [address] [phone] documented in this encounter Visit Diagnoses Not on filedocumented in this encounter Care Teams Potato Spotter Relationship Specialty Start Date End Date Jordi Friedman MD [address] [facility] [address] [place] [address] PCP - General 01/02/22 documented as of this encounter
--- OUTSIDE RECORDS SUMMARY | 2025-06-24 07:34 | XMS_ITS | Clinical Summary ---
Author Organization [facility] [place] [facility] Address [address] [facility] [place] [address] Care Team Providers Care Curator Of Collections Name Role Phone Unavailable Primary Care Provider [...] st Contact Info) Description 08/23/2025 1:30 PM DAMAGE APPRAISER Office Visit [facility] Oncology and Hematology - [place] [address] [facility] [address] [place] [address] Cesar Nieto MD [address] [facility] [address] [place] [address] Health Maintenance Due Date Last [...] 2027 Insurance MEDICARE PART A AND B [facility] SUPP
--- OUTSIDE RECORDS SUMMARY | 2025-06-24 07:34 | XMS_ITS | Encounter Summary ---
Author Organization [facility] Address [address] [facility] [place] [address] Care Team Providers Care Youth Director Name Role Phone Jordi Friedman MD Primary Care Provider [phone] Encounter Details Date Type Department Care Team (Late st Contact Info) Description 01/22/2024 Lab Requisition [facility] - DermPath Lab [address] [facility], [facility] [place] [address] Arlette Marti MD [address] [facility] 3 [place] [address] Social History Tobacco Use Types Packs/Day Years [...] AM CDT) Case Report Dermatopathology Report Case: [id number] Authorizing Provider: Arlette Marti MD Collected: 01/22/2024 09:39 AM Ordering Location: [facility] Physician [facility] - Received: 01/23/2024 08:20 [...] neck.The specimen consists of an ellipse measuring 75o29h6 mm and is oriented with the suture/notch [...] MART-1/MelanA immunostain or routine sections. 5:18 PM [facility] DERMATOPATHOLOGY LABORATORY Disclaimer An external and internal positive and negative controls are appropriate for the histochemical, immunohistochemical and immunofluorescence stain(s) in this case (if any), except where stated explicitly. The performance characteristics of the stain(s) cited in this report were developed and its performance characteristic determined by the Dermatopathology Laboratory at [facility], directed by Dr. Phu Ramirez. These tests need not be, and therefore are not, approved by the [place] Food and Drug Administration. The tests are used for clinical purposes. Billing Codes Specimen Charges Stain Charges 62807 1 87388 1 4 5:18 PM CDT DERMATOPATHOLOGY LABORATORY Embedded Images 5:18 PM T DERMATOPATHOLOGY LABORATORY Pathology/Cytolo gy TISSUE SPECIMEN FROM SKIN / Unknown 01/22/2024 9:39 AM CDT 01/23/2024 8:20 AM CDT us Arlette Marti MD LAB - PATHOLOGY/CYTOLOGY ORD ERABLES Final Result DERMATOPATHOLOGY LABORATORY [facility] - Department of Dermatology [facility] Specialized Medicine [facility]5 [facility], 3rd Floor [place], [place] [address] [place] [address] documented in this encounter Visit Diagnoses Not on filedocumented in this encounter Care Teams Youth Director Relationship Specialty Start Date End Date Jordi Friedman MD [address] [facility] [address] [place] [address] PCP - General 01/02/22 documented as of this encounter
--- OUTSIDE RECORDS SUMMARY | 2025-06-24 07:34 | XMS_ITS | Clinical Summary ---
Author Organization [facility] Address [address] [place] [address] Care Team Providers Care Mathematics Faculty Member Name Role Phone None, Provider MD Primary [...] Hepatitis C 1968 COVID-19 Vaccine ( season) 2025 07/15/2022, 04/21/2022, 07/05/2021, Additional history exists RSV [...] patient's age to complete this topic Insurance [facility] Care Teams Mathematics Faculty Member Relationship Specialty Start Date End Date None, Provider, MD PCP - General UNKNOWN PHYSICIAN SPECIALTY 01/03/23
--- OUTSIDE RECORDS SUMMARY | 2025-06-24 07:34 | XMS_ITS | Clinical Summary ---
Author Organization [facility] [address] Address [address] [place] [address] Care Team Providers Care Advertising Layout Worker Name Role Phone Tacho Manning MD Primary [...] - 05/09/2025 11:59 PM CDT Hospital Encounter [facility]) [address] [place] [address] Discharge Disposition: Discharge to home or self care 05/09/[address] [facility] Cardiology [address] [place] [address] Advanced Medicine [facility] [place] [address] [place] [address] Werner Cruz MD PhD PPM? 05/02/2025 2:00 PM CDT Office Visit [facility] Cardiology [address] [place] [address] [address] [place] [address] Werner Cruz MD PhD SOB (shortness of breath) (Primary Dx); Dizziness 05/02/[address] [facility] Cardiology [address] [place] [address] [address] [place] [phone] Werner Cruz MD PhD 05/02/[address] [facility] Cardiology [address] [place] [address] Advanced Medicine [facility] [place] [address] Sebas Cruz MD 04/27/2025 1:24 PM CDT - 04/27/2025 11:59 PM CDT Hospital Encounter [facility] Radiology [facility] ([facility]) [address] [place] [address] Discharge Disposition: Discharge to home or self care 04/25/[address] [facility] Cardiology [address] [place] [address] Advanced Medicine [facility] [place] [address] [place] [address] Werner Cruz MD PhD Test Results 04/19/2025 Orders Only [facility] Scanning, Provider 04/19/2025 Telephone [facility] Cardiology [address] [facility] 8th [place] [address] [place] [address] Werner Cruz MD PhD Medical Records Request 04/18/2025 2:30 PM CDT Office Visit [facility] Cardiology [address] [facility] Office Building 3 [address] [place] [address] Werner Cruz MD PhD Shortness of breath (Primary Dx) 04/18/[address] [facility] Cardiology [address] [facility] Office Building 3 [address] [place] [address] Werner Cruz MD PhD Medical Records Request 04/18/2025 Results Follow-Up [facility] Cardiology [address] [facility] 8th [place] [address] [place] [address] Werner Cruz MD PhD ECG 12 lead 04/13/2025 Documentation Health system Medicine Scheduling [address] [place] [address] Kieran Eddy [facility] DOC 04/11/[address] [facility] Cardiology [address] [facility] 8th [place] [address] [place] [address] Javier Tomlinson from Last 3 Months Social History Tobacco Use Types Packs/Day Years Used Date Smoking Tobacco: Never Tobacco Cessation:Counseling Given: Not Answered Sex and Gender Information Value Date Recorded Sex Assigned at Not on file Legal Sex Male 3:14 AM BUSINESS MANAGEMENT INTERN Gender Identity Male 04/18/2025 6:03 PM CDT [...] Vaccine (9 - Mixed Product risk season) 2025 06/14/2024, 07/24/2023, 07/24/2023, Additional history exists Influenza [...] only and have not been reviewed by [facility] Radiology. There will be no report generated by a [facility] Radiologist. Narrative RAD_PACS_BJ - 05/09/2025 3:15 PM CDT EXAMINATION: Images For Reference Purposes Only us Werner Cruz MD PhD IMG IR PROCEDURES Final Result [facility]_PACS[facility] * US Outside Reference (04/27/2025 1:24 PM CDT) Impressions RAD_PACS_[facility]J - 04/27/2025 1:24 PM CDT These images are for Reference purposes only and have not been reviewed by [facility]iology. There will be no report generated by a [facility] Radiologist. Narrative AMINA_PACReg_[facility] - 04/27/2025 1:24 PM CDT EXAMINATION: Images [...] Final from Last 3 Months Insurance MEDICARE [facility] CHOICE PLUS MEDICARE [facility] MEDICARE SUPPLEMENT MEDICARE [facility] MEDICARE SUPPLEMENT Care Teams Advertising Layout Worker Relationship Specialty [place] [address] [place] [address] PCP - General Internal Medicine 10/06/17
[2025-06-24 08:32] LABS: Albumin Level 4.2 g/dL (3.5-5.1); Anion Gap 7 mmol/L (4-12); Blood Urea Nitrogen 16 mg/dL (9-20); Calcium 8.6 mg/dL (8.4-10.2); Carbon Dioxide 26 mmol/L (22-30); Chloride 106 mmol/L (98-107); Estimated Glomerular Filt Rate > 60; Glucose 94 mg/dL (65-110); Potassium 4.0 mmol/L (3.4-5.0); Sodium 139 mmol/L (137-145)
[2025-06-24 09:01] LABS: Total Protein Urine Random 6 mg/dL; Ur Ttl Prot Creatinine Ratio 0.07 mg/mg (0-0.20)
[2025-06-24 09:13] LABS: Parathyroid Intact 47.1 pg/mL (14.5-75.2)
== END 2025-06-24 07:32 | disposition home or self-care (01) ==
PROVIDERS: PCP Internal Medicine; Visit Provider Internal Medicine Nephrology
DX: I12.9 Hypertensive chronic kidney disease with stage 1 through stage 4 chronic kidney disease, or unspecified chronic kidney disease (principal); N18.31 Chronic kidney disease, stage 3a; N25.81 Secondary hyperparathyroidism of renal origin; E55.9 Vitamin D deficiency, unspecified
CPT/HCPCS: 36415; 80069; 82306; 82570; 83970; 84156

== ENCOUNTER 2025-08-01 07:51 | Outpatient (CLI) | payer MEDICARE, SELFPAY ==
--- NOTE | ~2025-08-01 | US_ITS ---
Clinical history:Nontoxic single thyroid nodule EXAM:Ultrasound thyroid TECHNIQUE:Multiple static grayscale images and color Doppler images were obtained of the thyroid gland. Comparisons:None available FINDINGS: Right thyroid lobe measures 2.4 x 2.3 x 5.4 cm and is heterogeneous. Left thyroid lobe measures 2.4 x 2.4 x 3.8 cm and is heterogeneous. Isthmus measures 0.2 cm and is heterogeneous. There is a 0.4 x 0.3 x 0.4 cm colloid cyst in the left thyroid lobe. TR2 IMPRESSION: 1. Thyroid gland is heterogeneous. 2. There is a 0.4 cm colloid cyst in the left thyroid lobe. TR2 Reviewed, dictated and finalized at location Q.
--- OUTSIDE RECORDS SUMMARY | 2025-08-01 07:58 | XMS_ITS | Encounter Summary ---
Author Organization [facility] Address [address] [place] [address] Care Team Providers Care Pharmacy Graduate Intern Name Role Phone Jordi Friedman MD Primary Care Provider [phone] Encounter Details Date Type Department Care Team (Late st Contact Info) Description 01/08/2024 Lab Requisition [facility] Physician Group - DermPath Lab [address] [facility], [facility] [place] [address] Arlette Marti MD [address] [facility] 3 [place] [address] Social History Tobacco Use Types Packs/Day Years [...] AM CDT) Case Report Dermatopathology Report Case: [id number] Authorizing Provider: Arlette Marti MD Collected: 01/08/2024 08:32 AM Ordering Location: [facility] Physician [facility] - Received: 01/09/2024 12:45 [...] Irregular Border, Brown Macule 4 5:53 PM [facility] DERMATOPATHOLOGY LABORATORY Gross Description Specimen A: Received is one formalin filled container labeled with the patient's name and designated right posterior neck. The specimen consists of a shave biopsy measuring 7x6x1 mm. Jar 0. 4 5:53 PM [facility] DERMATOPATHOLOGY LABORATORY Microscopic Description Specimen A. SKIN, [...] Dr. Michaela Maurer who agrees. 5:53 PM [facility] DERMATOPATHOLOGY LABORATORY Disclaimer An external and internal positive and negative controls are appropriate for the histochemical, immunohistochemical and immunofluorescence stain(s) in this case (if any), except where stated explicitly. The performance characteristics of the stain(s) cited in this report were developed and its performance characteristic determined by the Dermatopathology Laboratory at [facility], directed by Dr. Phu Ramirez. These tests need not be, and therefore are not, approved by the [place] Food and Drug Administration. The tests are used for clinical purposes. Billing Codes Specimen Charges Stain Charges 67470 1 65177 44194 84501 1 1 1 4 5:53 PM CDT DERMATOPATHOLOGY LABORATORY Embedded Images 4 5:53 PM CDT DERMATOPATHOLOGY LABORATORY Pathology/Cytolo gy TISSUE SPECIMEN FROM SKIN / Unknown 01/08/2024 8:32 AM CDT 01/09/2024 12:45 PM CDT Arlette Marti MD LAB - PATHOLOGY/CYTOLOGY ORD ERABLES Final Result DERMATOPATHOLOGY LABORATORY [facility] - Department of Dermatology [facility] Specialized Medicine [facility]5 [facility], 3rd Floor [address] [phone] documented in this encounter Visit Diagnoses Not on filedocumented in this encounter Care Teams Pharmacy Graduate Intern Relationship Specialty Start Date End Date Jordi Friedman MD [address] [facility] [address] [place] [address] PCP - General 01/02/22 documented as of this encounter
--- OUTSIDE RECORDS SUMMARY | 2025-08-01 07:58 | XMS_ITS | Encounter Summary ---
Author Organization [facility] Address [address] [facility] [place] [address] Care Team Providers Care Human Services Assistant Name Role Phone Jordi Friedman MD Primary Care Provider [phone] Encounter Details Date Type Department Care Team (Late st Contact Info) Description 01/22/2024 Lab Requisition [facility] - DermPath Lab [address] [facility], [facility] [place] [address] Arlette Marti MD [address] [facility] 3 [place] [address] Social History Tobacco Use Types Packs/Day Years [...] AM CDT) Case Report Dermatopathology Report Case: [id number] Authorizing Provider: Arlette Marti MD Collected: 01/22/2024 09:39 AM Ordering Location: [facility] Physician [facility] - Received: 01/23/2024 08:20 AM DermPath [...] neck.The specimen consists of an ellipse measuring 48a71u3 mm and is oriented with the suture/notch [...] MART-1/MelanA immunostain or routine sections. 5:18 PM [facility] DERMATOPATHOLOGY LABORATORY Disclaimer An external [...] purposes. Billing Codes Specimen Charges Stain Charges 17593 1 90522 1 4 5:18 PM CDT DERMATOPATHOLOGY LABORATORY Embedded Images 5:18 PM T DERMATOPATHOLOGY LABORATORY Pathology/Cytolo gy TISSUE SPECIMEN FROM SKIN / Unknown 01/22/2024 9:39 AM CDT 01/23/2024 8:20 AM CDT us Arlette Marti MD LAB - PATHOLOGY/CYTOLOGY ORD ERABLES Final Result DERMATOPATHOLOGY LABORATORY [facility] - Department of Dermatology [facility] Specialized Medicine [facility]5 [facility], 3rd Floor [place], [place] [address] [place] [address] documented in this encounter Visit Diagnoses Not on filedocumented in this encounter Care Teams Human Services Assistant Relationship Specialty Start Date End Date Jordi Friedman MD [address] [facility] [address] [place] [address] PCP - General 01/02/22 documented as of this encounter
--- OUTSIDE RECORDS SUMMARY | 2025-08-01 07:59 | XMS_ITS | Clinical Summary ---
Author Organization [facility] [place] [facility] Address [address] [place] [address] Care Team Providers Care Commis Chef Name Role Phone Unavailable Primary Care Provider [...] st Contact Info) Description 08/23/2025 1:30 PM VEHICLE BODY MAKER Office Visit [facility] Oncology and Hematology - [place] [address] [facility] 200 [place] [address] Cesar Nieto MD [address] [facility] [address] [place] [address] Health Maintenance Due Date Last [...] 2027 Insurance MEDICARE PART A AND B [facility] SUPP
--- OUTSIDE RECORDS SUMMARY | 2025-08-01 07:59 | XMS_ITS | Clinical Summary ---
Author Organization [facility] Address [address] [facility] [place] [address] Care Team Providers Care Floor Refinisher Name Role Phone Jordi Friedman MD Primary Care Provider [phone] Source Comments [facility],non-owned Affiliates and Associated Physician Practices is amultiple site organization consisting of ambulatory clinics and hospital sitesin [place], [place], [place] and [place]. This disclosure is being madepursuant to the Care Everywhere program and may not contain all information available regarding this patient. Last updated 18.[facility] Social History Tobacco Use Types Packs/Day Years [...] age to complete this topic Insurance MEDICARE [facility] MEDICARE ANTH Care Teams Floor Refinisher Relationship Specialty Start Date End Date Jordi Friedman MD [address] [address] PCP - General 01/02/22
--- OUTSIDE RECORDS SUMMARY | 2025-08-01 07:59 | XMS_ITS | Clinical Summary ---
Author Organization [facility] [address] Address [address] [place] [address] Care Team Providers Care Superannuation Clerk Name Role Phone Tacho Manning MD Primary [...] - 05/09/2025 11:59 PM CDT Hospital Encounter [facility] [address] [place] [address] Discharge Disposition: Discharge to home or self care 05/09/2025 Telephone [facility] Cardiology [address] [place] [address] Advanced [facility] 8th [place] [address] [place] [address] Werner Cruz MD PhD PPM? 05/02/2025 2:00 PM CDT Office Visit [facility] Cardiology [address] [place] [address] 3 [address] [place] [address] Werner Cruz MD PhD SOB (shortness of breath) (Primary Dx); Dizziness 05/02/2025 Telephone [facility] Cardiology [address] [place] [address] [address] [place] [address] Werner Cruz MD PhD 05/02/2025 Telephone [facility] Cardiology [address] [place] [address] 8th [place] [address] [place] [address] Sebas Cruz MD from Last 3 Months Social History Tobacco Use Types Packs/Day Years Used Date Smoking Tobacco: Never Tobacco Cessation:Counseling Given: Not Answered Sex and Gender Information Value Date Recorded Sex Assigned at Not on file 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 Gender Identity Male 04/18/2025 6:03 PM CDT [...] Covid-19 Vaccine (9 - Mixed Product risk ) 06/06/2025 06/14/2024, 07/24/2023, 07/24/2023, Additional history exists Influenza Vaccine (#1) 2025 , 07/08/2023, 07/15/2022, Additional history exists DTaP/Tdap/Td Vaccine (2 - Td or Tdap) 09/21/2031 09/21/2021 Zoster Vaccine Completed 10/22/2018, 11/2017, 07/28/2013 Pneumococcal vaccine 65+ Completed 023, 07/22/2018, 08/14/2016, Additional history exists Procedures Procedure Name Priority Date/Time Associated Diagnosis Comments IR OUTSIDE REFERENCE Routine 05/09/2025 3:15 PM CDT from Last 3 Months Results * IR Outside Reference (05/09/2025 3:15 PM CDT) Impressions RAD_PACS_[facility]J - 05/09/2025 3:15 PM CDT These images are for Reference purposes only and have not been reviewed by [facility] Radiology. There will be no report generated by a [facility] Radiologist. Narrative RAD_PACS_BJ - 05/09/2025 3:15 PM CDT EXAMINATION: Images For Reference Purposes Only Werner Cruz MD PhD IMG IR PROCEDURES Final Result RAD_PACS_[facility] from Last 3 Months Insurance MEDICARE [facility] CHOICE PLUS [facility] HMO/PPO Address: [address] [address] [place] [address] MEDICARE [facility] MEDICARE SUPPLEMENT MEDICARE [facility] MEDICARE SUPPLEMENT Care Teams Superannuation Clerk Relationship Specialty Start Date End Date Tacho Manning MD [address] [place] [address] PCP - General Internal Medicine 10/06/17
--- OUTSIDE RECORDS SUMMARY | 2025-08-01 07:59 | XMS_ITS | Clinical Summary ---
Author Organization [facility] Address [address] [place], [place] [address] Care Team Providers Care Transcription Manager Name Role Phone None, Provider MD Primary [...] 2025 07/15/2022, 04/21/2022, 07/05/2021, Additional history exists Influenza Adult (#1) 2025 07/28/2019, 07/07/2018, 07/23/2017, Additional history exists RSV Immunization or 60+ Years (1 - 1-dose 75+ series) 2027 DTaP, Tdap and Td Vaccines (2 - Td or Tdap) 09/21/2031 09/21/2021 Pneumococcal Vaccine: 50+ Years Completed 07/22/2018, 08/14/2016, 02/10/2012 Zoster Vaccines Completed 10/22/2018, 11/2017, 07/28/2013 Hepatitis A Vaccines Aged Out No long er eligible based on patient's age to complete this topic Meningococcal B Vaccine Aged Out No l onger eligible based on patient's age to complete this topic Meningococcal Vaccine Aged Out No shay itz eligible based on patient's age to complete this topic RSV Immunizations Under 20 Months Aged Out No longer eligible based on patient's age to complete this topic Insurance [facility] Care Teams Transcription Manager Relationship Specialty Start Date End Date None, Provider, PCP - General UNKNOWN PHYSICIAN SPECIALTY 01/03/23
== END 2025-08-01 07:52 | disposition home or self-care (01) ==
PROVIDERS: PCP Internal Medicine; Visit Provider Otolaryngology
DX: E04.1 Nontoxic single thyroid nodule (principal)
CPT/HCPCS: 76536

== ENCOUNTER 2025-08-24 14:08 | Outpatient (CLI) | payer MEDICARE, SELFPAY ==
--- OUTSIDE RECORDS SUMMARY | 2025-08-05 17:59 | XMS_ITS | Continuity of Care Document ---
Author Organization [facility] Address [address] [place] [address] Phone Care Team Providers Care Senior Graduate Advisor Name Role Phone Olga CANTU, RICHARDSON, Anup NOLAND Unavailable Unava ilable Olga CANTU FACC, Anup NOLAND Unavailable Unava ilable Medications Medication Instructions Dosage Effective Dates (start - stop) Status Comments aspirin 81 mg tablet take 1 tablet by or al route every day 81 MG - Active buspirone 10 mg tablet take 1 tablet by oral route 2 times every day 10 MG - Active escitalopram 5 mg tablet take 1 tablet by oral route every day 5 MG - Active CLOPIDOGREL 75MG TABLETS TAKE 1 TABLET BY MOUTH DAILY 75 MG - Active finasteride 5 mg tablet take 1 tablet by oral route every day 5 MG - Active tamsulosin 0.4 mg capsule take 1 capsule by oral route every day 1/2 hour following the same meal each day 0.4 MG - Active rosuvastatin 20 mg tablet take 1 tablet by oral route every day 20 MG - Active ferrous sulfate 325 mg (65 mg iron) tablet take 1 tablet by oral route every other day - Active tadalafil 20 mg tablet take 1 tablet by oral route every day as needed 20 MG - Active Procedures Procedure Date REM MNTR PHYSIOL ANJEL DEV REM PHYSIOL MNTR 20 MIN MO REM MNTR PHYSIOL ANJEL DEV REM PHYSIOL MNTR 20 MIN MO REM MNTR PHYSIOL ANJEL DEV REM PHYSIOL MNTR 20 MIN MO POSTOP FOLLOW-UP VISIT PM DEVICE PROGR EVAL, DUAL ICM DEVICE EVAL POSTOP FOLLOW-UP VISIT INSERTION OF HEART PACEMAKER REM MNTR PHYSIOL ANJEL DEV REM PHYSIOL MNTR 20 MIN MO Complex e/m visit add on OFFICE/OUTPATIENT VISIT, [...] Diagnoses Date Provider Providers Copied on Encounter [facility], [address] [place] [address], [id number] , tel:[phone] No Information 5 Olga Hebert. [address] [address] , [address], [id number], [place]. tel:[phone] Referring Provider: Lynn chong, [address] [facility] [address], [place], [address]. tel:[phone] sulting Provider: Anup Melvin, [address] [facility], [place], [address] . tel:[phone] REM MNTR PHYSIOL ANJEL DEV [facility], [address] [place] [address], [id number] , tel:[phone] [facility] Essential (primary) hypertension 5 Olga Hebert. [address] , [address] [place] [address], [id number], . tel:[phone] Referring Provider: Anup Melvin, [address] [place] [address] [place] [address], [address] . tel:[phone] [facility] Provider: Anup Melvin, [address] [place] [address] [place] [address], [address] . tel:[phone] REM MNTR PHYSIOL ANJEL DEV [facility] , [address] [place] [address], [id number] , tel: [phone] [facility] Essential (primary) hypertension Oct0 5 Olga Hebert. [address] [place] [address], [address] [place] [address], [id number], . tel:[phone] Referring Provider: Anup Melvin, [address] [place] [address] [place] [address], [address] . tel:[phone] [facility] Provider: Anup Melvin, [address] [place] [address] [place] [address], [address] . tel:[phone] REM MNTR PHYSIOL ANJEL DEV [facility] , [address] [place] [address], [id number] , tel: [phone] [facility] Essential (primary) hypertension Sep0 5 Elianup Hebert. [address] [place] [address], [address] [place] [address], [id number], . tel:[phone] Referring Provider: Anup Melvin, [address] [place] [address] [place] [address], [address] . tel:[phone] [facility] Provider: Anup Melvin, [address] [place] [address] [place] [address], [address] . tel:[phone] [facility] , [address] [place] [address], [id number] , tel: [phone] [facility] [place] post device (chief complaint) Atherosclerotic heart disease of [place] coronary artery without angina pectorisEssential (primary) hypertensionMixed hyperlipidemiaPres ence of cardiac pacemakerDizziness 5 Olga Hebert. [address] , [address] [place] [address], [id number], [place]. tel:[phone] Referring Provider: Anup Melvin, [address] [facility], [place], [address] . tel:[phone] [facility] , [address] [place] [address], [id number] , tel: [phone] [facility] [place] Unspecified atrioventricular block 5 Olga Hebert. [address] Elizabeth , [address] [place] [address], [id number], [place]. [phone] Referring Provider: Anup Melvin, [address] Elizabeth [address] [place] [address], [address] . tel:[phone] [facility] , [address] [place] [address], [id number] , tel: [phone] [facility] [place] No Information 5 Ramadan Avery. [address] [place] [address], [id number], . tel:[phone] Referring Provider: Anup Melvin, [address] Elizabeth [address] [place] [address], [address] . tel:[phone] [facility] , [address] [place] [address], [id number] , tel: [phone] [facility] Unspecified atrioventricular block 5 Ramadan Avery. [address] [place] [address], [id number], . [phone] Referring Provider: Galdino Mondragon [address] [place] [address], [address] . tel:[phone] REM MNTR PHYSIOL ANJEL DEV [facility] , [address] [place] [address], [id number] , tel: [phone] [facility] [place] Essential (primary) hypertension 5 Olga Hebert. [address] [address] , [address] [place] [address], [id number], [place]. tel:[phone] Referring Provider: Anup Melvin, [address] [place] [address], [address] . tel:[phone] sulting Provider: Anup Melvin, [address] [facility], [place], [address] . tel:[phone] OFFICE/OUTPA TIENT VISIT, [facility], [address] [place] [address], [id number] , tel:[phone] [facility] [place] feelings of SOB and fainting (chief complaint) HyperlipidemiaHype rtensionCoronary artery diseaseDizzinessAV block 5 Rosibel Varela. [address] [place] [address], [place], [place], [id number], . tel:[phone] Referring Provider: Anup Melvin, [address] [facility] [address] [place] [address], [address] . tel:[phone] [facility], [address] [place] [address], [id number] , [place] tel:[phone] [facility] No Information 5 Olga Hebert. [address] [facility], [address] [place] [address], [id number], [place]. tel:[phone] [facility], [address] [place] [address], [id number] , tel:[phone] [facility] [place] Dizziness and giddinessAthscl heart disease of [place] coronary artery w/o ang pctrsEssential (primary) hypertension 5 Olga Hebert. [address] [facility], [address] [place] [address], [id number], [place]. tel:[phone] Referring Provider: Anup Melvin, [address] [place] [address], [address] . tel:[phone] REM MNTR PHYSIOL ANJEL DEV [facility], [address] [place] [address], [id number] , tel: [phone] [facility] Essential (primary) hypertension 5 Olga Anup. [address] [facility], [address] [place] [address], [id number], . [phone] Referring Provider: Anup Melvin, [address] [facility] Suite [facility], [place], [address] . tel:[phone] sulting Provider: Anup Melvin, [address] [facility] [address] [facility], [place], [address] . tel:[phone] [facility], [address] [place] [address], [id number] , tel: [phone] [facility] No Information 5 Olga Hebert. [address] [facility], [address] [place] [address], [id number], . [phone] Referring Provider: Anup Melvin, [address] [place] [address] Suite [facility], [place], [address] . tel:[phone] OFFICE/OUTPA TIENT VISIT, [facility], [address] [place] [address], [id number] , tel:[phone] [facility] feelings of SOB and fainting (chief complaint) DizzinessCoronary artery diseaseHypertensio nHyperlipidemia 5 Ventimiglia Francisca. [address] [place] [address], [id number], . [phone] Referring Provider: Lynn chong, [address] [facility] [address], [place], [address]. tel:[phone] Family History Family Member Type Diagnosis Age At Onset No Information Payers Payer name Insurance type Covered constitution party ID Authoriza tion(s) [place] [id number] [place] [id number] Social History Type Description Quantity Date Captured Comments Sex Male Smoking Status No Information Chief Complaint And Reason For Visit No Information Reason For Referral Reason For Referral No Information Plan Of Treatment Date Type Action Status Appointment Jonah Burgess BOOKED Future Order: Radiology Order Ti lt table test ([id number]), Ordered on: Ordered Future Order: Radiology Order Ti lt table test ([id number]), Ordered on: Ordered Future Order: Lab Order UA/M w/r flx Culture, Routine ([id number]), Ordered on: Ordered Future Order: Lab Order PT/INR ( [id number]), Ordered on: Ordered Future Order: Lab Order PTT ([id number]), Ordered on: Ordered Future Order: Lab Order CBC w/di ff ([id number]), Ordered on: Ordered Future Order: Lab Order CMP ([id number]), Ordered on: Ordered Future Order: Radiology Order LO OP IMPLANT ([id number]), Ordered on: Ordered Future Order: Radiology Order MC T Monitor 14-30 Days ([facility]-[id number]), Ordered on: Ordered History Of Present Illness Encounter Date Complaint History Of Prese nt Illness post device pt feels like he gets fatigued in his head and if he does not sit down at that time he will pass out. feelings of SOB and fainting feelings of SOB and fainting Functional Status Date Functional Assessmen t No Information Instructions Date Instruction Additional Infor mation No Information Assessments Type Assessment Date No Information Patient Care Teams Name Effective Dates (start - stop) Status Members No Information
--- OUTSIDE RECORDS SUMMARY | 2025-08-05 17:59 | XMS_ITS | Continuity of Care Document ---
Author Organization [facility] Address [address] [place] [address] Phone Care Team Providers Care Roll Tension Tester Name Role Phone Olga CANTU, RICHARDSON, Anup [...] Diagnoses Date Provider Providers Copied on Encounter [facility], [address] [place] [address], [id number] , tel:[phone] No Information 5 Olga Hebert. [address] [address] , [address], [id number], [place]. tel:[phone] Referring Provider: Lynn chong, [address] [facility] [address], [place], [address]. tel:[phone] sulting Provider: Anup Melvin, [address] [facility], [place], [address] . tel:[phone] REM MNTR PHYSIOL ANJEL DEV [facility], [address] [place] [address], [id number] , tel:[phone] [facility] Essential (primary) hypertension 5 Olga Hebert. [address] [address] , [address] [place] [address], [id number], . tel:[phone] Referring Provider: Anup Melvin, [address] [place] [address] [place] [address], [address] . tel:[phone] [facility] [place] Provider: Anup Melvin, [address] [place] [address] [place] [address], [address] . tel:[phone] REM MNTR PHYSIOL ANJEL DEV [facility] , [address] [place] [address], [id number] , tel: [phone] [facility] Essential (primary) hypertension Oct0 5 Olga Hebert. [address] [place] [address], [address] [place] [address], [id number], . tel:[phone] Referring Provider: Anup Melvin, [address] [place] [address] [place] [address], [address] . tel:[phone] [facility] [place] Provider: Anup Melvin, [address] [place] [address] [place] [address], [address] . tel:[phone] REM MNTR PHYSIOL ANJEL DEV [facility] , [address] [place] [address], [id number] , tel: [phone] [facility] Essential (primary) hypertension Sep0 5 Elianup Hebert. [address] [place] [address], [address] [place] [address], [id number], . tel:[phone] Referring Provider: Anup Melvin, [address] [place] [address] [place] [address], [address] . tel:[phone] [facility] [place] Provider: Anup Melvin, [address] [place] [address] [place] [address], [address] . 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 [address] , [address] [place] [address], [id number], [place]. tel:[phone] Referring Provider: Anup Melvin, [address] [facility], [place], [address] . tel:[phone] [facility] , [address] [place] [address], [id number] , tel: [phone] [facility] [place] Unspecified atrioventricular block 5 Olga Hebert. [address] Elizabeth , [address] [place] [address], [id number], [place]. [phone] Referring Provider: Anup Melvin, [address] Elizabeth [address] [place] [address], [address] . tel:[phone] [facility] , [address] [place] [address], [id number] , tel: [phone] [facility] [place] No Information 5 Ramadan Avery. [address] [place] [address], [id number], . tel:[phone] Referring Provider: Anup Melvin, Gald[address] Elizabeth [address] [place] [address], [address] . tel:[phone] [facility] , [address] [place] [address], [id number] , tel: [phone] [facility] Unspecified atrioventricular block 5 Ramadan Aevry. [address] [place] [address], [id number], . [phone] Referring Provider: Galdino Mondragon [address] [place] [address], [address] . tel:[phone] REM MNTR PHYSIOL ANJEL DEV [facility] , [address] [place] [address], [id number] , tel: [phone] [facility] [place] Essential (primary) hypertension 5 Olga Hebert. [address] [address] , [address] [place] [address], [id number], [place]. tel:[phone] Referring Provider: Anup Melvin, [address] Elizabeth [address] [place] [address], [address] . tel:[phone] sulting Provider: Anup Melvin, [address] [facility], [place], [address] . tel:[phone] OFFICE/OUTPA TIENT VISIT, [facility], [address] [place] [address], [id number] , tel:[phone] [facility] [place] feelings of SOB and fainting (chief complaint) HyperlipidemiaHype rtensionCoronary artery diseaseDizzinessAV block 5 Rosibel Varela. [address] [place] [address], [place], [place], [id number], . tel:[phone] Referring Provider: Anup Melvin, [address] [facility] [address] [place] [address], [address] . tel:[phone] [facility], [address] [place] [address], [id number] , [place] tel:[phone] [facility] No Information 5 Olga Hebert. [address] [facility], [address] [place] [address], [id number], [place]. tel:[phone] [facility], [address] [place] [address], [id number] , tel:[phone] [facility] [place] Dizziness and giddinessAthscl heart disease of [place] coronary artery w/o ang pctrsEssential (primary) hypertension 5 Olga Hebert. [address] [facility], [address] [place] [address], [id number], [place]. tel:[phone] Referring Provider: Anup Melvin, [address] Elizabeth [address] [place] [address], [address] . tel:[phone] REM MNTR PHYSIOL ANJEL DEV [facility], [address] [place] [address], [id number] , tel: [phone] [facility] Essential (primary) hypertension 5 Olga Anup. [address] [facility], [address] [place] [address], [id number], . [phone] Referring Provider: Anup Melvin, [address] [facility] Suite [facility], [place], [address] . tel:[phone] sulting Provider: Anup Melvin, [address] [facility] Suite [facility], [place], [address] . tel:[phone] [facility], [address] [place] [address], [id number] , tel: [phone] [facility] No Information 5 Olga Hebert. [address] [facility], [address] [place] [address], [id number], . [phone] Referring Provider: Anup Melvin, [id number] [place] [address] Suite [facility], [place], [address] . tel:[phone] OFFICE/OUTPA TIENT VISIT, [facility], [address] [place] [address], [id number] , tel:[phone] [facility] feelings of SOB and fainting (chief complaint) DizzinessCoronary artery diseaseHypertensio nHyperlipidemia 5 Ventimiglia Francisca. [address] [place] [address], [id number], . [phone] Referring Provider: Lynn chong, [address] [facility] [address], [place], [address]. tel:[phone] Family History Family Member Type Diagnosis Age At Onset No Information Payers Payer name Insurance type Covered green party ID Authoriza tion(s) [place] [id number] [place] [id number] Social History Type Description Quantity Date Captured Comments Sex Male Smoking Status No Information Chief Complaint And Reason For Visit No Information Reason For Referral Reason For Referral No Information Plan Of Treatment Date Type Action Status Appointment Jonah Burgess BOOKED Future Order: Radiology Order Ti lt table test ([id number]), Ordered on: Ordered Future Order: Radiology Order Ti lt table test ([id number]), Ordered on: Ordered Future Order: Lab Order UA/M w/r flx Culture, Routine ([id number]), Ordered on: Ordered Future Order: Lab Order PT/INR ( [id number]), Ordered on: Ordered Future Order: Lab Order PTT ([id number]), Ordered on: Ordered Future Order: Lab Order CBC w/di ff ([id number]), Ordered on: Ordered Future Order: Lab Order CMP ([id number]), Ordered on: Ordered Future Order: Radiology Order LO OP IMPLANT ([facility]-[id number]), Ordered on: Ordered Future Order: Radiology Order MC T Monitor 14-30 Days ([facility]-[id number]), Ordered on: Ordered History Of Present Illness [...]
--- OUTSIDE RECORDS SUMMARY | 2025-08-05 17:59 | XMS_ITS | Continuity of Care Document ---
Author Organization [facility] Address [address] [place] [address] Phone Care Team Providers Care Cook Helper Fruit Name Role Phone Olga CANTU, RICHARDSON, Anup [...] Diagnoses Date Provider Providers Copied on Encounter [facility], [address] [place] [address], [id number] , tel:[phone] No Information 5 Olga Hebert. [address] , [address], [id number], [place]. tel:[phone] Referring Provider: Lynn chong, [address] [facility] [address], [place], [address]. tel:[phone] sulting Provider: Anup Melvin, [address] [facility], [place], [address] . tel:[phone] REM MNTR PHYSIOL ANJEL DEV [facility], [address] [place] [address], [id number] , tel:[phone] [facility] Essential (primary) hypertension 5 Olga Hebert. [address] , [address] [place] [address], [id number], . tel:[phone] Referring Provider: Anup Melvin, [address] [place] [address] [place] [address], [address] . tel:[phone] Provider: Anup Melvin, [address] [place] [address] [place] [address], [address] . tel:[phone] REM MNTR PHYSIOL ANJEL DEV [facility] , [address] [place] [address], [id number] , tel: [phone] [facility] Essential (primary) hypertension Oct0 5 Olga Hebert. [address] [place] [address], [address] [place] [address], [id number], . tel:[phone] Referring Provider: Anup Melvin, [address] [place] [address] [place] [address], [address] . tel:[phone] Provider: Anup Melvin, [address] [place] [address] [place] [address], [address] . tel:[phone] REM MNTR PHYSIOL ANJEL DEV [facility] , [address] [place] [address], [id number] , tel: [phone] [facility] Essential (primary) hypertension Sep0 5 Elianup Hebert. [address] [place] [address], [address] [place] [address], [id number], . tel:[phone] Referring Provider: Anup Melvin, [address] [place] [address] [place] [address], [address] . tel:[phone] Provider: Anup Melvin, [address] [place] [address] [place] [address], [address] . 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 [address] , [address] [place] [address], [id number], [place]. tel:[phone] Referring Provider: Anup Melvin, Galdino Elizabeth [address] [facility], [place], [address] . tel:[phone] [facility] , [address] [place] [address], [id number] , tel: [phone] [facility] Unspecified atrioventricular block 5 Olga Hebert. 294[address]Sandy Elizabeth , [address] [place] [address], [id number], [place]. [phone] Referring Provider: Anup Melvin, Gald[address] Elizabeth [address] [place] [address], [address] . tel:[phone] [facility] , [address] [place] [address], [id number] , tel: [phone] [facility] No Information 5 Ramadan Avery. [address] [place] [address], [id number], . tel:[phone] Referring Provider: Anup Melvin, [address] Elizabeth [address] [place] [address], [address] . tel:[phone] [facility] , [address] [place] [address], [id number] , tel: [phone] [facility] Unspecified atrioventricular block 5 Ramadan Avery. [address] [place] [address], [id number], . [phone] Referring Provider: Galdino Mondragon [address] [place] [address], [address] . tel:[phone] REM MNTR PHYSIOL ANJEL DEV [facility] , [address] [place] [address], [id number] , tel: [phone] [facility] Essential (primary) hypertension 5 Olga Hebert. [address] [address] , [address] [place] [address], [id number], [place]. tel:[phone] Referring Provider: Anup Melvin, [address] [place] [address], [address] . tel:[phone] sulting Provider: Anup Melvin, [address] [facility], [place], [address] . tel:[phone] OFFICE/OUTPA TIENT VISIT, [facility], [address] [place] [address], [id number] , tel:[phone] [facility] feelings of SOB and fainting (chief complaint) HyperlipidemiaHype rtensionCoronary artery diseaseDizzinessAV block 5 Rosibel Varela. [address] [place] [address], [place], [place], [id number], . tel:[phone] Referring Provider: Anup Melvin, [address] [facility] [address] [place] [address], [address] . tel:[phone] [facility], [address] [place] [address], [id number] , [place] tel:[phone] [facility] No Information 5 Olga Hebert. [address] [facility], [address] [place] [address], [id number], [place]. tel:[phone] [facility], [address] [place] [address], [id number] , tel:[phone] [facility] Dizziness and giddinessAthscl heart disease of [place] coronary artery w/o ang pctrsEssential (primary) hypertension 5 Olga Hebert. [address] [facility], [address] [place] [address], [id number], [place]. tel:[phone] Referring Provider: Anup Melvin, [address] Elizabeth [address] [place] [address], [address] . tel:[phone] REM MNTR PHYSIOL ANJEL DEV [facility], [address] [place] [address], [id number] , tel: [phone] [facility] Essential (primary) hypertension 5 Olga Anup. [address] [facility], [address] [place] [address], [id number], . [phone] Referring Provider: Anup Melvin, [address] [facility] Suite [facility], [place], [address] . tel:[phone] sulting Provider: Anup Melvin, [address] [facility] Suite [facility], [place], [address] . tel:[phone] [facility], [address] [place] [address], [id number] , tel: [phone] [facility] No Information 5 Olga Hebert. [address] [facility], [address] [place] [address], [id number], . [phone] Referring Provider: Anup Melvin, [address] [place] [address] Suite [facility], [place], [address] . tel:[phone] OFFICE/OUTPA TIENT VISIT, [facility], [address] [place] [address], [id number] , tel:[phone] [facility] feelings of SOB and fainting (chief complaint) DizzinessCoronary artery diseaseHypertensio nHyperlipidemia 5 Ventimiglia Francisca. [address] [place] [address], [id number], . [phone] Referring Provider: Lynn chong, [address] [facility] [address], [place], [address]. tel:[phone] Family History Family Member Type Diagnosis Age At Onset No Information Payers Payer name Insurance type Covered alliance party ID Authoriza tion(s) [place] MED[place] [id number] [place] [id number] Social History Type Description Quantity Date Captured Comments Sex Male Smoking Status No Information Chief Complaint And Reason For Visit No Information Reason For Referral Reason For Referral No Information Plan Of Treatment Date Type Action Status Appointment Jonah Burgess BOOKED Future Order: Radiology Order Ti lt table test ([id number]), Ordered on: Ordered Future Order: Radiology Order Ti lt table test ([id number]), Ordered on: Ordered Future Order: Lab Order UA/M w/r flx Culture, Routine ([id number]), Ordered on: Ordered Future Order: Lab Order PT/INR ( [id number]), Ordered on: Ordered Future Order: Lab Order PTT ([id number]), Ordered on: Ordered Future Order: Lab Order CBC w/di ff ([id number]), Ordered on: Ordered Future Order: Lab Order CMP ([id number]), Ordered on: Ordered Future Order: Radiology Order LO OP IMPLANT ([facility]-[id number]), Ordered on: Ordered Future Order: Radiology Order MC T Monitor 14-30 Days ([facility]-[id number]), Ordered on: Ordered History Of Present Illness [...]
--- OUTSIDE RECORDS SUMMARY | 2025-08-05 17:59 | XMS_ITS | Continuity of Care Document ---
Author Organization [facility] Address [address] [place] [address] Phone Care Team Providers Care Rolling Up Machine Operator Name Role Phone Olga CANTU, RICHARDSON, Anup [...] Diagnoses Date Provider Providers Copied on Encounter [facility], [address] [place] [address], [id number] , tel:[phone] No Information 5 Olga Hebert. [address] [address] , [address], [id number], [place]. tel:[phone] Referring Provider: Lynn chong, [address] [facility] [address], [place], [address]. tel:[phone] sulting Provider: Anup Melvin, [address] [facility], [place], [address] . tel:[phone] REM MNTR PHYSIOL ANJEL DEV [facility], [address] [place] [address], [id number] , [phone] [facility] Essential (primary) hypertension 5 Olga Hebert. [address] , [address] [place] [address], [id number], . tel:[phone] Referring Provider: Anup Melvin, [address] [place] [address] [place] [address], [address] . tel:[phone] [facility] Provider: Anup Melvin, [address] [place] [address] [place] [address], [address] . tel:[phone] REM MNTR PHYSIOL ANJEL DEV [facility] , [address] [place] [address], [id number] , tel: [phone] [facility] Essential (primary) hypertension Oct0 5 Olga Hebert. [address] [place] [address], [address] [place] [address], [id number], . tel:[phone] Referring Provider: Anup Melvin, [address] [place] [address] [place] [address], [address] . tel:[phone] [facility] Provider: Anup Melvin, [address] [place] [address] [place] [address], [address] . tel:[phone] REM MNTR PHYSIOL ANJEL DEV [facility] , [address] [place] [address], [id number] , tel: [phone] [facility] Essential (primary) hypertension Sep0 5 Elianup Hebert. [address] [place] [address], [address] [place] [address], [id number], . tel:[phone] Referring Provider: Anup Melvin, [address] [place] [address] [place] [address], [address] . tel:[phone] [facility] Provider: Anup Melvin, [address] [place] [address] [place] [address], [address] . tel:[phone] [facility] , [address] [place] [address], [id number] , tel: [phone] [facility] [place] post device (chief complaint) Atherosclerotic heart disease of [place] coronary artery without angina pectorisEssential (primary) hypertensionMixed hyperlipidemiaPres ence of cardiac pacemakerDizziness 5 Olga Hebert. [address] , [address] [place] [address], [id number], [place]. tel:[phone] Referring Provider: Anup Melvin, [address] [facility], [place], [address] . tel:[phone] [facility] , [address] [place] [address], [id number] , tel: [phone] [facility] [place] Unspecified atrioventricular block 5 Olga Hebert. [address]Sandy Elizabeth , [address] [place] [address], [id number], [place]. [phone] Referring Provider: Anup Melvin, [address] Elizabeth [address] [place] [address], [address] . tel:[phone] [facility] , [address] [place] [address], [id number] , tel: [phone] [facility] [place] No Information 5 Ramadan Avery. [address] [place] [address], [id number], . tel:[phone] Referring Provider: Anup Melvin, Gald[address] Elizabeth [address] [place] [address], [address] . tel:[phone] [facility] , [address] [place] [address], [id number] , tel: [phone] [facility] Unspecified atrioventricular block 5 Ramadan Avery. [address] [place] [address], [id number], . [phone] Referring Provider: Galdino Mondragon [address] [place] [address], [address] . tel:[phone] REM MNTR PHYSIOL ANJEL DEV [facility] , [address] [place] [address], [id number] , tel: [phone] [facility] [place] Essential (primary) hypertension 5 Olga Hebetr. [address] [address] , [address] [place] [address], [id number], [place]. tel:[phone] Referring Provider: Anup Melvin, [address] [place] [address], [address] . tel:[phone] sulting Provider: Anup Melvin, [address] [facility], [place], [address] . tel:[phone] OFFICE/OUTPA TIENT VISIT, [facility], [address] [place] [address], [id number] , [phone] [facility] [place] feelings of SOB and fainting (chief complaint) HyperlipidemiaHype rtensionCoronary artery diseaseDizzinessAV block 5 Rosibel Varela. [address] [place] [address], [place], [place], [id number], . tel:[phone] Referring Provider: Anup Melvin, [address] [facility] [address] [place] [address], [address] . tel:[phone] [facility], [address] [place] [address], [id number] , [place] tel:[phone] [facility] No Information 5 Olga Hebert. [address] [facility], [address] [place] [address], [id number], [place]. tel:[phone] [facility], [address] [place] [address], [id number] , tel:[phone] [facility] [place] Dizziness and giddinessAthscl heart disease of [place] coronary artery w/o ang pctrsEssential (primary) hypertension 5 Olga Hebert. [address] [facility], [address] [place] [address], [id number], [place]. tel:[phone] Referring Provider: Anup Melvin, [address] Elizabeth [address] [place] [address], [address] . tel:[phone] REM MNTR PHYSIOL ANJEL DEV [facility], [address] [place] [address], [id number] , tel: [phone] [facility] Essential (primary) hypertension 5 Olga Anup. [address] [facility], [address] [place] [address], [id number], . [phone] Referring Provider: Anup Melvin, [address] [facility] Suite [facility], [place], [address] . tel:[phone] sulting Provider: Anup Melvin, [address] [facility] Suite [facility], [place], [address] . tel:[phone] [facility], [address] [place] [address], [id number] , tel: [phone] [facility] No Information 5 Olga Hebert. [address] [facility], [address] [place] [address], [id number], . [phone] Referring Provider: Anup Melvin, [id number] [place] [address] Suite [facility], [place], [address] . tel:[phone] OFFICE/OUTPA TIENT VISIT, [facility], [address] [place] [address], [id number] , tel:[phone] [facility] feelings of SOB and fainting (chief complaint) DizzinessCoronary artery diseaseHypertensio nHyperlipidemia 5 Ventimiglia Francisca. [address] [place] [address], [id number], . [phone] Referring Provider: Lynn chong, [address] [facility] [address], [place], [address]. tel:[phone] Family History Family Member Type Diagnosis Age At Onset No Information Payers Payer name Insurance type Covered constitution party ID Authoriza tion(s) [place] [id number] [place] [id number] Social History Type Description Quantity Date Captured Comments Sex Male Smoking Status No Information Chief Complaint And Reason For Visit No Information Reason For Referral Reason For Referral No Information Plan Of Treatment Date Type Action Status Appointment Jonah Burgess BOOKED Future Order: Radiology Order Ti lt table test ([id number]), Ordered on: Ordered Future Order: Radiology Order Ti lt table test ([id number]), Ordered on: Ordered Future Order: Lab Order UA/M w/r flx Culture, Routine ([id number]), Ordered on: Ordered Future Order: Lab Order PT/INR ( [id number]), Ordered on: Ordered Future Order: Lab Order PTT ([id number]), Ordered on: Ordered Future Order: Lab Order CBC w/di ff ([id number]), Ordered on: Ordered Future Order: Lab Order CMP ([id number]), Ordered on: Ordered Future Order: Radiology Order LO OP IMPLANT ([id number]), Ordered on: Ordered Future Order: Radiology Order MC T Monitor 14-30 Days ([facility]-[id number]), Ordered on: Ordered History Of Present Illness [...]
--- OUTSIDE RECORDS SUMMARY | 2025-08-05 17:59 | XMS_ITS | Continuity of Care Document ---
Author Organization [facility] Address [address] [place] [address] Phone Care Team Providers Care Chemical Process Analyst Name Role Phone Olga CANTU, RICHARDSON, Anup [...] Diagnoses Date Provider Providers Copied on Encounter [facility], [address] [place] [address], [id number] , tel:[phone] No Information 5 Olga Hebert. [address] , [address], [id number], [place]. tel:[phone] Referring Provider: Lynn chong, [address] [facility] [address], [place], [address]. tel:[phone] sulting Provider: Anup Melvin, [address] [facility], [place], [address] . tel:[phone] REM MNTR PHYSIOL ANJEL DEV [facility], [address] [place] [address], [id number] , tel:[phone] [facility] Essential (primary) hypertension 5 Olga Hebert. [address] , [address] [place] [address], [id number], . tel:[phone] Referring Provider: Anup Melvin, [address] [place] [address] [place] [address], [address] . tel:[phone] [facility] Provider: Anup Melvin, [address] [place] [address] [place] [address], [address] . tel:[phone] REM MNTR PHYSIOL ANJEL DEV [facility] , [address] [place] [address], [id number] , tel: [phone] [facility] Essential (primary) hypertension Oct0 5 Olga Hebert. [address] [place] [address], [address] [place] [address], [id number], . tel:[phone] Referring Provider: Anup Melvin, [address] [place] [address] [place] [address], [address] . tel:[phone] Provider: Anup Melvin, [address] [place] [address] [place] [address], [address] . tel:[phone] REM MNTR PHYSIOL ANJEL DEV [facility] , [address] [place] [address], [id number] , tel: [phone] [facility] Essential (primary) hypertension Sep0 5 Elianup Hebert. [address] [place] [address], [address] [place] [address], [id number], . tel:[phone] Referring Provider: Anup Melvin, [address] [place] [address] [place] [address], [address] . tel:[phone] [facility] Provider: Anup Melvin, [address] [place] [address] [place] [address], [address] . 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 [address] , [address] [place] [address], [id number], [place]. tel:[phone] Referring Provider: Anup Melvin, Gald[address] Elizabeth [address] [facility], [place], [address] . tel:[phone] [facility] , [address] [place] [address], [id number] , tel: [phone] [facility] [place] Unspecified atrioventricular block 5 Olga Hebert. 82[address]Sandy Elizabeth , [address] [place] [address], [id number], [place]. [phone] Referring Provider: Anup Melvin, [address] Elizabeth [address] [place] [address], [address] . tel:[phone] [facility] , [address] [place] [address], [id number] , tel: [phone] [facility] [place] No Information 5 Ramadan Avery. [address] [place] [address], [id number], . tel:[phone] Referring Provider: Anup Melvin, [address] Elizabeth [address] [place] [address], [address] . tel:[phone] [facility] , [address] [place] [address], [id number] , tel: [phone] [facility] Unspecified atrioventricular block 5 Ramadan Avery. [address] [place] [address], [id number], . [phone] Referring Provider: Galdino Mondragon [address] [place] [address], [address] . tel:[phone] REM MNTR PHYSIOL ANJEL DEV [facility] , [address] [place] [address], [id number] , tel: [phone] [facility] [place] Essential (primary) hypertension 5 Olga Hebert. [address] , [address] [place] [address], [id number], [place]. tel:[phone] Referring Provider: Anup Melvin, [address] [place] [address], [address] . tel:[phone] sulting Provider: Anup Melvin, [address] [facility], [place], [address] . tel:[phone] OFFICE/OUTPA TIENT VISIT, [facility], [address] [place] [address], [id number] , tel:[phone] [facility] [place] feelings of SOB and fainting (chief complaint) HyperlipidemiaHype rtensionCoronary artery diseaseDizzinessAV block 5 Rosibel Varela. [address] [place] [address], [place], [place], [id number], . tel:[phone] Referring Provider: Anup Melvin, [address] [facility] [address] [place] [address], [address] . tel:[phone] [facility], [address] [place] [address], [id number] , [place] tel:[phone] [facility] No Information 5 Olga Hebert. [address] [facility], [address] [place] [address], [id number], [place]. tel:[phone] [facility], [address] [place] [address], [id number] , tel:[phone] [facility] [place] Dizziness and giddinessAthscl heart disease of [place] coronary artery w/o ang pctrsEssential (primary) hypertension 5 Olga Hebert. [address] [facility], [address] [place] [address], [id number], [place]. tel:[phone] Referring Provider: Anup Melvin, Gald[address] Elizabeth [address] [place] [address], [address] . tel:[phone] REM MNTR PHYSIOL ANJEL DEV [facility], [address] [place] [address], [id number] , tel: [phone] [facility] Essential (primary) hypertension 5 Olga Anup. [address] [facility], [address] [place] [address], [id number], . [phone] Referring Provider: Anup Melvin, [address] [facility] Suite [facility], [place], [address] . tel:[phone] sulting Provider: Anup Melvin, [address] [facility] Suite [facility], [place], [address] . tel:[phone] [facility], [address] [place] [address], [id number] , tel: [phone] [facility] No Information 5 Olga Hebert. [address] [facility], [address] [place] [address], [id number], . [phone] Referring Provider: Anup Melvin, [id number] [place] [address] Suite [facility], [place], [address] . tel:[phone] OFFICE/OUTPA TIENT VISIT, [facility], [address] [place] [address], [id number] , tel:[phone] [facility] feelings of SOB and fainting (chief complaint) DizzinessCoronary artery diseaseHypertensio nHyperlipidemia 5 Ventimiglia Francisca. [address] [place] [address], [id number], . [phone] Referring Provider: Lynn chong, [address] [facility] [address], [place], [address]. tel:[phone] Family History Family Member Type Diagnosis Age At Onset No Information Payers Payer name Insurance type Covered republican ID Authoriza tion(s) [place] MED[place]ARE [place] B [place] [id number] [place] CI [id number] Social History Type Description Quantity Date Captured Comments Sex Male Smoking Status No Information Chief Complaint And Reason For Visit No Information Reason For Referral Reason For Referral No Information Plan Of Treatment Date Type Action Status Appointment Jonah Burgess BOOKED Future Order: Radiology Order Ti lt table test ([id number]), Ordered on: Ordered Future Order: Radiology Order Ti lt table test ([id number]), Ordered on: Ordered Future Order: Lab Order UA/M w/r flx Culture, Routine ([id number]), Ordered on: Ordered Future Order: Lab Order PT/INR ( [id number]), Ordered on: Ordered Future Order: Lab Order PTT ([id number]), Ordered on: Ordered Future Order: Lab Order CBC w/di ff ([id number]), Ordered on: Ordered Future Order: Lab Order CMP ([id number]), Ordered on: Ordered Future Order: Radiology Order LO OP IMPLANT ([facility]-[id number]), Ordered on: Ordered Future Order: Radiology Order MC T Monitor 14-30 Days ([facility]-[id number]), Ordered on: Ordered History Of Present Illness [...]
--- OUTSIDE RECORDS SUMMARY | 2025-08-05 17:59 | XMS_ITS | Continuity of Care Document ---
Author Organization [facility] Address [address] [place] [address] Phone Care Team Providers Care Crop Or Grain Farmer Name Role Phone Olga CANTU, RICHARDSON, Anup [...] Diagnoses Date Provider Providers Copied on Encounter [facility], [address] [place] [address], [id number] , tel:[phone] No Information 5 Olga Hebert. [address] [address] , [address], [id number], [place]. tel:[phone] Referring Provider: Lynn chong, [address] [facility] [address], [place], [address]. tel:[phone] sulting Provider: Anup Melvin, [address] [facility], [place], [address] . tel:[phone] REM MNTR PHYSIOL ANJEL DEV [facility], [address] [place] [address], [id number] , tel:[phone] [facility] Essential (primary) hypertension 5 Olga Hebert. [address] , [address] [place] [address], [id number], . tel:[phone] Referring Provider: Anup Melvin, [address] [place] [address] [place] [address], [address] . tel:[phone] Provider: Anup Melvin, [address] [place] [address] [place] [address], [address] . tel:[phone] REM MNTR PHYSIOL ANJEL DEV [facility] , [address] [place] [address], [id number] , tel: [phone] [facility] Essential (primary) hypertension Oct0 5 Olga Hebert. [address] [place] [address], [address] [place] [address], [id number], . tel:[phone] Referring Provider: Anup Melvin, [address] [place] [address] [place] [address], [address] . tel:[phone] Provider: Anup Melvin, [address] [place] [address] [place] [address], [address] . tel:[phone] REM MNTR PHYSIOL ANJEL DEV [facility] , [address] [place] [address], [id number] , tel: [phone] [facility] Essential (primary) hypertension Sep0 5 Elianup Hebert. [address] [place] [address], [address] [place] [address], [id number], . tel:[phone] Referring Provider: Anup Melvin, [address] [place] [address] [place] [address], [address] . tel:[phone] Provider: Anup Melvin, [address] [place] [address] [place] [address], [address] . tel:[phone] [facility] , [address] [place] [address], [id number] , tel: [phone] [facility] [place] post device (chief complaint) Atherosclerotic heart disease of [place] coronary artery without angina pectorisEssential (primary) hypertensionMixed hyperlipidemiaPres ence of cardiac pacemakerDizziness 5 Olga Hebert. [address] , [address] [place] [address], [id number], [place]. tel:[phone] Referring Provider: Anup Melvin, Gald[address] Elizabeth [address] [facility], [place], [address] . tel:[phone] [facility] , [address] [place] [address], [id number] , tel: [phone] [facility] [place] Unspecified atrioventricular block 5 Olga Hebert. [address]Sandy Elizabeth , [address] [place] [address], [id number], [place]. [phone] Referring Provider: Anup Melvin, Gald[address] Elizabeth [address] [place] [address], [address] . tel:[phone] [facility] , [address] [place] [address], [id number] , tel: [phone] [facility] [place] No Information 5 Ramadan Avery. [address] [place] [address], [id number], . tel:[phone] Referring Provider: Anup Melvin, Gald[address] Elizabeth [address] [place] [address], [address] . tel:[phone] [facility] , [address] [place] [address], [id number] , tel: [phone] [facility] Unspecified atrioventricular block 5 Ramadan Avery. [address] [place] [address], [id number], . [phone] Referring Provider: Galdino Mondragon [address] [place] [address], [address] . tel:[phone] REM MNTR PHYSIOL NAJEL DEV [facility] , [address] [place] [address], [id number] , tel: [phone] [facility] [place] Essential (primary) hypertension 5 Olga Hebert. [address] , [address] [place] [address], [id number], [place]. tel:[phone] Referring Provider: Anup Melvin, [address] [place] [address], [address] . tel:[phone] sulting Provider: Anup Melvin, [address] [facility], [place], [address] . tel:[phone] OFFICE/OUTPA TIENT VISIT, [facility], [address] [place] [address], [id number] , tel:[phone] [facility] [place] feelings of SOB and fainting (chief complaint) HyperlipidemiaHype rtensionCoronary artery diseaseDizzinessAV block 5 Rosibel Varela. [address] [place] [address], [place], [place], [id number], . tel:[phone] Referring Provider: Anup Melvin, [address] [facility] [address] [place] [address], [address] . tel:[phone] [facility], [address] [place] [address], [id number] , [place] tel:[phone] [facility] No Information 5 Olga Hebert. [address] [facility], [address] [place] [address], [id number], [place]. tel:[phone] [facility], [address] [place] [address], [id number] , tel:[phone] [facility] [place] Dizziness and giddinessAthscl heart disease of [place] coronary artery w/o ang pctrsEssential (primary) hypertension 5 Olga Hebert. [address] [facility], [address] [place] [address], [id number], [place]. tel:[phone] Referring Provider: Anup Melvin, Gald[address] Elizabeth [address] [place] [address], [address] . tel:[phone] REM MNTR PHYSIOL ANJEL DEV [facility], [address] [place] [address], [id number] , tel: [phone] [facility] Essential (primary) hypertension 5 Olga Anup. [address] [facility], [address] [place] [address], [id number], . [phone] Referring Provider: Anup Melvin, [address] [facility] Suite [facility], [place], [address] . tel:[phone] sulting Provider: Anup Melvin, [address] [facility] Suite [facility], [place], [address] . tel:[phone] [facility], [address] [place] [address], [id number] , tel: [phone] [facility] No Information 5 Olga Hebert. [address] [facility], [address] [place] [address], [id number], . [phone] Referring Provider: Anup Melvin, [address] [place] [address] Suite [facility], [place], [address] . tel:[phone] OFFICE/OUTPA TIENT VISIT, [facility], [address] [place] [address], [id number] , tel: [phone] [facility] feelings of SOB and fainting (chief complaint) DizzinessCoronary artery diseaseHypertensio nHyperlipidemia 5 Ventimiglia Franicsca. [address] [place] [address], [id number], . [phone] Referring Provider: Lynn chong, [address] [facility] [address], [place], [address]. tel:[phone] Family History Family Member Type Diagnosis Age At Onset No Information Payers Payer name Insurance type Covered libertarian ID Authoriza [place]ion(s) [place] [id number] [place] [id number] Social History Type Description Quantity Date Captured Comments Sex Male Smoking Status No Information Chief Complaint And Reason For Visit No Information Reason For Referral Reason For Referral No Information Plan Of Treatment Date Type Action Status Appointment Jonah Burgess BOOKED Future Order: Radiology Order Ti lt table test ([id number]), Ordered on: Ordered Future Order: Radiology Order Ti lt table test ([id number]), Ordered on: Ordered Future Order: Lab Order UA/M w/r flx Culture, Routine ([id number]), Ordered on: Ordered Future Order: Lab Order PT/INR ( [id number]), Ordered on: Ordered Future Order: Lab Order PTT ([id number]), Ordered on: Ordered Future Order: Lab Order CBC w/di ff ([id number]), Ordered on: Ordered Future Order: Lab Order CMP ([id number]), Ordered on: Ordered Future Order: Radiology Order LO OP IMPLANT ([facility]-[id number]), Ordered on: Ordered Future Order: Radiology Order MC T Monitor 14-30 Days ([facility]-[id number]), Ordered on: Ordered History Of Present Illness [...]
--- OUTSIDE RECORDS SUMMARY | 2025-08-05 17:59 | XMS_ITS | Continuity of Care Document ---
Author Organization [facility] Address [address] [place] [address] Phone Care Team Providers Care Cake Wrapper Name Role Phone Olga CANTU, RICHARDSON, Anup [...] Diagnoses Date Provider Providers Copied on Encounter [facility], [address] [place] [address], [id number] , tel:[phone] No Information 5 Olga Hebert. [address] [address] , [address], [id number], [place]. tel:[phone] Referring Provider: Lynn chong, [address] [facility] [address], [address]. tel:[phone] sulting Provider: Anup Melvin, [address] [facility], [place], [address] . tel:[phone] REM MNTR PHYSIOL ANJEL DEV [facility], [address] [place] [address], [id number] , tel:[phone] [facility] Essential (primary) hypertension 5 Olga Hebert. [address] [address] , [address] [place] [address], [id number], . tel:[phone] Referring Provider: Anup Melvin, [address] [place] [address] [place] [address], [address] . tel:[phone] Provider: Anup Melvin, [address] [place] [address] [place] [address], [address] . tel:[phone] REM MNTR PHYSIOL ANJEL DEV [facility] , [address] [place] [address], [id number] , tel: [phone] [facility] Essential (primary) hypertension Oct0 5 Olga Hebert. [address] [place] [address], [address] [place] [address], [id number], . tel:[phone] Referring Provider: Anup Melvin, [address] [place] [address] [place] [address], [address] . tel:[phone] Provider: Anup Melvin, [address] [place] [address] [place] [address], [address] . tel:[phone] REM MNTR PHYSIOL ANJEL DEV [facility] , [address] [place] [address], [id number] , tel: [phone] [facility] Essential (primary) hypertension Sep0 5 Elianup Hebert. [address] [place] [address], [address] [place] [address], [id number], . tel:[phone] Referring Provider: Anup Melvin, [address] [place] [address] [place] [address], [address] . tel:[phone] Provider: Anup Melvin, [address] [place] [address] [place] [address], [address] . tel:[phone] [facility] , [address] [place] [address], [id number] , tel: [phone] [facility] Sharkey post device (chief complaint) Atherosclerotic heart disease of [place] coronary artery without angina pectorisEssential (primary) hypertensionMixed hyperlipidemiaPres ence of cardiac pacemakerDizziness 5 Olga Hebert. [address] [address] , [address] [place] [address], [id number], [place]. tel:[phone] Referring Provider: Anup Melvin, Galdino Elizabeth Suite [facility], [place], [address] . tel:[phone] [facility] , [address] [place] [address], [id number] , tel: [phone] [facility] Sharkey Unspecified atrioventricular block 5 Olga Hebert. 079[address]Sandy Elizabeth , [address] [place] [address], [id number], [place]. [phone] Referring Provider: Anup Melvin, Galdino Elizabeth [address] [place] [address], [address] . tel:[phone] [facility] , [address] [place] [address], [id number] , tel: [phone] [facility] Sharkey No Information 5 Ramadan Avery. [address] [place] [address], [id number], . tel:[phone] Referring Provider: Anup Melvin, Galdino Elizabeth [address] [place] [address], [address] . tel:[phone] [facility] , [address] [place] [address], [id number] , tel: [phone] [facility] Unspecified atrioventricular block 5 Ramadan Avery. [address] [place] [address], [id number], . [phone] Referring Provider: Galdino Mondragon [address] [place] [address], [address] . tel:[phone] REM MNTR PHYSIOL ANJEL DEV [facility] , [address] [place] [address], [id number] , tel: [phone] [facility] Sharkey Essential (primary) hypertension 5 Olga Hebert. [address] [address] , [address] [place] [address], [id number], [place]. tel:[phone] Referring Provider: Anup Melvin, [address] Elizabeth [address] [place] [address], [address] . tel:[phone] sulting Provider: Anup Melvin, [address] [facility], [place], [address] . tel:[phone] OFFICE/OUTPA TIENT VISIT, [facility], [address] [place] [address], [id number] , tel:[phone] [facility] Sharkey feelings of SOB and fainting (chief complaint) HyperlipidemiaHype rtensionCoronary artery diseaseDizzinessAV block 5 Rosibel Varela. [address] [place] [address], [place], [place], [id number], . tel:[phone] Referring Provider: Anup Melvin, [address] [facility] [address] [place] [address], [address] . tel:[phone] [facility], [address] [place] [address], [id number] , [place] tel:[phone] [facility] No Information 5 Olga Hebert. [address] [facility], [address] [place] [address], [id number], [place]. tel:[phone] [facility], [address] [place] [address], [id number] , tel:[phone] [facility] Sharkey Dizziness and giddinessAthscl heart disease of [place] coronary artery w/o ang pctrsEssential (primary) hypertension 5 Olga Hebert. [address]47 [facility], [address] [place] [address], [id number], [place]. tel:[phone] Referring Provider: Anup Melvin, Galdino Elizabeth [address] [place] [address], [address] . tel:[phone] REM MNTR PHYSIOL ANJEL DEV [facility], [address] [place] [address], [id number] , tel: [phone] [facility] Essential (primary) hypertension 5 Olga Anup. 17179 [facility], [address] [place] [address], [id number], . [phone] Referring Provider: Anup Melvin, [address] [facility] Suite [facility], [place], [address] . tel:[phone] sulting Provider: Anup Melvin, [address] [facility] Suite [facility], [place], [address] . tel:[phone] [facility], [address] [place] [address], [id number] , tel: [phone] [facility] No Information 5 Olga Hebert. [address] [facility], [address] [place] [address], [id number], . [phone] Referring Provider: Anup Melvin, [id number] [place] [address] Suite [facility], [place], [address] . tel:[phone] OFFICE/OUTPA TIENT VISIT, [facility], [address] [place] [address], [id number] , tel:[phone] [facility] feelings of SOB and fainting (chief complaint) DizzinessCoronary artery diseaseHypertensio nHyperlipidemia 5 Ventimiglia Francisca. [address] [place] [address], [id number], . [phone] Referring Provider: Lynn chong, [address] [facility] [address], [place], [address]. tel:[phone] Family History Family Member Type Diagnosis Age At Onset No Information Payers Payer name Insurance type Covered green party ID Authoriza tion(s) [place] [id number] [place] [id number] Social History Type Description Quantity Date Captured Comments Sex Male Smoking Status No Information Chief Complaint And Reason For Visit No Information Reason For Referral Reason For Referral No Information Plan Of Treatment Date Type Action Status Appointment Jonah Burgess BOOKED Future Order: Radiology Order Ti lt table test ([id number]), Ordered on: Ordered Future Order: Radiology Order Ti lt table test ([id number]), Ordered on: Ordered Future Order: Lab Order UA/M w/r flx Culture, Routine ([id number]), Ordered on: Ordered Future Order: Lab Order PT/INR ( [id number]), Ordered on: Ordered Future Order: Lab Order PTT ([id number]), Ordered on: Ordered Future Order: Lab Order CBC w/di ff ([id number]), Ordered on: Ordered Future Order: Lab Order CMP ([id number]), Ordered on: Ordered Future Order: Radiology Order LO OP IMPLANT ([id number]), Ordered on: Ordered Future Order: Radiology Order MC T Monitor 14-30 Days ([id number]), Ordered on: Ordered History Of Present Illness [...]
--- OUTSIDE RECORDS SUMMARY | 2025-08-05 17:59 | XMS_ITS | Continuity of Care Document ---
Author Organization [facility] Address [address] [place] [address] Phone Care Team Providers Care Pediatric Surgeon Name Role Phone Olga CANTU, RICHARDSON, Anup [...] Diagnoses Date Provider Providers Copied on Encounter [facility], [address] [place] [address], [id number] , tel:[phone] No Information 5 Olga Hebert. [address] [address] , [address], [id number], [place]. tel:[phone] Referring Provider: Lynn chong, [address] [facility] [address], [place], [address]. tel:[phone] sulting Provider: Anup Melvin, [address] [facility], [place], [address] . tel:[phone] REM MNTR PHYSIOL ANJEL DEV [facility], [address] [place] [address], [id number] , tel:[phone] [facility] Essential (primary) hypertension 5 Olga Hebert. [address] [address] , [address] [place] [address], [id number], . tel:[phone] Referring Provider: Anup Melvin, [address] [place] [address] [place] [address], [address] . tel:[phone] Provider: Anup Melvin, [address] [place] [address] [place] [address], [address] . tel:[phone] REM MNTR PHYSIOL ANJEL DEV [facility] , [address] [place] [address], [id number] , tel: [phone] [facility] Essential (primary) hypertension Oct0 5 Olga Hebert. [address] [place] [address], [address] [place] [address], [id number], . tel:[phone] Referring Provider: Anup Melvin, [address] [place] [address] [place] [address], [address] . tel:[phone] Provider: Anup Melvin, [address] [place] [address] [place] [address], [address] . tel:[phone] REM MNTR PHYSIOL ANJEL DEV [facility] , [address] [place] [address], [id number] , tel: [phone] [facility] Essential (primary) hypertension Sep0 5 Elianup Hebert. [address] [place] [address], [address] [place] [address], [id number], . tel:[phone] Referring Provider: Anup Melvin, [address] [place] [address] [place] [address], [address] . tel:[phone] Provider: Anup Melvin, [address] [place] [address] [place] [address], [address] . tel:[phone] [facility] , [address] [place] [address], [id number] , tel: [phone] [facility] [place] post device (chief complaint) Atherosclerotic heart disease of [place] coronary artery without angina pectorisEssential (primary) hypertensionMixed hyperlipidemiaPres ence of cardiac pacemakerDizziness 5 Olga eHbert. [address] [address] , [address] [place] [address], [id number], [place]. tel:[phone] Referring Provider: Anup Melvin, Galdino Elizabeth Suite [facility], [place], [address] . tel:[phone] [facility] , [address] [place] [address], [id number] , tel: [phone] [facility] [place] Unspecified atrioventricular block 5 Olga Hebert. 778[address]Sandy Elizabeth , [address] [place] [address], [id number], [place]. [phone] Referring Provider: Anup Melvin, Galdino Elizabeth [address] [place] [address], [address] . tel:[phone] [facility] , [address] [place] [address], [id number] , tel: [phone] [facility] [place] No Information 5 Ramadan Avery. [address] [place] [address], [id number], . tel:[phone] Referring Provider: Anup Melvin, Galdino Elizabeth [address] [place] [address], [address] . tel:[phone] [facility] , [address] [place] [address], [id number] , tel: [phone] [facility] Unspecified atrioventricular block 5 Ramadan Avery. [address] [place] [address], [id number], . [phone] Referring Provider: Galdino Mondragon [address] [place] [address], [address] . tel:[phone] REM MNTR PHYSIOL ANJEL DEV [facility] , [address] [place] [address], [id number] , tel: [phone] [facility] [place] Essential (primary) hypertension 5 Olag Hebert. [address] Elizabeth , [address] [place] [address], [id number], [place]. tel:[phone] Referring Provider: Anup Melvin, [address]68[address]Sandy Elizabeth [address] [place] [address], [address] . tel:[phone] sulting Provider: Anup Melvin, [address] [facility], [place], [address] . tel:[phone] OFFICE/OUTPA TIENT VISIT, [facility], [address] [place] [address], [id number] , tel:[phone] [facility] [place] feelings of SOB and fainting (chief complaint) HyperlipidemiaHype rtensionCoronary artery diseaseDizzinessAV block 5 Rosibel Varela. [address] [place] [address], [place], [place], [id number], . tel:[phone] Referring Provider: Anup Melvin, [address] [facility] [address] [place] [address], [address] . tel:[phone] [facility], [address] [place] [address], [id number] , [place] tel:[phone] [facility] No Information 5 Olga Hebert. [address] [facility], [address] [place] [address], [id number], [place]. tel:[phone] [facility], [address] [place] [address], [id number] , tel:[phone] [facility] [place] Dizziness and giddinessAthscl heart disease of [place] coronary artery w/o ang pctrsEssential (primary) hypertension 5 Olga Hebert. [address] [facility], [address] [place] [address], [id number], [place]. tel:[phone] Referring Provider: Anup Melvin, Galdino Elizabeth [address] [place] [address], [address] . tel:[phone] REM MNTR PHYSIOL ANJEL DEV [facility], [address] [place] [address], [id number] , tel: [phone] [facility] Essential (primary) hypertension 5 Olga Anup. [address] [facility], [address] [place] [address], [id number], . [phone] Referring Provider: Anup Melvin, [address] [facility] Suite [facility], [place], [address] . tel:[phone] sulting Provider: Anup Melvin, [address] [facility] Suite [facility], [place], [address] . tel:[phone] [facility], [address] [place] [address], [id number] , tel: [phone] [facility] No Information 5 Olga Hebert. [address] [facility], [address] [place] [address], [id number], . [phone] Referring Provider: Anup Melvin, [address] [place] [address] Suite [facility], [place], [address] . tel:[phone] OFFICE/OUTPA TIENT VISIT, [facility], [address] [place] [address], [id number] , tel:[phone] [facility] feelings of SOB and fainting (chief complaint) DizzinessCoronary artery diseaseHypertensio nHyperlipidemia 5 Ventimiglia Francisca. [address] [place] [address], [id number], . [phone] Referring Provider: Lynn chong, [address] [facility] [address], [place], [address]. tel:[phone] Family History Family Member Type Diagnosis Age At Onset No Information Payers Payer name Insurance type Covered green party ID Authoriza tion(s) [place] [id number] [place] [id number] Social History Type Description Quantity Date Captured Comments Sex Male Smoking Status No Information Chief Complaint And Reason For Visit No Information Reason For Referral Reason For Referral No Information Plan Of Treatment Date Type Action Status Appointment Jonah Burgess BOOKED Future Order: Radiology Order Ti lt table test ([id number]), Ordered on: Ordered Future Order: Radiology Order Ti lt table test ([id number]), Ordered on: Ordered Future Order: Lab Order UA/M w/r flx Culture, Routine ([id number]), Ordered on: Ordered Future Order: Lab Order PT/INR ( [id number]), Ordered on: Ordered Future Order: Lab Order PTT ([id number]), Ordered on: Ordered Future Order: Lab Order CBC w/di ff ([id number]), Ordered on: Ordered Future Order: Lab Order CMP ([id number]), Ordered on: Ordered Future Order: Radiology Order LO OP IMPLANT ([id number]), Ordered on: Ordered Future Order: Radiology Order MC T Monitor 14-30 Days ([id number]), Ordered on: Ordered History Of Present Illness [...]
--- OUTSIDE RECORDS SUMMARY | 2025-08-05 17:59 | XMS_ITS | Continuity of Care Document ---
Author Organization [facility] Address [address] [place] [address] Phone Care Team Providers Care Parts Puller Name Role Phone Olga CANTU, RICHARDSON, Anup [...] Diagnoses Date Provider Providers Copied on Encounter [facility], [address] [place] [address], [id number] , tel:[phone] No Information 5 Olga Hebert. [address] , [address], [id number], [place]. tel:[phone] Referring Provider: Lynn chong, [address] [facility] [address], [place], [address]. tel:[phone] sulting Provider: Anup Melvin, [address] [facility], [place], [address] . tel:[phone] REM MNTR PHYSIOL ANJEL DEV [facility], [address] [place] [address], [id number] , tel:[phone] [facility] Essential (primary) hypertension 5 Olga Hebert. [address] , [address] [place] [address], [id number], . tel:[phone] Referring Provider: Anup Melvin, [address] [place] [address] [place] [address], [address] . tel:[phone] Provider: Anup Melvin, [address] [place] [address] [place] [address], [address] . tel:[phone] REM MNTR PHYSIOL ANJEL DEV [facility] , [address] [place] [address], [id number] , tel: [phone] [facility] Essential (primary) hypertension Oct0 5 Olga Hebert. [address] [place] [address], [address] [place] [address], [id number], . tel:[phone] Referring Provider: Anup Melvin, [address] [place] [address] [place] [address], [address] . tel:[phone] Provider: Anup Melvin, [address] [place] [address] [place] [address], [address] . tel:[phone] REM MNTR PHYSIOL ANJEL DEV [facility] , [address] [place] [address], [id number] , tel: [phone] [facility] Essential (primary) hypertension Sep0 5 Elianup Hebert. [address] [place] [address], [address] [place] [address], [id number], . tel:[phone] Referring Provider: Anup Melvin, [address] [place] [address] [place] [address], [address] . tel:[phone] Provider: Anup Melvin, [address] [place] [address] [place] [address], [address] . tel:[phone] [facility] , [address] [place] [address], [id number] , tel: [phone] [facility] [place] post device (chief complaint) Atherosclerotic heart disease of [place] coronary artery without angina pectorisEssential (primary) hypertensionMixed hyperlipidemiaPres ence of cardiac pacemakerDizziness 5 Olga Hebert. [address] , [address] [place] [address], [id number], [place]. tel:[phone] Referring Provider: Anup Melvin, [address] Elizabeth [address] [facility], [place], [address] . tel:[phone] [facility] , [address] [place] [address], [id number] , tel: [phone] [facility] [place] Unspecified atrioventricular block 5 Olga Hebert. [address] Elizabeth , [address] [place] [address], [id number], [place]. [phone] Referring Provider: Anup Melvin, [address] [place] [address], [address] . tel:[phone] [facility] , [address] [place] [address], [id number] , tel: [phone] [facility] [place] No Information 5 Ramadan Avery. [address] [place] [address], [id number], . tel:[phone] Referring Provider: Anup Melvin, [address] Elizabeth [address] [place] [address], [address] . tel:[phone] [facility] , [address] [place] [address], [id number] , tel: [phone] [facility] Unspecified atrioventricular block 5 Ramadan Avery. [address] [place] [address], [id number], . [phone] Referring Provider: Galdino Mondragon [address] [place] [address], [address] . tel:[phone] REM MNTR PHYSIOL ANJEL DEV [facility] , [address] [place] [address], [id number] , tel: [phone] [facility] [place] Essential (primary) hypertension 5 Olga Hebert. [address] , [address] [place] [address], [id number], [place]. tel:[phone] Referring Provider: Anup Melvin, [address] [place] [address], [address] . tel:[phone] sulting Provider: Anup Melvin, [address] [facility], [place], [address] . tel:[phone] OFFICE/OUTPA TIENT VISIT, [facility], [address] [place] [address], [id number] , tel:[phone] [facility] [place] feelings of SOB and fainting (chief complaint) HyperlipidemiaHype rtensionCoronary artery diseaseDizzinessAV block 5 Rosibel Varela. [address] [place] [address], [place], [place], [id number], . tel:[phone] Referring Provider: Anup Melvin, [address] [facility] [address] [place] [address], [address] . tel:[phone] [facility], [address] [place] [address], [id number] , [place] tel:[phone] [facility] No Information 5 Olga Hebert. [address] [facility], [address] [place] [address], [id number], [place]. tel:[phone] [facility], [address] [place] [address], [id number] , tel:[phone] [facility] [place] Dizziness and giddinessAthscl heart disease of [place] coronary artery w/o ang pctrsEssential (primary) hypertension 5 Olga Hebert. [address] [facility], [address] [place] [address], [id number], [place]. tel:[phone] Referring Provider: Anup Melvin, [address] [place] [address], [address] . tel:[phone] REM MNTR PHYSIOL ANJEL DEV [facility], [address] [place] [address], [id number] , tel: [phone] [facility] Essential (primary) hypertension 5 Olga Anup. [address] [facility], [address] [place] [address], [id number], . [phone] Referring Provider: Anup Melvin, [address] [facility] Suite [facility], [place], [address] . tel:[phone] sulting Provider: Anup eMlvin, [address] [facility] Suite [facility], [place], [address] . tel:[phone] [facility], [address] [place] [address], [id number] , tel: [phone] [facility] No Information 5 Olga Hebert. [address] [facility], [address] [place] [address], [id number], . [phone] Referring Provider: Anup Melvin, [id number] [place] [address] Suite [facility], [place], [address] . tel:[phone] OFFICE/OUTPA TIENT VISIT, [facility], [address] [place] [address], [id number] , tel:[phone] [facility] feelings of SOB and fainting (chief complaint) DizzinessCoronary artery diseaseHypertensio nHyperlipidemia 5 Ventimiglia Francisca. [address] [place] [address], [id number], . [phone] Referring Provider: Lynn chong, [address] [facility] [address], [place], [address]. tel:[phone] Family History Family Member Type Diagnosis Age At Onset No Information Payers Payer name Insurance type Covered republican ID Authoriza tion(s) [place] [id number] [place] [id number] Social History Type Description Quantity Date Captured Comments Sex Male Smoking Status No Information Chief Complaint And Reason For Visit No Information Reason For Referral Reason For Referral No Information Plan Of Treatment Date Type Action Status Appointment Jonah Burgess BOOKED Future Order: Radiology Order Ti lt table test ([id number]), Ordered on: Ordered Future Order: Radiology Order Ti lt table test ([id number]), Ordered on: Ordered Future Order: Lab Order UA/M w/r flx Culture, Routine ([id number]), Ordered on: Ordered Future Order: Lab Order PT/INR ( [id number]), Ordered on: Ordered Future Order: Lab Order PTT ([id number]), Ordered on: Ordered Future Order: Lab Order CBC w/di ff ([id number]), Ordered on: Ordered Future Order: Lab Order CMP ([id number]), Ordered on: Ordered Future Order: Radiology Order LO OP IMPLANT ([id number]), Ordered on: Ordered Future Order: Radiology Order MC T Monitor 14-30 Days ([id number]), Ordered on: Ordered History Of Present Illness [...]
--- OUTSIDE RECORDS SUMMARY | 2025-08-05 17:59 | XMS_ITS | Continuity of Care Document ---
Author Organization [facility] Address [address] [place] [address] Phone Care Team Providers Care Sugar Cane Planter Name Role Phone Olga CANTU, RICHARDSON, Anup [...] Diagnoses Date Provider Providers Copied on Encounter [facility], [address] [place] [address], [id number] , tel:[phone] No Information 5 Olga Hebert. [address] , [address], [id number], [place]. tel:[phone] Referring Provider: Lynn chong, [address] [facility] [address], [address]. tel:[phone] sulting Provider: Anup Melvin, [address] [facility], [place], [address] . tel:[phone] REM MNTR PHYSIOL ANJEL DEV [facility], [address] [place] [address], [id number] , [phone] [facility] Essential (primary) hypertension 5 Olga Hebert. [address] , [address] [place] [address], [id number], . tel:[phone] Referring Provider: Anup Melvin, [address] [place] [address] [place] [address], [address] . tel:[phone] Provider: Anup Melvin, [address] [place] [address] [place] [address], [address] . tel:[phone] REM MNTR PHYSIOL ANJEL DEV [facility] , [address] [place] [address], [id number] , tel: [phone] [facility] Essential (primary) hypertension Oct0 5 Olga Hebert. [address] [place] [address], [address] [place] [address], [id number], . tel:[phone] Referring Provider: Anup Melvin, [address] [place] [address] [place] [address], [address] . tel:[phone] Provider: Anup Melvin, [address] [place] [address] [place] [address], [address] . tel:[phone] REM MNTR PHYSIOL ANJEL DEV [facility] , [address] [place] [address], [id number] , tel: [phone] [facility] Essential (primary) hypertension Sep0 5 Elianup Hebert. [address] [place] [address], [address] [place] [address], [id number], . tel:[phone] Referring Provider: Anup Melvin, [address] [place] [address] [place] [address], [address] . tel:[phone] Provider: Anup Melvin, [address] [place] [address] [place] [address], [address] . tel:[phone] [facility] , [address] [place] [address], [id number] , tel: [phone] [facility] [place] post device (chief complaint) Atherosclerotic heart disease of [place] coronary artery without angina pectorisEssential (primary) hypertensionMixed hyperlipidemiaPres ence of cardiac pacemakerDizziness 5 Olga Hebert. [address] , [address] [place] [address], [id number], [place]. tel:[phone] Referring Provider: Anup Melvin, [address] [facility], [place], [address] . tel:[phone] [facility] , [address] [place] [address], [id number] , tel: [phone] [facility] [place] Unspecified atrioventricular block 5 Olga Hebert. [address]Sandy Elizabeth , [address] [place] [address], [id number], [place]. [phone] Referring Provider: Anup Melvin, [address] Elizabeth [address] [place] [address], [address] . tel:[phone] [facility] , [address] [place] [address], [id number] , tel: [phone] [facility] [place] No Information 5 Ramadan Avery. [address] [place] [address], [id number], . tel:[phone] Referring Provider: Anup Melvin, [address] Elizabeth [address] [place] [address], [address] . tel:[phone] [facility] , [address] [place] [address], [id number] , tel: [phone] [facility] Unspecified atrioventricular block 5 Ramadan Avery. [address] [place] [address], [id number], . [phone] Referring Provider: Galdino Mondragon [address] [place] [address], [address] . tel:[phone] REM MNTR PHYSIOL ANJEL DEV [facility] , [address] [place] [address], [id number] , tel: [phone] [facility] [place] Essential (primary) hypertension 5 Olga Hebert. [address] , [address] [place] [address], [id number], [place]. tel:[phone] Referring Provider: Anup Melvin, [address] [place] [address], [address] . tel:[phone] sulting Provider: Anup Melvin, [address] [facility], [place], [address] . tel:[phone] OFFICE/OUTPA TIENT VISIT, [facility], [address] [place] [address], [id number] , [phone] [facility] [place] feelings of SOB and fainting (chief complaint) HyperlipidemiaHype rtensionCoronary artery diseaseDizzinessAV block 5 Rosibel Varela. [address] [place] [address], [place], [place], [id number], . tel:[phone] Referring Provider: Anup Melvin, [address] [facility] [address] [place] [address], [address] . tel:[phone] [facility], [address] [place] [address], [id number] , [place] tel:[phone] [facility] No Information 5 Olga Hebert. [address] [facility], [address] [place] [address], [id number], [place]. tel:[phone] [facility], [address] [place] [address], [id number] , tel:[phone] [facility] [place] Dizziness and giddinessAthscl heart disease of [place] coronary artery w/o ang pctrsEssential (primary) hypertension 5 Olga Hebert. [address] [facility], [address] [place] [address], [id number], [place]. tel:[phone] Referring Provider: Anup Melvin, Gald[address] Elizabeth [address] [place] [address], [address] . tel:[phone] REM MNTR PHYSIOL ANJEL DEV [facility], [address] [place] [address], [id number] , tel: [phone] [facility] Essential (primary) hypertension 5 Olga Anup. [address] [facility], [address] [place] [address], [id number], . [phone] Referring Provider: Anup Melvin, [address] [facility] Suite [facility], [place], [address] . tel:[phone] sulting Provider: Anup Melvin, [address] [facility] Suite [facility], [place], [address] . tel:[phone] [facility], [address] [place] [address], [id number] , tel: [phone] [facility] No Information 5 Olga Hebert. [address] [facility], [address] [place] [address], [id number], . [phone] Referring Provider: Anup Melvin, [id number] [place] [address] Suite [facility], [place], [address] . tel:[phone] OFFICE/OUTPA TIENT VISIT, [facility], [address] [place] [address], [id number] , tel:[phone] [facility] feelings of SOB and fainting (chief complaint) DizzinessCoronary artery diseaseHypertensio nHyperlipidemia 5 Ventimiglia Francisca. [address] [place] [address], [id number], . [phone] Referring Provider: Lynn chong, [address] [facility] [address], [place], [address]. tel:[phone] Family History Family Member Type Diagnosis Age At Onset No Information Payers Payer name Insurance type Covered alliance party ID Authoriza tion(s) [place] [id number] [place] [id number] Social History Type Description Quantity Date Captured Comments Sex Male Smoking Status No Information Chief Complaint And Reason For Visit No Information Reason For Referral Reason For Referral No Information Plan Of Treatment Date Type Action Status Appointment Jonah Burgess BOOKED Future Order: Radiology Order Ti lt table test ([id number]), Ordered on: Ordered Future Order: Radiology Order Ti lt table test ([id number]), Ordered on: Ordered Future Order: Lab Order UA/M w/r flx Culture, Routine ([id number]), Ordered on: Ordered Future Order: Lab Order PT/INR ( [id number]), Ordered on: Ordered Future Order: Lab Order PTT ([id number]), Ordered on: Ordered Future Order: Lab Order CBC w/di ff ([id number]), Ordered on: Ordered Future Order: Lab Order CMP ([id number]), Ordered on: Ordered Future Order: Radiology Order LO OP IMPLANT ([id number]), Ordered on: Ordered Future Order: Radiology Order MC T Monitor 14-30 Days ([id number]), Ordered on: Ordered History Of Present Illness [...]
--- OUTSIDE RECORDS SUMMARY | 2025-08-05 17:59 | XMS_ITS | Continuity of Care Document ---
Author Organization [facility] Address [address] [place] [address] Phone Care Team Providers Care Vault Attendant Name Role Phone Olga CANTU, RICHARDSON, Anup [...] Diagnoses Date Provider Providers Copied on Encounter [facility], [address] [place] [address], [id number] , tel:[phone] No Information 5 Olga Hebert. [address] [address] , [address], [id number], [place]. tel:[phone] Referring Provider: Lynn chong, [address] [facility] [address], [address]. tel:[phone] sulting Provider: Anup Melvin, [address] [facility], [place], [address] . tel:[phone] REM MNTR PHYSIOL ANJEL DEV [facility], [address] [place] [address], [id number] , tel:[phone] [facility] Essential (primary) hypertension 5 Olga Hebert. [address] [address] , [address] [place] [address], [id number], . tel:[phone] Referring Provider: Anup Melvin, [address] [place] [address] [place] [address], [address] . tel:[phone] Provider: Anup Melvin, [address] [place] [address] [place] [address], [address] . tel:[phone] REM MNTR PHYSIOL ANJEL DEV [facility] , [address] [place] [address], [id number] , tel: [phone] [facility] Essential (primary) hypertension Oct0 5 Olga Hebert. [address] [place] [address], [address] [place] [address], [id number], . tel:[phone] Referring Provider: Anup Melvin, [address] [place] [address] [place] [address], [address] . tel:[phone] Provider: Anup Melvin, [address] [place] [address] [place] [address], [address] . tel:[phone] REM MNTR PHYSIOL ANJEL DEV [facility] , [address] [place] [address], [id number] , tel: [phone] [facility] Essential (primary) hypertension Sep0 5 Elianup Hebert. [address] [place] [address], [address] [place] [address], [id number], . tel:[phone] Referring Provider: Anup Melvin, [address] [place] [address] [place] [address], [address] . tel:[phone] [facility] Provider: Anup Melvin, [address] [place] [address] [place] [address], [address] . 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 [address] , [address] [place] [address], [id number], [place]. tel:[phone] Referring Provider: Anup Melvin, Galdino Elizabeth [address] [facility], [place], [address] . tel:[phone] [facility] , [address] [place] [address], [id number] , tel: [phone] [facility] [place] Unspecified atrioventricular block 5 Olga Hebert. 622[address]Sandy Elizabeth , [address] [place] [address], [id number], [place]. [phone] Referring Provider: Anup Melvin, Gald[address] Elizabeth [address] [place] [address], [address] . tel:[phone] [facility] , [address] [place] [address], [id number] , tel: [phone] [facility] [place] No Information 5 Ramadan Avery. [address] [place] [address], [id number], . tel:[phone] Referring Provider: Anup Melvin, Gald[address] Elizabeth [address] [place] [address], [address] . tel:[phone] [facility] , [address] [place] [address], [id number] , tel: [phone] [facility] Unspecified atrioventricular block 5 Ramadan Avery. [address] [place] [address], [id number], . [phone] Referring Provider: Galdino Mondragon [address] [place] [address], [address] . tel:[phone] REM MNTR PHYSIOL ANJEL DEV [facility] , [address] [place] [address], [id number] , tel: [phone] [facility] [place] Essential (primary) hypertension 5 Olga Hebert. [address] [address] , [address] [place] [address], [id number], [place]. tel:[phone] Referring Provider: Anup Melvin, [address] Elizabeth [address] [place] [address], [address] . tel:[phone] sulting Provider: Anup Melvin, [address] [facility], [place], [address] . tel:[phone] OFFICE/OUTPA TIENT VISIT, [facility], [address] [place] [address], [id number] , tel:[phone] [facility] [place] feelings of SOB and fainting (chief complaint) HyperlipidemiaHype rtensionCoronary artery diseaseDizzinessAV block 5 Rosibel Varela. [address] [place] [address], [place], [place], [id number], . tel:[phone] Referring Provider: Anup Melvin, [address] [facility] [address] [place] [address], [address] . tel:[phone] [facility], [address] [place] [address], [id number] , [place] tel:[phone] [facility] No Information 5 Olga Hebert. [address] [facility], [address] [place] [address], [id number], [place]. tel:[phone] [facility], [address] [place] [address], [id number] , tel:[phone] [facility] [place] Dizziness and giddinessAthscl heart disease of [place] coronary artery w/o ang pctrsEssential (primary) hypertension 5 Olga Hebert. [address] [facility], [address] [place] [address], [id number], [place]. tel:[phone] Referring Provider: Anup Melvin, Gald[address] Elizabeth [address] [place] [address], [address] . tel:[phone] REM MNTR PHYSIOL ANJEL DEV [facility], [address] [place] [address], [id number] , tel: [phone] [facility] Essential (primary) hypertension 5 Olga Anup. [address] [facility], [address] [place] [address], [id number], . [phone] Referring Provider: Anup Melvin, [address] [facility] Suite [facility], [place], [address] . tel:[phone] sulting Provider: Anup Melvin, [address] [facility] Suite [facility], [place], [address] . tel:[phone] [facility], [address] [place] [address], [id number] , tel: [phone] [facility] No Information 5 Olga Hebert. [address] [facility], [address] [place] [address], [id number], . [phone] Referring Provider: Anup Melvin, [address] [place] [address] Suite [facility], [place], [address] . tel:[phone] OFFICE/OUTPA TIENT VISIT, [facility], [address] [place] [address], [id number] , tel:[phone] [facility] feelings of SOB and fainting (chief complaint) DizzinessCoronary artery diseaseHypertensio nHyperlipidemia 5 Ventimiglia Francisca. [address] [place] [address], [id number], . [phone] Referring Provider: Lynn chong, [address] [facility] [address], [place], [address]. tel:[phone] Family History Family Member Type Diagnosis Age At Onset No Information Payers Payer name Insurance type Covered green party ID Authoriza tion(s) [place] MED[place] [id number] [place] [id number] Social History Type Description Quantity Date Captured Comments Sex Male Smoking Status No Information Chief Complaint And Reason For Visit No Information Reason For Referral Reason For Referral No Information Plan Of Treatment Date Type Action Status Appointment Jonah Burgess BOOKED Future Order: Radiology Order Ti lt table test ([id number]), Ordered on: Ordered Future Order: Radiology Order Ti lt table test ([id number]), Ordered on: Ordered Future Order: Lab Order UA/M w/r flx Culture, Routine ([id number]), Ordered on: Ordered Future Order: Lab Order PT/INR ( [id number]), Ordered on: Ordered Future Order: Lab Order PTT ([id number]), Ordered on: Ordered Future Order: Lab Order CBC w/di ff ([id number]), Ordered on: Ordered Future Order: Lab Order CMP ([id number]), Ordered on: Ordered Future Order: Radiology Order LO OP IMPLANT ([id number]), Ordered on: Ordered Future Order: Radiology Order MC T Monitor 14-30 Days ([id number]), Ordered on: Ordered History Of Present Illness [...]
--- OUTSIDE RECORDS SUMMARY | 2025-08-05 17:59 | XMS_ITS | Continuity of Care Document ---
Author Organization [facility] Address [address] [place] [address] Phone Care Team Providers Care Svp Monetization Name Role Phone Olga CANTU, RICHARDSON, Anup [...] Diagnoses Date Provider Providers Copied on Encounter [facility], [address] [place] [address], [id number] , tel:[phone] No Information 5 Olga Hebert. [address] [address] , [address], [id number], [place]. tel:[phone] Referring Provider: Lynn chong, [address] [facility] [address], [address]. tel:[phone] sulting Provider: Anup Melvin, [address] [facility], [place], [address] . tel:[phone] REM MNTR PHYSIOL ANJEL DEV [facility], [address] [place] [address], [id number] , tel:[phone] [facility] Essential (primary) hypertension 5 Olga Hebert. [address] [address] , [address] [place] [address], [id number], . tel:[phone] Referring Provider: Anup Melvin, [address] [place] [address] [place] [address], [address] . tel:[phone] Provider: Anup Melvin, [address] [place] [address] [place] [address], [address] . tel:[phone] REM MNTR PHYSIOL ANJEL DEV [facility] , [address] [place] [address], [id number] , tel: [phone] [facility] Essential (primary) hypertension Oct0 5 Olga Hebert. [address] [place] [address], [address] [place] [address], [id number], . tel:[phone] Referring Provider: Anup Melvin, [address] [place] [address] [place] [address], [address] . tel:[phone] Provider: Anup Melvin, [address] [place] [address] [place] [address], [address] . tel:[phone] REM MNTR PHYSIOL ANJEL DEV [facility] , [address] [place] [address], [id number] , tel: [phone] [facility] Essential (primary) hypertension Sep0 5 Elianup Hebert. [address] [place] [address], [address] [place] [address], [id number], . tel:[phone] Referring Provider: Anup Melvin, [address] [place] [address] [place] [address], [address] . tel:[phone] [facility] Provider: Anup Melvin, [address] [place] [address] [place] [address], [address] . tel:[phone] [facility] , [address] [place] [address], [id number] , tel: [phone] [facility] [place] post device (chief complaint) Atherosclerotic heart disease of [place] coronary artery without angina pectorisEssential (primary) hypertensionMixed hyperlipidemiaPres ence of cardiac pacemakerDizziness 5 Olga Hebert. [address] [address] , [address] [place] [address], [id number], [place]. tel:[phone] Referring Provider: Anup Melvin, Gald[address] Elizabeth [address] [facility], [place], [address] . tel:[phone] [facility] , [address] [place] [address], [id number] , tel: [phone] [facility] [place] Unspecified atrioventricular block 5 Olga Hebert. 78[address]Sandy Elizabeth , [address] [place] [address], [id number], [place]. [phone] Referring Provider: Anup Melvin, Galdino Elizabeth [address] [place] [address], [address] . tel:[phone] [facility] , [address] [place] [address], [id number] , tel: [phone] [facility] [place] No Information 5 Ramadan Avery. [address] [place] [address], [id number], . tel:[phone] Referring Provider: Anup Melvin, Galdino Elizabeth [address] [place] [address], [address] . tel:[phone] [facility] , [address] [place] [address], [id number] , tel: [phone] [facility] Unspecified atrioventricular block 5 Ramadan Avery. [address] [place] [address], [id number], . [phone] Referring Provider: Galdino Mondragon [address] [place] [address], [address] . tel:[phone] REM MNTR PHYSIOL ANJEL DEV [facility] , [address] [place] [address], [id number] , tel: [phone] [facility] [place] Essential (primary) hypertension 5 Olga Hebert. [address] [address] , [address] [place] [address], [id number], [place]. tel:[phone] Referring Provider: Anup Melvin, [address]Sandy Elizabeth [address] [place] [address], [address] . tel:[phone] sulting Provider: Anup Melvin, [address] [facility], [place], [address] . tel:[phone] OFFICE/OUTPA TIENT VISIT, [facility], [address] [place] [address], [id number] , tel:[phone] [facility] [place] feelings of SOB and fainting (chief complaint) HyperlipidemiaHype rtensionCoronary artery diseaseDizzinessAV block 5 Rosibel Varela. [address] [place] [address], [place], [place], [id number], . tel:[phone] Referring Provider: Anup Melvin, [address] [facility] [address] [place] [address], [address] . tel:[phone] [facility], [address] [place] [address], [id number] , [place] tel:[phone] [facility] No Information 5 Olga Hebert. [address] [facility], [address] [place] [address], [id number], [place]. tel:[phone] [facility], [address] [place] [address], [id number] , tel:[phone] [facility] [place] Dizziness and giddinessAthscl heart disease of [place] coronary artery w/o ang pctrsEssential (primary) hypertension 5 Olga Hebert. [address] [facility], [address] [place] [address], [id number], [place]. tel:[phone] Referring Provider: Anup Melvin, Gald[address] Elizabeth [address] [place] [address], [address] . tel:[phone] REM MNTR PHYSIOL ANJEL DEV [facility], [address] [place] [address], [id number] , tel: [phone] [facility] Essential (primary) hypertension 5 Olga Anup. [address] [facility], [address] [place] [address], [id number], . [phone] Referring Provider: Anup Melvin, [address] [facility] Suite [facility], [place], [address] . tel:[phone] sulting Provider: Anup Melvin, [address] [facility] Suite [facility], [place], [address] . tel:[phone] [facility], [address] [place] [address], [id number] , tel: [phone] [facility] No Information 5 Olga Hebert. [address] [facility], [address] [place] [address], [id number], . [phone] Referring Provider: Anup Melvin, [id number] [place] [address] Suite [facility], [place], [address] . tel:[phone] OFFICE/OUTPA TIENT VISIT, [facility], [address] [place] [address], [id number] , tel:[phone] [facility] feelings of SOB and fainting (chief complaint) DizzinessCoronary artery diseaseHypertensio nHyperlipidemia 5 Ventimiglia Francisca. [address] [place] [address], [id number], . [phone] Referring Provider: Lynn chong, 20[address] [facility] [address], [place], [address]. tel:[phone] Family History Family Member Type Diagnosis Age At Onset No Information Payers Payer name Insurance type Covered constitution party ID Authoriza tion(s) [place] [id number] [place] [id number] Social History Type Description Quantity Date Captured Comments Sex Male Smoking Status No Information Chief Complaint And Reason For Visit No Information Reason For Referral Reason For Referral No Information Plan Of Treatment Date Type Action Status Appointment Jonah Burgess BOOKED Future Order: Radiology Order Ti lt table test ([id number]), Ordered on: Ordered Future Order: Radiology Order Ti lt table test ([id number]), Ordered on: Ordered Future Order: Lab Order UA/M w/r flx Culture, Routine ([id number]), Ordered on: Ordered Future Order: Lab Order PT/INR ( [id number]), Ordered on: Ordered Future Order: Lab Order PTT ([id number]), Ordered on: Ordered Future Order: Lab Order CBC w/di ff ([id number]), Ordered on: Ordered Future Order: Lab Order CMP ([id number]), Ordered on: Ordered Future Order: Radiology Order LO OP IMPLANT ([facility]-[id number]), Ordered on: Ordered Future Order: Radiology Order MC T Monitor 14-30 Days ([facility]-[id number]), Ordered on: Ordered History Of Present Illness [...]
--- OUTSIDE RECORDS SUMMARY | 2025-08-05 17:59 | XMS_ITS | Continuity of Care Document ---
Author Organization [facility] Address [address] [place] [address] Phone Care Team Providers Care Medical Technologist Generalist Name Role Phone Olga CANTU, RICHARDSON, Anup [...] Diagnoses Date Provider Providers Copied on Encounter [facility], [address] [place] [address], [id number] , tel:[phone] No Information 5 Olga Hebert. [address] , [address], [id number], [place]. tel:[phone] Referring Provider: Lynn chong, [address] [facility] [address], [place], [address]. tel:[phone] sulting Provider: Anup Melvin, [address] [facility], [place], [place], [address] . tel:[phone] REM MNTR PHYSIOL ANJEL DEV [facility], [address] [place] [address], [id number] , tel:[phone] [facility] Essential (primary) hypertension 5 Olga Hebert. [address] [address] , [address] [place] [address], [id number], . tel:[phone] Referring Provider: Anup Melvin, [address] [place] [address] [place] [address], [address] . tel:[phone] [facility] Provider: Anup Melvin, [address] [place] [address] [place] [address], [address] . tel:[phone] REM MNTR PHYSIOL ANJEL DEV [facility] , [address] [place] [address], [id number] , tel: [phone] [facility] Essential (primary) hypertension Oct0 5 Olga Hebert. [address] [place] [address], [address] [place] [address], [id number], . tel:[phone] Referring Provider: Anup Melvin, [address] [place] [address] [place] [address], [address] . tel:[phone] [facility] Provider: Anup Melvin, [address] [place] [address] [place] [address], [address] . tel:[phone] REM MNTR PHYSIOL ANJEL DEV [facility] , [address] [place] [address], [id number] , tel: [phone] [facility] Essential (primary) hypertension Sep0 5 Elianup Hebert. [address] [place] [address], [address] [place] [address], [id number], . tel:[phone] Referring Provider: Anup Melvin, [address] [place] [address] [place] [address], [address] . tel:[phone] [facility] Provider: Anup Melvin, [address] [place] [address] [place] [address], [address] . tel:[phone] [facility] , [address] [place] [address], [id number] , tel: [phone] [facility] [place] post device (chief complaint) Atherosclerotic heart disease of tanana coronary artery without angina pectorisEssential (primary) hypertensionMixed hyperlipidemiaPres ence of cardiac pacemakerDizziness 5 Olga Hebert. [address] , [address] [place] [address], [id number], [place]. tel:[phone] Referring Provider: Anup Melvin, [address] [facility], [place], [place], [address] . tel:[phone] [facility] , [address] [place] [address], [id number] , tel: [phone] [facility] [place] Unspecified atrioventricular block 5 Olga Hebert. [address] Elizabeth , [address] [place] [address], [id number], [place]. [phone] Referring Provider: Anup Melvin, [address] [place] [address], [address] . tel:[phone] [facility] , [address] [place] [address], [id number] , tel: [phone] [facility] [place] No Information 5 Ramadan Avery. [address] [place] [address], [id number], . tel:[phone] Referring Provider: Anup Melvin, [address] [place] [address], [address] . tel:[phone] [facility] , [address] [place] [address], [id number] , tel: [phone] [facility] Unspecified atrioventricular block 5 Ramadan Avery. [address] [place] [address], [id number], . [phone] Referring Provider: Galdino Mondragon [address] [place] [address], [address] . tel:[phone] REM MNTR PHYSIOL ANJEL DEV [facility] , [address] [place] [address], [id number] , tel: [phone] [facility] [place] Essential (primary) hypertension 5 Olga Hebert. [address] [address] , [address] [place] [address], [id number], [place]. tel:[phone] Referring Provider: Anup Melvin, [address] [place] [address], [address] . tel:[phone] sulting Provider: Anup Melvin, [address] [facility], [place], [place], [address] . tel:[phone] OFFICE/OUTPA TIENT VISIT, [facility], [address] [place] [address], [id number] , [phone] [facility] [place] feelings of SOB and fainting (chief complaint) HyperlipidemiaHype rtensionCoronary artery diseaseDizzinessAV block 5 Rosibel Varela. [address] [place] [address], [place], [place], [id number], . tel:[phone] Referring Provider: Anup Melvin, [address] [facility] [address] [place] [address], [address] . tel:[phone] [facility], [address] [place] [address], [id number] , [place] tel:[phone] [facility] No Information 5 [address]. [address] [facility], [address] [place] [address], [id number], [place]. tel:[phone] [facility], [address] [place] [address], [id number] , tel:[phone] [facility] [place] Dizziness and giddinessAthscl heart disease of tanana coronary artery w/o ang pctrsEssential (primary) hypertension 5 Olga [address]bert. [address] [facility], [address] [place] [address], [id number], [place]. tel:[phone] Referring Provider: Anup Melvin, [address] [place] [address], [address] . tel:[phone] REM MNTR PHYSIOL ANJEL DEV [facility], [address] [place] [address], [id number] , tel: [phone] [facility] Essential (primary) hypertension [address]up[address] [facility], [address] [place] [address], [id number], . [phone] Referring Provider: Anup Melvin, [address] [facility] [address] [facility], [place], [place], [address] . tel:[phone] sulting Provider: Anup Melvin, [address] [facility] [address] [facility] [place], [place], [address] . tel:[phone] [facility], [address] [place] [address], [id number] , tel: [phone] [facility] No Information 5 Olga [address]bert. [address] [facility], [address] [place] [address], [id number], . [phone] Referring Provider: Anup Melvin, [address] [place] [address] [address] [facility] [place], [place], [address] . tel:[phone] OFFICE/OUTPA TIENT VISIT, [facility], [address] [place] [address], [id number] , tel:[phone] [facility] feelings of SOB and fainting (chief complaint) DizzinessCoronary artery diseaseHypertensio nHyperlipidemia 5 Ventimiglia Francisca. [address] [place] [address], [id number], . [phone] Referring Provider: Lynn chong, [address] [facility] [address], [place], [address]. tel:[phone] Family History Family Member Type Diagnosis Age At Onset No Information Payers Payer name Insurance type Covered alliance party ID Authoriza tion(s) [place] MEDICARE PART B [place] [id number] [place] [id number] Social History Type Description Quantity Date Captured Comments Sex Male Smoking Status No Information Chief Complaint And Reason For Visit No Information Reason For Referral Reason For Referral No Information Plan Of Treatment Date Type Action Status Appointment Jonah Burgess BOOKED Future Order: Radiology Order Ti lt table test ([id number]), Ordered on: Ordered Future Order: Radiology Order Ti lt table test ([id number]), Ordered on: Ordered Future Order: Lab Order UA/M w/r flx Culture, Routine ([id number]), Ordered on: Ordered Future Order: Lab Order PT/INR ( [id number]), Ordered on: Ordered Future Order: Lab Order PTT ([id number]), Ordered on: Ordered Future Order: Lab Order CBC w/di ff ([id number]), Ordered on: Ordered Future Order: Lab Order CMP ([id number]), Ordered on: Ordered Future Order: Radiology Order LO OP IMPLANT ([id number]), Ordered on: Ordered Future Order: Radiology Order MC T Monitor 14-30 Days ([id number]), Ordered on: Ordered History Of Present Illness [...]
--- NOTE | 2025-08-24 | CY_PTH ---
PATIENT: Jonah Burgess LOC: [facility]#:[id number] AGE/SX: 74/M ROOM: RE08/24/[address]: Debbie Jhaveri MD : 1950 BED: DIS: 08/24/2025 SPEC #: [id number] RECD: 08/25/25 08:26 STATUS: SALVATORE RECassie #: [id number] LOI: 08/24/25 00:[address]: Debbie Jhaveri DEPT: [facility] Cytology RECD BY: Antoinette Rod ENTERED: 08/25/25 08:29 SP TYPE: Cytology OT DR: Lynn ManningMD Tissues: A - Flow Procedures: Flow Cytometry
--- OUTSIDE RECORDS SUMMARY | 2025-08-24 13:30 | XMS_ITS | Encounter Summary ---
Author Organization [facility] Address [address] [place] [address] Care Team Providers Care Die Technician Name Role Phone Unavailable Primary Care Provider Unavailabl e Encounter Details Date Type Department Care Team (Late st Contact Info) Description 08/24/2025 1:30 PM FIBER DESIGNER Office Visit [facility] Oncology and Hematology - [place] [address] [place] [address] Debbie Jhaveri MD [address] [place] [address] Lymphocytopenia (Primary Dx) Social History Tobacco Use Types Packs/Day Years Used Date Smoking Tobacco: Never Smokeless Tobacco: Never Alcohol Use Standard Drinks/Week Comments Yes 0 (1 standard drink = 0.6 oz pur e alcohol) Occasionally Sex and Gender Information Value Date Recorded Sex Assigned at Not on file Legal Sex Male 10:59 AM CDT Gender Identity Not on file Sexual Orientation Not on file documented as of this encounter Last Filed Vital Signs Vital Sign Reading Time Taken Comments Blood Pressure 140/80 08/24/2025 1:30 PM FIBER DESIGNER Pulse 95 08/24/2025 1:27 PM FIBER DESIGNER Temperature 36.1 C (97 F) 08/24/2025 1:27 PM FIBER DESIGNER Respiratory Rate 15 08/24/2025 1:2 7 PM FIBER DESIGNER Oxygen Saturation 96% 08/24/2025 1:27 PM FIBER DESIGNER Inhaled Oxygen Concentration - - Weight 105.6 kg (232 lb 12.8 oz) 08/24/2025 1:27 PM FIBER DESIGNER Height 177.8 cm (5' 10) 08/24/2025 1:27 PM FIBER DESIGNER Body Mass Index 33.4 08/24/2025 1:27 PM FIBER DESIGNER documented in this encounter Plan of Treatment Upcoming Encounters Date Type Department Care Team (Late st Contact Info) Description 09/14/2025 4:30 PM FIBER DESIGNER Telephone Check Up [facility] Oncology and Hematology - [place] [address] [facility] [address] [place] [address] Cesar Nieto MD [address] [facility] [address] [place] [address] Scheduled Orders Name Type Priority Associated Diagnoses Orde r Schedule CBC WITH DIFFERENTIAL Lab Stat Lymphocytopenia Expected: 08/24/2025, Expires: 08/24/2026 COMPREHENSIVE METABOLIC PANEL Lab Stat Lymphocytopenia Expected: 08/24/2025, Expires: 08/24/2026 LACTATE DEHYDROGENASE Lab Routine Lymphocytopenia Expected: 08/24/2025, Expires: 08/24/2026 BETA 2 MICROGLOBULIN, SERUM Lab Routine Lymphocytopenia Ordered: 08/24/2025 FLOW CYTOMETRY PANEL Lab Routine Lymphocytopenia Ordered: 08/24/2025 documented as of this encounter Visit Diagnoses Diagnosis Lymphocytopenia- Primary documented in this encounter
[2025-08-24 14:25] LABS: Hematocrit 46.6 % (42.0-52.0); Hemoglobin 16.3 g/dL (14.0-18.0); Immature Granulocyte Percent A 0.3 % (0-0.5); Lymphocytes Absolute Auto 1.20 K/mm3 (0.9-3.2); Mean Corpuscular HGB Conc 35.0 g/dl (32-36); Mean Corpuscular Hemoglobin 31.2 pg (26-34); Mean Corpuscular Volume 89.1 fl (80-100); Nucleated Red Blood Cells Absolute Auto 0.000 K/mm3 (0.0-0.012); Nucleated Red Blood Cells Perc 0.0 % (0.0-0.2); Platelet Count Result 231 k/mm3 (150-375); Red Blood Count 5.23 M/mm3 (4.6-6.20); White Blood Count 7.2 K/mm3 (4.5-10.0)
[2025-08-24 17:32] LABS: Alanine Aminotransferase 37 U/L (6-50); Albumin Level 4.5 g/dL (3.5-5.1); Alkaline Phosphatase 87 U/L (38-126); Anion Gap 7 mmol/L (4-12); Aspartate Amino Transferase 104 U/L (17-59); Bilirubin,Total 0.5 mg/dL (0.2-1.3); Blood Urea Nitrogen 22 mg/dL (9-20); Calcium 9.4 mg/dL (8.4-10.2); Carbon Dioxide 25 mmol/L (22-30); Chloride 105 mmol/L (98-107); Estimated Glomerular Filt Rate > 60; Glucose 126 mg/dL (65-110); Potassium 4.5 mmol/L (3.4-5.0); Sodium 137 mmol/L (137-145); Total Protein 7.2 g/dL (6.3-8.2)
--- OUTSIDE RECORDS SUMMARY | 2025-08-24 21:33 | XMS_ITS | Clinical Summary ---
Author Organization [facility] Address [address] [place] [address] Care Team Providers Care Carpentry Foreman Name Role Phone Unavailable Primary Care Provider Unavailabl e Allergies Active Allergy Reactions Criticality Noted Date Comments Oxytetracycline Unknown 05/02/2025 Terramycin oxytetracycline Medications aspirin (ECOTRIN EC) 81 mg Tablet, Delayed Release (E.C.) Take 81 mg by mouth daily. 07/20/2025 Active busPIRone (BUSPAR) 10 mg tablet Take 10 mg by mouth 2 times daily. 07/20/2025 Active cetirizine (ZyrTEC) 10 mg tablet 10 mg. 07/20/2025 Active clopidogreL (PLAVIX) 75 mg Tablet Take 75 mg by mouth daily. 03/28/2025 Active escitalopram oxalate (LEXAPRO) 5 mg tablet Take 5 mg by mouth daily. 03/30/2025 Active ferrous sulfate 325 mg (65 mg iron) tablet Take 325 mg by mouth daily. 01/11/2025 Active finasteride (PROSCAR) 5 mg tablet Take 5 mg by mouth daily. 06/21/2025 Active rosuvastatin (CRESTOR) 20 mg tablet Take 20 mg by mouth daily. 03/28/2025 Active tadalafiL (CIALIS) 20 mg tablet Take 20 mg by mouth 1 time daily as needed. 03/28/2025 Active tamsulosin (FLOMAX) 0.4 mg capsule Take 0.4 mg by mouth daily. 07/20/2025 Active losartan (COZAAR) 25 mg tablet Take 25 mg by mouth daily. Active Encounters Date Type Department Care Team Description 08/24/2025 1:30 PM FOUNDATION DIGGER Office Visit [facility] Oncology and Hematology - [place] [place] [address] Debbie Jhaveri MD Lymphocytopenia (Primary Dx) from Last 3 Months Family History Medical History Relation Name Comments No Known Problems Brother No Known Problems Child 1 No Known Problems Child 2 No Known Problems Child 3 Diabetes Father Heart Disease Father Breast Cancer Mother No Known Problems Sister Relation Name Status Comments Brother Alive Child 1 Alive Child 2 Alive Child 3 Alive Father Mother Sister Alive Social History Tobacco Use Types Packs/Day Years Used Date Smoking Tobacco: Never Smokeless Tobacco: Never Alcohol Use Standard Drinks/Week Comments Yes 0 (1 standard drink = 0.6 oz pur e alcohol) Occasionally Sex and Gender Information Value Date Recorded Sex Assigned at Not on file Legal Sex Male 10:59 AM CDT Gender Identity Not on file Sexual Orientation Not on file Last Filed Vital Signs Vital Sign Reading Time Taken Comments Blood Pressure 140/80 08/24/2025 1:30 PM FOUNDATION DIGGER Pulse 95 08/24/2025 1:27 PM FOUNDATION DIGGER Temperature 36.1 C (97 F) 08/24/2025 1:27 PM FOUNDATION DIGGER Respiratory Rate 15 08/24/2025 1:27 PM FOUNDATION DIGGER Oxygen Saturation 96% 08/24/2025 1:27 PM FOUNDATION DIGGER Inhaled Oxygen Concentration - - Weight 105.6 kg (232 lb 12.8 oz) 08/24/2025 1:27 PM FOUNDATION DIGGER Height 177.8 cm (5' 10) 08/24/2025 1:27 PM FOUNDATION DIGGER Body Mass Index 33.4 08/24/2025 1:27 PM FOUNDATION DIGGER Plan of Treatment Upcoming Encounters Date Type Department Care Team (Late st Contact Info) Description 09/14/2025 4:30 PM FOUNDATION DIGGER Telephone Check Up [facility] Oncology and Hematology - [place] [address] [place] [address] Cesar Nieto MD [address] [facility] [address] [place] [address] Health Maintenance Due Date Last Done Comments FIT-DNA Q 3 years 1997 FIT/FOBT Q 1 year 1997 Flex Sig/CT Colonography Q 5 years 1997 RSV VACCINE (60+ or ) (1 - 1-dose 75+ series) 2027 COLORECTAL SCREENING 05/05/2031 05/05/2021 Colorectal Cancer Screening 05/05/2031 DTAP/TDAP/TD VACCINES (2 - T d or Tdap) 09/21/2031 09/21/2021 ZOSTER VACCINE Completed 10/22/2018, 11/2017, 07/28/2013 PNEUMOCOCCAL VACCINE 50+ YEARS Completed 1 , 07/22/2018, 08/14/2016, Additional history exists COVID-19 Vaccine Completed 07/27/2025, 06/2024, 07/24/2023, Additional history exists INFLUENZA VACCINE Completed 07/27/2025, , 07/08/2023, Additional history exists Insurance MEDICARE PART A AND B [facility] SUPP [facility]
--- OUTSIDE RECORDS SUMMARY | 2025-08-24 21:33 | XMS_ITS | Clinical Summary ---
Author Organization [facility] Address [address] [place], [place] [id number] Care Team Providers Care Growth Hacker Name Role Phone None, Provider MD Primary [...] patient's age to complete this topic Insurance [facility] Care Teams Growth Hacker Relationship Specialty Start Date End Date None, Provider, PCP - General UNKNOWN PHYSICIAN SPECIALTY 01/03/23
--- OUTSIDE RECORDS SUMMARY | 2025-08-24 21:33 | XMS_ITS | Clinical Summary ---
Author Organization [facility] [place] [address] Address [address] [place] [address] Care Team Providers Care Vice Investigator Name Role Phone Tacho Manning MD Primary [...] on file Legal Sex Male 3:14 AM EXPLORATION MANAGER Gender Identity Male 04/18/2025 6:03 PM [...] 1970 Well Visit 65+ 2017 Covid-19 Vaccine (2024-2 6 season) 2025 06/14/2024, 07/24/2023, 07/24/2023, Additional history exists Influenza Vaccine (#1) 2025 4, 07/08/2023, 07/15/2022, Additional history exists DTaP/Tdap/Td Vaccine (2 - Td or Tdap) 09/21/2031 09/21/2021 Zoster Vaccine Completed 10/22/2018, 1011/2017, 07/28/2013 Pneumococcal vaccine 65+ Completed 023, 07/22/2018, 08/14/2016, Additional history exists Insurance MEDICARE [facility] CHOICE PLUS [facility] HMO/PPO Address: [address] [address] [place] [address] MEDICARE [facility] MEDICARE SUPPLEMENT MEDICARE [facility] MEDICARE SUPPLEMENT Care Teams Vice Investigator Relationship Specialty Start Date End Date Tacho Manning MD [address] [address] PCP - General Internal Medicine 10/06/17
--- OUTSIDE RECORDS SUMMARY | 2025-08-24 21:33 | XMS_ITS | Encounter Summary ---
Author Organization [facility] Address [address] [place] [address] Care Team Providers Care Stone Sandblaster Name Role Phone Jordi Friedman MD Primary Care Provider [phone] Encounter Details Date Type Department Care Team (Late st Contact Info) Description 01/22/2024 Lab Requisition [facility] - DermPath Lab [address] [facility] [place] [address] Arlette Marti MD [address] [facility] 3 [place] [address] Social History Tobacco Use Types Packs/Day Years [...] AM CDT) Case Report Dermatopathology Report Case: [id number] Authorizing Provider: Arlette Marti MD Collected: 01/22/2024 09:39 AM Ordering Location: [facility]ician [facility] - Received: 01/23/2024 08:20 AM DermPath Lab [...] neck.The specimen consists of an ellipse measuring [id number] mm and is oriented with the suture/notch [...] characteristic determined by the Dermatopathology Laboratory at [facility], directed by Dr. Phu Ramirez. These tests need not be, and therefore are not, approved by the [place] Food and Drug Administration. The tests are used for clinical purposes. Billing Codes Specimen Charges Stain Charges 41255 1 11188 1 4 5:18 PM CDT DERMATOPATHOLOGY LABORATORY Embedded Images 5:18 PM T DERMATOPATHOLOGY LABORATORY Pathology/Cytolo gy TISSUE SPECIMEN FROM SKIN / Unknown 01/22/2024 9:39 AM CDT 01/23/2024 8:20 AM CDT us Arlette Marti MD LAB - PATHOLOGY/CYTOLOGY ORD ERABLES Final Result DERMATOPATHOLOGY LABORATORY [facility] - Department of Dermatology [facility] Specialized Medicine [facility] [facility], 3[address] Floor [place], [place] [address] [place] [address] documented in this encounter Visit Diagnoses Not on filedocumented in this encounter Care Teams Stone Sandblaster Relationship Specialty Start Date End Date Jordi Friedman MD [address] [facility] [address] [place] [address] PCP - General 01/02/22 documented as of this encounter
--- OUTSIDE RECORDS SUMMARY | 2025-08-24 21:33 | XMS_ITS | Clinical Summary ---
Author Organization [facility] Address [address] [facility] [place] [address] Care Team Providers Care Relationship Advisor Name Role Phone Jordi Friedman MD Primary Care Provider [phone] Source Comments [facility] [employer],non-owned Affiliates and Associated Physician Practices is amultiple site organization consisting of ambulatory clinics and hospital sitesin [place], [place], [place] and [place]. This disclosure is being madepursuant to the Care Everywhere program and may not contain all information available regarding this patient. Last updated 18.[facility] [employer] Social History Tobacco Use Types Packs/Day [...] to complete this topic Insurance MEDICARE [facility] MEDICARE ANTH Care Teams Relationship Advisor Relationship Specialty Start Date End Date Jordi Friedman MD [address] [address] PCP - General 01/02/22
--- OUTSIDE RECORDS SUMMARY | 2025-08-24 21:33 | XMS_ITS | Encounter Summary ---
Author Organization [facility] Address [address] [place] [address] Care Team Providers Care Mortgage Lender Name Role Phone Jordi Friedman MD Primary Care Provider Encounter Details Date Type Department Care Team (Late st Contact Info) Description 01/08/2024 Lab Requisition [facility] - DermPath Lab [address] [facility] [facility], [facility] [place] [address] Arlette Marti MD [address] [facility] [address] [place] [address] Social History Tobacco Use Types Packs/Day Years [...] AM CDT) Case Report Dermatopathology Report Case: [id number] Authorizing Provider: Arlette Marti MD Collected: 01/08/2024 08:32 AM Ordering Location: [facility] - Received: 01/09/2024 12:45 [...] Irregular Border, Brown Macule 4 5:53 PM [facility] DERMATOPATHOLOGY LABORATORY Gross Description Specimen A: Received is one formalin filled container labeled with the patient's name and designated right posterior neck. The specimen consists of a shave biopsy measuring 7x6x1 mm. Jar 0. 4 5:53 PM [facility] DERMATOPATHOLOGY LABORATORY Microscopic Description Specimen A. SKIN, [...] Dr. Michaela Maurer who agrees. 5:53 PM [facility] DERMATOPATHOLOGY LABORATORY Disclaimer An external and internal positive and negative controls are appropriate for the histochemical, immunohistochemical and immunofluorescence stain(s) in this case (if any), except where stated explicitly. The performance characteristics of the stain(s) cited in this report were developed and its performance characteristic determined by the Dermatopathology Laboratory at [facility], directed by Dr. Phu Ramirez. These tests need not be, and therefore are not, approved by the [place] Food and Drug Administration. The tests are used for clinical purposes. Billing Codes Specimen Charges Stain Charges 02266 1 51853 [id number] 66257 1 1 1 4 5:53 PM CDT DERMATOPATHOLOGY LABORATORY Embedded Images 4 5:53 PM CDT DERMATOPATHOLOGY LABORATORY Pathology/Cytolo gy TISSUE SPECIMEN FROM SKIN / Unknown 01/08/2024 8:32 AM CDT 01/09/2024 12:45 PM CDT Arlette Marti MD LAB - PATHOLOGY/CYTOLOGY ORD ERABLES Final Result DERMATOPATHOLOGY LABORATORY [facility] - Department of Dermatology [facility] [facility] [phone] documented in this encounter Visit Diagnoses Not on filedocumented in this encounter Care Teams Mortgage Lender Relationship Specialty Start Date End Date Jordi Friedman MD [address] [facility] [address] [place] [address] PCP - General 01/02/22 documented as of this encounter
== END 2025-08-24 14:09 | disposition home or self-care (01) ==
LOC: ANHLAB 14:09
PROVIDERS: PCP Internal Medicine; Visit Provider Internal Medicine Hematology & Oncology
DX: D72.810 Lymphocytopenia (principal)
CPT/HCPCS: 36415; 80053; 82232; 83615; 85025; 88184